=== PATIENT | female | born 1975 | race Caucasian/White ===

== ENCOUNTER 2020-11-10 16:23 | Emergency (ER) | payer OTHER ==
[2020-11-10] MEDS ORDERED: diphenhydrAMINE 50 MG/ML 1 ML VIAL IVP STA (16:56)
[2020-11-10] MEDS ORDERED: METOCLOPRAMIDE 5 MG/ML 2 ML VIAL IVP STA (16:56)
[2020-11-10] MEDS ORDERED: KETOROLAC 15 MG/ML 1 ML VIAL IVP STA (16:57)
[2020-11-10] MEDS ORDERED: MAGNESIUM SULFATE-D5W PMX 1 GM in DEXTROSE/WATER 1 100ML.BAG IVPB ONE (17:20)
[2020-11-10 17:30] VITALS: RESP 18
--- NOTE | 2020-11-10 17:33 | ED ---
Headache HPI - General Chief Complaint: Headache Stated Complaint: Head pain Time Seen by Provider: 11/10/20 16:44 Mode of arrival: ambulatory Limitations: no limitations - History of Present Illness Initial Comments: Patient is a 45-year-old female with history of recurrent migraines presenting to emergency Department with a chief complaint of a migraine. Patient reports having migraine for the past 4 days. He states this was a gradual onset and not worst headache of her leg. She does report nausea but no vomiting. She also reports photosensitivity. States this feels a typical migraine but it is not going away. States 4 days ago she saw her neurologist, , who administered a migraine cocktail with no significant improvement in symptoms. Patient states she has had multiple lumbar fractures and is scheduled to have another one soon by the neurologist. Patient also reports having multiple MRIs and CAT scans of the brain with no significant findings. Patient states that she's also had a temperature over the last 4 days but not today. - Related Data Home Medications Medication Instructions Recorded Confirmed Atorvastatin [Lipitor] 20 mg PO HS 10/07/14 10/07/14 Dextroamphetamine/Amphetamine 30 mg PO QAM 10/07/14 10/07/14 [Adderall Xr] FLUoxetine HCL 40 mg PO DAILY 10/07/14 10/07/14 Ibuprofen [Motrin] 800 mg PO Q8HR PRN 10/07/14 10/07/14 Loratadine [Claritin] 40 mg PO DAILY 10/07/14 10/07/14 Timolol 0.5% Ophth Soln [Timoptic] 1 drop BOTH EYES DAILY 10/07/14 10/07/14 hydroCHLOROthiazide [Hydrodiuril] 25 mg PO DAILY 10/07/14 10/07/14 metFORMIN HCL [Glucophage] 500 mg PO BID 10/07/14 10/07/14 Previous Rx's Medication Instructions Recorded Hydrocodone/Acetaminophen [[place] 1 each PO Q6HR PRN #30 tab 10/07/14 5-325] Ondansetron Odt [Zofran ODT] 4 mg PO Q8HR PRN #30 tab 10/07/14 Allergies Allergy/AdvReac Type Severity Reaction Status Date / Time ciprofloxacin [From Cipro] Allergy Rash/Hives Verified 11/10/20 16:30 ciprofloxacin HCl Allergy Rash/Hives Verified 11/10/20 16:30 [From Cipro] Sulfa (Sulfonamide Allergy Rash/Hives Verified 11/10/20 16:30 Antibiotics) Review of Systems ROS Statement: Those systems with pertinent positive or pertinent negative responses have been documented in the HPI. ROS Other: All systems not noted in ROS Statement are negative. Past Medical History Past Medical History: Diabetes Mellitus, Eye Disorder, Hyperlipidemia, Hypertension, Renal Disease Additional Past Medical History / Comment(s): GLAUCOMA; MIGRAINES History of Any Multi-Drug Resistant Organisms: None Reported Past Surgical History: Cholecystectomy Additional Past Surgical History / Comment(s): OVARY SURGERY; EYE SURGERY Past Psychological History: No Psychological Hx Reported Smoking Status: Never smoker Past Alcohol Use History: None Reported Past Drug Use History: None Reported General Exam Limitations: no limitations General appearance: alert, in no apparent distress Head exam: Present: atraumatic, normocephalic, normal inspection Eye exam: Present: normal appearance, PERRL, scleral icterus, conjunctival injection, nystagmus Pupils: Present: normal accommodation ENT exam: Present: normal exam, normal oropharynx, mucous membranes moist, TM's normal bilaterally, normal external ear exam Neck exam: Present: normal inspection, full ROM. Absent: tenderness (No tenderness around the neck. Negative Brudzinski sign.) Respiratory exam: Present: normal lung sounds bilaterally. Absent: respiratory distress, wheezes, rales Cardiovascular Exam: Present: regular rate, normal rhythm, normal heart sounds. Absent: systolic murmur, diastolic murmur GI/Abdominal exam: Present: soft. Absent: distended, tenderness, guarding, rebound Extremities exam: Present: normal inspection, full ROM, normal capillary refill. Absent: tenderness, pedal edema, joint swelling, calf tenderness Back exam: Present: normal inspection, full ROM. Absent: tenderness, CVA te nderness (R), CVA tenderness (L), muscle spasm, paraspinal tenderness, vertebral tenderness Neurological exam: Present: alert, oriented X3, CN II-XII intact, normal gait Psychiatric exam: Present: normal affect, normal mood Skin exam: Present: warm, dry, intact, normal color Course Vital Signs 11/10/20 11/10/20 11/10/20 16:26 17:27 19:03 Temperature 98.7 F 97.7 F Pulse Rate 104 H 90 90 Respiratory 20 18 18 Rate Blood Pressure 107/68 110/95 100/61 O2 Sat by Pulse 99 100 100 Oximetry 11/10/20 21:08 Temperature 97.6 F Pulse Rate 91 Respiratory 18 Rate Blood Pressure 120/81 O2 Sat by Pulse 98 Oximetry Medical Decision Making - Medical Decision Making 45 year old female with history of migraine headaches presenting to the emergency department with a chief complaint of a migraine. Physical examination is unremarkable. Patient did have photosensitivity along with some nausea. Patient was given antiemetics, IV fluids, magnesium, dexamethasone and analgesia. CBC CMP is unremarkable. Patient already received multiple MRIs and CTs of the head. CT imaging was discussed with patient, she declined. Patient has full range of motion in neck with mild tenderness. Negative Brudzinski sign. Meningitis very unlikely. On reevaluation, patient reports improvement in symptoms. She will also be discharged with a Tylenol 3 starter pack and some Zofran. Patient also passed a by mouth challenge in the ED. Return parameters were thoroughly discussed with patient is an attending ago. Case discussed with physician. - Lab Data Result diagrams: 11/10/20 17:15 11/10/20 17:15 Lab Results 11/10/20 11/10/20 Range/Units 17:15 17:15 WBC 9.1 (3.8-10.6) k/uL RBC 4.46 (3.80-5.40) m/uL Hgb 12.0 (11.4-16.0) gm/dL Hct 37.6 (34.0-46.0) % MCV 84.2 (80.0-100.0) fL MCH 26.9 (25.0-35.0) pg MCHC 31.9 (31.0-37.0) g/dL RDW 15.1 (11.5-15.5) % Plt Count 388 (150-450) k/uL MPV 7.8 Neutrophils % 63 % Lymphocytes % 28 % Monocytes % 3 % Eosinophils % 4 % Basophils % 1 % Neutrophils # 5.7 (1.3-7.7) k/uL Lymphocytes # 2.5 (1.0-4.8) k/uL Monocytes # 0.3 (0-1.0) k/uL Eosinophils # 0.4 (0-0.7) k/uL Basophils # 0.1 (0-0.2) k/uL Hypochromasia Slight Sodium 140 (137-145) mmol/L Potassium 4.0 (3.5-5.1) mmol/L Chloride 116 H (98-107) mmol/L Carbon Dioxide 15 L (22-30) mmol/L Anion Gap 9 mmol/L BUN 7 (7-17) mg/dL Creatinine 0.84 (0.52-1.04) mg/dL Est GFR (CKD-EPI)AfAm >90 (>60 ml/min/1.73 sqM) Est GFR (CKD-EPI)NonAf 84 (>60 ml/min/1.73 sqM) Glucose 127 H (74-99) mg/dL Calcium 9.3 (8.4-10.2) mg/dL Total Bilirubin 0.3 (0.2-1.3) mg/dL AST 21 (14-36) U/L ALT 21 (4-34) U/L Alkaline Phosphatase 144 H (38-126) U/L Total Protein 6.9 (6.3-8.2) g/dL Albumin 3.9 (3.5-5.0) g/dL Disposition Clinical Impression: Headache Disposition: HOME SELF-CARE Condition: Stable Instructions (If sedation given, give patient instructions): Acute Headache (ED) Additional Instructions: Take prescribed medication as directed. Follow with primary care physician. Return to emergency department if symptoms worsen. Is patient prescribed a controlled substance at d/c from ED?: No Referrals: Carol Hernandez MD [Primary Care Provider] - 1-2 days Time of Disposition: 20:49
[2020-11-10 17:35] LABS: Basophils # (A) 0.1 k/uL (0-0.2); Basophils % (A) 1 %; Eosinophils # (A) 0.4 k/uL (0-0.7); Eosinophils % (A) 4 %; HCT 37.6 % (34.0-46.0); Hypochromasia Slight; Lymphocytes # (A) 2.5 k/uL (1.0-4.8); Lymphocytes % (A) 28 %; MCH 26.9 pg (25.0-35.0); MCHC 31.9 g/dL (31.0-37.0); MCV 84.2 fL (80.0-100.0); Mean Platelet Volume 7.8; Monocytes # (A) 0.3 k/uL (0-1.0); Monocytes % (A) 3 %; Neutrophils # (A) 5.7 k/uL (1.3-7.7); Neutrophils % (A) 63 %; Platelet Count 388 k/uL (150-450); RBC 4.46 m/uL (3.80-5.40); RDW 15.1 % (11.5-15.5); WBC 9.1 k/uL (3.8-10.6)
[2020-11-10 17:44] LABS: ALT 21 U/L (4-34); AST 21 U/L (14-36); African American GFR (CKD) >90 (>60 ml/min/1.73 sqM); Albumin 3.9 g/dL (3.5-5.0); Alkaline Phosphatase 144 U/L (38-126); Anion Gap 9 mmol/L; Blood Urea Nitrogen 7 mg/dL (7-17); Calcium 9.3 mg/dL (8.4-10.2); Carbon Dioxide 15 mmol/L (22-30); Chloride 116 mmol/L (98-107); Glucose 127 mg/dL (74-99); Non-African American GFR(CKD) 84 (>60 ml/min/1.73 sqM); Sodium 140 mmol/L (137-145); Total Bilirubin 0.3 mg/dL (0.2-1.3); Total Protein 6.9 g/dL (6.3-8.2)
[2020-11-10] MEDS ORDERED: DEXAMETHASONE SOD PHOSPHATE 10 MG/ML 1 ML VIAL IV STA (18:37)
[2020-11-10] MEDS: HYDROmorphone 1 MG/ML 1 ML SYRINGE IVP STA ×2 (18:53→19:03)
[2020-11-10] MEDS ORDERED: SODIUM CHLORIDE 0.9% 1,000 ML IV STA (19:00)
[2020-11-10] MEDS ORDERED: HYDROmorphone 1 MG/ML 1 ML SYRINGE IM STA (19:44)
[2020-11-10] MEDS ORDERED: ACET/COD 300 MG/30 MG STARTER PACK 6 TAB BTL PO STA (20:50)
[2020-11-10 21:09] VITALS: BP 120/81; PULSE 91; TEMP 97.6
== END 2020-11-10 21:11 | disposition home or self-care (01) ==
LOC: EC 16:23
DX: R51.9 Headache, unspecified (principal); L56.8 Other specified acute skin changes due to ultraviolet radiation; R11.0 Nausea; I10 Essential (primary) hypertension; E78.5 Hyperlipidemia, unspecified; E11.39 Type 2 diabetes mellitus with other diabetic ophthalmic complication; H42 Glaucoma in diseases classified elsewhere; Z79.899 Other long term (current) drug therapy; Z79.84 Long term (current) use of oral hypoglycemic drugs; Z88.1 Allergy status to other antibiotic agents; Z88.2 Allergy status to sulfonamides
CPT/HCPCS: 36415; 80053; 85025; 99283; 96365; 96375 ×4; 96361; 96372; J1200; J1100; J2765; J1170; J3475; J1885

== ENCOUNTER 2021-01-19 03:31 | Inpatient (IN) | payer OTHER ==
[2021-01-19] MEDS ORDERED: METOCLOPRAMIDE 5 MG/ML 2 ML VIAL IVP STA (03:52)
[2021-01-19] MEDS ORDERED: KETOROLAC 15 MG/ML 1 ML VIAL IVP STA (03:52)
[2021-01-19] MEDS ORDERED: acetaZOLAMIDE 250 MG TAB PO STA (03:52)
[2021-01-19] MEDS ORDERED: diphenhydrAMINE 50 MG/ML 1 ML VIAL IVP STA (03:52)
[2021-01-19] MEDS ORDERED: HYDROmorphone 1 MG/ML 1 ML SYRINGE IVP STA ×3 (04:43→10:23)
[2021-01-19] MEDS ORDERED: methylPREDNISolone SOD SUCCI 125 MG/2 ML VIAL IV STA (04:44)
--- NOTE | 2021-01-19 09:06 | CT ---
EXAMINATION TYPE: CT brain wo con DATE OF EXAM: 01/19/2021 COMPARISON: None HISTORY: Migraine for [address] DLP: 1078.4 mGycm. Automated Exposure Control for Dose Reduction was Utilized. TECHNIQUE: CT scan of the head is performed without contrast. FINDINGS: There is no acute intracranial hemorrhage, mass effect, or midline shift identified. The ventricles and sulci are within normal limits in size. The globes are intact and the visualized sin uses are remarkable for mild inflammatory change, possible mucus retention cyst right maxillary sinus . Cerebellar tonsils extend to the level the foramen magnum. Inferior right orbit shows possible post traumatic change, there is an incomplete appearance at the medial aspect, likely postop changes, adeel elate for appropriate history. Question some mild white matter low-attenuation changes. IMPRESSION: No acute intracranial hemorrhage, mass effect, or midline shift is seen. Cerebellar tons ils extend to the level of the foramen magnum. Findings in the right orbit as described, possible dem yelination change.
--- NOTE | 2021-01-19 10:26 | ED ---
Headache HPI - General Chief Complaint: Headache Stated Complaint: Headache Time Seen by Provider: 01/19/21 03:36 Mode of arrival: EMS Limitations: no limitations - History of Present Illness Initial Comments: This patient is a 45-year-old woman who presents to be evaluated for severe headache that is not improving with her home analgesics. The patient states that she has a problem with what she is referring to as an obstruction. She states that she is scheduled to see a neurosurgeon in late January, to have consultation for shunt placement. The patient states that she usually sees Dr. Romero who manages her headaches, but she was not able to get an appointment for over 6 weeks from now. She had tried being seen at another hospital, but states they did not treat her. Patient denies fever or chills. No neck stiffness. She does have some blurred vision. No other neurologic symptoms. She states that she has had probably 10 lumbar punctures in the past for these headaches and that usually gives her relief. MD Complaint: headache -: week(s) Onset Description: gradual Location: diffuse Severity: severe Severity scale (1-10): 10 Quality: constant, similar to previous headaches Consistency: constant Improves With: nothing Worsens With: light, noise Treatments Prior to Arrival: prescription analgesic - Related Data Home Medications Medication Instructions Recorded Confirmed Atorvastatin [Lipitor] 20 mg PO DAILY 10/07/14 01/19/21 Dextroamphetamine/Amphetamine 30 mg PO QAM 10/07/14 01/19/21 [Adderall Xr] FLUoxetine HCL 40 mg PO DAILY 10/07/14 01/19/21 Ibuprofen [Motrin] 800 mg PO Q8HR PRN 10/07/14 01/19/21 Loratadine [Claritin] 10 mg PO DAILY 10/07/14 01/19/21 Timolol 0.5% Ophth Soln [Timoptic] 1 drop LEFT EYE DAILY 10/07/14 01/19/21 Acyclovir 400 mg PO DAILY 01/19/21 01/19/21 Butalb/APAP/Caff 50-325-40Mg 1 tab PO TID PRN 01/19/21 01/19/21 [Fioricet 50-325-40] Cephalexin [Keflex] 500 mg PO QID 01/19/21 01/19/21 Cyclobenzaprine [Flexeril] 10 mg PO HS PRN 01/19/21 01/19/21 Fluticasone Nasal [place] [Flonase 1 spr EA NOSTRIL BID PRN 01/19/21 01/19/21 Nasal [place]] Pantoprazole [Protonix] 40 mg PO DAILY 01/19/21 01/19/21 acetaZOLAMIDE [acetaZOLAMIDE ER] 500 mg PO BID 01/19/21 01/19/21 amLODIPine [Norvasc] 10 mg PO DAILY 01/19/21 01/19/21 busPIRone HCL 15 mg PO BID 01/19/21 01/19/21 glyBURIDE [Diabeta] 5 mg PO AC-BID 01/19/21 01/19/21 Allergies Allergy/AdvReac Type Severity Reaction Status Date / Time ciprofloxacin [From Cipro] Allergy Rash/Hives Verified 01/19/21 08:03 ciprofloxacin HCl Allergy Rash/Hives Verified 01/19/21 08:03 [From Cipro] Sulfa (Sulfonamide Allergy Rash/Hives Verified 01/19/21 08:03 Antibiotics) Review of Systems ROS Statement: Those systems with pertinent positive or pertinent negative responses have been documented in the HPI. ROS Other: All systems not noted in ROS Statement are negative. Constitutional: Denies: fever, chills, weakness Eyes: Reports: vision change ENT: Denies: ear pain, congestion Respiratory: Denies: cough, dyspnea Cardiovascular: Denies: chest pain, palpitations Gastrointestinal: Denies: abdominal pain, vomiting, diarrhea Genitourinary: Denies: dysuria, hematuria Musculoskeletal: Denies: back pain Skin: Denies: rash Neurological: Reports: headache. Denies: weakness, numbness, paresthesias, confusion, vertigo Psychiatric: Denies: anxiety Hematological/Lymphatic: Denies: easy bleeding Past Medical History Past Medical History: Diabetes Mellitus, Eye Disorder, Hyperlipidemia, Hypertension, Renal Disease Additional Past Medical History / Comment(s): GLAUCOMA; MIGRAINES History of Any Multi-Drug Resistant Organisms: C-DIFF Date of last positivie culture/infection: May 2019 Past Surgical History: Cholecystectomy Additional Past Surgical History / Comment(s): OVARY SURGERY; EYE SURGERY Past Psychological History: No Psychological Hx Reported, Depression Smoking Status: Never smoker Past Alcohol Use History: None Reported Past Drug Use History: None Reported General Exam Limitations: no limitations General appearance: alert, in no apparent distress Head exam: Present: atraumatic, normocephalic Eye exam: Present: normal appearance. Absent: scleral icterus, conjunctival injection Pupils: Present: other (Unable to visualize fundus) ENT exam: Present: normal oropharynx Neck exam: Present: normal inspection, full ROM. Absent: tenderness, meningis mus Respiratory exam: Present: normal lung sounds bilaterally. Absent: respiratory distress, wheezes, rales, rhonchi, stridor Cardiovascular Exam: Present: regular rate, normal rhythm, normal heart sounds. Absent: systolic murmur, diastolic murmur, rubs, gallop GI/Abdominal exam: Present: soft. Absent: distended, tenderness, guarding, rebound, rigid, mass Extremities exam: Present: normal inspection, normal capillary refill. Absent: pedal edema, calf tenderness Back exam: Present: normal inspection. Absent: CVA tenderness (R), CVA tenderness (L) Neurological exam: Present: alert Skin exam: Present: warm, dry, intact, normal color. Absent: rash Course Vital Signs 01/19/21 01/19/21 01/19/21 03:33 06:54 10:43 Temperature 98.3 F Pulse Rate 92 96 102 H Respiratory 16 18 18 Rate Blood Pressure 134/83 131/79 128/81 O2 Sat by Pulse 100 98 98 Oximetry Medical Decision Making - Medical Decision Making Patient's 45-year-old woman with intractable headache. She does see Dr. Romero and I did call and speak with him. One of his MAs did confirm that patient has history of diagnosis of pseudotumor cerebri. Patient had multiple rounds of medications still complaining of intractable severe headache. Case then discussed with neurology who requests consult to anesthesiology for lumbar puncture. Disposition Clinical Impression: Headache, Pseudotumor cerebri Dis[facility] Condition: Fair Instructions (If sedation given, give patient instructions): Acute Headache (ED) Is patient prescribed a controlled substance at d/c from ED?: No Referrals: Carol Hernandez MD [Primary Care Provider] - 1-2 days Jorge A Romero MD [Medical Doctor] - 1-2 days
[2021-01-19] MEDS ORDERED: NALOXONE 0.4 MG/ML 1 ML VIAL IV PRN (11:01)
[2021-01-19] MEDS: ONDANSETRON 4 MG/2 ML VIAL IVP PRN (12:10)
[2021-01-19] MEDS: HYDROmorphone 0.5 MG/0.5 ML SYRINGE IVP PRN ×4 (14:51→23:48)
[2021-01-19] MEDS ORDERED: PROCHLORPERAZINE INJ 10 MG/2 ML VIAL IVP PRN (15:31)
[2021-01-19] MEDS ORDERED: CYCLOBENZAPRINE 10 MG TAB PO PRN (15:33)
--- NOTE | 2021-01-19 15:41 | P.HPIM ---
History of Present Illness 45-year-old female came in with compensative severe headaches in the posterior scalp area. Patient's headache is constant has been going on for last couple days much worse. Patient the head diagnosis of pseudotumor cerebra supposed to see a neurosurgeon for [employer] shunt. Patient is on acetazolamide I do not have name basic metabolic profile available patient was also told she has migraine/cluster headaches. Patient had lumbar purges in the past. Patient denied any fever chills. She denied nausea vomiting or like symptom or weakness at this time. Patient denied any photophobia or phonophobia. Review of Systems REVIEW OF SYSTEMS: CONSTITUTIONAL: No fever, no malaise, no fatigue. HEENT: No recent visual problems or hearing problems. Denied any sore throat. CARDIOVASCULAR: No chest pain, orthopnea, PND, no palpitations, no syncope. PULMONARY: No shortness of breath, no cough, no hemoptysis. GASTROINTESTINAL: No diarrhea, no nausea, no vomiting, no abdominal pain. NEUROLOGICAL: no weakness, no numbness. HEMATOLOGICAL: Denies any bleeding or petechiae. GENITOURINARY: Denies any burning micturition, frequency, or urgency. MUSCULOSKELETAL/RHEUMATOLOGICAL: Denies any joint pain, swelling, or any muscle pain. ENDOCRINE: Denies any polyuria or polydipsia. The rest of the 14-point review of systems is negative. Past Medical History Past Medical History: Diabetes Mellitus, Eye Disorder, Hyperlipidemia, Hypertension, Renal Disease Additional Past Medical History / Comment(s): GLAUCOMA; MIGRAINES History of Any Multi-Drug Resistant Organisms: C-DIFF Date of last positivie culture/infection: May 2019 Past Surgical History: Cholecystectomy Additional Past Surgical History / Comment(s): OVARY SURGERY; EYE SURGERY Past Psychological History: No Psychological Hx Reported, Depression Smoking Status: Never smoker Past Alcohol Use History: None Reported Past Drug Use History: None Reported Medications and Allergies Home Medications Medication Instructions Recorded Confirmed Type Atorvastatin [Lipitor] 20 mg PO DAILY 10/07/14 01/19/21 History Dextroamphetamine/Amphetamine 30 mg PO QAM 10/07/14 01/19/21 History [Adderall Xr] FLUoxetine HCL 40 mg PO DAILY 10/07/14 01/19/21 History Ibuprofen [Motrin] 800 mg PO Q8HR PRN 10/07/14 01/19/21 History Loratadine [Claritin] 10 mg PO DAILY 10/07/14 01/19/21 History Timolol 0.5% Ophth Soln [Timoptic] 1 drop LEFT EYE DAILY 10/07/14 01/19/21 History Acyclovir 400 mg PO DAILY 01/19/21 01/19/21 History Butalb/APAP/Caff 50-325-40Mg 1 tab PO TID PRN 01/19/21 01/19/21 History [Fioricet 50-325-40] Cephalexin [Keflex] 500 mg PO QID 01/19/21 01/19/21 History Cyclobenzaprine [Flexeril] 10 mg PO HS PRN 01/19/21 01/19/21 History Fluticasone Nasal [place] [Flonase 1 spr EA NOSTRIL BID PRN 01/19/21 01/19/21 History Nasal [place]] Pantoprazole [Protonix] 40 mg PO DAILY 01/19/21 01/19/21 History acetaZOLAMIDE [acetaZOLAMIDE ER] 500 mg PO BID 01/19/21 01/19/21 History amLODIPine [Norvasc] 10 mg PO DAILY 01/19/21 01/19/21 History busPIRone HCL 15 mg PO BID 01/19/21 01/19/21 History glyBURIDE [Diabeta] 5 mg PO AC-BID 01/19/21 01/19/21 History Allergies Allergy/AdvReac Type Severity Reaction Status Date / Time ciprofloxacin [From Cipro] Allergy Rash/Hives Verified 01/19/21 08:03 ciprofloxacin HCl Allergy Rash/Hives Verified 01/19/21 08:03 [From Cipro] Sulfa (Sulfonamide Allergy Rash/Hives Verified 01/19/21 08:03 Antibiotics) Physical Exam Vitals: Vital Signs Temp Pulse Resp BP Pulse Ox 01/19/21 14:55 98.4 F 100 16 102/71 96 01/19/21 11:16 98.6 F 105 H 18 114/97 96 01/19/21 10:43 102 H 18 128/81 98 01/19/21 06:54 96 18 131/79 98 01/19/21 03:33 98.3 F 92 16 134/83 100 Intake and Output 01/19/21 01/19/21 01/19/21 06:59 14:59 22:59 Other: Weight 90.718 kg PHYSICAL EXAMINATION: GENERAL: The patient is alert and oriented x3, not in any acute distress. Well developed, well nourished. HEENT: Pupils are round and equally reacting to light. EOMI. No scleral icterus. No conjunctival pallor. Normocephalic, atraumatic. No pharyngeal erythema. No thyromegaly. CARDIOVASCULAR: S1 and S2 present. No murmurs, rubs, or gallops. PULMONARY: Chest is clear to auscultation, no wheezing or crackles. ABDOMEN: Soft, nontender, nondistended, normoactive bowel sounds. No palpable organomegaly. MUSCULOSKELETAL: No joint swelling or deformity. EXTREMITIES: No cyanosis, clubbing, or pedal edema. NEUROLOGICAL: Gross neurological examination did not reveal any focal deficits. SKIN: No rashes. Assessment and Plan Plan: -History of headache: Patient had history of pseudotumor cerebri may need an LP with opening pressure and also drainage of some CSF patient was started on acetazolamide. Unsure whether patient has history of migraine. Neurology will be consulted patient will be started on Compazine for migraine along with Benadryl to avoid side effects from migraine along with nonsteroidal anti- inflammatory started having. -Depression -hyperlipidemia -Hypertension -Type 2 diabetes mellitus -DVT prophylaxis early ambulation
[2021-01-19] MEDS: SODIUM CHLORIDE 0.9% 1,000 ML IV SCH (16:11)
[2021-01-19 16:19] LABS: African American GFR (CKD) >90 (>60 ml/min/1.73 sqM); Anion Gap 12 mmol/L; Blood Urea Nitrogen 9 mg/dL (7-17); Carbon Dioxide 14 mmol/L (22-30); Chloride 113 mmol/L (98-107); Glucose 223 mg/dL (74-99); Non-African American GFR(CKD) >90 (>60 ml/min/1.73 sqM); Sodium 139 mmol/L (137-145)
[2021-01-19] MEDS: TIMOLOL 0.5% OPHTH DROPS 5 ML BTL LEFT EYE SCH (18:35)
[2021-01-19 20:21] LABS: Glucose,Whole Blood 193 mg/dL (75-99)
[2021-01-19] MEDS ORDERED: FAMOTIDINE 20 MG TAB PO SCH (21:00)
[2021-01-19] MEDS: acetaZOLAMIDE 250 MG TAB PO SCH (21:02)
[2021-01-19] MEDS: busPIRone HCl 5 MG TAB PO SCH (21:02)
[2021-01-19] MEDS: glipiZIDE 10 MG TAB PO SCH (21:02)
[2021-01-19] MEDS: KETOROLAC 15 MG/ML 1 ML VIAL IVP PRN (23:56)
[2021-01-20] MEDS: HYDROmorphone 0.5 MG/0.5 ML SYRINGE IVP PRN ×6 (02:55→23:41)
[2021-01-20] MEDS: KETOROLAC 15 MG/ML 1 ML VIAL IVP PRN ×4 (05:56→23:41)
[2021-01-20] MEDS: glipiZIDE 10 MG TAB PO SCH ×2 (06:40→17:55)
[2021-01-20 07:13] LABS: Glucose,Whole Blood 146 mg/dL (75-99)
[2021-01-20] MEDS: acetaZOLAMIDE 250 MG TAB PO SCH ×2 (08:10→20:49)
[2021-01-20] MEDS: ATORVASTATIN 20 MG TAB PO SCH (08:10)
[2021-01-20] MEDS: ACYCLOVIR 200 MG CAP PO SCH (08:10)
[2021-01-20] MEDS: FLUoxetine HCL 20 MG CAP PO SCH (08:10)
[2021-01-20] MEDS: PANTOPRAZOLE 40 MG/10 ML VIAL IV SCH (08:10)
[2021-01-20] MEDS: busPIRone HCl 5 MG TAB PO SCH ×2 (08:10→20:49)
[2021-01-20] MEDS: LORATADINE 10 MG TAB PO SCH (08:10)
[2021-01-20] MEDS: TIMOLOL 0.5% OPHTH DROPS 5 ML BTL LEFT EYE SCH (08:11)
--- NOTE | 2021-01-20 09:59 | P.CNNES ---
History of Present Illness Consult date: 01/19/21 Requesting physician: Fabian Bermudez Reason for Consult: Migraine History of Present Illness: Patient is a 45-year-old female, who has history of headaches since she was a "kid". Patient states that she underwent partial hysterectomy 2 years ago after which her headaches became worse. He started seeing Dr. Ngo in about a year ago she was diagnosed with pseudotumor cerebri. Patient states that when she underwent lumbar puncture the first time, the pressure was "off the chart", and she uses the #194, which I'm not sure indicates centimeter or millimeter. Patient states that in the last 1 year she had 10 times lumbar puncture and each time the pressure was high. If the pressure was low, it was because the needle was not positioned correctly. Patient states that sometimes headaches improve significantly after the lumbar puncture but not every time. Patient has been placed on Diamox 250 mg twice a day but recently the dose was increased to 500 mg twice a day. Patient states that she is being considered for one of the shunting procedure for her intractable headaches and pseudotumor. Patient states that she was seen by an sweeper driver, and she does not have glaucoma. Patient has previously failed Permax 50 mg twice a day. She now takes Fioricet as needed. The headache at present involves the back of the head or top of the head and she rates it 9/10. She gets nausea, occasional vomiting. She gets photophobic and phonophobic. She does see little black dots in her vision or dots of other colors. Patient states that she had a couple syncopal spells as well in the past from headache, but has not happened for the last 7-8 months. She had EEG performed at her primary neurologist office which according to her were normal. Patient states the headaches are very severe, rates 9/10. With Dilaudid, it goes down to 8/10 but does not take the headache away. Patient became emotional talking about her headache. Patient states that as her headaches were getting worse, she wanted to see her neurologist for lumbar puncture but they did not have time available therefore patient was referred to ER. Patient denies any taking control pills. She does not smoke does not drink, occasionally drinks a glass of wine. CT head showed no acute intracranial hemorrhage, mass effect or midline shift. Cerebellar tonsils extend to the level of foramen magnum. Findings in the right orbit as described, possible postop change. Patient's blood test shows normal electrolytes, chloride is slightly elevated BUN 13. Renal functions normal. Glucose is elevated. Hepatic panel normal. Harish acuna's last spinal fluid from 10/30/2019 shows 8 RBC, 0 WBC, total protein 37. Richard virus not detected. Review of Systems As above in detail. All other 14 point of review systems reviewed and unremarkable. Past Medical History Past Medical History: Diabetes Mellitus, Eye Disorder, Hypertension, Renal Disease Additional Past Medical History / Comment(s): GLAUCOMA; MIGRAINES History of Any Multi-Drug Resistant Organisms: None Reported Date of last positivie culture/infection: May 2019 Past Surgical History: Cholecystectomy, Hysterectomy Additional Past Surgical History / Comment(s): OVARY SURGERY; EYE SURGERY Past Anesthesia/Blood Transfusion Reactions: Postoperative Nausea & Vomiting (PONV) Past Psychological History: No Psychological Hx Reported, Depression Smoking Status: Never smoker Past Alcohol Use History: None Reported Past Drug Use History: None Reported - Past Family History Mother Family Medical History: COPD, Diabetes Mellitus Father Family Medical History: Coronary Artery Disease (CAD), Diabetes Mellitus Additional Family Medical History / Comment(s): dad Medications and Allergies Home Medications Medication Instructions Recorded Confirmed Type Atorvastatin [Lipitor] 20 mg PO DAILY 10/07/14 01/19/21 History Dextroamphetamine/Amphetamine 30 mg PO QAM 10/07/14 01/19/21 History [Adderall Xr] FLUoxetine HCL 40 mg PO DAILY 10/07/14 01/19/21 History Ibuprofen [Motrin] 800 mg PO Q8HR PRN 10/07/14 01/19/21 History Loratadine [Claritin] 10 mg PO DAILY 10/07/14 01/19/21 History Timolol 0.5% Ophth Soln [Timoptic] 1 drop LEFT EYE DAILY 10/07/14 01/19/21 History Acyclovir 400 mg PO DAILY 01/19/21 01/19/21 History Butalb/APAP/Caff 50-325-40Mg 1 tab PO TID PRN 01/19/21 01/19/21 History [Fioricet 50-325-40] Cephalexin [Keflex] 500 mg PO QID 01/19/21 01/19/21 History Cyclobenzaprine [Flexeril] 10 mg PO HS PRN 01/19/21 01/19/21 History Fluticasone Nasal Frederick [Flonase 1 spr EA NOSTRIL BID PRN 01/19/21 01/19/21 History Nasal Frederick] Pantoprazole [Protonix] 40 mg PO DAILY 01/19/21 01/19/21 History acetaZOLAMIDE [acetaZOLAMIDE ER] 500 mg PO BID 01/19/21 01/19/21 History amLODIPine [Norvasc] 10 mg PO DAILY 01/19/21 01/19/21 History busPIRone HCL 15 mg PO BID 01/19/21 01/19/21 History glyBURIDE [Diabeta] 5 mg PO AC-BID 01/19/21 01/19/21 History Allergies Allergy/AdvReac Type Severity Reaction Status Date / Time ciprofloxacin [From Cipro] Allergy Rash/Hives Verified 01/19/21 08:03 ciprofloxacin HCl Allergy Rash/Hives Verified 01/19/21 08:03 [From Cipro] Sulfa (Sulfonamide Allergy Rash/Hives Verified 01/19/21 08:03 Antibiotics) Physical Examination - Vital Signs Vital Signs: Vital Signs Temp Pulse Pulse Resp BP BP Pulse Ox 01/19/21 17:52 98.5 F 93 16 116/77 95 01/19/21 17:30 98.0 F 90 16 119/78 96 01/19/21 14:55 98.4 F 100 16 102/71 96 01/19/21 11:16 98.6 F 105 H 18 114/97 96 01/19/21 10:43 102 H 18 128/81 98 01/19/21 06:54 96 18 131/79 98 01/19/21 03:33 98.3 F 92 16 134/83 100 Intake and Output 01/19/21 01/19/21 01/19/21 06:59 14:59 22:59 Other: Weight 90.718 kg 96.8 kg On examination patient is a middle aged female, very pleasant, in no acute distress. Patient is obese. Speech and language functions are normal. Attention, concentration and fund of knowledge is adequate. On cranial nerve examination pupils are round and reactive to light, visual rodriguez are full, extraocular muscles are intact with no nystagmus. Face is symmetric, tongue protrudes to the midline. Palatal elevation sensation normal, hearing and shoulder shrug normal. On muscle strength testing there is no pronator drift and the strength is normal in arms and legs distally and proximally. Deep tendon reflexes are 2+ all over and plantars are downgoing. Sensory touch is equal. No ataxia for [id number] or [id number] testing, tone and bulk of muscles normal. Gait normal. On general examination is dear is no carotid bruit or murmur, peripheral pulses are present. Abdomen soft nontender, chest is clear. No peripheral edema. Results - Laboratory Findings CBC and BMP: 01/19/21 16:00 Abnormal Lab Findings: Abnormal Labs 01/19/21 16:00 Chloride 113 H Carbon Dioxide 14 L Glucose 223 H Assessment and Plan Assessment: * Chronic daily headaches. Pseudotumor cerebri. * Diabetes Plan: * Patient will undergo diagnostic and therapeutic lumbar puncture tomorrow. Opening and closing pressure needs to be checked. Spinal fluid will be sent for basic testing. * Continue Diamox 500 mg twice a day. * Continue Fioricet as stated. * Patient at present on Dilaudid for headache control. * Patient after lumbar puncture could be potentially discharged and follow up with her neurologist.
[2021-01-20 12:02] LABS: Glucose,Whole Blood 159 mg/dL (75-99)
[2021-01-20] MEDS: SODIUM CHLORIDE 0.9% 1,000 ML IV SCH (12:37)
[2021-01-20] MEDS: INSULIN ASPART (NovoLOG) 100 UNIT/ML VIAL SQ SCH ×3 (12:38→20:54)
[2021-01-20 12:45] LABS: Anisocytosis Slight; Basophils % (A) 1 %; Eosinophils # (A) 0.2 k/uL (0-0.7); Eosinophils % (A) 2 %; HCT 34.2 % (34.0-46.0); HGB 10.8 gm/dL (11.4-16.0); Hypochromasia Moderate; Lymphocytes # (A) 2.4 k/uL (1.0-4.8); Lymphocytes % (A) 33 %; MCH 26.9 pg (25.0-35.0); MCHC 31.6 g/dL (31.0-37.0); MCV 85.2 fL (80.0-100.0); Mean Platelet Volume 7.9; Monocytes # (A) 0.4 k/uL (0-1.0); Monocytes % (A) 5 %; Neutrophils # (A) 4.2 k/uL (1.3-7.7); Neutrophils % (A) 58 %; Platelet Count 397 k/uL (150-450); RBC 4.01 m/uL (3.80-5.40); RDW 16.1 % (11.5-15.5); WBC 7.2 k/uL (3.8-10.6)
[2021-01-20 13:01] LABS: African American GFR (CKD) >90 (>60 ml/min/1.73 sqM); Anion Gap 11 mmol/L; Blood Urea Nitrogen 10 mg/dL (7-17); Calcium 8.7 mg/dL (8.4-10.2); Carbon Dioxide 16 mmol/L (22-30); Chloride 114 mmol/L (98-107); Glucose 152 mg/dL (74-99); Non-African American GFR(CKD) >90 (>60 ml/min/1.73 sqM); Potassium 3.9 mmol/L (3.5-5.1); Sodium 141 mmol/L (137-145)
--- NOTE | 2021-01-20 13:44 | P.PN ---
Subjective Progress Note Date: 01/20/21 45-year-old female came in with compensative severe headaches in the posterior scalp area. Patient's headache is constant has been going on for last couple days much worse. Patient the head diagnosis of pseudotumor cerebra supposed to see a neurosurgeon for DRUM STENCILER shunt. Patient is on acetazolamide I do not have name basic metabolic profile available patient was also told she has migraine/cluster headaches. Patient had lumbar purges in the past. Patient denied any fever chills. She denied nausea vomiting or like symptom or weakness at this time. Patient denied any photophobia or phonophobia. 01/20/2021 Patient is seen and evaluated and follow-up continues to have headache with some intermittent nausea and currently awaiting to undergo lumbar puncture with neurology. Patient does follow-up with neurosurgeon Dr. Loja out of [place] and is awaiting to undergo DRUM STENCILER shunt in the near future. Patient does follow with Dr. Romero outpatient neurology. Labs within normal limits today. Blood sugars elevated and will start sliding scale monitor Accu-Cheks before meals at bedtime. Review of systems: Constitutional: No reports of fatigue, fever, or chills Cardiovascular: No reports of chest pain or palpitations Respiratory: No reports of shortness of breath or cough GI: Intermittent nausea, vomiting, or diarrhea : No reports of dysuria or retention Neurovascular: No reports of weakness or numbness, reports continued headache and light sensitivity All medications have been reviewed Objective - Vital Signs Vital signs: Vital Signs Temp 97.6 F 01/20/21 08:05 Pulse 98 01/20/21 08:05 Resp 16 01/20/21 08:05 BP 116/74 01/20/21 08:05 Pulse Ox 96 01/20/21 08:05 Intake & Output 01/19/21 01/20/21 01/20/21 18:59 06:59 18:59 Intake Total 0 0 Balance 0 0 Weight 96.8 kg Intake: Oral 0 0 Other: Voiding Method Toilet # Voids 1 1 - Exam GENERAL: The patient is alert and oriented x3, not in any acute distress. Well developed, well nourished. HEENT: Pupils are round and equally reacting to light. EOMI. No scleral icterus. No conjunctival pallor. Normocephalic, atraumatic. No pharyngeal erythema. No thyromegaly. CARDIOVASCULAR: S1 and S2 present. No murmurs, rubs, or gallops. PULMONARY: Chest is clear to auscultation, no wheezing or crackles. ABDOMEN: Soft, nontender, nondistended, normoactive bowel sounds. No palpable organomegaly. MUSCULOSKELETAL: No joint swelling or deformity. EXTREMITIES: No cyanosis, clubbing, or pedal edema. NEUROLOGICAL: Gross neurological examination did not reveal any focal deficits. SKIN: No rashes. - Labs CBC & Chem 7: 01/20/21 12:16 01/20/21 12:16 Labs: Abnormal Lab Results - Last 24 Hours (Table) 01/19/21 01/19/21 01/20/21 Range/Units 16:00 20:20 07:11 Chloride 113 H (98-107) mmol/L Carbon Dioxide 14 L (22-30) mmol/L Glucose 223 H (74-99) mg/dL POC Glucose (mg/dL) 193 H 146 H (75-99) mg/dL Assessment and Plan Assessment: -History of headache: Patient had history of pseudotumor cerebri may need an LP with opening pressure and also drainage of some CSF patient was started on acetazolamide. Unsure whether patient has history of migraine. Neurology following and patient awaiting to undergo LP -Depression -hyperlipidemia -Hypertension -Type 2 diabetes mellitus, elevated blood sugars today will continue to monitor Accu-Cheks before meals at bedtime and start sliding scale -DVT prophylaxis early ambulation Plan: Continue with current medications, avoid IV narcotics and continue with migraine cocktail. Patient awaiting LP and will await report. Neurology following. Patient also instructed to continue following outpatient with neurosurgeon Dr. Loja of [place] as she is expected to be having a DRUM STENCILER shunt placed. Patient does follow with Dr. Romero outpatient. Will discontinue IV fluids once diet has been restarted
[2021-01-20] MEDS ORDERED: IV FLUID CONTINUATION 1,000 ML IV ONE (15:28)
[2021-01-20] MEDS ORDERED: fentaNYL (PF) 50 MCG/ML 2 ML AMP IVP ONE (15:33)
[2021-01-20] MEDS ORDERED: MIDAZOLAM 2 MG/2 ML VIAL IVP ONE (15:34)
[2021-01-20 16:43] LABS: Appearance,CSF Clear; CSF Tube Number 4; CSF Tube Volume 3
[2021-01-20 16:44] LABS: Nucleated Cells, CSF 0 u/L (0-5); Red Blood Cell,CSF 0 u/L (0-10)
[2021-01-20 16:52] LABS: Glucose,CSF 94 mg/dL (40-70); Total Protein,CSF 49 mg/dL (12-60)
[2021-01-20 17:32] LABS: Glucose,Whole Blood 123 mg/dL (75-99)
--- NOTE | 2021-01-20 19:28 | P.PCN ---
Date of Procedure: 01/20/21 Procedure(s) Performed: Preoperative diagnosis: Pseudotumor cerebre Post operative diagnoses: Pseudotumor cerebri Procedure= lumbar puncture Anesthesia local infiltration with lidocaine 1% 2 mL. and Versed 2 mg and fentanyl 50 g Condition: stable Complication: none. Description of the procedure procedure risk and benefits discussed with the patient , consent signed. Patient and the procedure area placed in lateral position ( right side down ), back prepped with chlorhexidine 3 times been local infiltration of the skin and subcutaneous tissue with lidocaine 1% 3 mL for skin and subcu interstitial frustrations at L4- 5 levels then 20-gauge Quincke-type needle advanced slowly at L4- 5 interlaminar space there was positive cerebrospinal fluid which was clear, no heme, no paresthesia ,total of 14 ML of clear cerebrospinal fluid collected in 4 different tubes 3-3-1/2 mL in each, then the needle removed and a Band-Aid applied and patient tolerated the procedure well without any complications. Opening pressure= 43 cm water. Closing pressure =after removal of 14 ML of cerebrospinal fluid dropped to 24 cm of water
[2021-01-20] MEDS: MORPHINE SULFATE 4 MG/ML SYRINGE IV PRN (20:49)
[2021-01-20 21:04] LABS: Glucose,Whole Blood 151 mg/dL (75-99)
[2021-01-20 21:53] LABS: Hemoglobin A1C 6.6 % (4.0-6.0)
[2021-01-21] MEDS: MORPHINE SULFATE 4 MG/ML SYRINGE IV PRN ×2 (02:26→08:05)
[2021-01-21] MEDS: HYDROmorphone 0.5 MG/0.5 ML SYRINGE IVP PRN ×2 (05:56→11:58)
[2021-01-21] MEDS: KETOROLAC 15 MG/ML 1 ML VIAL IVP PRN ×2 (05:56→11:59)
[2021-01-21 06:50] LABS: Glucose,Whole Blood 140 mg/dL (75-99)
[2021-01-21] MEDS: glipiZIDE 10 MG TAB PO SCH (07:33)
[2021-01-21] MEDS: INSULIN ASPART (NovoLOG) 100 UNIT/ML VIAL SQ SCH ×2 (07:33→13:16)
[2021-01-21] MEDS: PANTOPRAZOLE 40 MG/10 ML VIAL IV SCH (07:51)
[2021-01-21] MEDS: busPIRone HCl 5 MG TAB PO SCH (07:52)
[2021-01-21] MEDS: FLUoxetine HCL 20 MG CAP PO SCH (07:52)
[2021-01-21] MEDS: ATORVASTATIN 20 MG TAB PO SCH (07:53)
[2021-01-21] MEDS: LORATADINE 10 MG TAB PO SCH (07:53)
[2021-01-21] MEDS: TIMOLOL 0.5% OPHTH DROPS 5 ML BTL LEFT EYE SCH (07:53)
[2021-01-21] MEDS: acetaZOLAMIDE 250 MG TAB PO SCH (07:54)
[2021-01-21] MEDS: ONDANSETRON 4 MG/2 ML VIAL IVP PRN (09:50)
--- NOTE | 2021-01-21 10:07 | P.PN ---
Subjective Progress Note Date: 01/20/21 Patient was seen for a follow-up. Patient underwent lumbar puncture by anesthesiologist, (in right lateral recumbent position), revealed opening pressure was 43 cm, closing pressure 24 cm. around 14 mL of spinal fluid was collected. Patient states the headache is still present. She is getting Dilaudid now decreased frequency every 6 hours (instead of every 3 hours). Patient states that she is trying to go to sleep. No new focal symptoms. Objective - Vital Signs Vital signs: Vital Signs Temp 97.2 F L 01/20/21 15:30 Pulse 85 01/20/21 18:06 Resp 18 01/20/21 16:20 BP 125/84 01/20/21 18:06 Pulse Ox 98 01/20/21 18:06 Intake & Output 01/20/21 01/20/21 01/21/21 06:59 18:59 06:59 Intake Total 0 880 Balance 0 880 Intake: IV 100 Intake, IV Titration 240 Amount Sodium Chloride 0.9% 1, 240 000 ml @ 20 mls/hr IV . Q24H GOSIA Rx#:[id number] Oral 0 540 Other: Voiding Method Toilet # Voids 1 1 - Exam Patient somnolent, as she is planning to go her sleep. Detail examination deferred. Mentation normal. - Labs CBC & Chem 7: 01/20/21 12:16 01/20/21 12:16 Labs: Abnormal Lab Results - Last 24 Hours (Table) 01/19/21 01/20/21 01/20/21 Range/Units 20:20 07:11 12:00 Hgb (11.4-16.0) gm/dL RDW (11.5-15.5) % Chloride (98-107) mmol/L Carbon Dioxide (22-30) mmol/L Glucose (74-99) mg/dL POC Glucose (mg/dL) 193 H 146 H 159 H (75-99) mg/dL CSF Glucose (40-70) mg/dL 01/20/21 01/20/21 01/20/21 Range/Units 12:16 12:16 15:45 Hgb 10.8 L (11.4-16.0) gm/dL RDW 16.1 H (11.5-15.5) % Chloride 114 H (98-107) mmol/L Carbon Dioxide 16 L (22-30) mmol/L Glucose 152 H (74-99) mg/dL POC Glucose (mg/dL) (75-99) mg/dL CSF Glucose 94 H (40-70) mg/dL 01/20/21 Range/Units 17:30 Hgb (11.4-16.0) gm/dL RDW (11.5-15.5) % Chloride (98-107) mmol/L Carbon Dioxide (22-30) mmol/L Glucose (74-99) mg/dL POC Glucose (mg/dL) 123 H (75-99) mg/dL CSF Glucose (40-70) mg/dL Microbiology - Last 24 Hours (Table) 01/20/21 15:45 CSF Culture - Preliminary Cerebral Spinal Fluid Assessment and Plan Assessment: * Pseudotumor cerebri. Opening pressure 42 cm. * Diabetes * Obesity Plan: * Patient underwent diagnostic and therapeutic lumbar puncture today by anesthesiologist. Opening pressure was 43 cm tomorrow. 14 mL of spinal fluid were collected. Closing pressure was still 24 cm. * CSF shows 0 RBC, 0 WBC, total protein 49 (12-60), glucose 94. Gram stain negative. * Continue Diamox 500 mg twice a day. * Continue Fioricet as needed. * Patient at present on Dilaudid for headache control. Frequency of Dilaudid has been decreased. * Possible discharge in a.m., and follow-up with her neurologist. She may be a candidate for ventriculoperitoneal shunt for persistent elevated ICP.
[2021-01-21] MEDS ORDERED: IV FLUID CONTINUATION 1,000 ML IV ONE (10:25)
[2021-01-21] MEDS ORDERED: MIDAZOLAM 2 MG/2 ML VIAL ONE (10:36)
[2021-01-21] MEDS ORDERED: IOPAMIDOL M200 10 ML VIAL ONE (10:36)
[2021-01-21] MEDS ORDERED: fentaNYL (PF) 50 MCG/ML 2 ML AMP ONE (10:36)
--- NOTE | 2021-01-21 11:13 | P.PCN ---
Date of Procedure: 01/21/21 Description of Procedure: Procedure: Lumbar epidural blood patch. Preoperative diagnosis: Post Dural puncture headache. Postoperative diagnoses: Post Dural puncture headache. Indication for the procedure: patient developed headache after lumbar puncture and headache persists in spite of conservative treatment, there is no focal neurological deficit, no fever. headache worse with sitting and standing position, and improved with lying supine, for this reason patient is a good candidate for epidural blood patch. Anesthesia: 1 mg of Versed and 50 g of fentanyl Complications: none. Description of the procedure Back lumbar area prepped with Betadine 3 times, then drape applied the local i nfiltration of the skin and subcutaneous tissue with lidocaine 1% 3 mL at L3-L4 interlaminar space then a 18-gauge Tuohy needle advanced slowly until loss or resistance was met and confirmed under fluoroscopy with IV contrast dye in the AP and lateral position. Additionally, a 20-gauge IV needle was inserted into the right antecubital and 10 ML of blood was taken from the patient in a sterile fashion, and injected in the epidural space after negative aspiration for heme or CSF. a total of 10 mL's blood was injected until complete resolution of patient's headache. There was no paresthesia then the needle removed intact the skin cleaned and band aid applied and patient discharged back to the floor in stable condition. Patient will back to the 6th floor for her continued medical management by the primary team..
--- NOTE | 2021-01-21 11:34 | FL ---
EXAMINATION TYPE: FL guided pain mgmt statistic DATE OF EXAM: 01/21/2021 HISTORY: Fluoroscopy time 8 seconds of fluoroscopy provided. IMPRESSION: 1. Fluoroscopy time.
[2021-01-21 11:52] VITALS: RESP 18
[2021-01-21 12:50] LABS: Glucose,Whole Blood 143 mg/dL (75-99)
[2021-01-21 12:53] VITALS: BP 111/80; PULSE 91
[2021-01-21] MEDS: ACYCLOVIR 200 MG CAP PO SCH (13:18)
[2021-01-21] MEDS ORDERED: INFLUENZA VACCINE (6 MOS+) 60 MCG/0.5 ML SYRINGE IM ONE (13:22)
[2021-01-21 15:18] VITALS: TEMP 98.1
[2021-01-21] MEDS ORDERED: acetaZOLAMIDE 250 MG TAB PO SCH (21:00)
--- NOTE | 2021-01-22 15:07 | P.DS ---
Providers Date of admission: 01/21/21 09:25 Expected date of discharge: 01/21/21 Attending physician: Fabian Bermudez MD Consults: 01/19/21 11:04 Consult Physician Routine Consulting Provider: Raymond Reynoso Consult Reason/Comments: Lumbar puncture, pseudotumor cerebri Do you want consulting provider notified?: Yes 01/19/21 11:15 Consult Physician Routine Consulting Provider: Meera Russell Consult Reason/Comments: Intractable headache Do you want consulting provider notified?: Already Contacted 01/19/21 14:42 Consult Physician Urgent Consulting Provider: Meera Russell Consult Reason/Comments: migraine Do you want consulting provider notified?: Yes 01/21/21 08:57 Consult to Anesthesia Routine Consulting Provider: Anesthesia,Services Consult Reason/Comments: POST LUMBAR PUNCTURE SAENZ Primary care physician: Carol Hernandez Hospital Course: Final diagnosis -History of headache: Patient had history of pseudotumor cerebri -Depression -hyperlipidemia -Hypertension -Type 2 diabetes mellitus, elevated blood sugars -Continued ongoing nicotine dependence -DVT prophylaxis Discharge disposition Patient is being discharged in a stable condition with guarded prognosis to home. Patient will follow-up with Dr. Katlin Hernandez in the outpatient setting upon discharge. Patient will follow-up with neurology Dr. Romero in the outpatient setting at her scheduled appointment next week. Patient also to follow-up with Dr. Loja neurosurgeon out [facility] as scheduled. Patient to continue with Diamox 250 mg twice daily. Total time taken is greater than 35 minutes. Hospital course 45-year-old female came in with compensative severe headaches in the posterior scalp area. Patient's headache is constant has been going on for last couple days much worse. Patient the head diagnosis of pseudotumor cerebra supposed to see a neurosurgeon for BIOPHYSICS PROFESSOR shunt. Patient is on acetazolamide I do not have name basic metabolic profile available patient was also told she has migraine/cluster headaches. Patient had lumbar purges in the past. Patient denied any fever chills. She denied nausea vomiting or like symptom or weakness at this time. Patient denied any photophobia or phonophobia. 01/20/2021 Patient is seen and evaluated and follow-up continues to have headache with some intermittent nausea and currently awaiting to undergo lumbar puncture with neurology. Patient does follow-up with neurosurgeon Dr. Loja out of [place] and is awaiting to undergo BIOPHYSICS PROFESSOR shunt in the near future. Patient does follow with Dr. Romero outpatient neurology. Labs within normal limits today. Blood sugars elevated and will start sliding scale monitor Accu-Cheks before meals at bedtime. 01/21/2021 Patient is seen in follow-up this morning and continues to have a frontal headache status post lumbar puncture. Anesthesia is currently performing a blood patch and patient is lying supine for at least 1 hour. Patient did have some intermittent nausea although has improved and will continue with Zofran as needed. Patient was on Diamox and will decrease dose to 250 mg twice daily and instructed to follow-up with her neurologist along with neurosurgeon Dr. Loja out of [facility] area for BIOPHYSICS PROFESSOR shunt. Patient had LP done with opening pressure showing 43 with 14 mL's removed and closing pressure 24. She is maintained on Fioricets and will continue at this time. Patient also instructed to follow-up with primary care provider upon discharge. Currently no reports of chest pain, shortness of breath, or palpitations. P atient is afebrile. No reports of nausea or vomiting and patient is tolerating diet. Patient will be discharged home today. On exam vital signs are stable. Temp is 98.1F, pulse is 91, respirations are 18, blood pressure is 111/80, oxygen saturation is 97% on room air. Cardio S1, S2 are muffled. Respiratory system shows diminished breath sounds at the bases with no wheezing or rhonchi noted. Abdomen is soft and obese, and nontender. Nervous system shows no focal deficits. Please refer to medication reconciliation sheet for a list of medications. Patient Condition at Discharge: Fair Plan - Discharge Summary Discharge Rx Participant: No New Discharge Prescriptions: New acetaZOLAMIDE [Diamox] 250 mg PO BID 30 Days #60 tablet Ondansetron Odt [Zofran Odt] 4 mg PO Q8HR PRN #12 tab PRN Reason: Nausea Continue Timolol 0.5% Ophth Soln [Timoptic 0.5% Ophth Soln] 1 drop LEFT EYE DAILY Ibuprofen [Motrin] 800 mg PO Q8HR PRN PRN Reason: Pain Atorvastatin [Lipitor] 20 mg PO DAILY Loratadine [Claritin] 10 mg PO DAILY FLUoxetine HCL 40 mg PO DAILY Dextroamphetamine/Amphetamine [Adderall Xr] 30 mg PO QAM Fluticasone Nasal [place] [Flonase Nasal [place]] 1 spr EA NOSTRIL BID PRN PRN Reason: Allergy Symptoms glyBURIDE [Diabeta] 5 mg PO AC-BID busPIRone HCL 15 mg PO BID Pantoprazole [Protonix] 40 mg PO DAILY Cyclobenzaprine [Flexeril] 10 mg PO HS PRN PRN Reason: Muscle Spasm amLODIPine [Norvasc] 10 mg PO DAILY Acyclovir 400 mg PO DAILY Butalb/APAP/Caff 50-325-40Mg [Fioricet 50-325-40] 1 tab PO TID PRN #12 tab PRN Reason: Migraine Headache Discontinued acetaZOLAMIDE [acetaZOLAMIDE ER] 500 mg PO BID Cephalexin [Keflex] 500 mg PO QID Discharge Medication List Atorvastatin [Lipitor] 20 mg PO DAILY 10/07/14 [History] Dextroamphetamine/Amphetamine [Adderall Xr] 30 mg PO QAM 10/07/14 [History] FLUoxetine HCL 40 mg PO DAILY 10/07/14 [History] Ibuprofen [Motrin] 800 mg PO Q8HR PRN 10/07/14 [History] Loratadine [Claritin] 10 mg PO DAILY 10/07/14 [History] Timolol 0.5% Ophth Soln [Timoptic 0.5% Ophth Soln] 1 drop LEFT EYE DAILY 10/07/14 [History] Acyclovir 400 mg PO DAILY 01/19/21 [History] Cyclobenzaprine [Flexeril] 10 mg PO HS PRN 01/19/21 [History] Fluticasone Nasal [place] [Flonase Nasal [place]] 1 spr EA NOSTRIL BID PRN 01/19/21 [History] Pantoprazole [Protonix] 40 mg PO DAILY 01/19/21 [History] amLODIPine [Norvasc] 10 mg PO DAILY 01/19/21 [History] busPIRone HCL 15 mg PO BID 01/19/21 [History] glyBURIDE [Diabeta] 5 mg PO AC-BID 01/19/21 [History] Butalb/APAP/Caff 50-325-40Mg [Fioricet 50-325-40] 1 tab PO TID PRN #12 tab 01/21/21 [Rx] Ondansetron Odt [Zofran Odt] 4 mg PO Q8HR PRN #12 tab 01/21/21 [Rx] acetaZOLAMIDE [Diamox] 250 mg PO BID 30 Days #60 tablet 01/21/21 [Rx] Follow up Appointment(s)/Referral(s): Jorge A Romero MD [Medical Doctor] - 1-2 days Carol Hernandez MD [Primary Care Provider] - 1-2 days Patient Instructions/Handouts: Acute Headache (ED) Activity/Diet/Wound Care/Special Instructions: pt requesting flu shot before discharge await supine position instructions according to anesthesia prior to dc Activity Limited until follow-up Follow-up with primary care provider upon discharge Follow-up with neurology and neurosurgeon outpatient Continue to monitor blood sugars and keep a diary for primary care follow-up Continue current diet Hold blood pressure medication amlodipine (Norvasc) until primary care follow-up per anesthesia, no strenuous activity or heavy lifting for one week, may experience mild to mod back pain for 2 weeks. Discharge Disposition: HOME SELF-CARE
--- NOTE | 2021-01-22 21:04 | P.PN ---
Subjective Progress Note Date: 01/21/21 Patient was seen for a follow-up. Patient is laying comfortably in the bed, sleeping. Patient states that she developed post-spinal headache, for which she underwent epidural blood patch by anesthesia. She still has headache which he rates 9/10. Her closing pressure was still elevated 24, which may be the cause. Patient was seen for a follow-up. Patient underwent lumbar puncture by anesthesiologist, (in right lateral recumbent position), revealed opening pressure was 43 cm, closing pressure 24 cm. around 14 mL of spinal fluid was collected. Patient states the headache is still present. She is getting Dilaudid now decreased frequency every 6 hours (instead of every 3 hours). Patient states that she is trying to go to sleep. No new focal symptoms. Objective - Vital Signs Vital signs: Vital Signs Temp 98.6 F 01/21/21 11:30 Pulse 91 01/21/21 12:15 Resp 18 01/21/21 12:15 BP 111/80 01/21/21 12:15 Pulse Ox 97 01/21/21 12:15 Intake & Output 01/20/21 01/21/21 01/21/21 18:59 06:59 18:59 Intake Total 880 100 Balance 880 100 Intake: IV 100 100 Intake, IV Titration 240 Amount Sodium Chloride 0.9% 1, 240 000 ml @ 20 mls/hr IV . Q24H GOSIA Rx#:[id number] Oral 540 Other: Voiding Method Toilet # Voids 1 1 - Exam Patient somnolent, but alert and awake.. Detail examination deferred. Menta tion normal. - Labs CBC & Chem 7: 01/20/21 12:16 01/20/21 12:16 Labs: Abnormal Lab Results - Last 24 Hours (Table) 01/20/21 01/20/21 01/20/21 Range/Units 12:16 15:45 17:30 POC Glucose (mg/dL) 123 H (75-99) mg/dL Hemoglobin A1c 6.6 H (4.0-6.0) % CSF Glucose 94 H (40-70) mg/dL 01/20/21 01/21/21 01/21/21 Range/Units 20:53 06:45 12:49 POC Glucose (mg/dL) 151 H 140 H 143 H (75-99) mg/dL Hemoglobin A1c (4.0-6.0) % CSF Glucose (40-70) mg/dL Microbiology - Last 24 Hours (Table) 01/20/21 15:45 CSF Gram Stain - Preliminary Cerebral Spinal Fluid CSF Culture - Preliminary Assessment and Plan Assessment: * Pseudotumor cerebri. Opening pressure 43 cm, closing pressure 24 cm. * Diabetes * Obesity Plan: * Patient continues to have headaches. Suggest continue Diamox. Patient may benefit from Emgality. Suggested patient will discuss with her neurologist. * Patient underwent diagnostic and therapeutic lumbar puncture by anesthesiologist. Opening pressure was 43 cm tomorrow. 14 mL of spinal fluid were collected. Closing pressure was still 24 cm. * CSF shows 0 RBC, 0 WBC, total protein 49 (12-60), glucose 94. Gram stain negative. * Continue Diamox 500 mg twice a day. * Continue Fioricet as needed. * Patient may be a candidate for ventriculoperitoneal shunt for persistent elevated ICP. * Weight reduction treatment may also be considered. * Patient is status post epidural blood patch. Neurologically clear for discharge.
== END 2021-01-21 15:05 | disposition home or self-care (01) | DRG 103 ==
LOC: EC 03:31 → 6PED 11:07 → OBSVTOIN 01-21 09:25
PROVIDERS: ADMIT Internal Medicine; ATTEND Internal Medicine
PROC: 009U3ZZ Drainage of Spinal Canal, Percutaneous Approach (ICD-10-PCS; 2021-01-19)
PROC: 3E0R3GC Introduction of Other Therapeutic Substance into Spinal Canal, Percutaneous Approach (ICD-10-PCS; principal; 2021-01-21 11:30)
DX: G93.2 Benign intracranial hypertension (principal); F32.9 Major depressive disorder, single episode, unspecified; E78.5 Hyperlipidemia, unspecified; I10 Essential (primary) hypertension; Z88.1 Allergy status to other antibiotic agents; Z88.2 Allergy status to sulfonamides; E66.9 Obesity, unspecified; F17.200 Nicotine dependence, unspecified, uncomplicated; G44.009 Cluster headache syndrome, unspecified, not intractable; E11.65 Type 2 diabetes mellitus with hyperglycemia; Z79.84 Long term (current) use of oral hypoglycemic drugs; Z79.899 Other long term (current) drug therapy; Z82.49 Family history of ischemic heart disease and other diseases of the circulatory system; Z90.711 Acquired absence of uterus with remaining cervical stump
CPT/HCPCS: 62270; 62273; 70450; 80048; 82945; 83036; 84157; 85025; 87070; 87205; 87635; 89050; 90686; 96374; 96375; 96376; 99285

== ENCOUNTER 2023-04-19 11:08 | Emergency (ER) | payer OTHER ==
[2023-04-19 11:16] VITALS: RESP 18; TEMP 97.9
[2023-04-19] MEDS ORDERED: HYDROmorphone 1 MG/ML 1 ML SYRINGE IM STA (11:52)
--- NOTE | 2023-04-19 12:15 | ED ---
Upper Extremity HPI - General Chief Complaint: Extremity Injury, Upper Stated Complaint: Dislocated Thumb Time Seen by Provider: 04/19/23 11:22 Source: patient, RN notes reviewed Mode of arrival: ambulatory Limitations: no limitations - History of Present Illness Initial Comments: 47-year-old female presents emergency department with chief complaint of Left thumb pain. Patient states that she had a fall yesterday and went to [facility] in which she was told she had a left thumb dislocation. Patient states that the attempted multiple times to reduce it and then splinted it. Patient states that it's severely painful she was sent home with no pain medication. Patient denies any prior injuries otherwise denies discoloration. - Related Data Home Medications Medication Instructions Recorded Confirmed Atorvastatin [Lipitor] 20 mg PO DAILY 10/07/14 01/19/21 Dextroamphetamine/Amphetamine 30 mg PO QAM 10/07/14 01/19/21 [Adderall Xr] FLUoxetine HCL 40 mg PO DAILY 10/07/14 01/19/21 Ibuprofen [Motrin] 800 mg PO Q8HR PRN 10/07/14 01/19/21 Loratadine [Claritin] 10 mg PO DAILY 10/07/14 01/19/21 Timolol 0.5% Ophth Soln [Timoptic 1 drop LEFT EYE DAILY 10/07/14 01/19/21 0.5% Ophth Soln] Acyclovir 400 mg PO DAILY 01/19/21 01/19/21 Cyclobenzaprine [Flexeril] 10 mg PO HS PRN 01/19/21 01/19/21 Fluticasone Nasal [place] [Flonase 1 spr EA NOSTRIL BID PRN 01/19/21 01/19/21 Nasal [place]] Pantoprazole [Protonix] 40 mg PO DAILY 01/19/21 01/19/21 amLODIPine [Norvasc] 10 mg PO DAILY 01/19/21 01/19/21 busPIRone HCL 15 mg PO BID 01/19/21 01/19/21 glyBURIDE [Diabeta] 5 mg PO AC-BID 01/19/21 01/19/21 Previous Rx's Medication Instructions Recorded Butalb/APAP/Caff 50-325-40Mg 1 tab PO TID PRN #12 tab 01/21/21 [Fioricet 50-325-40] Ondansetron Odt [Zofran Odt] 4 mg PO Q8HR PRN #12 tab 01/21/21 acetaZOLAMIDE [Diamox] 250 mg PO BID 30 Days #60 tablet 01/21/21 HYDROcodone/APAP 7.5-325MG [[place] 1 tab PO Q6HR PRN 3 Days #12 tab 04/19/23 7.5-325] Allergies Allergy/AdvReac Type Severity Reaction Status Date / Time ciprofloxacin [From Cipro] Allergy Rash/Hives Verified 04/19/23 11:16 ciprofloxacin HCl Allergy Rash/Hives Verified 04/19/23 11:16 [From Cipro] Sulfa (Sulfonamide Allergy Rash/Hives Verified 04/19/23 11:16 Antibiotics) Review of Systems ROS Statement: Those systems with pertinent positive or pertinent negative responses have been documented in the HPI. ROS Other: All systems not noted in ROS Statement are negative. Past Medical History Past Medical History: Diabetes Mellitus, Eye Disorder, Hyperlipidemia, Hypertension, Renal Disease Additional Past Medical History / Comment(s): GLAUCOMA; MIGRAINES History of Any Multi-Drug Resistant Organisms: C-DIFF Date of last positivie culture/infection: May 2019 MDRO Source:: stool Past Surgical History: Cholecystectomy Additional Past Surgical History / Comment(s): OVARY SURGERY; EYE SURGERY Past Anesthesia/Blood Transfusion Reactions: Postoperative Nausea & Vomiting (PONV) Past Psychological History: No Psychological Hx Reported, Depression Smoking Status: Never smoker Past Alcohol Use History: None Reported Past Drug Use History: None Reported - Past Family History Mother Family Medical History: COPD, Diabetes Mellitus Father Family Medical History: Coronary Artery Disease (CAD), Diabetes Mellitus Additional Family Medical History / Comment(s): dad General Exam Limitations: no limitations General appearance: alert, in no apparent distress Head exam: Present: atraumatic, normocephalic, normal inspection Eye exam: Present: normal appearance, PERRL, EOMI. Absent: scleral icterus, conjunctival injection, periorbital swelling Respiratory exam: Present: normal lung sounds bilaterally. Absent: respiratory distress, wheezes, rales, rhonchi, stridor Cardiovascular Exam: Present: regular rate, normal rhythm, normal heart sounds. Absent: systolic murmur, diastolic murmur, rubs, gallop, clicks Extremities exam: Present: other (Left thumb noticed splint, cap refill less than 2 seconds no discoloration) Course Vital Signs 04/19/23 04/19/23 11:13 13:17 Temperature 97.9 F Pulse Rate 128 H 104 H Respiratory 18 18 Rate Blood Pressure 116/79 117/83 O2 Sat by Pulse 97 99 Oximetry Medical Decision Making - Medical Decision Making Was pt. sent in by a medical professional or institution ([facility], [facility], urgent care, hospital, or custodial...) When possible be specific @ -No Did you speak to anyone other than the patient for history (EMS, parent, family, police, friend...)? What history was obtained from this source @ -No Did you review nursing and triage notes (agree or disagree)? Why? @ -I reviewed and agree with nursing and triage notes Were old charts reviewed (outside hosp., previous admission, EMS record, old EKG, old radiological studies, urgent care reports/EKG's, custodial records)? Report findings @ -No old charts were reviewed Differential Diagnosis (chest pain, altered mental status, abdominal pain women, abdominal pain men, vaginal bleeding, weakness, fever, dyspnea, syncope, headache, dizziness, GI bleed, back pain, seizure, CVA, palpatations, mental health, musculoskeletal)? @ -Thumb dislocation, thumb fracture, thumb sprain EKG interpreted by me (3pts min.). @ -None X-rays interpreted by me (1pt min.). @ -X-ray of the left thumb shows no acute fracture or dislocation CT interpreted by me (1pt min.). @ -None done U/S interpreted by me (1pt. min.). @ -None done What testing was considered but not performed or refused? (CT, X-rays, U/S, labs)? Why? @ -None What meds were considered but not given or refused? Why? @ -None Did you discuss the management of the patient with other professionals (professionals i.e. [facility] Gabriel, [facility], lab, RT, psych nurse, neonatal social worker, cash register servicer, teacher, delinquency prevention officer, clinical case manager)? Give summary @ -No Was smoking cessation discussed for >3mins.? @ -No Was critical care preformed (if so, how long)? @ -No Were there social determinants of health that impacted care today? How? (Homelessness, low income, unemployed, alcoholism, drug addiction, transportation, low edu. Level, literacy, decrease access to med. care, long term, rehab)? @ -No Was there de-escalation of care discussed even if they declined (Discuss DNR or withdrawal of care, Hospice)? DNR status @ -No What co-morbidities impacted this encounter? (DM, HTN, Smoking, COPD, CAD, Cancer, CVA, ARF, Chemo, Hep., AIDS, mental health diagnosis, sleep apnea, morbid obesity)? @ -None Was patient admitted / discharged? Hospital course, mention meds given and route, prescriptions, significant lab abnormalities, going to OR and other pertinent info. @ -Discharge patient x-rays are negative for acute fracture dislocation. Patient will follow-up with on-call orthopedic hand specialist patient provided pain relief and discharged in stable condition Undiagnosed new problem with uncertain prognosis? @ -No Drug Therapy requiring intensive monitoring for toxicity (Heparin, Nitro, Insulin, Cardizem)? @ -No Were any procedures done? @ -No Diagnosis/symptom? @ -Left thumb sprain Acute, or Chronic, or Acute on Chronic? @ -Acute Uncomplicated (without systemic symptoms) or Complicated (systemic symptoms)? @ -Uncomplicated Side effects of treatment? @ -No Exacerbation, Progression, or Severe Exacerbation? @ -No Poses a threat to life or bodily function? How? (Chest pain, [place], [place], pneumonia, PE, COPD, DKA, ARF, appy, cholecystitis, CVA, Diverticulitis, Homicidal, Suicidal, threat to staff... and all critical care pts) @ -No Disposition Clinical Impression: Pain of left thumb, Sprain of left thumb Disposition: HOME SELF-CARE Condition: Stable Instructions (If sedation given, give patient instructions): Skier's Thumb (ED), Finger Sprain (ED) Additional Instructions: Please return to the Emergency Department if symptoms worsen or any other concerns. Prescriptions: HYDROcodone/APAP 7.5-325MG [[place] 7.5-325] 1 tab PO Q6HR PRN 3 Days #12 tab PRN Reason: pain Is patient prescribed a controlled substance at d/c from ED?: No Referrals: Carol Hernandez MD [Primary Care Provider] - 1-2 days Adelaide Schwab DO [Doctor of Osteopathic Medicine] - 1-2 days Time of Disposition: 13:00
--- NOTE | 2023-04-19 12:15 | XR ---
EXAMINATION TYPE: XR hand complete LT DATE OF EXAM: 04/19/2023 CLINICAL HISTORY: thumb pain, trauma TECHNIQUE: Frontal, lateral and oblique images of the left hand are obtained. COMPARISON: None. FINDINGS: Slightly suboptimal as the thumb remains in oblique orientation on all images obtained Ther e is no acute displaced fracture evident in the left hand. The joint spaces in the left hand appear w ithin normal limits. The overlying soft tissue appears unremarkable. IMPRESSION: As above.
[2023-04-19 13:18] VITALS: BP 117/83; PULSE 104
[2023-04-19] MEDS ORDERED: ACET/COD 300 MG/30 MG STARTER PACK 6 TAB BTL PO STA (13:21)
== END 2023-04-19 13:30 | disposition home or self-care (01) ==
LOC: EC 11:08
DX: S63.602A Unspecified sprain of left thumb, initial encounter (principal); E11.9 Type 2 diabetes mellitus without complications; I10 Essential (primary) hypertension; E78.5 Hyperlipidemia, unspecified; F32.A Depression, unspecified; Z79.84 Long term (current) use of oral hypoglycemic drugs; Z79.899 Other long term (current) drug therapy; Z88.1 Allergy status to other antibiotic agents; Z88.2 Allergy status to sulfonamides; Z90.49 Acquired absence of other specified parts of digestive tract; W19.XXXA Unspecified fall, initial encounter
CPT/HCPCS: 73130; 99283; 96372; J1170

== ENCOUNTER 2023-11-15 05:24 | Observation (INO) | payer OTHER ==
[2023-11-15] MEDS ORDERED: METOCLOPRAMIDE 5 MG/ML 2 ML VIAL IVP STA (06:04)
[2023-11-15] MEDS ORDERED: PANTOPRAZOLE 40 MG/10 ML VIAL IVP STA (06:04)
[2023-11-15] MEDS ORDERED: diphenhydrAMINE 50 MG/ML 1 ML VIAL IVP STA (06:04)
[2023-11-15] MEDS ORDERED: SODIUM CHLORIDE 0.9% 1,000 ML IV STA (06:04)
[2023-11-15] MEDS ORDERED: KETOROLAC 15 MG/ML 1 ML VIAL IVP STA (06:04)
--- NOTE | 2023-11-15 06:13 | ED ---
General Adult HPI - General Source: patient, RN notes reviewed, old records reviewed Mode of arrival: ambulatory Limitations: no limitations <Ryne Horton - Last Filed: 11/15/23 07:38> <Roshan Daniel - Last Filed: 11/15/23 09:52> - General Chief complaint: Urogenital Stated complaint: UTI Time Seen by Provider: 11/15/23 05:42 - History of Present Illness Initial comments: Patient is a 48-year-old female presents emergency Department complaining of multiple complaints. Primary complaint is concern for UTI. States she is having dysuria, suprapubic abdominal discomfort associated with some mild back discomfort which is very typical for UTI symptoms for the patient. Chest states she usually gets headaches with a she currently has. States is a mild headache. 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 Has a history of chronic headaches as well. Patient is also complaining of four-day history of a chest wall tightness and discomfort. Worse with movements of her left arm and twisting the torso. Has some nausea since the symptoms of UTI and started as well. Denies any fevers. Denies any known sick contacts. His no other acute complaints at this time. Does have history diabetes. Presents for further evaluation at this time. No cardiac history for the patient but she does have family members with cardiac disease. (Ryne Horton) - Related Data Home Medications Medication Instructions Recorded Confirmed Atorvastatin [Lipitor] 20 mg PO DAILY 10/07/14 01/19/21 Dextroamphetamine/Amphetamine 30 mg PO QAM 10/07/14 01/19/21 [Adderall Xr] FLUoxetine HCL 40 mg PO DAILY 10/07/14 01/19/21 Ibuprofen [Motrin] 800 mg PO Q8HR PRN 10/07/14 01/19/21 Loratadine [Claritin] 10 mg PO DAILY 10/07/14 01/19/21 Timolol 0.5% Ophth Soln [Timoptic 1 drop LEFT EYE DAILY 10/07/14 01/19/21 0.5% Ophth Soln] Acyclovir 400 mg PO DAILY 01/19/21 01/19/21 Cyclobenzaprine [Flexeril] 10 mg PO HS PRN 01/19/21 01/19/21 Fluticasone Nasal [place] [Flonase 1 spr EA NOSTRIL BID PRN 01/19/21 01/19/21 Nasal [place]] Pantoprazole [Protonix] 40 mg PO DAILY 01/19/21 01/19/21 amLODIPine [Norvasc] 10 mg PO DAILY 01/19/21 01/19/21 busPIRone HCL 15 mg PO BID 01/19/21 01/19/21 glyBURIDE [Diabeta] 5 mg PO AC-BID 01/19/21 01/19/21 Previous Rx's Medication Instructions Recorded Butalb/APAP/Caff 50-325-40Mg 1 tab PO TID PRN #12 tab 01/21/21 [Fioricet 50-325-40] Ondansetron Odt [Zofran Odt] 4 mg PO Q8HR PRN #12 tab 01/21/21 acetaZOLAMIDE [Diamox] 250 mg PO BID 30 Days #60 tablet 01/21/21 HYDROcodone/APAP 7.5-325MG [[place] 1 tab PO Q6HR PRN 3 Days #12 tab 04/19/23 7.5-325] Allergies Allergy/AdvReac Type Severity Reaction Status Date / Time ciprofloxacin [From Cipro] Allergy Rash/Hives Verified 11/15/23 05:35 ciprofloxacin HCl Allergy Rash/Hives Verified 11/15/23 05:35 [From Cipro] Sulfa (Sulfonamide Allergy Rash/Hives Verified 11/15/23 05:35 Antibiotics) Review of Systems ROS Other: All systems not noted in ROS Statement are negative. <Ryne Horton - Last Filed: 11/15/23 07:38> ROS Other: All systems not noted in ROS Statement are negative. <Roshan Daniel - Last Filed: 11/15/23 09:52> ROS Statement: Those systems with pertinent positive or pertinent negative responses have been documented in the HPI. Review of Systems: CONST: Denies fever EYES: Denies blurry vision ENT: Denies nasal congestion C/V: Endorses chest wall pain RESP: Denies shortness of breath GI: Endorses suprapubic abdominal pain : Endorses dysuria SKIN: Denies rash. MSK: Denies joint pain. NEURO: Endorses headache (Ryne Horton) Past Medical History Past Medical History: Diabetes Mellitus, Eye Disorder, Hyperlipidemia, Hypertension, Renal Disease Additional Past Medical History / Comment(s): GLAUCOMA; MIGRAINES History of Any Multi-Drug Resistant Organisms: C-DIFF Date of last positivie culture/infection: May 2019 MDRO Source:: stool Past Surgical History: Appendectomy, Cholecystectomy Additional Past Surgical History / Comment(s): OVARY SURGERY; EYE SURGERY Past Anesthesia/Blood Transfusion Reactions: Postoperative Nausea & Vomiting (PONV) Past Psychological History: Depression Smoking Status: Never smoker Past Alcohol Use History: None Reported Past Drug Use History: None Reported - Past Family History Mother Family Medical History: COPD, Diabetes Mellitus Father Family Medical History: Coronary Artery Disease (CAD), Diabetes Mellitus Additional Family Medical History / Comment(s): dad <Ryne Horton - Last Filed: 11/15/23 07:38> General Exam Limitations: no limitations <Ryne Horton - Last Filed: 11/15/23 07:38> - General Exam Comments Initial Comments: General: Appears in no acute distress. Appears anxious. HEAD: Normal with no signs of head trauma. EYES: PERRLA, EOMI, conjunctiva normal, no discharge. Pupils are 3 mm equal bilaterally. ENT: Hearing grossly intact, normal oropharynx. RESPIRATORY: Clear breath sounds bilaterally. No wheezes, rales, or rhonchi. C/V: Tachycardic. S1 and S2 auscultated, no edema, peripheral pulses 2+ and intact throughout. Patient does have some chest wall tenderness to palpation that is reproducible. Located over the sternum and left upper ribs. ABD: Abd is soft, nontender, nondistended. Minimal suprapubic tenderness to palpation. EXT: Normal range of motion, no obvious deformity SKIN: No rashes or lesions observed on exposed skin. NEURO: Alert and oriented x 4. No obvious focal deficits. (Ryne Horton) Course Vital Signs 11/15/23 11/15/23 11/15/23 05:32 06:01 09:00 Temperature 97.6 F Pulse Rate 128 H 125 H 101 H Respiratory 20 16 16 Rate Blood Pressure 138/83 125/92 119/81 O2 Sat by Pulse 97 99 99 Oximetry Medical Decision Making - EKG Data -: EKG Interpreted by Vt <Ryne Horton - Last Filed: 11/15/23 07:38> - Lab Data Result diagrams: 11/15/23 06:59 11/15/23 06:59 <Roshan Daniel - Last Filed: 11/15/23 09:52> - Medical Decision Making Was pt. sent in by a medical professional or institution (, [facility], [facility], urgent care, hospital, or correction...) When possible be specific @ -No Did you speak to anyone other than the patient for history (EMS, parent, family, police, friend...)? What history was obtained from this source @ -No Did you review nursing and triage notes (agree or disagree)? Why? @ -I reviewed and agree with nursing and triage notes Were old charts reviewed (outside hosp., previous admission, EMS record, old EKG, old radiological studies, urgent care reports/EKG's, correction records)? Report findings @ -Old charts reviewed Differential Diagnosis (chest pain, altered mental status, abdominal pain women, abdominal pain men, vaginal bleeding, weakness, fever, dyspnea, syncope, headache, dizziness, GI bleed, back pain, seizure, CVA, palpatations, mental health, musculoskeletal)? @ -Differential Abdominal Pain Women: Appendicitis, Cholecystitis, diverticulosis, ischemic bowel, pancreatitis, hepatitis, UTI, gastroenteritis, AAA, incarcerated hernia, bowel obstruction, constipation, inflammatory bowel, hepatitis, peptic ulcer disease, splenic infarction, perforated viscus, vulvitis, ovarian torsion, PID, kidney stone, placenta abruption, this is not meant to be an all-inclusive list EKG interpreted by me (3pts min.). @ -As above X-rays interpreted by me (1pt min.). @ -Pending CT interpreted by me (1pt min.). @ -None done U/S interpreted by me (1pt. min.). @ -None done What testing was considered but not performed or refused? (CT, X-rays, U/S, labs)? Why? @ -None What meds were considered but not given or refused? Why? @ -None Did you discuss the management of the patient with other professionals (professionals i.e. MIKEY Gabriel, [facility], lab, RT, psych nurse, health social work professor, talent acquisition relationship manager, teacher, chief operations officer, case management manager)? Give summary @ -No Was smoking cessation discussed for >3mins.? @ -No Was critical care preformed (if so, how long)? @ -No Were there social determinants of health that impacted care today? How? (Homelessness, low income, unemployed, alcoholism, drug addiction, transportation, low edu. Level, literacy, decrease access to med. care, alf, rehab)? @ -No Was there de-escalation of care discussed even if they declined (Discuss DNR or withdrawal of care, Hospice)? DNR status @ -No What co-morbidities impacted this encounter? (DM, HTN, Smoking, COPD, CAD, Cancer, CVA, ARF, Chemo, Hep., AIDS, mental health diagnosis, sleep apnea, morbid obesity)? @ -None Was patient admitted / discharged? Hospital course, mention meds given and route, prescriptions, significant lab abnormalities, going to OR and other pertinent info. @ -Based on the patient's presentation and physical exam, presents with multiple complaints. Patient's urinalysis obtained while she was in triage is contaminated. We'll repeat this time. We will also obtain abdominal laboratory studies, screening EKG as well as troponin. Patient agreement this plan. She'll be symptomatically treated with IV Benadryl, Toradol, Reglan, Protonix and 1 L fluid bolus. Was a delay in obtaining abdominal laboratory studies secondary to difficult IV access. EKG showed nonspecific findings. Chest x-ray reveals no obvious acute cardio pulmonary process. Care transitioned to Dr. Daniel pending results of workup. Undiagnosed new problem with uncertain prognosis? @ -No Drug Therapy requiring intensive monitoring for toxicity (Heparin, Nitro, Insulin, Cardizem)? @ -No Were any procedures done? @ -No (Ryne Horton) Patient reevaluated by myself, Dr. Daniel. Patient states her chest discomfort has actually been coming on for several days and is worse than when she first arrived. Patient states it actually feels like tightness and does worsen with exertion. Patient also states she does have exertional dyspnea associated with this. Patient states headache is improved with medications. Patient states she still has suprapubic discomfort. Patient is one month post appendectomy. D- dimer will be added. Case was discussed in detail with Dr. Barnhart, who will admit covering hospital call. Patient will be given a dose of Rocephin for hemorrhagic cystitis. Diagnosis 1: Hemorrhagic cystitis, 2: Chest pain, 3: Headache Acute on chronic, acute, chronic Patient will be admitted to the hospital for cardiac observation. Patient will receive Rocephin for hemorrhagic cystitis. Admission orders written. (Roshan Daniel) - Lab Data Lab Results 11/15/23 11/15/23 11/15/23 Range/Units 05:41 06:59 06:59 WBC 8.2 (3.8-10.6) k/uL RBC 4.71 (3.80-5.40) m/uL Hgb 11.6 (11.4-16.0) gm/dL Hct 35.5 (34.0-46.0) % MCV 75.4 L (80.0-100.0) fL MCH 24.6 L (25.0-35.0) pg MCHC 32.7 (31.0-37.0) g/dL RDW 16.2 H (11.5-15.5) % Plt Count 446 (150-450) k/uL MPV 7.7 Neutrophils % 86 % Lymphocytes % 10 % Monocytes % 3 % Eosinophils % 0 % Basophils % 0 % Neutrophils # 7.1 (1.3-7.7) k/uL Lymphocytes # 0.8 L (1.0-4.8) k/uL Monocytes # 0.3 (0-1.0) k/uL Eosinophils # 0.0 (0-0.7) k/uL Basophils # 0.0 (0-0.2) k/uL Hypochromasia Moderate Poikilocytosis Slight Anisocytosis Slight Microcytosis Slight Sodium 141 (137-145) mmol/L Potassium 3.8 (3.5-5.1) mmol/L Chloride 111 H (98-107) mmol/L Carbon Dioxide 14 L (22-30) mmol/L Anion Gap 16 mmol/L BUN 9 (7-17) mg/dL Creatinine 0.57 (0.52-1.04) mg/dL Est GFR (CKD-EPI)AfAm >90 (>60 ml/min/1.73 sqM) Est GFR (CKD-EPI)NonAf >90 (>60 ml/min/1.73 sqM) Glucose 128 H (74-99) mg/dL POC Glucose (mg/dL) (70-110) mg/dL POC Glu [employer]othing [employer] ID Calcium 9.9 (8.4-10.2) mg/dL Total Bilirubin 0.5 (0.2-1.3) mg/dL AST 17 (14-36) U/L ALT 25 (4-34) U/L Alkaline Phosphatase 92 (38-126) U/L Troponin I (0.000-0.034) ng/mL Total Protein 6.4 (6.3-8.2) g/dL Albumin 4.0 (3.5-5.0) g/dL Amylase 40 (30-110) U/L Lipase 93 (23-300) U/L Urine Color Yellow Urine Appearance Cloudy H (Clear) Urine pH 6.0 (5.0-8.0) Ur Specific [place] 1.035 (1.001-1.035) Urine Protein Trace H (Negative) Urine Glucose (UA) 4+ H (Negative) Urine Ketones Trace H (Negative) Urine Blood Large H (Negative) Urine Nitrite Negative (Negative) Urine Bilirubin Negative (Negative) Urine Urobilinogen <2.0 (<2.0) mg/dL Ur Leukocyte Esterase Negative (Negative) Urine RBC >182 H (0-5) /hpf Urine WBC 2 (0-5) /hpf Ur Squamous Epith Cells 58 H (0-4) /hpf Urine Bacteria Rare H (None) /hpf Urine Mucus Rare H (None) /hpf Urine Yeast (Budding) Many H (None) /hpf Influenza Type A (PCR) (Not Detectd) Influenza Type B (PCR) (Not Detectd) RSV (PCR) (Not Detectd) SARS-CoV-2 (PCR) (Not Detectd) 11/15/23 11/15/23 11/15/23 Range/Units 06:59 06:59 09:02 WBC (3.8-10.6) k/uL RBC (3.80-5.40) m/uL Hgb (11.4-16.0) gm/dL Hct (34.0-46.0) % MCV (80.0-100.0) fL MCH (25.0-35.0) pg MCHC (31.0-37.0) g/dL RDW (11.5-15.5) % Plt Count (150-450) k/uL MPV Neutrophils % % Lymphocytes % % Monocytes % % Eosinophils % % Basophils % % Neutrophils # (1.3-7.7) k/uL Lymphocytes # (1.0-4.8) k/uL Monocytes # (0-1.0) k/uL Eosinophils # (0-0.7) k/uL Basophils # (0-0.2) k/uL Hypochromasia Poikilocytosis Anisocytosis Microcytosis Sodium (137-145) mmol/L Potassium (3.5-5.1) mmol/L Chloride (98-107) mmol/L Carbon Dioxide (22-30) mmol/L Anion Gap mmol/L BUN (7-17) mg/dL Creatinine (0.52-1.04) mg/dL Est GFR (CKD-EPI)AfAm (>60 ml/min/1.73 sqM) Est GFR (CKD-EPI)NonAf (>60 ml/min/1.73 sqM) Glucose (74-99) mg/dL POC Glucose (mg/dL) 125 H (70-110) mg/dL POC Glu [employer]othing Tr[employer] Workers ID Lamont Herring Calcium (8.4-10.2) mg/dL Total Bilirubin (0.2-1.3) mg/dL AST (14-36) U/L ALT (4-34) U/L Alkaline Phosphatase (38-126) U/L Troponin I <0.012 (0.000-0.034) ng/mL Total Protein (6.3-8.2) g/dL Albumin (3.5-5.0) g/dL Amylase (30-110) U/L Lipase (23-300) U/L Urine Color Urine Appearance (Clear) Urine pH (5.0-8.0) Ur Specific [place] (1.001-1.035) Urine Protein (Negative) Urine Glucose (UA) (Negative) Urine Ketones (Negative) Urine Blood (Negative) Urine Nitrite (Negative) Urine Bilirubin (Negative) Urine Urobilinogen (<2.0) mg/dL Ur Leukocyte Esterase (Negative) Urine RBC (0-5) /hpf Urine WBC (0-5) /hpf Ur Squamous Epith Cells (0-4) /hpf Urine Bacteria (None) /hpf Urine Mucus (None) /hpf Urine Yeast (Budding) (None) /hpf Influenza Type A (PCR) Not Detected (Not Detectd) Influenza Type B (PCR) Not Detected (Not Detectd) RSV (PCR) Not Detected (Not Detectd) SARS-CoV-2 (PCR) Not Detected (Not Detectd) - EKG Data EKG Comments: 12-lead Electrocardiogram Interpretation Note EKG was reviewed and interpreted by myself. 12-lead ECG performed at 0603 is interpreted by me as revealing normal sinus rhythm at a rate of 118 beats per minute. [place] is normal. NV interval is 140 ms, QRS duration is 85 ms, QTc is 372 milliseconds.. Nonspecific T-wave abnormality. R wave progression across the precordium was satisfactory. By my interpretation this EKG is non-diagnostic for acute ischemia. 12-lead Electrocardiogram Interpretation Note EKG was reviewed and interpreted by myself. 12-lead ECG performed at 0537 is interpreted by me as revealing normal sinus rhythm with frequent PACs at a rate of 99 beats per minute. [place] is normal. NV interval is 130 milliseconds, QRS duration is 89 ms, ATC is 389 ms.. There were no ST or T wave abnormalities to suggest myocardial ischemia or injury. R wave progression across the precordium was satisfactory. By my interpretation this EKG is non-diagnostic for acute ischemia. (Ryne Horton) Disposition <Ryne Horton - Last Filed: 11/15/23 07:38> Is patient prescribed a controlled substance at d/c from ED?: No Time of Disposition: 09:52 <Roshan Daniel - Last Filed: 11/15/23 09:52> Clinical Impression: Headache, Chest pain, Hemorrhagic cystitis Disposition: ADMITTED IP TO THIS HOSP Referrals: Carol Serrano MD [Primary Care Provider] - 1-2 days
[2023-11-15 06:40] LABS: Appearance,Urine Cloudy (Clear); Bacteria,Urine Rare /hpf; Bilirubin,Urine Negative (Negative); Blood,Urine Large (Negative); Budding Yeast,Urine Many /hpf; Color,Urine Yellow; Glucose,Urine (UA) 4+ (Negative); Ketones,Urine Trace (Negative); Leukocyte Esterase,Urine Negative (Negative); Mucus,Urine Rare /hpf; Nitrite,Urine Negative (Negative); Protein,Urine Trace (Negative); RBC,Urine >182 /hpf (0-5); Specific Gravity,Urine 1.035 (1.001-1.035); Squamous Epithelial Cell,Urine 58 /hpf (0-4); Urobilinogen,Urine <2.0 mg/dL (<2.0); WBC,Urine 2 /hpf (0-5)
--- NOTE | 2023-11-15 07:09 | XR ---
EXAMINATION TYPE: XR chest 1V portable DATE OF EXAM: 11/15/2023 6:45 AM CLINICAL INDICATION:Female, 48 years old with history of abdominal pain; [facility] COMPARISON: None TECHNIQUE: XR chest 1V portable Frontal view of the chest. FINDINGS: Lungs/Pleura: There is no evidence of pleural effusion, focal consolidation, or pneumothorax. Pulmonary vascularity: Unremarkable. Heart/mediastinum: Cardiomediastinal silhouette is unremarkable. Musculoskeletal: No acute osseous pathology. Intravenous retroperitoneal shunt tubing is present. IMPRESSION: No acute cardiopulmonary disease/process.
[2023-11-15 07:57] LABS: Anisocytosis Slight; Basophils % (A) 0 %; Eosinophils % (A) 0 %; HCT 35.5 % (34.0-46.0); HGB 11.6 gm/dL (11.4-16.0); Hypochromasia Moderate; Lymphocytes # (A) 0.8 k/uL (1.0-4.8); Lymphocytes % (A) 10 %; MCH 24.6 pg (25.0-35.0); MCHC 32.7 g/dL (31.0-37.0); MCV 75.4 fL (80.0-100.0); Mean Platelet Volume 7.7; Microcytosis Slight; Monocytes # (A) 0.3 k/uL (0-1.0); Monocytes % (A) 3 %; Neutrophils # (A) 7.1 k/uL (1.3-7.7); Neutrophils % (A) 86 %; Platelet Count 446 k/uL (150-450); Poikilocytosis Slight; RBC 4.71 m/uL (3.80-5.40); RDW 16.2 % (11.5-15.5); WBC 8.2 k/uL (3.8-10.6)
[2023-11-15 08:25] LABS: ALT 25 U/L (4-34); AST 17 U/L (14-36); African American GFR (CKD) >90 (>60 ml/min/1.73 sqM); Alkaline Phosphatase 92 U/L (38-126); Amylase 40 U/L (30-110); Anion Gap 16 mmol/L; Blood Urea Nitrogen 9 mg/dL (7-17); Calcium 9.9 mg/dL (8.4-10.2); Carbon Dioxide 14 mmol/L (22-30); Chloride 111 mmol/L (98-107); Glucose 128 mg/dL (74-99); Lipase 93 U/L (23-300); Non-African American GFR(CKD) >90 (>60 ml/min/1.73 sqM); Potassium 3.8 mmol/L (3.5-5.1); Sodium 141 mmol/L (137-145); Total Bilirubin 0.5 mg/dL (0.2-1.3); Total Protein 6.4 g/dL (6.3-8.2)
[2023-11-15 09:05] LABS: Glucose,Whole Blood 125 mg/dL (70-110)
[2023-11-15] MEDS ORDERED: MORPHINE SULFATE 4 MG/ML SYRINGE IVP STA (09:42)
[2023-11-15] MEDS ORDERED: ASPIRIN 81 MG PO STA (09:52)
[2023-11-15] MEDS ORDERED: cefTRIAXone IN SWFI 1,000 MG/10 ML SYRINGE IVP STA (09:53)
[2023-11-15 10:26] LABS: Appearance,Urine Clear (Clear); Bilirubin,Urine Negative (Negative); Blood,Urine Negative (Negative); Color,Urine Light Yellow; Glucose,Urine (UA) 4+ (Negative); Ketones,Urine 1+ (Negative); Leukocyte Esterase,Urine Negative (Negative); Nitrite,Urine Negative (Negative); Protein,Urine Trace (Negative); Specific Gravity,Urine 1.034 (1.001-1.035); Urobilinogen,Urine <2.0 mg/dL (<2.0)
[2023-11-15 10:45] LABS: Amphetamine Screen,Urine Detected (NotDetected); Barbiturate Screen,Urine Detected (NotDetected); Benzodiazepines Screen,Urine Detected (NotDetected); Cocaine Screen,Urine Not Detected (NotDetected); Methadone Screen, Urine Not Detected (NotDetected); Opiate Screen,Urine Not Detected (NotDetected); Oxycodone Screen, Urine Not Detected (NotDetected); Phencyclidine Screen,Urine Not Detected (NotDetected); Tricyclic Antidepressant,Urine Detected (NotDetected); Urn Cannabinoid Scrn Not Detected (NotDetected)
[2023-11-15] MEDS ORDERED: NITROGLYCERIN OINT 1 INCH/GM PACKET TOPICAL SCH (12:00)
[2023-11-15 12:11] LABS: Glucose,Whole Blood 135 mg/dL (70-110)
--- NOTE | 2023-11-15 13:02 | P.CRDCN ---
History of Present Illness History of present illness: HISTORY OF PRESENT ILLNESS: This is a 48-year-old female with a past medical history significant for hypertension, hyperlipidemia, diabetes, migraines, C. diff, depression, and REPRODUCER shunt. Patient does not follow with a rn vascular. We have been asked to see the patient in consultation for chest pain. Patient examined at the bedside. Patient states that she was recently hospitalized at [facility] about a month ago for a ruptured appendix. She states she has been having some chest discomfort since that time. She reports seeing her PCP for this and was told it was secondary to her recent ruptured appendix. She states over the past few days she has been having chest pain that is worse with deep inspiration. She also reports that pain occurs after vomiting. She reports walking up and down the stairs at her house will bring on the pain as well. the pain is mostly in the middle of her chest. She denies any radiation of the pain. She denies any shortness of breath. At the time of examination, she is reporting suprapubic pain. She reports a history of chronic cystitis. The patient denies having any previous cardiac workup. She states that both of her parents have coronary artery disease. * EKG reveals sinus tachycardia with T-wave inversions inferiorly. No previous EKG available for comparison. * Chest xray negative for acute cardiopulmonary disease/process * Laboratory data: WBC 8.2. Hemoglobin 11.6. Platelet count 446. D-dimer 0.22. Sodium 141. Potassium 3.8. BUN 9. Creatinine 0.57. Troponin negative 2. * Toxicology is positive for barbiturates, tricyclic antidepressants, amphetamines, and benzodiazepines * Current home cardiac medications include Lipitor 20 mg daily and amlodipine 10 mg daily * No previous echocardiogram or cardiac catheterization available for review in EMR REVIEW OF SYSTEMS: At the time of my exam: CONSTITUTIONAL: Denies fever or chills. HEENT: Denies blurred vision, vision changes, or eye pain. Denies hemoptysis CARDIOVASCULAR: Denies chest pain. Denies orthopnea. Denies PND. Denies palpitations RESPIRATORY: Denies shortness of breath. GASTROINTESTINAL: Denies abdominal pain. Denies nausea or vomiting. HEMATOLOGIC: Denies bleeding disorders. GENITOURINARY: Denies any blood in urine. SKIN: Denies pruitis. Denies rash. PHYSICAL EXAM: VITAL SIGNS: Reviewed. GENERAL: Well-developed in no acute distress. HEENT: Head is normocephalic. Pupils are equal, round. Sclerae anicteric. Mucous membranes of the mouth are moist. Neck supple. No JVD or thyromegaly LUNGS: Respirations even and unlabored. Lungs essentially clear to auscultation bilaterally. HEART: Regular rate and rhythm. S1 and S2 heard. ABDOMEN: Soft. Nondistended. Nontender. Suprapubic tenderness noted. EXTREMITIES: Normal range of motion. No clubbing or cyanosis. Peripheral pulses intact. No lower extremity edema NEUROLOGIC: Awake and alert. Oriented x 3. ASSESSMENT: Chest pain, appears noncardiac, troponin negative 2 Abnormal EKG with T-wave inversions inferiorly, no previous EKG for comparison Urinary tract infection History of chronic cystitis, per patient Elevated lactic acid Hypertension Hyperlipidemia Diabetes History of pseudotumor cerebri with REPRODUCER shunt History of migraines History of C. diff History of depression Morbid obesity: BMI 34.5 PLAN: An acute coronary event has been ruled out Resume home cardiac medications Obtain 2-D echo to assess cardiac structure and function Secondary to patient's risk factors and family history, we will obtain dobutamine stress echo tomorrow NPO at midnight Further recommendations pending patient's course Nurse practitioner note has been reviewed by physician. Signing provider agrees with the documented findings, assessment, and plan of care. Past Medical History Past Medical History: Diabetes Mellitus, Eye Disorder, Hyperlipidemia, Hypertension, Renal Disease Additional Past Medical History / Comment(s): GLAUCOMA; MIGRAINES History of Any Multi-Drug Resistant Organisms: C-DIFF Date of last positivie culture/infection: May 2019 MDRO Source:: stool Past Surgical History: Appendectomy, Cholecystectomy Additional Past Surgical History / Comment(s): OVARY SURGERY; EYE SURGERY Past Anesthesia/Blood Transfusion Reactions: Postoperative Nausea & Vomiting (PONV) Past Psychological History: Depression Smoking Status: Never smoker Past Alcohol Use History: None Reported Past Drug Use History: None Reported - Past Family History Mother Family Medical History: COPD, Diabetes Mellitus Father Family Medical History: Coronary Artery Disease (CAD), Diabetes Mellitus Additional Family Medical History / Comment(s): dad Medications and Allergies Home Medications Medication Instructions Recorded Confirmed Type Atorvastatin [Lipitor] 20 mg PO DAILY 10/07/14 11/15/23 History FLUoxetine HCL 40 mg PO DAILY 10/07/14 11/15/23 History Ibuprofen [Motrin] 800 mg PO Q8HR PRN 10/07/14 11/15/23 History Loratadine [Claritin] 10 mg PO DAILY 10/07/14 11/15/23 History Timolol 0.5% Ophth Soln [Timoptic 1 drop LEFT EYE DAILY 10/07/14 11/15/23 History 0.5% Ophth Soln] Acyclovir 400 mg PO DAILY 01/19/21 11/15/23 History Cyclobenzaprine [Flexeril] 10 mg PO BID PRN 01/19/21 11/15/23 History Fluticasone Nasal [place] [Flonase 1 spr EA NOSTRIL BID PRN 01/19/21 11/15/23 History Nasal [place]] Pantoprazole [Protonix] 40 mg PO DAILY 01/19/21 11/15/23 History amLODIPine [Norvasc] 10 mg PO DAILY 01/19/21 11/15/23 History busPIRone HCL 15 mg PO BID 01/19/21 11/15/23 History Butalb/APAP/Caff 50-325-40Mg 1 tab PO TID PRN #12 tab 01/21/21 11/15/23 Rx [Fioricet 50-325-40] Ondansetron Odt [Zofran Odt] 4 mg PO Q8HR PRN #12 tab 01/21/21 11/15/23 Rx HYDROcodone/APAP 5-325MG [[place] 1 tab PO Q6HR PRN 11/15/23 11/15/23 History 5-325] Lisdexamfetamine Dimesylate 60 mg PO QAM 11/15/23 11/15/23 History [Vyvanse] Semaglutide [Wegovy] 2.4 mg SQ WE 11/15/23 11/15/23 History hydrOXYzine HCL [Atarax] 50 mg PO BID PRN 11/15/23 11/15/23 History metFORMIN HCL 1,000 mg PO BID 11/15/23 11/15/23 History methocarbamoL [Robaxin-750] 750 mg PO TID PRN 11/15/23 11/15/23 History Allergies Allergy/AdvReac Type Severity Reaction Status Date / Time ciprofloxacin [From Cipro] Allergy Rash/Hives Verified 11/15/23 10:56 ciprofloxacin HCl Allergy Rash/Hives Verified 11/15/23 10:56 [From Cipro] Sulfa (Sulfonamide Allergy Rash/Hives Verified 11/15/23 10:56 Antibiotics) Physical Exam Vitals: Vital Signs Temp Pulse Resp BP Pulse Ox 11/15/23 09:00 101 H 16 119/81 99 11/15/23 06:01 125 H 16 125/92 99 11/15/23 05:32 97.6 F 128 H 20 138/83 97 Intake and Output 11/14/23 11/15/23 11/15/23 22:59 06:59 14:59 Other: Weight 74.843 kg Results 11/15/23 06:59 11/15/23 06:59 Cardiac Enzymes 11/15/23 11/15/23 Range/Units 06:59 06:59 AST 17 (14-36) U/L Troponin I <0.012 (0.000-0.034) ng/mL CBC 11/15/23 Range/Units 06:59 WBC 8.2 (3.8-10.6) k/uL RBC 4.71 (3.80-5.40) m/uL Hgb 11.6 (11.4-16.0) gm/dL Hct 35.5 (34.0-46.0) % Plt Count 446 (150-450) k/uL Comprehensive Metabolic Panel 11/15/23 Range/Units 06:59 Sodium 141 (137-145) mmol/L Potassium 3.8 (3.5-5.1) mmol/L Chloride 111 H (98-107) mmol/L Carbon Dioxide 14 L (22-30) mmol/L BUN 9 (7-17) mg/dL Creatinine 0.57 (0.52-1.04) mg/dL Glucose 128 H (74-99) mg/dL Calcium 9.9 (8.4-10.2) mg/dL AST 17 (14-36) U/L ALT 25 (4-34) U/L Alkaline Phosphatase 92 (38-126) U/L Total Protein 6.4 (6.3-8.2) g/dL Albumin 4.0 (3.5-5.0) g/dL Current Medications Generic Name Dose Route Start Last Admin Trade Name Freq PRN Reason Stop Dose Admin Aspirin 325 mg 11/16/23 09:00 Aspirin 325 Mg Tab PO DAILY GOSIA Nitroglycerin 0.4 mg 11/15/23 09:52 Nitroglycerin Sl Tabs 0.4 Mg Tab SUBLINGUAL Q5M PRN Chest Pain Nitroglycerin 1 inch 11/15/23 12:00 Nitroglycerin Oint 1 Inch/Gm Packet TOPICAL Q6HR GOSIA Intake and Output 11/14/23 11/15/23 11/15/23 22:59 06:59 14:59 Other: Weight 74.843 kg 11/15/23 06:59 11/15/23 06:59
[2023-11-15] MEDS ORDERED: FLUTICASONE 50MCG/SPRAY NASAL 16GM EA NOSTRIL PRN (14:13)
[2023-11-15] MEDS ORDERED: methocarbamoL 750 MG TAB PO PRN (14:13)
[2023-11-15] MEDS ORDERED: hydrOXYzine HCL 25 MG TAB PO PRN (14:13)
[2023-11-15] MEDS: INSULIN ASPART (NovoLOG) 100 UNIT/ML VIAL SQ SCH ×2 (14:13→17:53)
[2023-11-15] MEDS ORDERED: HYDROcodone/APAP 5-325MG 1 EACH TAB PO PRN (14:13)
[2023-11-15] MEDS: NITROGLYCERIN SL TABS 0.4 MG TAB SUBLINGUAL PRN ×2 (14:34→21:33)
[2023-11-15] MEDS ORDERED: SODIUM CHLORIDE 0.9% 1,000 ML IV ONE (14:45)
[2023-11-15] MEDS: amLODIPine 10 MG TAB PO SCH (14:48)
[2023-11-15] MEDS: ATORVASTATIN 20 MG TAB PO SCH (15:09)
[2023-11-15] MEDS: ONDANSETRON ODT 4 MG TAB PO PRN (15:09)
[2023-11-15] MEDS: SODIUM CHLORIDE 0.9% 1,000 ML IV SCH (15:09)
--- NOTE | 2023-11-15 15:57 | P.HPIM ---
History of Present Illness H&P Date: 11/15/23 Chief Complaint: chest pain, dysuria 48 year old woman with history of chronic cystitis, family history of heart disease, HTN/HLD/DM, Migraines, and SECRETARIAL STENOGRAPHER shunt for pseudotumor cerebri presented for evaluation of chest pain and dysuria. Pt says that for the last 3 days, she has been experiencing chest pressure, substernal, worse with exertion. She also noticed increased shortness of breath with exertion. She reports that these symptoms have gone progressively worse over the last 3-4 days. She says that she has previously had shortness of breath with exertion for more than 1-2 months, but her symptoms of gone particularly worse in the last 3 days. Additionally, she also says that she's developed dysuria and suprapubic pain similar nature to prior urinary tract infections. She reports subjective fevers, chills. She denies nausea, vomiting, diaphoresis. She denies palpitations, cough. She reports dyspnea. She denies abdominal pain, constipation, diarrhea, numbness/weakness of extremities. In the emergency room, patient was afebrile, 138/83, heart rate 128, 97% on room air. CBC demonstrates borderline hemoglobin with low MCV of 75.4. Basic metabolic panel shows acidosis with a CO2 of 14 with an anion gap of 16. Liver function tests are unremarkable. Lipase was 93. Lactic acid was 3.1. Troponin was less than 0.012 than trended to less than 0.012. D-dimer was 0.22. UA was contaminated with 58 squamous epithelial cells. Urine tox screen is positive for barbiturates, tricyclic antidepressants, amphetamines, benzodiazepines. Influenza A, B, RSV, Covid were negative. EKG shows sinus tachycardia, appropriate axis, nonspecific T-wave changes of leads 2, 3, aVF. Chest x-ray appeared clear bilaterally with normal size heart and no evidence of volume overload. All Systems reviewed and pertinent positives and negatives noted in HPI, all o ther symptoms are negative Gen: in no apparent distress, resting comfortably in bed Eyes: PERRL, no scleral injection or icterus HENT: normocephalic, atraumatic, good hearing acuity, moist mucous membranes Neck: no tracheal deviation, full range of motion Resp: good air exchange, breathing comfortably with no accessory muscle use, no tactile fremitus CVS: good distal perfusion x 4, no pitting edema GI: soft, NTTP, ND, no hepatosplenomegaly : no suprapubic tenderness, no CVAT, buchanan catheter not present MSK: no clubbing, no cyanosis, no noted contractures of extremities Skin: no noted rashes, petechiae; temperature of skin is appropriate Neuro: moving all extremities without signs of weakness, CN II-XII intact Psych: cooperative, euthymic mood, insight and judgment intact Labs and imaging as above Assessment/plan: Chest pain, atypical -Patient minutes observation -Trend troponins -Cardiology was consulted -Dobutamine stress test is planned for tomorrow -Aspirin 81 mg daily, atorvastatin 20 mg daily -TSH, lipid panel, A1c -Nitroglycerin when necessary Dysuria Elevated lactic acid Chronic cystitis -IV fluids, received 1 L bolus in the emergency room, additional 1 L bolus was o rdered by me -IV fluids, 130 mL per hour of normal saline -Ceftriaxone 1 mg was given by the emergency room -Repeat urinalysis to confirm infection prior to additional antibiotics Hypertension Hyperlipidemia Diabetes type 2 Migraines Pseudotumor cerebri status post SECRETARIAL STENOGRAPHER shunt -Home medications reviewed and reconciled Patient is full code Past Medical History Past Medical History: Diabetes Mellitus, Eye Disorder, Hyperlipidemia, Hypertension, Renal Disease Additional Past Medical History / Comment(s): GLAUCOMA; MIGRAINES History of Any Multi-Drug Resistant Organisms: C-DIFF Date of last positivie culture/infection: May 2019 MDRO Source:: stool Past Surgical History: Appendectomy, Cholecystectomy Additional Past Surgical History / Comment(s): OVARY SURGERY; EYE SURGERY Past Anesthesia/Blood Transfusion Reactions: Postoperative Nausea & Vomiting (PONV) Past Psychological History: Depression Smoking Status: Never smoker Past Alcohol Use History: None Reported Past Drug Use History: None Reported - Past Family History Mother Family Medical History: COPD, Diabetes Mellitus Father Family Medical History: Coronary Artery Disease (CAD), Diabetes Mellitus Additional Family Medical History / Comment(s): dad Medications and Allergies Home Medications Medication Instructions Recorded Confirmed Type Atorvastatin [Lipitor] 20 mg PO DAILY 10/07/14 11/15/23 History FLUoxetine HCL 40 mg PO DAILY 10/07/14 11/15/23 History Ibuprofen [Motrin] 800 mg PO Q8HR PRN 10/07/14 11/15/23 History Loratadine [Claritin] 10 mg PO DAILY 10/07/14 11/15/23 History Timolol 0.5% Ophth Soln [Timoptic 1 drop LEFT EYE DAILY 10/07/14 11/15/23 History 0.5% Ophth Soln] Acyclovir 400 mg PO DAILY 01/19/21 11/15/23 History Cyclobenzaprine [Flexeril] 10 mg PO BID PRN 01/19/21 11/15/23 History Fluticasone Nasal [place] [Flonase 1 spr EA NOSTRIL BID PRN 01/19/21 11/15/23 History Nasal [place]] Pantoprazole [Protonix] 40 mg PO DAILY 01/19/21 11/15/23 History amLODIPine [Norvasc] 10 mg PO DAILY 01/19/21 11/15/23 History busPIRone HCL 15 mg PO BID 01/19/21 11/15/23 History Butalb/APAP/Caff 50-325-40Mg 1 tab PO TID PRN #12 tab 01/21/21 11/15/23 Rx [Fioricet 50-325-40] Ondansetron Odt [Zofran Odt] 4 mg PO Q8HR PRN #12 tab 01/21/21 11/15/23 Rx HYDROcodone/APAP 5-325MG [[place] 1 tab PO Q6HR PRN 11/15/23 11/15/23 History 5-325] Lisdexamfetamine Dimesylate 60 mg PO QAM 11/15/23 11/15/23 History [Vyvanse] Semaglutide [Wegovy] 2.4 mg SQ WE 11/15/23 11/15/23 History hydrOXYzine HCL [Atarax] 50 mg PO BID PRN 11/15/23 11/15/23 History metFORMIN HCL 1,000 mg PO BID 11/15/23 11/15/23 History methocarbamoL [Robaxin-750] 750 mg PO TID PRN 11/15/23 11/15/23 History Allergies Allergy/AdvReac Type Severity Reaction Status Date / Time ciprofloxacin [From Cipro] Allergy Rash/Hives Verified 11/15/23 10:56 ciprofloxacin HCl Allergy Rash/Hives Verified 11/15/23 10:56 [From Cipro] Sulfa (Sulfonamide Allergy Rash/Hives Verified 11/15/23 10:56 Antibiotics) Physical Exam Osteopathic Statement: *. No significant issues noted on an osteopathic structural exam other than those noted in the History and Physical/Consult. Vitals: Vital Signs Temp Pulse Pulse Resp BP BP Pulse Ox 11/15/23 15:00 98.1 F 94 18 109/76 97 11/15/23 12:24 98.3 F 100 16 117/81 99 11/15/23 11:07 98.1 F 109 H 18 142/92 97 11/15/23 09:00 101 H 16 119/81 99 11/15/23 06:01 125 H 16 125/92 99 11/15/23 05:32 97.6 F 128 H 20 138/83 97 Intake and Output 11/15/23 11/15/23 11/15/23 06:59 14:59 22:59 Intake Total 118 Balance 118 Intake: Oral 118 Other: Weight 74.843 kg 74.843 kg Results CBC & Chem 7: 11/15/23 06:59 11/15/23 06:59 Labs: Abnormal Lab Results - Last 24 Hours (Table) 11/15/23 11/15/23 11/15/23 Range/Units 05:41 06:59 06:59 MCV 75.4 L (80.0-100.0) fL MCH 24.6 L (25.0-35.0) pg RDW 16.2 H (11.5-15.5) % Lymphocytes # 0.8 L (1.0-4.8) k/uL Chloride 111 H (98-107) mmol/L Carbon Dioxide 14 L (22-30) mmol/L Glucose 128 H (74-99) mg/dL POC Glucose (mg/dL) (70-110) mg/dL Plasma Lactic Acid Eduardo (0.7-2.0) mmol/L Urine Appearance Cloudy H (Clear) Urine Protein Trace H (Negative) Urine Glucose (UA) 4+ H (Negative) Urine Ketones Trace H (Negative) Urine Blood Large H (Negative) Urine RBC >182 H (0-5) /hpf Ur Squamous Epith Cells 58 H (0-4) /hpf Urine Bacteria Rare H (None) /hpf Urine Mucus Rare H (None) /hpf Urine Yeast (Budding) Many H (None) /hpf Ur Barbiturates Screen (NotDetected) U Tricyclic Antidepress (NotDetected) Ur Amphetamines Screen (NotDetected) U Benzodiazepines Scrn (NotDetected) 11/15/23 11/15/23 11/15/23 Range/Units 07:36 09:02 09:54 MCV (80.0-100.0) fL MCH (25.0-35.0) pg RDW (11.5-15.5) % Lymphocytes # (1.0-4.8) k/uL Chloride (98-107) mmol/L Carbon Dioxide (22-30) mmol/L Glucose (74-99) mg/dL POC Glucose (mg/dL) 125 H (70-110) mg/dL Plasma Lactic Acid Eduardo (0.7-2.0) mmol/L Urine Appearance (Clear) Urine Protein Trace H (Negative) Urine Glucose (UA) 4+ H (Negative) Urine Ketones 1+ H (Negative) Urine Blood (Negative) Urine RBC (0-5) /hpf Ur Squamous Epith Cells (0-4) /hpf Urine Bacteria (None) /hpf Urine Mucus (None) /hpf Urine Yeast (Budding) (None) /hpf Ur Barbiturates Screen Detected H (NotDetected) U Tricyclic Antidepress Detected H (NotDetected) Ur Amphetamines Screen Detected H (NotDetected) U Benzodiazepines Scrn Detected H (NotDetected) 11/15/23 11/15/23 11/15/23 Range/Units 09:57 12:06 13:06 MCV (80.0-100.0) fL MCH (25.0-35.0) pg RDW (11.5-15.5) % Lymphocytes # (1.0-4.8) k/uL Chloride (98-107) mmol/L Carbon Dioxide (22-30) mmol/L Glucose (74-99) mg/dL POC Glucose (mg/dL) 135 H (70-110) mg/dL Plasma Lactic Acid Eduardo 3.2 H* 3.1 H* (0.7-2.0) mmol/L Urine Appearance (Clear) Urine Protein (Negative) Urine Glucose (UA) (Negative) Urine Ketones (Negative) Urine Blood (Negative) Urine RBC (0-5) /hpf Ur Squamous Epith Cells (0-4) /hpf Urine Bacteria (None) /hpf Urine Mucus (None) /hpf Urine Yeast (Budding) (None) /hpf Ur Barbiturates Screen (NotDetected) U Tricyclic Antidepress (NotDetected) Ur Amphetamines Screen (NotDetected) U Benzodiazepines Scrn (NotDetected) Thrombosis Risk Factor Assmnt - Choose All That Apply Any of the Below Risk Factors Present?: Yes Each Factor Represents 1 point: Age 41-60 years, Obesity (BMI >25) Other Risk Factors: No Other congenital or acquired thrombophilia - If yes, enter type in comment: No Thrombosis Risk Factor Assessment Total Risk Factor Score: 2 Thrombosis Risk Factor Assessment Level: Low Risk
[2023-11-15 17:02] LABS: Glucose,Whole Blood 141 mg/dL (70-110)
[2023-11-15 17:07] LABS: Appearance,Urine Clear (Clear); Bilirubin,Urine Negative (Negative); Blood,Urine Large (Negative); Color,Urine Colorless; Glucose,Urine (UA) 4+ (Negative); Ketones,Urine Negative (Negative); Leukocyte Esterase,Urine Negative (Negative); Mucus,Urine Rare /hpf; Nitrite,Urine Negative (Negative); PH, Urine 5.5 (5.0-8.0); Protein,Urine Negative (Negative); RBC,Urine 172 /hpf (0-5); Specific Gravity,Urine 1.015 (1.001-1.035); Squamous Epithelial Cell,Urine 1 /hpf (0-4); Urobilinogen,Urine <2.0 mg/dL (<2.0); WBC,Urine 4 /hpf (0-5)
[2023-11-15] MEDS ORDERED: ACETAMINOPHEN TAB 325 MG TAB PO PRN (17:10)
[2023-11-15] MEDS: PHENAZOPYRIDINE 100 MG TAB PO SCH ×2 (19:13→21:23)
[2023-11-15] MEDS: BUTALB/APAP/CAFF 50-325-40MG TAB PO PRN (19:14)
[2023-11-15 20:55] LABS: Glucose,Whole Blood 178 mg/dL (70-110)
[2023-11-15] MEDS: HYDROcodone/APAP 7.5-325MG 1 EACH TAB PO PRN (21:25)
[2023-11-15] MEDS: busPIRone HCl 5 MG TAB PO SCH (21:28)
[2023-11-15] MEDS: CYCLOBENZAPRINE 10 MG TAB PO PRN (22:04)
[2023-11-16] MEDS: ONDANSETRON ODT 4 MG TAB PO PRN ×2 (00:15→11:41)
[2023-11-16] MEDS: SODIUM CHLORIDE 0.9% 1,000 ML IV SCH ×2 (00:28→05:55)
[2023-11-16] MEDS: HYDROcodone/APAP 7.5-325MG 1 EACH TAB PO PRN ×2 (05:49→13:30)
[2023-11-16] MEDS: INSULIN ASPART (NovoLOG) 100 UNIT/ML VIAL SQ SCH ×2 (05:54→12:39)
[2023-11-16] MEDS ORDERED: DOBUTamine DRIP for NUC MED 500 MG in DEXTROSE/WATER 1 250ML.BAG IV PRN (06:00)
[2023-11-16 06:34] LABS: Glucose,Whole Blood 119 mg/dL (70-110)
[2023-11-16] MEDS ORDERED: PANTOPRAZOLE 40 MG TABLET PO SCH (07:30)
[2023-11-16] MEDS: busPIRone HCl 5 MG TAB PO SCH (08:13)
[2023-11-16] MEDS: BUTALB/APAP/CAFF 50-325-40MG TAB PO PRN (08:13)
[2023-11-16] MEDS: CYCLOBENZAPRINE 10 MG TAB PO PRN (08:13)
[2023-11-16] MEDS: ATORVASTATIN 20 MG TAB PO SCH (08:13)
[2023-11-16] MEDS: PHENAZOPYRIDINE 100 MG TAB PO SCH (08:14)
[2023-11-16] MEDS: amLODIPine 10 MG TAB PO SCH ×2 (08:14→14:18)
[2023-11-16 08:41] LABS: Basophils # (A) 0.03 X 10*3/uL (0.00-0.10); Basophils % (A) 0.4 %; Eosinophils # (A) 0.07 X 10*3/uL (0.04-0.35); HCT 30.8 % (37.2-46.3); HGB 9.3 g/dL (12.0-15.0); Lymphocytes % (A) 37.8 %; MCH 23.3 pg (27.0-32.0); MCHC 30.2 g/dL (32.0-37.0); Mean Platelet Volume 10.6 FL (9.5-12.2); Monocytes % (A) 5.8 %; NRBC Per 100 WBC 0 X 10*3/uL (0.00-0.01); Neutrophils # (A) 3.75 X 10*3/uL (1.80-7.70); Neutrophils % (A) 54.7 %; Platelet Count 375 X 10*3/uL (140-440); RDW 16.4 % (11.5-14.5); WBC 6.87 X 10*3/uL (4.50-10.00)
[2023-11-16 08:49] LABS: BUN/Creat Ratio 9.83 Ratio (12.00-20.00); Blood Urea Nitrogen 5.9 mg/dL (9.0-27.0); Calcium 8.5 mg/dL (8.7-10.3); Carbon Dioxide 17.8 mmol/L (21.6-31.8); Chloride 114 mmol/L (96-109); Glucose 107 mg/dL (70-110); LDL Cholesterol,Calculated 51.4 mg/dL (0.0-131.0); Magnesium 1.7 mg/dL (1.5-2.4); Sodium 142 mmol/L (135-145)
[2023-11-16] MEDS ORDERED: ASPIRIN 325 MG TAB PO SCH (09:00)
[2023-11-16] MEDS ORDERED: ACYCLOVIR 200 MG CAP PO SCH (09:00)
[2023-11-16] MEDS ORDERED: ASPIRIN 81 MG PO SCH (09:00)
[2023-11-16] MEDS ORDERED: LORATADINE 10 MG TAB PO SCH (09:00)
[2023-11-16] MEDS ORDERED: TIMOLOL 0.5% OPHTH DROPS 5 ML BTL LEFT EYE SCH (09:00)
[2023-11-16] MEDS ORDERED: FLUoxetine HCL 20 MG CAP PO SCH (09:00)
--- NOTE | 2023-11-16 09:49 | P.PN ---
Subjective HISTORY OF PRESENT ILLNESS: This is a 48-year-old female with a past medical history significant for hypertension, hyperlipidemia, diabetes, migraines, C. diff, depression, and WIRELESS CELLULAR TECHNICIAN shunt. 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 We have been asked to see the patient in consultation for chest pain. Patient examined at the bedside. Patient states that she was recently hospitalized at [facility] about a month ago for a ruptured appendix. She states she has been having some chest discomfort since that time. She reports seeing her PCP for this and was told it was secondary to her recent ruptured appendix. She states over the past few days she has been having chest pain that is worse with deep inspiration. She also reports that pain occurs after vomiting. She reports walking up and down the stairs at her house will bring on the pain as well. the pain is mostly in the middle of her chest. She denies any radiation of the pain. She denies any shortness of breath. At the time of examination, she is reporting suprapubic pain. She reports a history of chronic cystitis. The patient denies having any previous cardiac workup. She states that both of her parents have coronary artery disease. * EKG reveals sinus tachycardia with T-wave inversions inferiorly. No previous EKG available for comparison. * Chest xray negative for acute cardiopulmonary disease/process * Laboratory data: WBC 8.2. Hemoglobin 11.6. Platelet count 446. D-dimer 0.22. Sodium 141. Potassium 3.8. BUN 9. Creatinine 0.57. Troponin negative 2. * Toxicology is positive for barbiturates, tricyclic antidepressants, amphetamines, and benzodiazepines * Current home cardiac medications include Lipitor 20 mg daily and amlodipine 10 mg daily * No previous echocardiogram or cardiac catheterization available for review in EMR 11/16/2023 Patient examined this morning at the bedside. Patient continues to report epi sodes of chest pain overnight. She states her chest pain is worse with deep inspiration. She denies any shortness of breath. She also reports a headache this morning and overall is feeling somewhat unwell. Vital signs are stable. PHYSICAL EXAM: VITAL SIGNS: Reviewed. GENERAL: Well-developed in no acute distress. HEENT: Head is normocephalic. Pupils are equal, round. Sclerae anicteric. Mucous membranes of the mouth are moist. Neck supple. No JVD or thyromegaly LUNGS: Respirations even and unlabored. Lungs essentially clear to auscultation bilaterally. HEART: Regular rate and rhythm. S1 and S2 heard. ABDOMEN: Soft. Nondistended. Nontender. Suprapubic tenderness noted. EXTREMITIES: Normal range of motion. No clubbing or cyanosis. Peripheral pulses intact. No lower extremity edema NEUROLOGIC: Awake and alert. Oriented x 3. ASSESSMENT: Chest pain, appears noncardiac, troponin negative 2 Abnormal EKG with T-wave inversions inferiorly, no previous EKG for comparison Urinary tract infection History of chronic cystitis, per patient Elevated lactic acid Hypertension Hyperlipidemia Diabetes History of pseudotumor cerebri with WIRELESS CELLULAR TECHNICIAN shunt History of migraines History of C. diff History of depression Morbid obesity: BMI 34.5 PLAN: 2-D echo has been ordered. Await results Continue current cardiac medications Patient to undergo dobutamine stress echo today If negative, she may be discharged from a cardiac standpoint Nurse practitioner note has been reviewed by physician. Signing provider agrees with the documented findings, assessment, and plan of care. Objective - Vital Signs Vital signs: Vital Signs Temp 97.6 F 11/16/23 07:00 Pulse 87 11/16/23 07:00 Resp 16 11/16/23 07:00 BP 106/70 11/16/23 07:00 Pulse Ox 95 11/16/23 09:09 FiO2 Intake & Output 11/15/23 11/16/23 11/16/23 18:59 06:59 18:59 Intake Total 358 Balance 358 Weight 74.843 kg Intake: Oral 358 Other: # Voids 1 1 - Labs CBC & Chem 7: 11/16/23 05:48 11/16/23 05:48 Labs: Abnormal Lab Results - Last 24 Hours (Table) 11/15/23 11/15/23 11/15/23 Range/Units 07:36 09:54 09:57 RBC (4.10-5.20) X 10*6/uL Hgb (12.0-15.0) g/dL Hct (37.2-46.3) % MCV (80.0-97.0) FL MCH (27.0-32.0) pg MCHC (32.0-37.0) g/dL RDW (11.5-14.5) % Chloride (96-109) mmol/L Carbon Dioxide (21.6-31.8) mmol/L BUN (9.0-27.0) mg/dL BUN/Creatinine Ratio (12.00-20.00) Ratio POC Glucose (mg/dL) (70-110) mg/dL Hemoglobin A1c (<=6.0) % Plasma Lactic Acid Eduardo 3.2 H* (0.7-2.0) mmol/L Calcium (8.7-10.3) mg/dL HDL Cholesterol (40.00-60.00) mg/dL Urine Protein Trace H (Negative) Urine Glucose (UA) 4+ H (Negative) Urine Ketones 1+ H (Negative) Urine Blood (Negative) Urine RBC (0-5) /hpf Urine Mucus (None) /hpf Ur Barbiturates Screen Detected H (NotDetected) U Tricyclic Antidepress Detected H (NotDetected) Ur Amphetamines Screen Detected H (NotDetected) U Benzodiazepines Scrn Detected H (NotDetected) 11/15/23 11/15/23 11/15/23 Range/Units 12:06 13:06 15:08 RBC (4.10-5.20) X 10*6/uL Hgb (12.0-15.0) g/dL Hct (37.2-46.3) % MCV (80.0-97.0) FL MCH (27.0-32.0) pg MCHC (32.0-37.0) g/dL RDW (11.5-14.5) % Chloride (96-109) mmol/L Carbon Dioxide (21.6-31.8) mmol/L BUN (9.0-27.0) mg/dL BUN/Creatinine Ratio (12.00-20.00) Ratio POC Glucose (mg/dL) 135 H (70-110) mg/dL Hemoglobin A1c (<=6.0) % Plasma Lactic Acid Eduardo 3.1 H* (0.7-2.0) mmol/L Calcium (8.7-10.3) mg/dL HDL Cholesterol (40.00-60.00) mg/dL Urine Protein (Negative) Urine Glucose (UA) 4+ H (Negative) Urine Ketones (Negative) Urine Blood Large H (Negative) Urine RBC 172 H (0-5) /hpf Urine Mucus Rare H (None) /hpf Ur Barbiturates Screen (NotDetected) U Tricyclic Antidepress (NotDetected) Ur Amphetamines Screen (NotDetected) U Benzodiazepines Scrn (NotDetected) 11/15/23 11/15/23 11/16/23 Range/Units 16:59 20:53 05:48 RBC (4.10-5.20) X 10*6/uL Hgb (12.0-15.0) g/dL Hct (37.2-46.3) % MCV (80.0-97.0) FL MCH (27.0-32.0) pg MCHC (32.0-37.0) g/dL RDW (11.5-14.5) % Chloride (96-109) mmol/L Carbon Dioxide (21.6-31.8) mmol/L BUN (9.0-27.0) mg/dL BUN/Creatinine Ratio (12.00-20.00) Ratio POC Glucose (mg/dL) 141 H 178 H (70-110) mg/dL Hemoglobin A1c 6.2 H (<=6.0) % Plasma Lactic Acid Eduardo (0.7-2.0) mmol/L Calcium (8.7-10.3) mg/dL HDL Cholesterol (40.00-60.00) mg/dL Urine Protein (Negative) Urine Glucose (UA) (Negative) Urine Ketones (Negative) Urine Blood (Negative) Urine RBC (0-5) /hpf Urine Mucus (None) /hpf Ur Barbiturates Screen (NotDetected) U Tricyclic Antidepress (NotDetected) Ur Amphetamines Screen (NotDetected) U Benzodiazepines Scrn (NotDetected) 11/16/23 11/16/23 11/16/23 Range/Units 05:48 05:48 05:52 RBC 4.00 L (4.10-5.20) X 10*6/uL Hgb 9.3 L (12.0-15.0) g/dL Hct 30.8 L (37.2-46.3) % MCV 77.0 L (80.0-97.0) FL MCH 23.3 L (27.0-32.0) pg MCHC 30.2 L (32.0-37.0) g/dL RDW 16.4 H (11.5-14.5) % Chloride 114 H (96-109) mmol/L Carbon Dioxide 17.8 L (21.6-31.8) mmol/L BUN 5.9 L (9.0-27.0) mg/dL BUN/Creatinine Ratio 9.83 L (12.00-20.00) Ratio POC Glucose (mg/dL) 119 H (70-110) mg/dL Hemoglobin A1c (<=6.0) % Plasma Lactic Acid Eduardo (0.7-2.0) mmol/L Calcium 8.5 L (8.7-10.3) mg/dL HDL Cholesterol 30.60 L (40.00-60.00) mg/dL Urine Protein (Negative) Urine Glucose (UA) (Negative) Urine Ketones (Negative) Urine Blood (Negative) Urine RBC (0-5) /hpf Urine Mucus (None) /hpf Ur Barbiturates Screen (NotDetected) U Tricyclic Antidepress (NotDetected) Ur Amphetamines Screen (NotDetected) U Benzodiazepines Scrn (NotDetected)
[2023-11-16] MEDS ORDERED: MORPHINE SULFATE 2 MG/ML SYRINGE IVP STA (11:23)
[2023-11-16 11:50] LABS: Glucose,Whole Blood 113 mg/dL (70-110)
--- NOTE | 2023-11-16 11:56 | CA ---
Transthoracic Echo Report Name: Pam Pulido Age: 48 Gender: F : 1975 Exam Date: 11/15/2023 15:20 Exam Location: [facility] Ht (in): 58 Wt (lb): 165 Ordering Physician: Kaitlynn Robles Attending/Referring Phys: [id number], Travis Stock Clerk Eileen Camargo RDCS Procedure CPT: Indications: LV function, CP Cardiac Hx: Technical Quality: Fair Contrast 1: Total Dose (mL): Contrast 2: Total Dose (mL): MEASUREMENTS (Male / Female) Normal Values 2D ECHO LV Diastolic Diameter PLAX 3.9 cm 4.2 - 5.9 / 3.9 - 5.3 cm LV Systolic Diameter PLAX 2.5 cm IVS Diastolic Thickness 1.3 cm 0.6 - 1.0 / 0.6 - 0.9 cm LVPW Diastolic Thickness 1.1 cm 0.6 - 1.0 / 0.6 - 0.9 cm LV Relative Wall Thickness 0.6 RV Internal Dim ED PLAX 3.0 cm LA Systolic Diameter LX 3.5 cm 3.0 - 4.0 / 2.7 - 3.8 cm LV Diastolic Volume MOD 4C 80.7 cm??? LV Systolic Volume MOD 4C 39.1 cm??? LV Ejection Fraction MOD 4C 51.6 % LV Cardiac Index MOD 4C 2164.3 cm???/min???m??? LV Diastolic Length 4C 8.5 cm LV Systolic Length 4C 6.7 cm LV Diastolic Volume MOD 2C 58.7 cm??? LV Systolic Volume MOD 2C 25.7 cm??? LV Ejection Fraction MOD 2C 56.2 % LV Cardiac Index MOD 2C 1713.8 cm???/min???m??? LV Diastolic Length 2C 8.2 cm LV Systolic Length 2C 7.1 cm LA Volume 41.6 cm??? 18 - 58 / 22 - 52 cm??? LA Volume Index 23.3 cm???/m??? 16 - 28 cm???/m??? M-MODE Aortic Root Diameter MM 3.1 cm MV E Point Septal Separation 1.4 cm AV Cusp Separation MM 2.2 cm DOPPLER AV Peak Velocity 155.1 cm/s AV Peak Gradient 9.6 mmHg MV Area PHT 3.3 cm??? Mitral E Point Velocity 92.3 cm/s Mitral A Point Velocity 86.3 cm/s Mitral E to A Ratio 1.1 MV Deceleration Time 227.0 ms MV E' Velocity 8.5 cm/s Mitral E to MV E' Ratio 10.9 TR Peak Velocity 200.9 cm/s TR Peak Gradient 16.1 mmHg Right Ventricular Systolic Press 21.1 mmHg FINDINGS Left Ventricle Left ventricular ejection fraction is estimated at 55-60 %. Left ventricular cavity size normal. Mildly increased left ventricular wall thickness. Normal left ventricular wall motion. Right Ventricle Normal right ventricular size. Right ventricular systolic pressure within normal limits. Right Atrium Right atrium not well visualized. Left Atrium Normal left atrial size. Mitral Valve Structurally normal mitral valve. No mitral stenosis, or prolapse.trace to mild mitral regurgitation. Aortic Valve Trileaflet aortic valve. No aortic valve stenosis or regurgitation. Tricuspid Valve Structurally normal tricuspid valve. Mild tricuspid regurgitation. Pulmonic Valve Structurally normal pulmonic valve. No pulmonic regurgitation. Pericardium No pericardial effusion. Aorta Normal size aortic root and proximal ascending aorta. CONCLUSIONS 1. Normal left ventricular size and systolic function 2. Mild tricuspid regurgitation with trace to mild mitral regurgitation. Previewed by: Dr. Leland Hester MD (Electronically Signed) Final Date: 16 November 2023 11:55
--- NOTE | 2023-11-16 12:55 | CA ---
Dobutamine Stress Echocardiogram Report Pam Pulido Age: 48 Gender: F : 1975 Exam Date: 11/16/2023 10:51 Exam Location: [facility] Ordering Physician: Kaitlynn Robles Referring Physician: [id number] Metal Baler: Augustine Rios Technologist: Ht (in): 58 Wt (lb): 160 Procedure CPT: Indication: CP ICD-9 Codes: Rhythm: Patient History: Cardiac Medications: Medications in past 24 hours: Contrast: N/A Total Dose (mL): Stress Results Protocol: Dobutamine Peak Dose (???g/kg/min): 40 Duration (min:sec): Atropine:(mg) Target HR: 145 Double Product: [id number] Resting HR: 74 Resting BP: 157 / 71 Peak HR: 145 Peak BP: 153 / 70 Max Predicted HR: 171 85 % Max Predicted HR Stress Summary: BP Response: Reason for Termination: Exceeded target heart rate (85% max predicted) Cardiac Symptoms: Chest pain ECG Analysis Resting EKG: Normal sinus rhythm, normal ECG Stress EKG: No abnormal ST/T wave changes with exercise Arrhythmia: Occasional PVCs Echo Analysis Base Echo Analysis: Normal resting echocardiogram. Low Echo Anaylsis: Normal wall thickening and motion Peak Echo Analysis: Normal augmentation with no hypokinesis or dyskinesis Recovery Echo: Normal wall motion MEASUREMENTS (Male/Female) Normal Values CONCLUSIONS 1. Normal echocardiographic response to dobutamine infusion 2.Normal global and regional wall motion 3.No echocardiographic evidence of myocardial ischemia. Dr. Leland Hester MD (Electronically Signed) Final Date: 16 November 2023 12:54
[2023-11-16 13:53] VITALS: BP 109/75; PULSE 86; RESP 17; TEMP 97.4
--- NOTE | 2023-11-16 15:44 | P.DS ---
Providers Date of admission: 11/15/23 09:53 Expected date of discharge: 11/16/23 Attending physician: Rema Padilla DO Primary care physician: Carol Serrano Hospital Course: Chest pain, atypical Dysuria Elevated lactic acid Chronic cystitis Hypertension Hyperlipidemia Diabetes type 2 Migraines Pseudotumor cerebri status post ENGINEER/CONDUCTOR shunt Hospital Course: 48 year old woman with history of chronic cystitis, family history of heart di sease, HTN/HLD/DM, Migraines, and ENGINEER/CONDUCTOR shunt for pseudotumor cerebri presented for evaluation of chest pain and dysuria. In the emergency room, patient was afebrile, 138/83, heart rate 128, 97% on room air. CBC demonstrates borderline hemoglobin with low MCV of 75.4. Basic metabolic panel shows acidosis with a CO2 of 14 with an anion gap of 16. Liver function tests are unremarkable. Lipase was 93. Lactic acid was 3.1. Troponin was less than 0.012 than trended to less than 0.012. D-dimer was 0.22. UA was contaminated with 58 squamous epithelial cells. Urine tox screen is positive for barbiturates, tricyclic antidepressants, amphetamines, benzodiazepines. Influenza A, B, RSV, Covid were negative. EKG shows sinus tachycardia, appropriate axis, nonspecific T-wave changes of leads 2, 3, aVF. Chest x-ray appeared clear bilaterally with normal size heart and no evidence of volume overload. Pt was admitted to observation. Troponins trended negative. Cardiology recommended dobutamine stress echo, which was negative for reversible ischemia. Pt did report bladder pain while hospitalized, and repeat UA c/w her history of chronic cystitis, but not concerning for UTI at this time. Rec'd one dose of abx in the ER, then d/c'd with new prescription for pyridium for bladder pain. Pt should f/u with PCP. Gen: in no apparent distress, resting comfortably in bed Eyes: PERRL, no scleral injection or icterus HENT: normocephalic, atraumatic, good hearing acuity, moist mucous membranes Neck: no tracheal deviation, full range of motion Resp: good air exchange, breathing comfortably with no accessory muscle use, no tactile fremitus CVS: good distal perfusion x 4, no pitting edema GI: soft, NTTP, ND, no hepatosplenomegaly : no suprapubic tenderness, no CVAT, buchanan catheter not present MSK: no clubbing, no cyanosis, no noted contractures of extremities Skin: no noted rashes, petechiae; temperature of skin is appropriate Neuro: moving all extremities without signs of weakness, CN II-XII intact Psych: cooperative, euthymic mood, insight and judgment intact Patient Condition at Discharge: Good Plan - Discharge Summary Discharge Rx Participant: No New Discharge Prescriptions: New Phenazopyridine [Pyridium] 100 mg PO TID #90 tab Acetaminophen Tab [Tylenol] 650 mg PO Q4HR PRN tab PRN Reason: Fever And/ Or Pain Continue Timolol 0.5% Ophth Soln [Timoptic 0.5% Ophth Soln] 1 drop LEFT EYE DAILY Ibuprofen [Motrin] 800 mg PO Q8HR PRN PRN Reason: Pain Atorvastatin [Lipitor] 20 mg PO DAILY Loratadine [Claritin] 10 mg PO DAILY FLUoxetine HCL 40 mg PO DAILY Fluticasone Nasal Alicia [Flonase Nasal Alicia] 1 spr EA NOSTRIL BID PRN PRN Reason: Allergy Symptoms busPIRone HCL 15 mg PO BID Pantoprazole [Protonix] 40 mg PO DAILY Cyclobenzaprine [Flexeril] 10 mg PO BID PRN PRN Reason: Muscle Spasm amLODIPine [Norvasc] 10 mg PO DAILY Acyclovir 400 mg PO DAILY Butalb/APAP/Caff 50-325-40Mg [Fioricet 50-325-40] 1 tab PO TID PRN #12 tab PRN Reason: Migraine Headache Ondansetron Odt [Zofran ODT] 4 mg PO Q8HR PRN #12 tab PRN Reason: Nausea Lisdexamfetamine Dimesylate [Vyvanse] 60 mg PO QAM HYDROcodone/APAP 5-325MG [[place] 5-325] 1 tab PO Q6HR PRN PRN Reason: Pain methocarbamoL [Robaxin-750] 750 mg PO TID PRN PRN Reason: muscle spasms Semaglutide [Wegovy] 2.4 mg SQ WE hydrOXYzine HCL [Atarax] 50 mg PO BID PRN PRN Reason: Anxiety metFORMIN HCL 1,000 mg PO BID Discharge Medication List Atorvastatin [Lipitor] 20 mg PO DAILY 10/07/14 [History] FLUoxetine HCL 40 mg PO DAILY 10/07/14 [History] Ibuprofen [Motrin] 800 mg PO Q8HR PRN 10/07/14 [History] Loratadine [Claritin] 10 mg PO DAILY 10/07/14 [History] Timolol 0.5% Ophth Soln [Timoptic 0.5% Ophth Soln] 1 drop LEFT EYE DAILY 10/07/14 [History] Acyclovir 400 mg PO DAILY 01/19/21 [History] Cyclobenzaprine [Flexeril] 10 mg PO BID PRN 01/19/21 [History] Fluticasone Nasal Alicia [Flonase Nasal Alicia] 1 spr EA NOSTRIL BID PRN 01/19/21 [History] Pantoprazole [Protonix] 40 mg PO DAILY 01/19/21 [History] amLODIPine [Norvasc] 10 mg PO DAILY 01/19/21 [History] busPIRone HCL 15 mg PO BID 01/19/21 [History] Butalb/APAP/Caff 50-325-40Mg [Fioricet 50-325-40] 1 tab PO TID PRN #12 tab 01/21/21 [Rx] Ondansetron Odt [Zofran ODT] 4 mg PO Q8HR PRN #12 tab 01/21/21 [Rx] HYDROcodone/APAP 5-325MG [Charl[place] 5-325] 1 tab PO Q6HR PRN 11/15/23 [History] Lisdexamfetamine Dimesylate [Vyvanse] 60 mg PO QAM 11/15/23 [History] Semaglutide [Wegovy] 2.4 mg SQ WE 11/15/23 [History] hydrOXYzine HCL [Atarax] 50 mg PO BID PRN 11/15/23 [History] metFORMIN HCL 1,000 mg PO BID 11/15/23 [History] methocarbamoL [Robaxin-750] 750 mg PO TID PRN 11/15/23 [History] Acetaminophen Tab [Tylenol] 650 mg PO Q4HR PRN tab 11/16/23 [Rx] Phenazopyridine [Pyridium] 100 mg PO TID #90 tab 11/16/23 [Rx] Follow up Appointment(s)/Referral(s): Carol Serrano MD [Primary Care Provider] - 1-2 days Discharge Disposition: HOME SELF-CARE
== END 2023-11-16 14:20 | disposition home or self-care (01) ==
LOC: EC 05:24 → 6NMEDSUR 09:53
PROVIDERS: ADMIT Internal Medicine; ATTEND Internal Medicine
DX: R07.89 Other chest pain (principal); N30.21 Other chronic cystitis with hematuria; E11.9 Type 2 diabetes mellitus without complications; E78.5 Hyperlipidemia, unspecified; E66.01 Morbid (severe) obesity due to excess calories; Z68.34 Body mass index [BMI] 34.0-34.9, adult; E87.20 Acidosis, unspecified; R94.31 Abnormal electrocardiogram [ECG] [EKG]; R79.89 Other specified abnormal findings of blood chemistry; I10 Essential (primary) hypertension; G93.2 Benign intracranial hypertension; Z98.2 Presence of cerebrospinal fluid drainage device; G43.909 Migraine, unspecified, not intractable, without status migrainosus; H40.9 Unspecified glaucoma; F32.A Depression, unspecified; Z79.899 Other long term (current) drug therapy; Z79.84 Long term (current) use of oral hypoglycemic drugs; Z88.2 Allergy status to sulfonamides; Z88.1 Allergy status to other antibiotic agents; Z16.24 Resistance to multiple antibiotics; Z90.49 Acquired absence of other specified parts of digestive tract; Z83.3 Family history of diabetes mellitus; Z82.5 Family history of asthma and other chronic lower respiratory diseases; Z82.49 Family history of ischemic heart disease and other diseases of the circulatory system
CPT/HCPCS: 96376; 96361 ×2; 96374; 96375; 99285; 36415; 94760; 93005; 93306; 93351; 85379; 80061; 80053; 80048; 84443; 82150; 83605; 83690; 83735; 84484; 85025 ×2; 81003; 81001; 87040; 80306; 87086; 87077; 87186; 83036; 87636; 71045; G0378 ×2; J2270 ×2; J1200; J2765; J0696; J1885; C9113

== ENCOUNTER 2023-12-23 18:53 | Emergency (ER) | payer OTHER ==
[2023-12-23] MEDS ORDERED: KETOROLAC 15 MG/ML 1 ML VIAL IM STA (19:51)
[2023-12-23] MEDS ORDERED: ONDANSETRON ODT 4 MG TAB PO STA (19:51)
[2023-12-23 19:54] VITALS: RESP 20; TEMP 98.7
--- NOTE | 2023-12-23 20:10 | ED ---
General Adult HPI - General Chief complaint: Urogenital Stated complaint: Abn labs Time Seen by Provider: 12/23/23 19:32 Source: patient, RN notes reviewed Mode of arrival: ambulatory Limitations: no limitations - History of Present Illness Initial comments: 48-year-old female presents to the emergency department for evaluation of dysuria, hematuria. Patient has a history of recurrent UTIs. She states that her symptoms started about 2 days ago. She admits to suprapubic discomfort and bilateral flank pain. He states that the symptoms are typical of her UTIs. She does admit to a history of kidney stones. She admits to chills. - Related Data Home Medications Medication Instructions Recorded Confirmed Atorvastatin [Lipitor] 20 mg PO DAILY 10/07/14 11/15/23 FLUoxetine HCL 40 mg PO DAILY 10/07/14 11/15/23 Ibuprofen [Motrin] 800 mg PO Q8HR PRN 10/07/14 11/15/23 Loratadine [Claritin] 10 mg PO DAILY 10/07/14 11/15/23 Timolol 0.5% Ophth Soln [Timoptic 1 drop LEFT EYE DAILY 10/07/14 11/15/23 0.5% Ophth Soln] Acyclovir 400 mg PO DAILY 01/19/21 11/15/23 Cyclobenzaprine [Flexeril] 10 mg PO BID PRN 01/19/21 11/15/23 Fluticasone Nasal [place] [Flonase 1 spr EA NOSTRIL BID PRN 01/19/21 11/15/23 Nasal [place]] Pantoprazole [Protonix] 40 mg PO DAILY 01/19/21 11/15/23 amLODIPine [Norvasc] 10 mg PO DAILY 01/19/21 11/15/23 busPIRone HCL 15 mg PO BID 01/19/21 11/15/23 HYDROcodone/APAP 5-325MG [[place] 1 tab PO Q6HR PRN 11/15/23 11/15/23 5-325] Lisdexamfetamine Dimesylate 60 mg PO QAM 11/15/23 11/15/23 [Vyvanse] Semaglutide [Wegovy] 2.4 mg SQ WE 11/15/23 11/15/23 hydrOXYzine HCL [Atarax] 50 mg PO BID PRN 11/15/23 11/15/23 metFORMIN HCL 1,000 mg PO BID 11/15/23 11/15/23 methocarbamoL [Robaxin-750] 750 mg PO TID PRN 11/15/23 11/15/23 Previous Rx's Medication Instructions Recorded Butalb/APAP/Caff 50-325-40Mg 1 tab PO TID PRN #12 tab 01/21/21 [Fioricet 50-325-40] Ondansetron Odt [Zofran ODT] 4 mg PO Q8HR PRN #12 tab 01/21/21 Acetaminophen Tab [Tylenol] 650 mg PO Q4HR PRN tab 11/16/23 Phenazopyridine [Pyridium] 100 mg PO TID #90 tab 11/16/23 Allergies Allergy/AdvReac Type Severity Reaction Status Date / Time ciprofloxacin [From Cipro] Allergy Rash/Hives Verified 12/23/23 19:31 ciprofloxacin HCl Allergy Rash/Hives Verified 12/23/23 19:31 [From Cipro] Sulfa (Sulfonamide Allergy Rash/Hives Verified 12/23/23 19:31 Antibiotics) Review of Systems ROS Statement: Those systems with pertinent positive or pertinent negative responses have been documented in the HPI. ROS Other: All systems not noted in ROS Statement are negative. Past Medical History Past Medical History: Diabetes Mellitus, Eye Disorder, Hyperlipidemia, Hypertension, Renal Disease Additional Past Medical History / Comment(s): GLAUCOMA; MIGRAINES History of Any Multi-Drug Resistant Organisms: C-DIFF Date of last positivie culture/infection: May 2019 MDRO Source:: stool Past Surgical History: Appendectomy, Cholecystectomy Additional Past Surgical History / Comment(s): OVARY SURGERY; EYE SURGERY Past Anesthesia/Blood Transfusion Reactions: Postoperative Nausea & Vomiting (PONV) Past Psychological History: Depression Smoking Status: Never smoker Past Alcohol Use History: None Reported Past Drug Use History: None Reported - Past Family History Mother Family Medical History: COPD, Diabetes Mellitus Father Family Medical History: Coronary Artery Disease (CAD), Diabetes Mellitus Additional Family Medical History / Comment(s): dad General Exam Limitations: no limitations General appearance: alert, in no apparent distress Head exam: Present: atraumatic, normocephalic, normal inspection Eye exam: Present: normal appearance, PERRL, EOMI. Absent: scleral icterus, conjunctival injection, periorbital swelling ENT exam: Present: normal exam, mucous membranes moist Neck exam: Present: normal inspection. Absent: tenderness, meningismus, lymphadenopathy Respiratory exam: Present: normal lung sounds bilaterally. Absent: respiratory distress, wheezes, rales, rhonchi, stridor Cardiovascular Exam: Present: regular rate, normal rhythm, normal heart sounds. Absent: systolic murmur, diastolic murmur, rubs, gallop, clicks GI/Abdominal exam: Present: soft, tenderness (Suprapubic), normal bowel sounds. Absent: distended, guarding, rebound, rigid Extremities exam: Present: normal inspection, full ROM, normal capillary refill. Absent: tenderness, pedal edema, joint swelling, calf tenderness Back exam: Present: normal inspection Neurological exam: Present: alert, oriented X3 Psychiatric exam: Present: normal affect, normal mood Skin exam: Present: warm, dry, intact, normal color. Absent: rash Course Vital Signs 12/23/23 12/24/23 19:30 00:09 Temperature 98.7 F Pulse Rate 109 H 106 H Respiratory 20 20 Rate Blood Pressure 114/77 116/73 O2 Sat by Pulse 96 96 Oximetry Medical Decision Making - Medical Decision Making Was pt. sent in by a medical professional or institution (, PA, SPORTS LEADERSHIP INSTRUCTOR, urgent care, hospital, or detention...) When possible be specific @ -No Did you speak to anyone other than the patient for history (EMS, parent, family, police, friend...)? What history was obtained from this source @ -No Did you review nursing and triage notes (agree or disagree)? Why? @ -I reviewed and agree with nursing and triage notes Were old charts reviewed (outside hosp., previous admission, EMS record, old EKG, old radiological studies, urgent care reports/EKG's, detention records)? Report findings @ -No old charts were reviewed Differential Diagnosis (chest pain, altered mental status, abdominal pain women, abdominal pain men, vaginal bleeding, weakness, fever, dyspnea, syncope, headache, dizziness, GI bleed, back pain, seizure, CVA, palpatations, mental health, musculoskeletal)? @ -Differential Abdominal Pain Women: Appendicitis, Cholecystitis, diverticulosis, ischemic bowel, pancreatitis, hepatitis, UTI, gastroenteritis, AAA, incarcerated hernia, bowel obstruction, constipation, inflammatory bowel, hepatitis, peptic ulcer disease, splenic infarction, perforated viscus, vulvitis, ovarian torsion, PID, kidney stone, placenta abruption, this is not meant to be an all-inclusive list EKG interpreted by me (3pts min.). @ -None X-rays interpreted by me (1pt min.). @ -None done CT interpreted by me (1pt min.). @ -CT abd pelvis shows no acute nephrolithiasis, hydronephrosis, mild fecal retention U/S interpreted by me (1pt. min.). @ -None done What testing was considered but not performed or refused? (CT, X-rays, U/S, labs)? Why? @ -None What meds were considered but not given or refused? Why? @ -None Did you discuss the management of the patient with other professionals (professionals i.e. , PA, SPORTS LEADERSHIP INSTRUCTOR, lab, RT, psych nurse, social services coordinator, shirring machine operator automatic, teacher, safety and security officer, case mgr)? Give summary @ -No Was smoking cessation discussed for >3mins.? @ -No Was critical care preformed (if so, how long)? @ -No Were there social determinants of health that impacted care today? How? (Homelessness, low income, unemployed, alcoholism, drug addiction, transportation, low edu. Level, literacy, decrease access to med. care, fdc, rehab)? @ -No Was there de-escalation of care discussed even if they declined (Discuss DNR or withdrawal of care, Hospice)? DNR status @ -No What co-morbidities impacted this encounter? (DM, HTN, Smoking, COPD, CAD, Cancer, CVA, ARF, Chemo, Hep., AIDS, mental health diagnosis, sleep apnea, morbid obesity)? @ -None Was patient admitted / discharged? Hospital course, mention meds given and route, prescriptions, significant lab abnormalities, going to OR and other pertinent info. @ -Discharged. Patient presented to the emergency department for evaluation of urinary frequency, dysuria, suprapubic discomfort x 3 days. She reports recurrent UTIs, not currently on prophylaxis. Laboratory studies obtained. CBC shows WBC 8.0, hemoglobin 12.2; coagulation studies essentially unremarkable; CMP shows sodium 142, potassium 3.8, CO2 15 which is typical for the patient; creatinine 0.75, lactic acid 2.7 slightly elevated likely due to dehydration. Patient hydrated with 1 L normal saline. UA shows negative nitrite, negative leukocyte esterase. Given dose of Toradol, Zofran, and morphine in the emergency department which improved her symptoms. Patient advised on findings and discharge plan. Patient understanding and agreeable with plan. Strict return precautions discussed and patient expresses understanding. Patient stable at time of discharge. Case discussed with Dr. Jane. Undiagnosed new problem with uncertain prognosis? @ -No Drug Therapy requiring intensive monitoring for toxicity (Heparin, Nitro, Insulin, Cardizem)? @ -No Were any procedures done? @ -No Diagnosis/symptom? @ -Suprapubic pain, constipation Acute, or Chronic, or Acute on Chronic? @ -Acute Uncomplicated (without systemic symptoms) or Complicated (systemic symptoms)? @ -Uncomplicated Side effects of treatment? @ -No Exacerbation, Progression, or Severe Exacerbation? @ -No Poses a threat to life or bodily function? How? (Chest pain, USA, UT, pneumonia, PE, COPD, DKA, ARF, appy, cholecystitis, CVA, Diverticulitis, Homicidal, Suicidal, threat to staff... and all critical care pts) @ -No - Lab Data Result diagrams: 12/23/23 21:56 12/23/23 21:56 Lab Results 12/23/23 12/23/23 12/23/23 Range/Units 20:00 21:56 21:56 WBC 8.0 (3.8-10.6) k/uL RBC 4.91 (3.80-5.40) m/uL Hgb 12.2 (11.4-16.0) gm/dL Hct 37.0 (34.0-46.0) % MCV 75.5 L (80.0-100.0) fL MCH 25.0 (25.0-35.0) pg MCHC 33.1 (31.0-37.0) g/dL RDW 17.3 H (11.5-15.5) % Plt Count 337 (150-450) k/uL MPV 8.2 Neutrophils % 63 % Lymphocytes % 28 % Monocytes % 3 % Eosinophils % 5 % Basophils % 0 % Neutrophils # 5.0 (1.3-7.7) k/uL Lymphocytes # 2.2 (1.0-4.8) k/uL Monocytes # 0.3 (0-1.0) k/uL Eosinophils # 0.4 (0-0.7) k/uL Basophils # 0.0 (0-0.2) k/uL Hypochromasia Slight Anisocytosis Slight Microcytosis Slight PT 9.7 L (10.0-12.5) sec INR 0.9 (<1.2) APTT 23.8 (22.0-30.0) sec Sodium (137-145) mmol/L Potassium (3.5-5.1) mmol/L Chloride (98-107) mmol/L Carbon Dioxide (22-30) mmol/L Anion Gap mmol/L BUN (7-17) mg/dL Creatinine (0.52-1.04) mg/dL Est GFR (CKD-EPI)AfAm (>60 ml/min/1.73 sqM) Est GFR (CKD-EPI)NonAf (>60 ml/min/1.73 sqM) Glucose (74-99) mg/dL Lactic Ac Sepsis Rflx Plasma Lactic Acid Eduardo (0.7-2.0) mmol/L Calcium (8.4-10.2) mg/dL Total Bilirubin (0.2-1.3) mg/dL AST (14-36) U/L ALT (4-34) U/L Alkaline Phosphatase (38-126) U/L Total Protein (6.3-8.2) g/dL Albumin (3.5-5.0) g/dL Amylase (30-110) U/L Lipase (23-300) U/L Urine Color Colorless Urine Appearance Clear (Clear) Urine pH 5.5 (5.0-8.0) Ur Specific [place] 1.009 (1.001-1.035) Urine Protein Negative (Negative) Urine Glucose (UA) Negative (Negative) Urine Ketones Negative (Negative) Urine Blood Negative (Negative) Urine Nitrite Negative (Negative) Urine Bilirubin Negative (Negative) Urine Urobilinogen <2.0 (<2.0) mg/dL Ur Leukocyte Esterase Negative (Negative) 12/23/23 12/23/23 12/23/23 Range/Units 21:56 21:56 23:05 WBC (3.8-10.6) k/uL RBC (3.80-5.40) m/uL Hgb (11.4-16.0) gm/dL Hct (34.0-46.0) % MCV (80.0-100.0) fL MCH (25.0-35.0) pg MCHC (31.0-37.0) g/dL RDW (11.5-15.5) % Plt Count (150-450) k/uL MPV Neutrophils % % Lymphocytes % % Monocytes % % Eosinophils % % Basophils % % Neutrophils # (1.3-7.7) k/uL Lymphocytes # (1.0-4.8) k/uL Monocytes # (0-1.0) k/uL Eosinophils # (0-0.7) k/uL Basophils # (0-0.2) k/uL Hypochromasia Anisocytosis Microcytosis PT (10.0-12.5) sec INR (<1.2) APTT (22.0-30.0) sec Sodium 142 (137-145) mmol/L Potassium 3.8 (3.5-5.1) mmol/L Chloride 113 H (98-107) mmol/L Carbon Dioxide 15 L (22-30) mmol/L Anion Gap 14 mmol/L BUN 13 (7-17) mg/dL Creatinine 0.75 (0.52-1.04) mg/dL Est GFR (CKD-EPI)AfAm >90 (>60 ml/min/1.73 sqM) Est GFR (CKD-EPI)NonAf >90 (>60 ml/min/1.73 sqM) Glucose 133 H (74-99) mg/dL Lactic Ac Sepsis Rflx Y Plasma Lactic Acid Eduardo 2.7 H* (0.7-2.0) mmol/L Calcium 9.8 (8.4-10.2) mg/dL Total Bilirubin 0.4 (0.2-1.3) mg/dL AST 25 (14-36) U/L ALT 22 (4-34) U/L Alkaline Phosphatase 120 (38-126) U/L Total Protein 6.4 (6.3-8.2) g/dL Albumin 3.9 (3.5-5.0) g/dL Amylase 50 (30-110) U/L Lipase 124 (23-300) U/L Urine Color Urine Appearance (Clear) Urine pH (5.0-8.0) Ur Specific [place] (1.001-1.035) Urine Protein (Negative) Urine Glucose (UA) (Negative) Urine Ketones (Negative) Urine Blood (Negative) Urine Nitrite (Negative) Urine Bilirubin (Negative) Urine Urobilinogen (<2.0) mg/dL Ur Leukocyte Esterase (Negative) Disposition Clinical Impression: Suprapubic pain, Vulvovaginal candidiasis Disposition: HOME SELF-CARE Condition: Stable Instructions (If sedation given, give patient instructions): Abdominal Pain (ED) Additional Instructions: Please follow up with your primary care provider and urologist. Return to the emergency department for new or worsening symptoms. Is patient prescribed a controlled substance at d/c from ED?: No Referrals: None,Stated [Primary Care Provider] - 1-2 days
[2023-12-23] MEDS ORDERED: MORPHINE SULFATE 4 MG/ML SYRINGE IM STA (21:00)
[2023-12-23 21:27] LABS: Appearance,Urine Clear (Clear); Bilirubin,Urine Negative (Negative); Blood,Urine Negative (Negative); Color,Urine Colorless; Glucose,Urine (UA) Negative (Negative); Ketones,Urine Negative (Negative); Leukocyte Esterase,Urine Negative (Negative); Nitrite,Urine Negative (Negative); PH, Urine 5.5 (5.0-8.0); Protein,Urine Negative (Negative); Specific Gravity,Urine 1.009 (1.001-1.035); Urobilinogen,Urine <2.0 mg/dL (<2.0)
[2023-12-23 22:29] LABS: Anisocytosis Slight; Basophils % (A) 0 %; Eosinophils # (A) 0.4 k/uL (0-0.7); Eosinophils % (A) 5 %; HGB 12.2 gm/dL (11.4-16.0); Hypochromasia Slight; Lymphocytes # (A) 2.2 k/uL (1.0-4.8); Lymphocytes % (A) 28 %; MCHC 33.1 g/dL (31.0-37.0); MCV 75.5 fL (80.0-100.0); Mean Platelet Volume 8.2; Microcytosis Slight; Monocytes # (A) 0.3 k/uL (0-1.0); Monocytes % (A) 3 %; Neutrophils % (A) 63 %; Platelet Count 337 k/uL (150-450); RBC 4.91 m/uL (3.80-5.40); RDW 17.3 % (11.5-15.5)
[2023-12-23 22:42] LABS: ALT 22 U/L (4-34); AST 25 U/L (14-36); Albumin 3.9 g/dL (3.5-5.0); Alkaline Phosphatase 120 U/L (38-126); Amylase 50 U/L (30-110); Anion Gap 14 mmol/L; Blood Urea Nitrogen 13 mg/dL (7-17); Calcium 9.8 mg/dL (8.4-10.2); Carbon Dioxide 15 mmol/L (22-30); Chloride 113 mmol/L (98-107); Glucose 133 mg/dL (74-99); Lipase 124 U/L (23-300); Potassium 3.8 mmol/L (3.5-5.1); Sodium 142 mmol/L (137-145); Total Bilirubin 0.4 mg/dL (0.2-1.3); Total Protein 6.4 g/dL (6.3-8.2)
[2023-12-23 23:02] LABS: African American GFR (CKD) >90 (>60 ml/min/1.73 sqM); INR 0.9 (<1.2); Non-African American GFR(CKD) >90 (>60 ml/min/1.73 sqM); Partial Thromboplastin Time 23.8 sec (22.0-30.0); Prothrombin Time 9.7 sec (10.0-12.5)
[2023-12-23] MEDS ORDERED: SODIUM CHLORIDE 0.9% 1,000 ML IV ONE (23:07)
--- NOTE | 2023-12-23 23:32 | CT ---
EXAM: CT Abdomen and Pelvis Without Intravenous Contrast CLINICAL HISTORY: ITS.REASON CT Reason: abdominal pain, flank pain TECHNIQUE: Axial computed tomography images of the abdomen and pelvis without intravenous contrast. CTDI is 10.7 mGy and DLP is 643.2 mGy-cm. This CT exam was performed using one or more of the following dose reduction techniques: automated exposure control, adjustment of the mA and/or kV according to patient size, and/or use of iterative reconstruction technique. COMPARISON: No relevant prior studies available. FINDINGS: Lung bases: Unremarkable. No mass. No consolidation. ABDOMEN: Liver: Unremarkable. Gallbladder and bile ducts: Cholecystectomy. No ductal dilation. Pancreas: Unremarkable. No ductal dilation. Spleen: Unremarkable. No splenomegaly. Adrenals: Unremarkable. No mass. Kidneys and ureters: Unremarkable. No hydronephrosis or nephrolithiasis. Stomach and bowel: Mild fecal retention, correlate for constipation. No small bowel obstruction. No free air. No mucosal thickening. PELVIS: Appendix: No findings to suggest acute appendicitis. Bladder: Unremarkable. No stones. Reproductive: Unremarkable as visualized. ABDOMEN and PELVIS: Intraperitoneal space: See above. Bones/joints: No acute fracture. No dislocation. Soft tissues: Unremarkable. Vasculature: Unremarkable. No abdominal aortic aneurysm. Lymph nodes: Unremarkable. No enlarged lymph nodes. Tubes, lines and devices: Catheter terminates in the pelvis. IMPRESSION: 1. No hydronephrosis or nephrolithiasis. 2. Cholecystectomy. 3. Mild fecal retention, correlate for constipation. No small bowel obstruction. No free air.
[2023-12-23] MEDS ORDERED: IBUPROFEN 600 MG STARTER PACK 4 TAB BTL PO STA (23:47)
[2023-12-23] MEDS ORDERED: ACET/COD 300 MG/30 MG STARTER PACK 6 TAB BTL PO STA (23:47)
[2023-12-23] MEDS ORDERED: ONDANSETRON 4 MG ODT STARTER PACK 2 TAB BTL PO STA (23:47)
[2023-12-23] MEDS ORDERED: MORPHINE SULFATE 2 MG/ML SYRINGE IVP STA (23:48)
[2023-12-23] MEDS ORDERED: FLUCONAZOLE 100 MG TAB PO ONE (23:49)
[2023-12-24 00:43] VITALS: BP 116/73; PULSE 106
== END 2023-12-24 00:09 | disposition home or self-care (01) ==
LOC: EC 18:53
DX: K59.00 Constipation, unspecified (principal); B37.31 Acute candidiasis of vulva and vagina; E11.9 Type 2 diabetes mellitus without complications; E78.5 Hyperlipidemia, unspecified; I10 Essential (primary) hypertension; F32.A Depression, unspecified; Z79.899 Other long term (current) drug therapy; Z79.84 Long term (current) use of oral hypoglycemic drugs; Z88.2 Allergy status to sulfonamides; Z88.1 Allergy status to other antibiotic agents
CPT/HCPCS: 36415; 80053; 82150; 83605; 83690; 85025; 85610; 85730; 81003; 74176; 99284; 96374; 96361; 96372 ×2; J2270 ×2; J1885; S0119

== ENCOUNTER 2024-01-22 02:01 | Emergency (ER) | payer OTHER ==
[2024-01-22 02:28] VITALS: TEMP 99.3
[2024-01-22] MEDS: diphenhydrAMINE 50 MG/ML 1 ML VIAL IVP STA (03:00)
[2024-01-22] MEDS: KETOROLAC 15 MG/ML 1 ML VIAL IVP STA (03:00)
[2024-01-22] MEDS: METOCLOPRAMIDE 5 MG/ML 2 ML VIAL IVP STA (03:00)
[2024-01-22] MEDS: ACETAMINOPHEN TAB 325 MG TAB PO STA (03:01)
[2024-01-22] MEDS: SODIUM CHLORIDE 0.9% 1,000 ML IV ONE (03:01)
[2024-01-22 03:08] LABS: Appearance,Urine Cloudy (Clear); Bacteria,Urine Few /hpf; Bilirubin,Urine Negative (Negative); Blood,Urine Negative (Negative); Budding Yeast,Urine Occasional /hpf; Color,Urine Yellow; Glucose,Urine (UA) Negative (Negative); Hyaline Casts,Urine 138 /lpf (0-2); Ketones,Urine Negative (Negative); Leukocyte Esterase,Urine Small (Negative); Mucus,Urine Many /hpf; Nitrite,Urine Negative (Negative); Protein,Urine 1+ (Negative); RBC,Urine 15 /hpf (0-5); Specific Gravity,Urine 1.028 (1.001-1.035); Squamous Epithelial Cell,Urine 42 /hpf (0-4); Urobilinogen,Urine <2.0 mg/dL (<2.0); WBC,Urine 4 /hpf (0-5)
--- NOTE | 2024-01-22 03:09 | ED ---
General Adult HPI - General Chief complaint: Headache Stated complaint: UTI, Headache Time Seen by Provider: 01/22/24 02:25 Source: patient Mode of arrival: ambulatory Limitations: no limitations - History of Present Illness Initial comments: 48-year-old female presenting with chief complaint of headache. Patient has history of migraines and states that this feels consistent with her regular migraines. Has been ongoing for 4 days. She admits to nausea and light sensitivity. She also admits to fever and bodyaches. No neck stiffness. No vision or hearing changes. No dizziness. She also admits to burning and pressure with urination. She admits to urgency and frequency. No flank pain. - Related Data Home Medications Medication Instructions Recorded Confirmed Atorvastatin [Lipitor] 20 mg PO DAILY 10/07/14 11/15/23 FLUoxetine HCL 40 mg PO DAILY 10/07/14 11/15/23 Ibuprofen [Motrin] 800 mg PO Q8HR PRN 10/07/14 11/15/23 Loratadine [Claritin] 10 mg PO DAILY 10/07/14 11/15/23 Timolol 0.5% Ophth Soln [Timoptic 1 drop LEFT EYE DAILY 10/07/14 11/15/23 0.5% Ophth Soln] Acyclovir 400 mg PO DAILY 01/19/21 11/15/23 Cyclobenzaprine [Flexeril] 10 mg PO BID PRN 01/19/21 11/15/23 Fluticasone Nasal [place] [Flonase 1 spr EA NOSTRIL BID PRN 01/19/21 11/15/23 Nasal Superior] Pantoprazole [Protonix] 40 mg PO DAILY 01/19/21 11/15/23 amLODIPine [Norvasc] 10 mg PO DAILY 01/19/21 11/15/23 busPIRone HCL 15 mg PO BID 01/19/21 11/15/23 HYDROcodone/APAP 5-325MG [[place] 1 tab PO Q6HR PRN 11/15/23 11/15/23 5-325] Lisdexamfetamine Dimesylate 60 mg PO QAM 11/15/23 11/15/23 [Vyvanse] Semaglutide [Wegovy] 2.4 mg SQ WE 11/15/23 11/15/23 hydrOXYzine HCL [Atarax] 50 mg PO BID PRN 11/15/23 11/15/23 metFORMIN HCL 1,000 mg PO BID 11/15/23 11/15/23 methocarbamoL [Robaxin-750] 750 mg PO TID PRN 11/15/23 11/15/23 Previous Rx's Medication Instructions Recorded Butalb/APAP/Caff 50-325-40Mg 1 tab PO TID PRN #12 tab 01/21/21 [Fioricet 50-325-40] Ondansetron Odt [Zofran ODT] 4 mg PO Q8HR PRN #12 tab 01/21/21 Acetaminophen Tab [Tylenol] 650 mg PO Q4HR PRN tab 11/16/23 Phenazopyridine [Pyridium] 100 mg PO TID #90 tab 11/16/23 Cephalexin [Keflex] 500 mg PO Q12HR 7 Days #14 cap 01/22/24 Fluconazole [Diflucan] 150 mg PO ONCE #2 tab 01/22/24 Allergies Allergy/AdvReac Type Severity Reaction Status Date / Time ciprofloxacin [From Cipro] Allergy Rash/Hives Verified 01/22/24 02:21 ciprofloxacin HCl Allergy Rash/Hives Verified 01/22/24 02:21 [From Cipro] Sulfa (Sulfonamide Allergy Rash/Hives Verified 01/22/24 02:21 Antibiotics) Review of Systems ROS Statement: Those systems with pertinent positive or pertinent negative responses have been documented in the HPI. ROS Other: All systems not noted in ROS Statement are negative. Past Medical History Past Medical History: Diabetes Mellitus, Eye Disorder, Hyperlipidemia, Hypertension, Renal Disease Additional Past Medical History / Comment(s): GLAUCOMA; MIGRAINES History of Any Multi-Drug Resistant Organisms: C-DIFF Date of last positivie culture/infection: May 2019 MDRO Source:: stool Past Surgical History: Appendectomy, Cholecystectomy Additional Past Surgical History / Comment(s): OVARY SURGERY; EYE SURGERY Past Anesthesia/Blood Transfusion Reactions: Postoperative Nausea & Vomiting (PONV) Past Psychological History: Depression Smoking Status: Never smoker Past Alcohol Use History: None Reported Past Drug Use History: None Reported - Past Family History Mother Family Medical History: COPD, Diabetes Mellitus Father Family Medical History: Coronary Artery Disease (CAD), Diabetes Mellitus Additional Family Medical History / Comment(s): dad General Exam Limitations: no limitations General appearance: alert, in no apparent distress Head exam: Present: atraumatic, normocephalic Eye exam: Present: normal appearance, PERRL, EOMI Neck exam: Present: normal inspection. Absent: meningismus Respiratory exam: Present: normal lung sounds bilaterally. Absent: respiratory distress, wheezes, rales, rhonchi, stridor Cardiovascular Exam: Present: regular rate, normal rhythm, normal heart sounds. Absent: systolic murmur, diastolic murmur, rubs, gallop, clicks Extremities exam: Present: normal inspection Neurological exam: Present: alert, oriented X3 Expanded Eye Response: (4) open spontaneously Motor Response: (6) obeys commands Verbal Response: (5) oriented Jesse Total: 15 Psychiatric exam: Present: normal affect, normal mood Skin exam: Present: warm, dry Course Vital Signs 01/22/24 01/22/24 01/22/24 02:19 03:50 04:43 Temperature 99.3 F Pulse Rate 122 H 98 98 Respiratory 18 16 16 Rate Blood Pressure 120/86 112/69 108/73 O2 Sat by Pulse 97 96 96 Oximetry Medical Decision Making - Medical Decision Making Was pt. sent in by a medical professional or institution (, PA, MOTOR RUNNER, urgent c are, hospital, or [facility]...) When possible be specific @ -No Did you speak to anyone other than the patient for history (EMS, parent, family, police, friend...)? What history was obtained from this source @ -No Did you review nursing and triage notes (agree or disagree)? Why? @ -I reviewed and agree with nursing and triage notes Were old charts reviewed (outside hosp., previous admission, EMS record, old EKG, old radiological studies, urgent care reports/EKG's, [facility] records)? Report findings @ -No old charts were reviewed Differential Diagnosis (chest pain, altered mental status, abdominal pain women, abdominal pain men, vaginal bleeding, weakness, fever, dyspnea, syncope, headache, dizziness, GI bleed, back pain, seizure, CVA, palpatations, mental health, musculoskeletal)? @ -[facility] Differential Headache: Migraine, tension, cluster, carbon monoxide, central venous thrombosis, pension karma temporal arteritis, acute closure glaucoma, intercranial hemorrhage, mastoiditis, sinusitis, head injury this is not meant to be an all-inclusive list. EKG interpreted by me (3pts min.). @ -As above X-rays interpreted by me (1pt min.). @ -None done CT interpreted by me (1pt min.). @ -None done U/S interpreted by me (1pt. min.). @ -None done What testing was considered but not performed or refused? (CT, X-rays, U/S, labs)? Why? @ -None What meds were considered but not given or refused? Why? @ -None Did you discuss the management of the patient with other professionals (professionals i.e. , PA, MOTOR RUNNER, lab, RT, psych nurse, hospital social worker, boat builder, teacher, housing officer, caser)? Give summary @ -No Was smoking cessation discussed for >3mins.? @ -No Was critical care preformed (if so, how long)? @ -No Were there social determinants of health that impacted care today? How? (Homelessness, low income, unemployed, alcoholism, drug addiction, transportation, low edu. Level, literacy, decrease access to med. care, fpc, rehab)? @ -No Was there de-escalation of care discussed even if they declined (Discuss DNR or withdrawal of care, Hospice)? DNR status @ -No What co-morbidities impacted this encounter? (DM, HTN, Smoking, COPD, CAD, Cancer, CVA, ARF, Chemo, Hep., AIDS, mental health diagnosis, sleep apnea, morbid obesity)? @ -None Was patient admitted / discharged? Hospital course, mention meds given and route, prescriptions, significant lab abnormalities, going to OR and other pertinent info. @ -48-year-old female presenting with chief complaint of headache. Patient has history of migraines, states that this feels consistent with previous migraines. She also admits to some burning and pressure with urination. History and physical exam are conducted. She is negative for influenza, RSV, and COVID. She reports improvement in her headache after migraine cocktail. Urine shows 15 RBCs with 4 WBCs and 42 squamous cells. While this shows signs of contamination given that the patient is having symptoms consistent with UTI she will be treated with Keflex, instructed to follow-up with her PCP. She reports improvement in her symptoms and would like to be discharged home. Follow-up with PCP. Report back to ER with any new or worsening symptoms. Discussed return parameters and answered all questions. Patient conveyed verbal understanding and agreed to the plan. I discussed this case in detail with my attending Dr. Jane Undiagnosed new problem with uncertain prognosis? @ -No Drug Therapy requiring intensive monitoring for toxicity (Heparin, Nitro, Insulin, Cardizem)? @ -No Were any procedures done? @ -No Diagnosis/symptom? @ -Migraine, UTI Acute, or Chronic, or Acute on Chronic? @ -Acute Uncomplicated (without systemic symptoms) or Complicated (systemic symptoms)? @ -Uncomplicated Side effects of treatment? @ -No Exacerbation, Progression, or Severe Exacerbation? @ -No Poses a threat to life or bodily function? How? (Chest pain, [place], [place], pneumonia, PE, COPD, DKA, ARF, appy, cholecystitis, CVA, Diverticulitis, Homicidal, Suicidal, threat to staff... and all critical care pts) @ -Unlikely - Lab Data Lab Results 01/22/24 01/22/24 Range/Units 02:55 02:55 Urine Color Yellow Urine Appearance Cloudy H (Clear) Urine pH 6.0 (5.0-8.0) Ur Specific [place] 1.028 (1.001-1.035) Urine Protein 1+ H (Negative) Urine Glucose (UA) Negative (Negative) Urine Ketones Negative (Negative) Urine Blood Negative (Negative) Urine Nitrite Negative (Negative) Urine Bilirubin Negative (Negative) Urine Urobilinogen <2.0 (<2.0) mg/dL Ur Leukocyte Esterase Small H (Negative) Urine RBC 15 H (0-5) /hpf Urine WBC 4 (0-5) /hpf Ur Squamous Epith Cells 42 H (0-4) /hpf Urine Bacteria Few H (None) /hpf Hyaline Casts 138 H (0-2) /lpf Urine Mucus Many H (None) /hpf Urine Yeast (Budding) Occasional H (None) /hpf Influenza Type A (PCR) Not Detected (Not Detectd) Influenza Type B (PCR) Not Detected (Not Detectd) RSV (PCR) Not Detected (Not Detectd) SARS-CoV-2 (PCR) Not Detected (Not Detectd) Disposition Clinical Impression: Migraine headache, UTI (urinary tract infection) Disposition: HOME SELF-CARE Condition: Good Instructions (If sedation given, give patient instructions): Urinary Tract Infection in Women (ED), Migraine Headache (ED) Additional Instructions: Follow-up with PCP. Report back to ER with any new or worsening symptoms. Prescriptions: Fluconazole [Diflucan] 150 mg PO ONCE #2 tab Cephalexin [Keflex] 500 mg PO Q12HR 7 Days #14 cap Is patient prescribed a controlled substance at d/c from ED?: No Referrals: Nonstaff,Physician [Primary Care Provider] - 1-2 days Time of Disposition: 04:10
[2024-01-22] MEDS: HYDROmorphone 0.5 MG/0.5 ML SYRINGE IVP STA (03:51)
[2024-01-22 03:53] VITALS: PULSE 98; RESP 16
[2024-01-22 04:51] VITALS: BP 108/73
== END 2024-01-22 04:23 | disposition home or self-care (01) ==
LOC: EC 02:01
DX: G43.909 Migraine, unspecified, not intractable, without status migrainosus (principal); N39.0 Urinary tract infection, site not specified; E11.9 Type 2 diabetes mellitus without complications; E78.5 Hyperlipidemia, unspecified; I10 Essential (primary) hypertension; F32.A Depression, unspecified; Z79.899 Other long term (current) drug therapy; Z79.84 Long term (current) use of oral hypoglycemic drugs; Z88.1 Allergy status to other antibiotic agents; Z88.2 Allergy status to sulfonamides; Z20.822 Contact with and (suspected) exposure to COVID-19
CPT/HCPCS: 81001; 87636; 99284; 96374; 96375 ×3; 96361; J1200; J2765; J1885; J1170

== ENCOUNTER 2024-01-31 14:58 | Inpatient (IN) | payer OTHER ==
--- NOTE | 2024-01-31 15:18 | ED ---
Recheck HPI - General Source: patient Mode of arrival: ambulatory Limitations: no limitations <Zuri Ford - Last Filed: 01/31/24 15:18> - General Source: RN notes reviewed, old records reviewed - History of Present Illness MD Complaint: wound re-check, abnormal lab, needs IV antibiotics, medication refill request Returns Today for: Called Because of Abnormal Lab/Test, needs IV antibiotics, persistent/worsening pain related to initial visit Symptoms Since Prior Visit: worsening pain, worsening swelling, fever Context: called for abnormal lab result Associated Symptoms: fever, chills, shortness of breath, malaise, nausea, abdominal pain Treatments Prior to Arrival: Given Antibiotics on, Given Pain Meds on <Celso Kelly - Last Filed: 02/08/24 00:19> - General Stated Complaint: Blood Infection, sent by pcp Time Seen by Provider: 01/31/24 15:18 - History of Present Illness Initial Comments: Quick note: Patient is a 48-year-old female presented to ER with a chief complaint of fever, vomiting, diarrhea. Patient diagnosed with fungal infection discharged on Monday. She has not been able to get antifungal medication outpatient. Patient told by PCP to return to ER. (Zuri Ford) This is a 48-year-old female to the ER for evaluation of persistent fever and vomiting. Vomiting and diarrhea with recent diagnosis of fungal infection. Patient was unable to get her antifungal prescribed is having severe pain back pain abdominal pain with nausea and vomiting. (Celso Kelly) - Related Data Home Medications Medication Instructions Recorded Confirmed Atorvastatin [Lipitor] 20 mg PO DAILY 10/07/14 01/31/24 FLUoxetine HCL 40 mg PO DAILY 10/07/14 01/31/24 Ibuprofen [Motrin] 800 mg PO Q8HR PRN 10/07/14 01/31/24 Loratadine [Claritin] 10 mg PO DAILY 10/07/14 01/31/24 Timolol 0.5% Ophth Soln [Timoptic 1 drop LEFT EYE BID 10/07/14 01/31/24 0.5% Ophth Soln] Acyclovir 400 mg PO DAILY 01/19/21 01/31/24 Cyclobenzaprine [Flexeril] 10 mg PO BID PRN 01/19/21 01/31/24 Fluticasone Nasal [place] [Flonase 1 spr EA NOSTRIL BID PRN 01/19/21 01/31/24 Nasal [place]] Pantoprazole [Protonix] 40 mg PO DAILY 01/19/21 01/31/24 busPIRone HCL 15 mg PO BID 01/19/21 01/31/24 Lisdexamfetamine Dimesylate 60 mg PO QAM 11/15/23 01/31/24 [Vyvanse] Semaglutide [Wegovy] 2.4 mg SQ TH 11/15/23 01/31/24 hydrOXYzine HCL [Atarax] 50 mg PO BID PRN 11/15/23 01/31/24 metFORMIN HCL 1,000 mg PO BID 11/15/23 01/31/24 Voriconazole [Vfend] 200 mg PO DIRECTED 01/31/24 01/31/24 Previous Rx's Medication Instructions Recorded Butalb/APAP/Caff 50-325-40Mg 1 tab PO TID PRN #12 tab 01/21/21 [Fioricet 50-325-40] Acetaminophen Tab [Tylenol] 650 mg PO Q4HR PRN tab 11/16/23 Ondansetron [Zofran] 4 mg PO Q8HR PRN 7 Days #20 tab 01/28/24 Acetaminophen-Codeine 300-30mg 1 each PO Q4HR PRN #12 tab 02/05/24 [Tylenol w/codeine #3] Calcium Carbonate [Tums] 500 mg PO TID PRN tab 02/05/24 Cyanocobalamin [Vitamin B-12] 1,000 mcg PO DAILY #30 tab 02/05/24 Ferrous Sulfate [Iron (65 MG 325 mg PO BID-W/MEALS #60 tab 02/05/24 Elemental)] Folic Acid 1 mg PO DAILY #30 tab 02/05/24 Allergies Allergy/AdvReac Type Severity Reaction Status Date / Time ciprofloxacin [From Cipro] Allergy Rash/Hives Verified 01/31/24 18:45 ciprofloxacin HCl Allergy Rash/Hives Verified 01/31/24 18:45 [From Cipro] Sulfa (Sulfonamide Allergy Rash/Hives Verified 01/31/24 18:45 Antibiotics) Review of Systems ROS Other: All systems not noted in ROS Statement are negative. <Zuri Ford - Last Filed: 01/31/24 15:18> ROS Other: All systems not noted in ROS Statement are negative. <Celso Kelly Oliver - Last Filed: 02/08/24 00:19> ROS Statement: Those systems with pertinent positive or pertinent negative responses have been documented in the HPI. Past Medical History Past Medical History: Diabetes Mellitus, Eye Disorder, Hyperlipidemia, Hypertension, Renal Disease Additional Past Medical History / Comment(s): GLAUCOMA; MIGRAINES, IBS History of Any Multi-Drug Resistant Organisms: C-DIFF Date of last positivie culture/infection: May 2019 MDRO Source:: stool Past Surgical History: Appendectomy, Cholecystectomy Additional Past Surgical History / Comment(s): OVARY SURGERY; BILAT EYE SURGERY, metal plate under eye Past Anesthesia/Blood Transfusion Reactions: Postoperative Nausea & Vomiting (PONV) Past Psychological History: ADD/ADHD, Depression Smoking Status: Never smoker Past Alcohol Use History: None Reported Past Drug Use History: None Reported - Past Family History Mother Family Medical History: COPD, Diabetes Mellitus Father Family Medical History: Coronary Artery Disease (CAD), Diabetes Mellitus Additional Family Medical History / Comment(s): dad <Zuri Ford - Last Filed: 01/31/24 15:18> General Exam <Zuri Ford - Last Filed: 01/31/24 15:18> General appearance: alert, in no apparent distress Head exam: Present: atraumatic, normocephalic, normal inspection Eye exam: Present: normal appearance, PERRL, EOMI. Absent: scleral icterus, conjunctival injection, periorbital swelling ENT exam: Present: normal exam, mucous membranes moist Neck exam: Present: normal inspection. Absent: tenderness, meningismus, lymphadenopathy Respiratory exam: Present: normal lung sounds bilaterally. Absent: respiratory distress, wheezes, rales, rhonchi, stridor Cardiovascular Exam: Present: regular rate, normal rhythm, normal heart sounds. Absent: systolic murmur, diastolic murmur, rubs, gallop, clicks GI/Abdominal exam: Present: soft, normal bowel sounds. Absent: distended, te nderness, guarding, rebound, rigid Extremities exam: Present: normal inspection, full ROM, normal capillary refill. Absent: tenderness, pedal edema, joint swelling, calf tenderness Back exam: Present: normal inspection Neurological exam: Present: alert, oriented X3, CN II-XII intact Psychiatric exam: Present: normal affect, normal mood Skin exam: Present: warm, dry, intact, normal color. Absent: rash <Celso Kelly - Last Filed: 02/08/24 00:19> - General Exam Comments Initial Comments: Visual Physical Exam Vital signs reviewed General: Well-appearing, nontoxic, no acute distress. Head: Normocephalic, atraumatic Eyes: PERRLA, EOMI ENT: Airway patent Chest: Nonlabored breathing Skin: No visual rash, normal skin tone Neuro: Alert and oriented 3 Musculoskeletal: No gross abnormalities (Zuri Ford) Course <Celso Kelly - Last Filed: 02/08/24 00:19> Vital Signs 01/31/24 01/31/24 01/31/24 15:15 20:11 22:10 Temperature 99.7 F H 98.0 F 98.8 F Pulse Rate 117 H 95 90 Respiratory 19 18 16 Rate Blood Pressure 142/84 124/79 119/85 O2 Sat by Pulse 96 97 96 Oximetry 01/31/24 23:04 Temperature Pulse Rate 96 Respiratory 16 Rate Blood Pressure 112/73 O2 Sat by Pulse 96 Oximetry - Reevaluation(s) Reevaluation #1: 01/31/24 19:08 Medical records reviewed (Celso Kelly) Reevaluation #2: 01/31/24 19:09 Patient symptoms improved (Celso Kelly) Reevaluation #3: 01/31/24 19:09 Patient informed of results questions answered (Celso Kelly) Reevaluation #4: Was pt. sent in by a medical professional or institution (, PA, SUPERVISOR ASSEMBLY DEPARTMENT, urgent care, hospital, or custodial...) When possible be specific @ -no Did you speak to anyone other than the patient for history (EMS, parent, family, police, friend...)? What history was obtained from this source @ -no Did you review nursing and triage notes (agree or disagree)? Why? @ -agree Are old charts reviewed (outside hosp., previous admission, EMS record, old EKG, old radiological studies, urgent care reports/EKG's, custodial records)? Report findings @ -yes Differential Diagnosis (chest pain, altered mental status, abdominal pain women, abdominal pain men, vaginal bleeding, weakness, fever, dyspnea, syncope, heada pat, dizziness, GI bleed, back pain, seizure, CVA, palpatations, mental health, musculoskeletal)? @ -prior EKG interpreted by me (3pts min.). @ -no X-rays interpreted by me (1pt min.). @ -no CT interpreted by me (1pt min.). @ -no U/S interpreted by me (1pt. min.). @ -no What testing was considered but not performed or refused? (CT, X-rays, U/S, labs)? Why? @ -none What meds were considered but not given or refused? Why? @ -none Did you discuss the management of the patient with other professionals (professionals i.e. , PA, [employer]PERVISOR [employer]PARTMENT, lab, RT, psych nurse, director social, enterprise systems architect, teacher, executive officer, patient case coordinator)? Give summary @ -no Was smoking cessation discussed for >3mins.? @ -no Was critical care preformed (if so, how long)? @ -no Were there social determinants of health that impacted care today? How? (Homelessness, low income, unemployed, alcoholism, drug addiction, transp ortation, low edu. Level, literacy, decrease access to med. care, skilled nursing, rehab)? @ -none Was there de-escalation of care discussed even if they declined (Discuss DNR or withdrawal of care, Hospice)? DNR status @ -no What co-morbidities impacted this encounter? (DM, HTN, Smoking, COPD, CAD, Cancer, CVA, ARF, Chemo, Hep., AIDS, mental health diagnosis, sleep apnea, morbid obesity)? @ -none Was patient admitted / discharged? Hospital course, mention meds given and route, prescriptions, significant lab abnormalities, going to OR and other pertinent info. @ - 48 female with recheck for candidal infection and bloodstream infection. Patient was unable to get her antibiotic and comes to the ER for persistent symptoms. Patient will be admitted for IV medication and infectious disease Admitted Undiagnosed new problem with uncertain prognosis? @ -no Drug Therapy requiring intensive monitoring for toxicity (Heparin, Nitro, Insulin, Cardizem)? @ -no Were any procedures done? @ -no Diagnosis/symptom? @ -UTI and fungal infection Acute, or Chronic, or Acute on Chronic? @ -Acute Uncomplicated (without systemic symptoms) or Complicated (systemic symptoms)? @ -Complicated Side effects of treatment? @ -no Exacerbation, Progression, or Severe Exacerbation? @ -exacerbation Poses a threat to life or bodily function? How? (Chest pain, [place], [place], pneumonia, PE, COPD, DKA, ARF, appy, cholecystitis, CVA, Diverticulitis, Homicidal, Suicidal, threat to staff... and all critical care pts) @ -yes with significant infection (Celso Kelly) Reevaluation #5: Differential Fever: Pneumonia, viral URI, endocarditis, myocarditis, pericarditis, otitis, sinusitis, peritonsillar Abscess, retropharyngeal Abscess, epiglottitis, peritonitis, appendicitis, Lucy cystitis, diverticulitis, hepatitis, colitis, UTI, PID, TOA, pyelonephritis, prostatitis, epididymitis, meningitis, encephalitis, pulmonary embolism, CVA, thyroid storm, pancreatitis, adrenal cr jorge, cavernous sinus thrombosis, this is not meant to be an all-inclusive list. (Celso Kelly) - Consultations Consultation #1: Spoke with [facility] who agrees to readmit this patient (Celso Kelly) Medical Decision Making <Zuri Ford - Last Filed: 01/31/24 15:18> - Lab Data Result diagrams: 02/05/24 05:27 02/01/24 05:29 <Celso Kelly - Last Filed: 02/08/24 00:19> - Medical Decision Making I performed the quick note portion of this chart. Electronically signed by Zuri Ford PA-C (Zuri Ford) 48 female with recheck for candidal infection and bloodstream infection. Patient was unable to get her antibiotic and comes to the ER for persistent symptoms. Patient will be admitted for IV medication and infectious disease (Celso Kelly) - Lab Data Lab Results 01/31/24 01/31/24 01/31/24 Range/Units 15:20 15:20 15:45 WBC 9.6 (3.8-10.6) k/uL RBC 4.42 (3.80-5.40) m/uL Hgb 11.1 L (11.4-16.0) gm/dL Hct 34.8 (34.0-46.0) % MCV 78.8 L (80.0-100.0) fL MCH 25.2 (25.0-35.0) pg MCHC 31.9 (31.0-37.0) g/dL RDW 16.7 H (11.5-15.5) % Plt Count 382 (150-450) k/uL MPV 8.1 Hypochromasia Slight Anisocytosis Slight Microcytosis Slight Sodium (137-145) mmol/L Potassium (3.5-5.1) mmol/L Chloride (98-107) mmol/L Carbon Dioxide (22-30) mmol/L Anion Gap mmol/L BUN (7-17) mg/dL Creatinine (0.52-1.04) mg/dL Est GFR (CKD-EPI)AfAm (>60 ml/min/1.73 sqM) Est GFR (CKD-EPI)NonAf (>60 ml/min/1.73 sqM) Glucose (74-99) mg/dL POC Glucose (mg/dL) 155 H (70-110) mg/dL POC Glu Polisher Brass ID [address] Glu mg/dL mg/dL Hemoglobin A1c (<=6.0) % Lactic Ac Sepsis Rflx Plasma Lactic Acid Eduardo 2.5 H* (0.7-2.0) mmol/L Calcium (8.4-10.2) mg/dL Total Bilirubin (0.2-1.3) mg/dL AST (14-36) U/L ALT (4-34) U/L Alkaline Phosphatase (38-126) U/L Total Protein (6.3-8.2) g/dL Albumin (3.5-5.0) g/dL 01/31/24 01/31/24 01/31/24 Range/Units 15:45 15:45 16:48 WBC (3.8-10.6) k/uL RBC (3.80-5.40) m/uL Hgb (11.4-16.0) gm/dL Hct (34.0-46.0) % MCV (80.0-100.0) fL MCH (25.0-35.0) pg MCHC (31.0-37.0) g/dL RDW (11.5-15.5) % Plt Count (150-450) k/uL MPV Hypochromasia Anisocytosis Microcytosis Sodium 143 (137-145) mmol/L Potassium 3.7 (3.5-5.1) mmol/L Chloride 113 H (98-107) mmol/L Carbon Dioxide 16 L (22-30) mmol/L Anion Gap 14 mmol/L BUN 8 (7-17) mg/dL Creatinine 0.71 (0.52-1.04) mg/dL Est GFR (CKD-EPI)AfAm >90 (>60 ml/min/1.73 sqM) Est GFR (CKD-EPI)NonAf >90 (>60 ml/min/1.73 sqM) Glucose 147 H (74-99) mg/dL POC Glucose (mg/dL) (70-110) mg/dL POC Glu Polisher Brass ID Estimated Ave Glu mg/dL 117 mg/dL Hemoglobin A1c 5.7 (<=6.0) % Lactic Ac Sepsis Rflx Y Plasma Lactic Acid Eduardo (0.7-2.0) mmol/L Calcium 9.9 (8.4-10.2) mg/dL Total Bilirubin 0.3 (0.2-1.3) mg/dL AST 20 (14-36) U/L ALT 43 H (4-34) U/L Alkaline Phosphatase 131 H (38-126) U/L Total Protein 6.8 (6.3-8.2) g/dL Albumin 4.2 (3.5-5.0) g/dL Disposition <Zuri Ford - Last Filed: 01/31/24 15:18> Is patient prescribed a controlled substance at d/c from ED?: No Time of Disposition: 19:00 <Celso Kelly - Last Filed: 02/08/24 00:19> Clinical Impression: Fungal infection, Intractable abdominal pain, Headache, Intractable nausea and vomiting Disposition: ADMITTED IP TO THIS HOSP Condition: Fair
[2024-01-31 15:21] LABS: Glucose,Whole Blood 155 mg/dL (70-110)
[2024-01-31 15:58] LABS: Anisocytosis Slight; HCT 34.8 % (34.0-46.0); HGB 11.1 gm/dL (11.4-16.0); Hypochromasia Slight; MCH 25.2 pg (25.0-35.0); MCHC 31.9 g/dL (31.0-37.0); MCV 78.8 fL (80.0-100.0); Mean Platelet Volume 8.1; Microcytosis Slight; Platelet Count 382 k/uL (150-450); RBC 4.42 m/uL (3.80-5.40); RDW 16.7 % (11.5-15.5); WBC 9.6 k/uL (3.8-10.6)
[2024-01-31 16:01] LABS: ALT 43 U/L (4-34); AST 20 U/L (14-36); African American GFR (CKD) >90 (>60 ml/min/1.73 sqM); Albumin 4.2 g/dL (3.5-5.0); Alkaline Phosphatase 131 U/L (38-126); Anion Gap 14 mmol/L; Blood Urea Nitrogen 8 mg/dL (7-17); Calcium 9.9 mg/dL (8.4-10.2); Carbon Dioxide 16 mmol/L (22-30); Chloride 113 mmol/L (98-107); Glucose 147 mg/dL (74-99); Non-African American GFR(CKD) >90 (>60 ml/min/1.73 sqM); Potassium 3.7 mmol/L (3.5-5.1); Sodium 143 mmol/L (137-145); Total Bilirubin 0.3 mg/dL (0.2-1.3); Total Protein 6.8 g/dL (6.3-8.2)
[2024-01-31] MEDS ORDERED: NALOXONE 0.4 MG/ML 1 ML VIAL IV PRN (19:05)
[2024-01-31] MEDS: ONDANSETRON 4 MG/2 ML VIAL IVP PRN (19:32)
[2024-01-31] MEDS: HYDROmorphone 1 MG/ML 1 ML SYRINGE IVP STA (19:33)
[2024-01-31] MEDS: SODIUM CHLORIDE 0.9% 1,000 ML IV SCH (19:34)
[2024-01-31] MEDS: VORICONAZOLE 200 MG in SODIUM CHLORIDE 0.9% 100 ML IVPB SCH (20:58)
[2024-01-31] MEDS: MORPHINE SULFATE 4 MG/ML SYRINGE IV PRN (22:04)
[2024-02-01] MEDS ORDERED: DEXTROSE 50% SYRINGE 50 ML IVP PRN ×2 (05:13)
[2024-02-01] MEDS ORDERED: ACETAMINOPHEN TAB 325 MG TAB PO PRN (05:14)
[2024-02-01 05:59] LABS: Glucose,Whole Blood 97 mg/dL (70-110)
[2024-02-01] MEDS: INSULIN ASPART (NovoLOG) 100 UNIT/ML VIAL SQ SCH (06:12)
[2024-02-01] MEDS: PANTOPRAZOLE 40 MG TABLET PO SCH (06:25)
[2024-02-01 08:46] LABS: ALT 38 U/L (8-44); AST 12 U/L (13-35); Albumin 3.6 g/dL (3.8-4.9); Alkaline Phosphatase 117 U/L (41-126); Blood Urea Nitrogen 6.9 mg/dL (9.0-27.0); Calcium 8.7 mg/dL (8.7-10.3); Carbon Dioxide 19.7 mmol/L (21.6-31.8); Chloride 114 mmol/L (96-109); Globulin 1.8 g/dL (1.6-3.3); Glucose 93 mg/dL (70-110); Magnesium 1.5 mg/dL (1.5-2.4); Phosphorus 4.3 mg/dL (2.4-5.1); Potassium 4.1 mmol/L (3.5-5.5); Sodium 144 mmol/L (135-145); Total Bilirubin 0.2 mg/dL (0.3-1.2); Total Protein 5.4 g/dL (6.2-8.2)
[2024-02-01 08:52] LABS: Basophils # (A) 0.05 X 10*3/uL (0.00-0.10); Basophils % (A) 0.7 %; Eosinophils # (A) 0.35 X 10*3/uL (0.04-0.35); HCT 31.3 % (37.2-46.3); HGB 9.4 g/dL (12.0-15.0); Lymphocytes # (A) 2.76 X 10*3/uL (0.90-5.00); Lymphocytes % (A) 39.1 %; MCH 24.2 pg (27.0-32.0); MCV 80.7 FL (80.0-97.0); Mean Platelet Volume 11.4 FL (9.5-12.2); Monocytes # (A) 0.47 X 10*3/uL (0.20-1.00); Monocytes % (A) 6.7 %; NRBC Per 100 WBC 0 X 10*3/uL (0.00-0.01); Neutrophils # (A) 3.41 X 10*3/uL (1.80-7.70); Neutrophils % (A) 48.4 %; Platelet Count 317 X 10*3/uL (140-440); RBC 3.88 X 10*6/uL (4.10-5.20); RDW 17.2 % (11.5-14.5); WBC 7.05 X 10*3/uL (4.50-10.00)
[2024-02-01] MEDS ORDERED: hydrOXYzine HCL 25 MG TAB PO PRN (11:28)
[2024-02-01] MEDS ORDERED: FLUTICASONE 50MCG/SPRAY NASAL 16GM EA NOSTRIL PRN (11:28)
[2024-02-01] MEDS: IOPAMIDOL CONTRAST (ORAL USE) VIAL PO PRN (11:30)
--- NOTE | 2024-02-01 11:33 | P.HPIM ---
History of Present Illness This is a pleasant 48 years old female with past medical history of diabetes mellitus, hypertension, hyperlipidemia She was recently discharged from the hospital 01/23-01/27 For fungal infection and UTI and she was discharged on voriconazole but there was questionable obtaining her medication. She comes to the hospital with somewhat similar presentations with fever diarrhea vomiting and some urinary symptoms. She checked her temperature at home it was 101. Her sugar was high more than 300 which is unusual for her usually around 100 Also she has been vomiting about 3 times yesterday with no blood. She has diarrhea like almost every hour yesterday with lower abdominal cramps, she complaining also from dysuria on and off but they were really bad over the last 2 days. No chest pain dyspnea cough and. No headache or dizziness or weakness or numbness Patient has history of ventral peritoneal shunt as she explains. She has history of migraine and she follow-up with Dr. Bonnie Loja and hearing per Nicole with Dr. Quiroz 8 [place] She is hemodynamically stable, afebrile although she has low-grade temperature 99.7 which is present on admission CBC showing no leukocytosis hemoglobin 9 went down to 7.0. BMP and liver enzymes are unremarkable No imaging done during this hospitalization from the emergency room Review of Systems Review of systems CONSTITUTIONAL: No fever, no malaise, no fatigue. HEENT: No recent visual problems or hearing problems. Denied any sore throat. CARDIOVASCULAR: No orthopnea, PND, no palpitations, no syncope. PULMONARY: No shortness of breath, no cough, no hemoptysis. -GASTROINTESTINAL: As above NEUROLOGICAL: No headaches, no weakness, no numbness. HEMATOLOGICAL: Denies any bleeding or petechiae. GENITOURINARY: Denies any burning micturition, frequency, or urgency. MUSCULOSKELETAL/RHEUMATOLOGICAL: Denies any joint pain, swelling, or any muscle pain. ENDOCRINE: Denies any polyuria or polydipsia. Past Medical History Past Medical History: Diabetes Mellitus, Eye Disorder, Hyperlipidemia, Hypertension, Renal Disease Additional Past Medical History / Comment(s): GLAUCOMA; MIGRAINES, IBS History of Any Multi-Drug Resistant Organisms: C-DIFF Date of last positivie culture/infection: May 2019 MDRO Source:: stool Past Surgical History: Appendectomy, Cholecystectomy Additional Past Surgical History / Comment(s): OVARY SURGERY; BILAT EYE SURGERY, metal plate under eye Past Anesthesia/Blood Transfusion Reactions: Postoperative Nausea & Vomiting (PONV) Past Psychological History: ADD/ADHD, Depression Smoking Status: Never smoker Past Alcohol Use History: None Reported Past Drug Use History: None Reported - Past Family History Mother Family Medical History: COPD, Diabetes Mellitus Father Family Medical History: Coronary Artery Disease (CAD), Diabetes Mellitus Additional Family Medical History / Comment(s): dad Medications and Allergies Home Medications Medication Instructions Recorded Confirmed Type Atorvastatin [Lipitor] 20 mg PO DAILY 10/07/14 01/31/24 History FLUoxetine HCL 40 mg PO DAILY 10/07/14 01/31/24 History Ibuprofen [Motrin] 800 mg PO Q8HR PRN 10/07/14 01/31/24 History Loratadine [Claritin] 10 mg PO DAILY 10/07/14 01/31/24 History Timolol 0.5% Ophth Soln [Timoptic 1 drop LEFT EYE BID 10/07/14 01/31/24 History 0.5% Ophth Soln] Acyclovir 400 mg PO DAILY 01/19/21 01/31/24 History Cyclobenzaprine [Flexeril] 10 mg PO BID PRN 01/19/21 01/31/24 History Fluticasone Nasal [place] [Flonase 1 spr EA NOSTRIL BID PRN 01/19/21 01/31/24 History Nasal [place]] Pantoprazole [Protonix] 40 mg PO DAILY 01/19/21 01/31/24 History amLODIPine [Norvasc] 10 mg PO DAILY 01/19/21 01/31/24 History busPIRone HCL 15 mg PO BID 01/19/21 01/31/24 History Butalb/APAP/Caff 50-325-40Mg 1 tab PO TID PRN #12 tab 01/21/21 01/31/24 Rx [Fioricet 50-325-40] HYDROcodone/APAP 5-325MG [[place] 1 tab PO Q6HR PRN 11/15/23 01/31/24 History 5-325] Lisdexamfetamine Dimesylate 60 mg PO QAM 11/15/23 01/31/24 History [Vyvanse] Semaglutide [Wegovy] 2.4 mg SQ TH 11/15/23 01/31/24 History hydrOXYzine HCL [Atarax] 50 mg PO BID PRN 11/15/23 01/31/24 History metFORMIN HCL 1,000 mg PO BID 11/15/23 01/31/24 History Acetaminophen Tab [Tylenol] 650 mg PO Q4HR PRN tab 11/16/23 01/31/24 Rx Ondansetron [Zofran] 4 mg PO Q8HR PRN 7 Days #20 tab 01/28/24 01/31/24 Rx Voriconazole [Vfend] 200 mg PO DIRECTED 01/31/24 01/31/24 History Allergies Allergy/AdvReac Type Severity Reaction Status Date / Time ciprofloxacin [From Cipro] Allergy Rash/Hives Verified 01/31/24 18:45 ciprofloxacin HCl Allergy Rash/Hives Verified 01/31/24 18:45 [From Cipro] Sulfa (Sulfonamide Allergy Rash/Hives Verified 01/31/24 18:45 Antibiotics) Physical Exam Vitals: Vital Signs Temp Pulse Pulse Resp BP BP Pulse Ox 02/01/24 08:00 98.1 F 87 16 106/70 95 02/01/24 02:15 98.5 F 80 106/70 96 01/31/24 23:28 98.5 F 95 16 110/68 97 01/31/24 23:06 97 16 112/73 96 01/31/24 23:04 96 16 112/73 96 01/31/24 22:10 98.8 F 90 16 119/85 96 01/31/24 20:11 98.0 F 95 18 124/79 97 01/31/24 15:15 99.7 F H 117 H 19 142/84 96 Intake and Output 01/31/24 02/01/24 02/01/24 22:59 06:59 14:59 Other: # Bowel Movements 0 Weight 70.307 kg 70.307 kg GENERAL: The patient is alert and oriented x3, not in any acute distress. Well developed, well nourished. HEENT: Pupils are round and equally reacting to light. EOMI. No scleral icterus. No conjunctival pallor. Normocephalic, atraumatic. No pharyngeal erythema. No thyromegaly. CARDIOVASCULAR: S1 and S2 present. No murmurs, rubs, or gallops. PULMONARY: Chest is clear to auscultation, no wheezing , no crackles. -ABDOMEN: Soft, n lower abdominal tenderness; guarding , nondistended, normo active bowel sounds. No palpable organomegaly. MUSCULOSKELETAL: No joint swelling or deformity. EXTREMITIES: No cyanosis, clubbing, or pedal edema. NEUROLOGICAL: Gross neurological examination did not reveal any focal deficits. SKIN: No rashes. no petechiae. Results CBC & Chem 7: 02/01/24 05:29 02/01/24 05:29 Labs: Abnormal Lab Results - Last 24 Hours (Table) 01/31/24 01/31/24 01/31/24 Range/Units 15:20 15:20 15:45 RBC (4.10-5.20) X 10*6/uL Hgb 11.1 L (11.4-16.0) gm/dL Hct (37.2-46.3) % MCV 78.8 L (80.0-100.0) fL MCH (27.0-32.0) pg MCHC (32.0-37.0) g/dL RDW 16.7 H (11.5-15.5) % Chloride (98-107) mmol/L Carbon Dioxide (22-30) mmol/L BUN (9.0-27.0) mg/dL BUN/Creatinine Ratio (12.00-20.00) Ratio Glucose (74-99) mg/dL POC Glucose (mg/dL) 155 H (70-110) mg/dL Plasma Lactic Acid Eduardo 2.5 H* (0.7-2.0) mmol/L Total Bilirubin (0.3-1.2) mg/dL AST (13-35) U/L ALT (4-34) U/L Alkaline Phosphatase (38-126) U/L Total Protein (6.2-8.2) g/dL Albumin (3.8-4.9) g/dL 01/31/24 02/01/24 02/01/24 Range/Units 15:45 05:29 05:29 RBC 3.88 L (4.10-5.20) X 10*6/uL Hgb 9.4 L (11.4-16.0) gm/dL Hct 31.3 L (37.2-46.3) % MCV (80.0-100.0) fL MCH 24.2 L (27.0-32.0) pg MCHC 30.0 L (32.0-37.0) g/dL RDW 17.2 H (11.5-15.5) % Chloride 113 H 114 H (98-107) mmol/L Carbon Dioxide 16 L 19.7 L (22-30) mmol/L BUN 6.9 L (9.0-27.0) mg/dL BUN/Creatinine Ratio 11.50 L (12.00-20.00) Ratio Glucose 147 H (74-99) mg/dL POC Glucose (mg/dL) (70-110) mg/dL Plasma Lactic Acid Eduardo (0.7-2.0) mmol/L Total Bilirubin 0.2 L (0.3-1.2) mg/dL AST 12 L (13-35) U/L ALT 43 H (4-34) U/L Alkaline Phosphatase 131 H (38-126) U/L Total Protein 5.4 L (6.2-8.2) g/dL Albumin 3.6 L (3.8-4.9) g/dL Thrombosis Risk Factor Assmnt - Choose All That Apply Each Factor Represents 1 point: Age 41-60 years, Obesity (BMI >25), Sepsis (< 1month) Thrombosis Risk Factor Assessment Total Risk Factor Score: 3 Thrombosis Risk Factor Assessment Level: Moderate Risk Assessment and Plan Assessment: Recurrent acute urinary tract infection Abdominal cramps and diarrhea most likely secondary to above. Rule out intra- abdominal process like gastroenteritis or ileus Dehydration secondary to above Diabetes mellitus Hypertension Hyperlipidemia History of osteoarthritis obesity with BMI of 32.4 History of migraine History of ventral peritoneal shunt Plan: Continue with IV hydration normal saline Check CT of the abdomen and pelvis with oral contrast Infectious disease consult Continue with antibiotics as per ID team Labs and medication were reviewed.. Continue same treatment. Continue with symptomatic treatment. Resume home medication. Monitor lytes and vitals. DVT and GI prophylaxis. Further recommendations depends on the clinical course of the patient DVT prophylaxis: Subcutaneous heparin GI Prophylaxis: Ppi Prognosis is guarded
[2024-02-01 12:29] LABS: Glucose,Whole Blood 127 mg/dL (70-110)
--- NOTE | 2024-02-01 13:29 | CT ---
EXAMINATION: CT ABDOMEN AND PELVIS WITHOUT IV CONTRAST DATE OF EXAMINATION: 02/01/2024. COMPARISON: 01/23/2024.. INDICATION: Abdominal pain and diarrhea. PROCEDURE: Axial CT of the abdomen and pelvis was performed with sagittal and coronal reformatted i mages without contrast enhancement. The exam is limited because some types of pathology may not be ad equately demonstrated due to lack of contrast enhancement. CT dose lowering techniques were used, to include: automated exposure control, adjustment for patient size, and/or use of iterative reconstruct ion. FINDINGS: LOWER CHEST : The visualized lung bases are clear. There are no pleural or pericardial effusions. ABDOMEN: Liver and Biliary system: Normal. Adrenal glands: Normal. Kidneys and ureters: There are no renal stones or hydronephrosis. No ureteral stones are present.. Spleen: Normal. Pancreas: Normal. Gallbladder: Surgically absent. Lymph nodes, Peritoneum and mesentery: There is no mesenteric or retroperitoneal lymphadenopathy. Ve ntricular peritoneal shunt catheter is present with its tip in the right lower quadrant. Gastrointestinal tract: There are no dilated loops of bowel or free intraperitoneal air. . There is no evidence of appendicitis. Aorta/IVC: No aortic aneurysm.. IVC normal. Abdominal wall: Normal. PELVIS: Fluid: There is no free fluid in the pelvis. Lymph Nodes: There is no pelvic or inguinal lymphadenopathy.. Urinary bladder: Normal. BONES: There are no osseous destructive lesions.. ADDITIONAL SIGNIFICANT FINDINGS: None. IMPRESSION: No acute process seen within the abdomen or pelvis.
[2024-02-01] MEDS: HYDROcodone/APAP 5-325MG 1 EACH TAB PO PRN (16:26)
[2024-02-01 17:45] LABS: Glucose,Whole Blood 132 mg/dL (70-110)
[2024-02-01 20:18] LABS: Glucose,Whole Blood 124 mg/dL (70-110)
[2024-02-01] MEDS: metFORMIN 500 MG TAB PO SCH (21:35)
[2024-02-01] MEDS: HEPARIN SODIUM,PORCINE 5,000 UNIT/ML 1 ML VIAL SQ SCH (21:36)
[2024-02-01] MEDS: TIMOLOL 0.5% OPHTH DROPS 5 ML BTL LEFT EYE SCH (21:36)
[2024-02-01] MEDS: busPIRone HCl 5 MG TAB PO SCH (21:36)
--- NOTE | 2024-02-01 23:02 | P.CONS ---
History of Present Illness - Reason for Consult Consult date: 02/01/24 - History of Present Illness Patient is a 48-year-old female with a past medical history significant for diabetes mellitus hypertension hyperlipidemia interstitial cystitis recently admitted to the hospital and did have a significant vaginal yeast infection urine culture positive for Colette glabrata however UA was negative and was thought to be related to her vaginal yeast infection patient was started on voriconazole patient subsequent discharged home on oral voriconazole however the patient mention she was not able to get her medication filled as the patient needed prior authorization patient mention or 3 days she was unable to get her medication and the patient mention she could have worsening vaginal symptoms of burning discomfort moderate intensity and did have some drainage also also complaining of fever of 101 F at home patient was advised to go to the hospital by her primary care physician, patient on presentation to the hospital did have low-grade fever of 99.7 F patient was not tachycardic, hypotensive or hypoxic did have a white count of 7.05 creatinine 0.6 ALT was normal patient was started on voriconazole infectious disease was consulted for further management Past Medical History Past Medical History: Diabetes Mellitus, Eye Disorder, Hyperlipidemia, Hypertension, Renal Disease Additional Past Medical History / Comment(s): GLAUCOMA; MIGRAINES, IBS History of Any Multi-Drug Resistant Organisms: C-DIFF Year Discovered:: May 2019 MDRO Source:: stool Past Surgical History: Appendectomy, Cholecystectomy Additional Past Surgical History / Comment(s): OVARY SURGERY; BILAT EYE SURGERY, metal plate under eye Past Anesthesia/Blood Transfusion Reactions: Postoperative Nausea & Vomiting (PONV) Past Psychological History: ADD/ADHD, Depression Smoking Status: Never smoker Past Alcohol Use History: None Reported Past Drug Use History: None Reported - Past Family History Mother Family Medical History: COPD, Diabetes Mellitus Father Family Medical History: Coronary Artery Disease (CAD), Diabetes Mellitus Additional Family Medical History / Comment(s): dad Medications and Allergies Home Medications Medication Instructions Recorded Confirmed Type Atorvastatin [Lipitor] 20 mg PO DAILY 10/07/14 01/31/24 History FLUoxetine HCL 40 mg PO DAILY 10/07/14 01/31/24 History Ibuprofen [Motrin] 800 mg PO Q8HR PRN 10/07/14 01/31/24 History Loratadine [Claritin] 10 mg PO DAILY 10/07/14 01/31/24 History Timolol 0.5% Ophth Soln [Timoptic 1 drop LEFT EYE BID 10/07/14 01/31/24 History 0.5% Ophth Soln] Acyclovir 400 mg PO DAILY 01/19/21 01/31/24 History Cyclobenzaprine [Flexeril] 10 mg PO BID PRN 01/19/21 01/31/24 History Fluticasone Nasal [place] [Flonase 1 spr EA NOSTRIL BID PRN 01/19/21 01/31/24 History Nasal [place]] Pantoprazole [Protonix] 40 mg PO DAILY 01/19/21 01/31/24 History amLODIPine [Norvasc] 10 mg PO DAILY 01/19/21 01/31/24 History busPIRone HCL 15 mg PO BID 01/19/21 01/31/24 History Butalb/APAP/Caff 50-325-40Mg 1 tab PO TID PRN #12 tab 01/21/21 01/31/24 Rx [Fioricet 50-325-40] HYDROcodone/APAP 5-325MG [[place] 1 tab PO Q6HR PRN 11/15/23 01/31/24 History 5-325] Lisdexamfetamine Dimesylate 60 mg PO QAM 11/15/23 01/31/24 History [Vyvanse] Semaglutide [Wegovy] 2.4 mg SQ TH 11/15/23 01/31/24 History hydrOXYzine HCL [Atarax] 50 mg PO BID PRN 11/15/23 01/31/24 History metFORMIN HCL 1,000 mg PO BID 11/15/23 01/31/24 History Acetaminophen Tab [Tylenol] 650 mg PO Q4HR PRN tab 11/16/23 01/31/24 Rx Ondansetron [Zofran] 4 mg PO Q8HR PRN 7 Days #20 tab 01/28/24 01/31/24 Rx Voriconazole [Vfend] 200 mg PO DIRECTED 01/31/24 01/31/24 History Allergies Allergy/AdvReac Type Severity Reaction Status Date / Time ciprofloxacin [From Cipro] Allergy Rash/Hives Verified 01/31/24 18:45 ciprofloxacin HCl Allergy Rash/Hives Verified 01/31/24 18:45 [From Cipro] Sulfa (Sulfonamide Allergy Rash/Hives Verified 01/31/24 18:45 Antibiotics) Physical Exam Vitals: Vital Signs Temp Pulse Pulse Resp BP BP Pulse Ox 02/01/24 08:00 98.1 F 87 16 106/70 95 02/01/24 02:15 98.5 F 80 106/70 96 01/31/24 23:28 98.5 F 95 16 110/68 97 01/31/24 23:06 97 16 112/73 96 01/31/24 23:04 96 16 112/73 96 01/31/24 22:10 98.8 F 90 16 119/85 96 01/31/24 20:11 98.0 F 95 18 124/79 97 01/31/24 15:15 99.7 F H 117 H 19 142/84 96 Intake and Output 01/31/24 02/01/24 02/01/24 22:59 06:59 14:59 Other: # Bowel Movements 0 Weight 70.307 kg 70.307 kg Results CBC & Chem 7: 02/01/24 05:29 02/01/24 05:29 Labs: Abnormal Lab Results - Last 24 Hours (Table) 01/31/24 01/31/24 01/31/24 Range/Units 15:20 15:20 15:45 RBC (4.10-5.20) X 10*6/uL Hgb 11.1 L (11.4-16.0) gm/dL Hct (37.2-46.3) % MCV 78.8 L (80.0-100.0) fL MCH (27.0-32.0) pg MCHC (32.0-37.0) g/dL RDW 16.7 H (11.5-15.5) % Chloride (98-107) mmol/L Carbon Dioxide (22-30) mmol/L BUN (9.0-27.0) mg/dL BUN/Creatinine Ratio (12.00-20.00) Ratio Glucose (74-99) mg/dL POC Glucose (mg/dL) 155 H (70-110) mg/dL Plasma Lactic Acid Eduardo 2.5 H* (0.7-2.0) mmol/L Total Bilirubin (0.3-1.2) mg/dL AST (13-35) U/L ALT (4-34) U/L Alkaline Phosphatase (38-126) U/L Total Protein (6.2-8.2) g/dL Albumin (3.8-4.9) g/dL 01/31/24 02/01/24 02/01/24 Range/Units 15:45 05:29 05:29 RBC 3.88 L (4.10-5.20) X 10*6/uL Hgb 9.4 L (11.4-16.0) gm/dL Hct 31.3 L (37.2-46.3) % MCV (80.0-100.0) fL MCH 24.2 L (27.0-32.0) pg MCHC 30.0 L (32.0-37.0) g/dL RDW 17.2 H (11.5-15.5) % Chloride 113 H 114 H (98-107) mmol/L Carbon Dioxide 16 L 19.7 L (22-30) mmol/L BUN 6.9 L (9.0-27.0) mg/dL BUN/Creatinine Ratio 11.50 L (12.00-20.00) Ratio Glucose 147 H (74-99) mg/dL POC Glucose (mg/dL) (70-110) mg/dL Plasma Lactic Acid Eduardo (0.7-2.0) mmol/L Total Bilirubin 0.2 L (0.3-1.2) mg/dL AST 12 L (13-35) U/L ALT 43 H (4-34) U/L Alkaline Phosphatase 131 H (38-126) U/L Total Protein 5.4 L (6.2-8.2) g/dL Albumin 3.6 L (3.8-4.9) g/dL Assessment and Plan Plan: 1patient with recent admission to the hospital and did have a significant vaginal yeast infection urine culture positive for Colette glabrata for the p atient was advised voriconazole unfortunately patient did not get her medication filled for insurance issue and they wanted to have a preauthorization and the PCP office was not able to get the preop and subsequently patient presented back to the hospital with worsening symptoms did have a low-grade fever on admission that has subsequently resolved 2-patient is on voriconazole to continue case mgr to arrange for outpatient voriconazole before the patient can be discharged safely to prevent further readmission Multiple question concern answered We will follow on clinical condition and cultures to further adjust medication if needed Thank you for this consultation we will follow the patient along with you Dictation was produced using [employer] dictation software. please excuse any grammatical, word or spelling errors. Time with Patient: Greater than 30
[2024-02-02 06:05] LABS: Glucose,Whole Blood 104 mg/dL (70-110)
[2024-02-02] MEDS: FLUoxetine HCL 20 MG CAP PO SCH (09:24)
[2024-02-02] MEDS: ATORVASTATIN 20 MG TAB PO SCH (09:24)
[2024-02-02] MEDS: NON FORMULARY DRUG (Lisdexamfetamine Dimesylate [Vyvanse] 60 MG Capsule) PO SCH (09:24)
[2024-02-02] MEDS: LORATADINE 10 MG TAB PO SCH (09:24)
[2024-02-02 13:04] LABS: Glucose,Whole Blood 115 mg/dL (70-110)
--- NOTE | 2024-02-02 13:08 | P.PN ---
Subjective Progress Note Date: 02/02/24 Principal diagnosis: Reason for follow-up is with general yeast infection Patient is a 48-year-old female with a past medical history significant for diabetes mellitus hypertension hyperlipidemia interstitial cystitis recently admitted to the hospital and did have a significant vaginal yeast infection urine culture positive for Colette glabrata however UA was negative and was thought to be related to her vaginal yeast infection, patient was given a prescription for voriconazole however patient was not able to finish that because of insurance need preauthorization and patient was advised to go to the hospital by the PCP. On today's visit that is 02/02/2024, Patient is afebrile patient is currently on room air and denies having any shortness of breath, the patient denies any chest pain or cough, the patient denies any nausea vomiting still complaining of some suprapubic discomfort and vaginal itching and drainage no diarrhea. No new labs has been repeated today blood culture for negative Objective - Vital Signs Vital signs: Vital Signs Temp 98.5 F 02/02/24 08:00 Pulse 85 02/02/24 08:00 Resp 16 02/02/24 08:00 BP 111/69 02/02/24 08:00 Pulse Ox 98 02/02/24 08:00 FiO2 Intake & Output 02/01/24 02/02/24 02/02/24 18:59 06:59 18:59 Intake Total 2035 236 Balance 2035 236 Intake: Intake, IV Titration 1560 Amount Sodium Chloride 0.9% 1, 1560 000 ml @ 130 mls/hr IV . Q7H42M [facility] Rx#:[id number] Oral 476 236 Other: Voiding Method Toilet # Voids 1 - Exam GENERAL DESCRIPTION: Middle-aged female lying in bed in no distress RESPIRATORY SYSTEM: Unlabored breathing , decreased breath sounds at bases HEART: S1 S2 regular rate and rhythm , ABDOMEN: Soft , no tenderness EXTREMITIES: No edema feet - Labs CBC & Chem 7: 02/01/24 05:29 02/01/24 05:29 Labs: Abnormal Lab Results - Last 24 Hours (Table) 02/01/24 02/01/24 02/02/24 Range/Units 17:43 20:16 13:02 POC Glucose (mg/dL) 132 H 124 H 115 H (70-110) mg/dL Microbiology - Last 24 Hours (Table) 01/31/24 15:20 Blood Culture - Preliminary Blood 01/31/24 15:35 Blood Culture - Preliminary Blood Assessment and Plan (1) Colette glabrata infection Current Visit: No Status: Acute Code(s): B37.9 - CANDIDIASIS, UNSPECIFIED SNOMED Code(s): 04611980 (2) Vaginal candidiasis Current Visit: No Status: Acute Code(s): B37.31 - ACUTE CANDIDIASIS OF VULVA AND VAGINA SNOMED Code(s): 26405142 Plan: 1patient with recent admission to the hospital and did have a significant vaginal yeast infection urine culture positive for Colette glabrata for the patient was advised voriconazole unfortunately patient did not get her medication filled for insurance issue and they wanted to have a preauthorization and the PCP office was not able to get the preop and subsequently patient presented back to the hospital with worsening symptoms did have a low-grade fever on admission that has subsequently resolved 2-patient continue with the voriconazole as the patient did have some improvement her symptoms prescription for the voriconazole has been provided to the nurse to give you to the caseworker to arrange for it before the patient discharge Dictation was produced using [employer] dictation software. please excuse any grammatical, word or spelling errors. Time with Patient: Less than 30
--- NOTE | 2024-02-02 14:11 | P.PN ---
Subjective This is a pleasant 40 years old female with no significant past medical history. Who presents because of tooth/mouth infection. Patient is feeling discomfort in her mouth for a few days. She went to see her PCP Dr. Mar who prescribed her antibiotic for fewdays but patient did not fill it up. Patient is complaining from ringing sound in her right ear that is going on since December 27. Patient also has recurrent vomiting but no blood No abdominal pain. She has poor appetite. Patient with no bowel movements for a few days. She has heartburn She denies chest pain or dyspnea. No urinary complaints. No headache dizziness weakness or numbness. She denies smoking alcohol or illicit drugs. Patient had low-grade fever on admission 100.7. Rest of vitals are stable She has mild leukocytosis 18,000 came down to 11.2 Rest of labs including BMP liver enzymes were unremarkable Urine analysis is unremarkable but looks concentrated sample Influenza A and type B, RSV, SARS (coronavirus) are and detected Group A streptococcus is negative Chest x-ray is negative for acute process and I reviewed by myself ESR is mildly elevated 23 as well as CRP at 51 Lactic acid was elevated came back to normal Patient started on Unasyn. IV vancomycin was discontinued and normal saline 75 mL/h 02/02/2024 Patient walking in her room freely Still complaining from lower abdominal pain and tenderness She tolerates diet well no other new complaint She is hemodynamically stable Hemoglobin is 9.4. rest of labs unremarkable. Check CT of the abdomen and pelvis with oral contrast She remains on IV Variconazole Review of systems CONSTITUTIONAL: No fever, no malaise, no fatigue. HEENT: No recent visual problems or hearing problems. Denied any sore throat. CARDIOVASCULAR: No orthopnea, PND, no palpitations, no syncope. PULMONARY: No shortness of breath, no cough, no hemoptysis. GASTROINTESTINAL: No diarrhea, no nausea, no vomiting, no abdominal pain. Normoactive bowel sounds. NEUROLOGICAL: No headaches, no weakness, no numbness. Active Medications Generic Name Dose Route Start Last Admin Trade Name Freq PRN Reason Stop Dose Admin Acetaminophen 650 mg 02/01/24 05:14 Acetaminophen Tab 325 Mg Tab PO Q4HR PRN Fever and/ or Pain Acetaminophen/Butalbital/Caffeine 1 each 02/01/24 11:28 Butalb/Apap/Caff 50-325-40mg Tab PO TID PRN Migraine Headache Hydrocodone Bitart/Acetaminophen 1 each 02/01/24 11:28 02/02/24 13:19 Hydrocodone/Apap 5-325mg 1 Each Tab PO 1 each Q6HR PRN Administration severe migraine Atorvastatin Calcium 20 mg 02/02/24 09:00 02/02/24 09:24 Atorvastatin 20 Mg Tab PO 20 mg DAILY GOSIA Administration Buspirone HCl 15 mg 02/01/24 21:00 02/02/24 09:24 Buspirone Hcl 5 Mg Tab PO 15 mg BID GOSIA Administration Cyclobenzaprine HCl 10 mg 02/01/24 11:28 Cyclobenzaprine 10 Mg Tab PO BID PRN Muscle Spasm Dextrose/Water 25 ml 02/01/24 05:13 Dextrose 50% Syringe 50 Ml IVP PER PROTOCOL PRN Hypoglycemia Protocol Dextrose/Water 50 ml 02/01/24 05:13 Dextrose 50% Syringe 50 Ml IVP PER PROTOCOL PRN Hypoglycemia Protocol Fluoxetine HCl 40 mg 02/02/24 09:00 02/02/24 09:24 Fluoxetine Hcl 20 Mg Cap PO 40 mg DAILY GOSIA Administration Fluticasone Propionate 1 spray 02/01/24 11:28 Fluticasone 50mcg/[place] Nasal 16gm EA NOSTRIL BID PRN Allergy Symptoms Heparin Sodium (Porcine) 5,000 unit 02/01/24 21:00 02/02/24 09:24 Heparin Sodium,Porcine 5,000 Unit/Ml 1 Ml Vial SQ 5,000 unit Q12HR GOSIA Administration Hydroxyzine HCl 50 mg 02/01/24 11:28 Hydroxyzine Hcl 25 Mg Tab PO BID PRN Anxiety Sodium Chloride 1,000 mls @ 130 mls/hr 01/31/24 19:15 02/02/24 03:58 Saline 0.9% IV 130 mls/hr .Q7H42M GOSIA Administration Voriconazole 200 mg/ Sodium 100 mls @ 125 mls/hr 01/31/24 20:00 02/02/24 09:24 Chloride IVPB 125 mls/hr Q12HR GOSIA Administration Protocol Insulin Aspart 0 unit 02/01/24 07:30 02/02/24 06:06 Insulin Aspart (Novolog) 100 Unit/Ml Vial SQ Not Given ACHS GOSIA Protocol Loratadine 10 mg 02/02/24 09:00 02/02/24 09:24 Loratadine 10 Mg Tab PO 10 mg DAILY GOSIA Administration Metformin HCl 1,000 mg 02/01/24 21:00 02/02/24 09:24 Metformin 500 Mg Tab PO 1,000 mg BID GOSIA Administration Morphine Sulfate 4 mg 01/31/24 19:05 02/02/24 10:10 Morphine Sulfate 4 Mg/Ml Syringe IV 4 mg Q4HR PRN Administration Severe Pain (Scale 7 to 10) Naloxone HCl 0.2 mg 01/31/24 19:05 Naloxone 0.4 Mg/Ml 1 Ml Vial IV Q2M PRN Opioid Reversal Non-Formulary Medication 60 mg 02/02/24 09:00 02/02/24 09:24 Lisdexamfetamine Dimesylate [Vyvanse] PO Not Given QAM GOSIA Ondansetron HCl 4 mg 01/31/24 19:05 02/02/24 09:31 Ondansetron 4 Mg/2 Ml Vial IVP 4 mg Q8HR PRN Administration Nausea And Vomiting Pantoprazole Sodium 40 mg 02/01/24 07:30 02/02/24 06:02 Pantoprazole 40 Mg Tablet PO 40 mg [id number] [facility] Administration Timolol Maleate 1 drops 02/01/24 21:00 02/02/24 09:25 Timolol 0.5% Ophth Drops 5 Ml Btl LEFT EYE 1 drops BID GOSIA Administration Objective - Vital Signs Vital signs: Vital Signs Temp 98.5 F 02/02/24 08:00 Pulse 85 02/02/24 08:00 Resp 16 02/02/24 08:00 BP 111/69 02/02/24 08:00 Pulse Ox 98 02/02/24 08:00 FiO2 Intake & Output 02/01/24 02/02/24 02/02/24 18:59 06:59 18:59 Intake Total 2035 236 Balance 2035 236 Intake: Intake, IV Titration 1560 Amount Sodium Chloride 0.9% 1, 1560 000 ml @ 130 mls/hr IV . Q7H42M [facility] Rx#:[id number] Oral 476 236 Other: Voiding Method Toilet # Voids 1 - Exam GENERAL: The patient is alert and oriented x3, not in any acute distress. Well developed, well nourished. -HEENT: Pupils are round and equally reacting to light. EOMI. No scleral icterus. No conjunctival pallor. Normocephalic, atraumatic. No pharyngeal erythema. No thyromegaly. Multiple mouth ulcers including frontal lips with yellow discharge on the surface. Bilateral tonsillar enlargement left more than right and there is white-yellow discharge on the left side. Both tonsils are tender on external exam CARDIOVASCULAR: S1 and S2 present. No murmurs, rubs, or gallops. PULMONARY: Chest is clear to auscultation, no wheezing , no crackles. ABDOMEN: Soft, nontender, nondistended, normoactive bowel sounds. No palpable organomegaly. MUSCULOSKELETAL: No joint swelling or deformity. EXTREMITIES: No cyanosis, clubbing, or pedal edema. NEUROLOGICAL: Gross neurological examination did not reveal any focal deficits. SKIN: No rashes. no petechiae. - Labs CBC & Chem 7: 02/01/24 05:29 02/01/24 05:29 Labs: Abnormal Lab Results - Last 24 Hours (Table) 02/01/24 02/01/24 02/02/24 Range/Units 17:43 20:16 13:02 POC Glucose (mg/dL) 132 H 124 H 115 H (70-110) mg/dL Microbiology - Last 24 Hours (Table) 01/31/24 15:20 Blood Culture - Preliminary Blood 01/31/24 15:35 Blood Culture - Preliminary Blood Assessment and Plan Assessment: Recurrent acute urinary tract infection Abdominal cramps and diarrhea most likely secondary to above. Rule out intra- abdominal process like gastroenteritis or ileus. CT of the abdomen is negative for acute process Dehydration secondary to above Diabetes mellitus Hypertension Hyperlipidemia History of osteoarthritis obesity with BMI of 32.4 History of migraine History of ventral peritoneal shunt Plan: Continue with IV hydration normal saline Infectious disease consult Continue with antibiotics as per ID team. Currently on IV variconazole Follow-up blood culture results Labs and medication were reviewed.. Continue same treatment. Continue with symptomatic treatment. Resume home medication. Monitor lytes and vitals. DVT and GI prophylaxis. Further recommendations depends on the clinical course of the patient DVT prophylaxis: Subcutaneous heparin GI Prophylaxis: Ppi Prognosis is guarded
[2024-02-02 16:02] LABS: Anisocytosis Slight; HCT 30.5 % (34.0-46.0); Hypochromasia Moderate; MCHC 31.6 g/dL (31.0-37.0); MCV 79.1 fL (80.0-100.0); Mean Platelet Volume 7.5; Microcytosis Slight; Platelet Count 277 k/uL (150-450); RBC 3.86 m/uL (3.80-5.40); RDW 16.8 % (11.5-15.5); WBC 5.7 k/uL (3.8-10.6)
[2024-02-02 16:13] LABS: HGB 9.6 gm/dL (11.4-16.0)
[2024-02-02] MEDS: BUTALB/APAP/CAFF 50-325-40MG TAB PO PRN (18:10)
[2024-02-02 20:31] LABS: Glucose,Whole Blood 97 mg/dL (70-110)
[2024-02-02] MEDS: Acetaminophen-Codeine 300-30mg TAB PO PRN (21:14)
[2024-02-02] MEDS: CYCLOBENZAPRINE 10 MG TAB PO PRN (22:47)
[2024-02-03 04:06] LABS: % Iron Saturation 4.83 (12.00-45.00); Ferritin 6.7 ng/mL (10.0-291.0)
[2024-02-03 06:07] LABS: Glucose,Whole Blood 99 mg/dL (70-110)
[2024-02-03 10:03] LABS: Appearance,Urine Clear (Clear); Bilirubin,Urine Negative (Negative); Blood,Urine Negative (Negative); Color,Urine Colorless; Glucose,Urine (UA) Negative (Negative); Ketones,Urine Negative (Negative); Leukocyte Esterase,Urine Negative (Negative); Nitrite,Urine Negative (Negative); PH, Urine 5.5 (5.0-8.0); Protein,Urine Negative (Negative); Specific Gravity,Urine 1.006 (1.001-1.035); Urobilinogen,Urine <2.0 mg/dL (<2.0)
[2024-02-03] MEDS: FERROUS SULFATE 325 MG TAB PO SCH (10:51)
[2024-02-03] MEDS: FOLIC ACID 1 MG TAB PO SCH (10:51)
[2024-02-03] MEDS: CYANOCOBALAMIN 1,000 MCG/ML 1 ML VIAL IM SCH (10:51)
[2024-02-03 11:22] LABS: Anisocytosis Slight; HCT 31.3 % (34.0-46.0); HGB 9.8 gm/dL (11.4-16.0); Hypochromasia Moderate; MCH 24.9 pg (25.0-35.0); MCHC 31.3 g/dL (31.0-37.0); MCV 79.5 fL (80.0-100.0); Mean Platelet Volume 8.4; Microcytosis Slight; Platelet Count 262 k/uL (150-450); RBC 3.94 m/uL (3.80-5.40); RDW 16.6 % (11.5-15.5); WBC 5.2 k/uL (3.8-10.6)
[2024-02-03] MEDS: Acetaminophen-Codeine 300-30mg TAB PO PRN (11:25)
--- NOTE | 2024-02-03 12:06 | P.PN ---
Subjective This is a pleasant 40 years old female with no significant past medical history. Who presents because of tooth/mouth infection. Patient is feeling discomfort in her mouth for a few days. She went to see her PCP Dr. Mar who prescribed her antibiotic for fewdays but patient did not fill it up. Patient is complaining from ringing sound in her right ear that is going on since December 27. Patient also has recurrent vomiting but no blood No abdominal pain. She has poor appetite. Patient with no bowel movements for a few days. She has heartburn She denies chest pain or dyspnea. No urinary complaints. No headache dizziness weakness or numbness. She denies smoking alcohol or illicit drugs. Patient had low-grade fever on admission 100.7. Rest of vitals are stable She has mild leukocytosis 18,000 came down to 11.2 Rest of labs including BMP liver enzymes were unremarkable Urine analysis is unremarkable but looks concentrated sample Influenza A and type B, RSV, SARS (coronavirus) are and detected Group A streptococcus is negative Chest x-ray is negative for acute process and I reviewed by myself ESR is mildly elevated 23 as well as CRP at 51 Lactic acid was elevated came back to normal Patient started on Unasyn. IV vancomycin was discontinued and normal saline 75 mL/h 02/02/2024 Patient walking in her room freely Still complaining from lower abdominal pain and tenderness She tolerates diet well no other new complaint She is hemodynamically stable Hemoglobin is 9.4. rest of labs unremarkable. Check CT of the abdomen and pelvis with oral contrast She remains on IV Variconazole 02/03/2024 Patient still complaining of from lower abdominal pain and tenderness, no other complaint She denies bleeding today. She does not think she has vaginal bleeding. Also we checked her urine analysis which was negative for blood. Actually her urinalysis was normal Occult blood in the stool was negative as well However anemia workup showing iron deficiency anemia, low normal vitamin B12, low normal folate level. Replacement therapy for over 3 were started including IM vitamin B12 x 2 and then oral doses. Also going to consult general surgery team. Patient remains on voriconazole. Objective - Vital Signs Vital signs: Vital Signs Temp 98 F 02/03/24 07:20 Pulse 88 02/03/24 08:00 Resp 19 02/03/24 08:00 BP 142/87 02/03/24 07:20 Pulse Ox 96 02/03/24 07:20 FiO2 Intake & Output 03/08/24 03/09/24 03/09/24 18:59 06:59 18:59 Intake Total 236 Balance 236 Intake: Oral 236 Other: Voiding Method Toilet Toilet # Voids 1 1 # Bowel Movements 1 - Exam GENERAL: The patient is alert and oriented x3, not in any acute distress. Well developed, well nourished. -HEENT: Pupils are round and equally reacting to light. EOMI. No scleral icterus. No conjunctival pallor. Normocephalic, atraumatic. No pharyngeal erythema. No thyromegaly. Multiple mouth ulcers including frontal lips with yellow discharge on the surface. Bilateral tonsillar enlargement left more than right and there is white-yellow discharge on the left side. Both tonsils are tender on external exam CARDIOVASCULAR: S1 and S2 present. No murmurs, rubs, or gallops. PULMONARY: Chest is clear to auscultation, no wheezing , no crackles. ABDOMEN: Soft, nontender, nondistended, normoactive bowel sounds. No palpable organomegaly. MUSCULOSKELETAL: No joint swelling or deformity. EXTREMITIES: No cyanosis, clubbing, or pedal edema. NEUROLOGICAL: Gross neurological examination did not reveal any focal deficits. SKIN: No rashes. no petechiae. - Labs CBC & Chem 7: 02/03/24 10:26 02/01/24 05:29 Labs: Abnormal Lab Results - Last 24 Hours (Table) 02/02/24 02/02/24 02/02/24 Range/Units 13:02 15:32 15:32 Hgb 9.6 L D (11.4-16.0) gm/dL Hct 30.5 L (34.0-46.0) % MCV 79.1 L (80.0-100.0) fL MCH (25.0-35.0) pg RDW 16.8 H (11.5-15.5) % POC Glucose (mg/dL) 115 H (70-110) mg/dL Iron 20 L (50-170) UG/DL % Saturation 4.83 L (12.00-45.00) Ferritin 6.7 L (10.0-291.0) ng/mL 02/03/24 Range/Units 10:26 Hgb 9.8 L (11.4-16.0) gm/dL Hct 31.3 L (34.0-46.0) % MCV 79.5 L (80.0-100.0) fL MCH 24.9 L (25.0-35.0) pg RDW 16.6 H (11.5-15.5) % POC Glucose (mg/dL) (70-110) mg/dL Iron (50-170) UG/DL % Saturation (12.00-45.00) Ferritin (10.0-291.0) ng/mL Microbiology - Last 24 Hours (Table) 01/31/24 15:20 Blood Culture - Preliminary Blood 01/31/24 15:35 Blood Culture - Preliminary Blood Assessment and Plan Assessment: R fungal infection on treatment Anemia, acute on chronic. Multifactorial could be nutritional but iron deficiency anemia, low normal folate and B12 might be contributing as well Abdominal cramps and diarrhea most likely secondary to above. Rule out intra- abdominal process like gastroenteritis or ileus. CT of the abdomen is negative for acute process Dehydration secondary to above Diabetes mellitus Hypertension Hyperlipidemia History of osteoarthritis obesity with BMI of 32.4 History of migraine History of ventral peritoneal shunt Plan: Start replacement therapy with iron, vitamin B12 IM injection x 2 and then oral, folate replacement therapy General surgery consult Continue with IV hydration normal saline Infectious disease consult Continue with antibiotics as per ID team. Currently on IV variconazole Follow-up blood culture results Labs and medication were reviewed.. Continue same treatment. Continue with symptomatic treatment. Resume home medication. Monitor lytes and vitals. DVT and GI prophylaxis. Further recommendations depends on the clinical course of the patient DVT prophylaxis: Subcutaneous heparin GI Prophylaxis: Ppi Prognosis is guarded Possible discharge in 24 to 48 hours if she keeps improving
[2024-02-03 12:11] LABS: Glucose,Whole Blood 110 mg/dL (70-110)
--- NOTE | 2024-02-03 14:07 | P.PN ---
Subjective Progress Note Date: 02/03/24 Principal diagnosis: Reason for follow-up is with general yeast infection Patient is a 48-year-old female with a past medical history significant for diabetes mellitus hypertension hyperlipidemia interstitial cystitis recently admitted to the hospital and did have a significant vaginal yeast infection urine culture positive for Colette glabrata however UA was negative and was thought to be related to her vaginal yeast infection, patient was given a prescription for voriconazole however patient was not able to finish that because of insurance need preauthorization and patient was advised to go to the hospital by the PCP. On today's visit that is 02/03/2024, patient has been afebrile, patient is breathing comfortably and is currently on room air, patient denies having any significant cough no chest pain shortness of breath, patient denies nausea vomiting has been complaining of abdominal discomfort her vaginal irritation symptoms and drainage has decreased per patient. Patient white count is 5.2 UA has been negative blood culture so far negative Objective - Vital Signs Vital signs: Vital Signs Temp 98 F 02/03/24 07:20 Pulse 88 02/03/24 08:00 Resp 19 02/03/24 08:00 BP 142/87 02/03/24 07:20 Pulse Ox 96 02/03/24 07:20 FiO2 Intake & Output 02/02/24 02/03/24 02/03/24 18:59 06:59 18:59 Intake Total 236 Balance 236 Intake: Oral 236 Other: Voiding Method Toilet Toilet # Voids 1 1 # Bowel Movements 1 - Exam GENERAL DESCRIPTION: Middle-aged female lying in bed in no distress RESPIRATORY SYSTEM: Unlabored breathing , decreased breath sounds at bases HEART: S1 S2 regular rate and rhythm , ABDOMEN: Soft , no tenderness EXTREMITIES: No edema feet - Labs CBC & Chem 7: 02/03/24 10:26 02/01/24 05:29 Labs: Abnormal Lab Results - Last 24 Hours (Table) 02/02/24 02/02/24 02/03/24 Range/Units 15:32 15:32 10:26 Hgb 9.6 L D 9.8 L (11.4-16.0) gm/dL Hct 30.5 L 31.3 L (34.0-46.0) % MCV 79.1 L 79.5 L (80.0-100.0) fL MCH 24.9 L (25.0-35.0) pg RDW 16.8 H 16.6 H (11.5-15.5) % Iron 20 L (50-170) UG/DL % Saturation 4.83 L (12.00-45.00) Ferritin 6.7 L (10.0-291.0) ng/mL Microbiology - Last 24 Hours (Table) 01/31/24 15:20 Blood Culture - Preliminary Blood 01/31/24 15:35 Blood Culture - Preliminary Blood Assessment and Plan (1) Colette glabrata infection Current Visit: No Status: Acute Code(s): B37.9 - CANDIDIASIS, UNSPECIFIED SNOMED Code(s): 64036465 (2) Vaginal candidiasis Current Visit: No Status: Acute Code(s): B37.31 - ACUTE CANDIDIASIS OF VULVA AND VAGINA SNOMED Code(s): 77781560 Plan: 1patient with recent admission to the hospital and did have a significant vaginal yeast infection urine culture positive for Colette glabrata for the patient was advised voriconazole unfortunately patient did not get her medication filled for insurance issue 2-patient reporting some improvement of her original symptoms repeat UA is negative continue with the voriconazole, general surgery has been consulted for abdominal pain pending evaluation Dictation was produced using [employer] dictation software. please excuse any grammatical, word or spelling errors. Time with Patient: Less than 30
[2024-02-03 17:14] LABS: Glucose,Whole Blood 131 mg/dL (70-110)
[2024-02-03 20:07] LABS: Glucose,Whole Blood 121 mg/dL (70-110)
[2024-02-03] MEDS: HYDROcodone/APAP 5-325MG 1 EACH TAB PO STA (21:23)
--- NOTE | 2024-02-03 23:38 | P.CON ---
Consult Note - . Consult date: 02/03/24 Assessment/Plan:: Patient is a 48-year-old female with a past medical history significant for diabetes mellitus hypertension hyperlipidemia interstitial cystitis recently admitted to the hospital and did have a significant vaginal yeast infection urine culture positive for Oclette glabrata however UA was negative and was thought to be related to her vaginal yeast infection patient was started on voriconazole patient subsequent discharged home on oral voriconazole however the patient mention she was not able to get her medication filled as the patient needed prior authorization patient mention or 3 days she was unable to get her medication and the patient mention she could have worsening vaginal symptoms of burning discomfort moderate intensity and did have some drainage also also complaining of fever of 101 F at home patient was ad vised to go to the hospital by her primary care physician, patient on presentation to the hospital did have low-grade fever of 99.7 F patient was not tachycardic, hypotensive or hypoxic did have a white count of 7.05 creatinine 0.6 ALT was normal patient was started on voriconazole infectious disease was consulted for further management Surgery consulted for abdominal pain,patient admits to tenderness to superficial and deep palpation. This has been going on for the last several days. Review of systems CONSTITUTIONAL: No fever, no malaise, no fatigue. HEENT: No recent visual problems or hearing problems. Denied any sore throat. CARDIOVASCULAR: No orthopnea, PND, no palpitations, no syncope. PULMONARY: No shortness of breath, no cough, no hemoptysis. -GASTROINTESTINAL: As above NEUROLOGICAL: No headaches, no weakness, no numbness. HEMATOLOGICAL: Denies any bleeding or petechiae. GENITOURINARY: Denies any burning micturition, frequency, or urgency. MUSCULOSKELETAL/RHEUMATOLOGICAL: Denies any joint pain, swelling, or any muscle pain. ENDOCRINE: Denies any polyuria or polydipsia. GENERAL: The patient is alert and oriented x3, not in any acute distress. Well developed, well nourished. HEENT: Pupils are round and equally reacting to light. EOMI. No scleral icterus. No conjunctival pallor. Normocephalic, atraumatic. No pharyngeal erythema. No thyromegaly. CARDIOVASCULAR: S1 and S2 present. No murmurs, rubs, or gallops. PULMONARY: Chest is clear to auscultation, no wheezing , no crackles. -ABDOMEN: Soft, n lower abdominal tenderness; guarding , nondistended, normo active bowel sounds. No palpable organomegaly. MUSCULOSKELETAL: No joint swelling or deformity. EXTREMITIES: No cyanosis, clubbing, or pedal edema. NEUROLOGICAL: Gross neurological examination did not reveal any focal deficits. SKIN: No rashes. no petechiae. Past Medical History Past Medical History: Diabetes Mellitus, Eye Disorder, Hyperlipidemia, Hype rtension, Renal Disease Additional Past Medical History / Comment(s): GLAUCOMA; MIGRAINES, IBS History of Any Multi-Drug Resistant Organisms: C-DIFF Date of last positivie culture/infection: May 2019 MDRO Source:: stool Past Surgical History: Appendectomy, Cholecystectomy Additional Past Surgical History / Comment(s): OVARY SURGERY; BILAT EYE SURGERY, metal plate under eye Past Anesthesia/Blood Transfusion Reactions: Postoperative Nausea & Vomiting (PONV) Past Psychological History: ADD/ADHD, Depression Smoking Status: Never smoker Past Alcohol Use History: None Reported Past Drug Use History: None Reported - Past Family History Mother Family Medical History: COPD, Diabetes Mellitus Father Family Medical History: Coronary Artery Disease (CAD), Diabetes Mellitus Additional Family Medical History / Comment(s): dad 49 yo female w/ abdominal pain review of ctap demonstrates no significant acute process associated w/ shunt, pt does have fat containing umbilical hernia. no cellulitis observed ok for regular diet check UA check blood cultures no intervention at this time.
[2024-02-03] MEDS: MORPHINE SULFATE 4 MG/ML SYRINGE IVP PRN (23:44)
[2024-02-04 06:11] LABS: Glucose,Whole Blood 94 mg/dL (70-110)
[2024-02-04 11:16] LABS: HCT 31.2 % (37.2-46.3); HGB 9.5 g/dL (12.0-15.0); MCH 24.1 pg (27.0-32.0); MCHC 30.4 g/dL (32.0-37.0); NRBC Per 100 WBC 0 X 10*3/uL (0.00-0.01); Platelet Count 310 X 10*3/uL (140-440); RBC 3.95 X 10*6/uL (4.10-5.20); RDW 16.7 % (11.5-14.5)
[2024-02-04 11:50] LABS: Glucose,Whole Blood 137 mg/dL (70-110)
--- NOTE | 2024-02-04 12:03 | P.PN ---
Subjective Progress Note Date: 02/04/24 Principal diagnosis: Abdominal pain Patient says her pain is improved today. Describes it as being in the suprapubic location. Patient says she has a history of cystitis. Her studies were reviewed. Her cecum is somewhat low-lying. Looking at previous CAT scans her cecum seems to be fairly mobile and in a different location on many of the studies. Minimal amount of fluid suspected in the deep pelvis. Patient with history of previous appendectomy. No definite inflammatory changes. Patient describes her pain as being at the pannus. Objective - Vital Signs Vital signs: Vital Signs Temp 98.5 F 02/04/24 07:17 Pulse 72 02/04/24 08:00 Resp 15 02/04/24 08:00 BP 121/78 02/04/24 07:17 Pulse Ox 96 02/04/24 07:17 FiO2 Intake & Output 02/03/24 02/04/24 02/04/24 17:59 06:59 18:59 Other: Voiding Method Toilet # Voids - Exam Abdomen: Soft, nondistended, patient has tenderness when lightly touching the skin and fatty tissue of the pannus. When squeezing the pannus rather than pushing on the abdominal wall she has significant pain. - Labs CBC & Chem 7: 02/04/24 06:04 02/01/24 05:29 Labs: Abnormal Lab Results - Last 24 Hours (Table) 02/03/24 02/03/24 02/03/24 Range/Units 10:26 17:13 20:05 RBC (4.10-5.20) X 10*6/uL Hgb 9.8 L (11.4-16.0) gm/dL Hct 31.3 L (34.0-46.0) % MCV 79.5 L (80.0-100.0) fL MCH 24.9 L (25.0-35.0) pg MCHC (32.0-37.0) g/dL RDW 16.6 H (11.5-15.5) % POC Glucose (mg/dL) 131 H 121 H (70-110) mg/dL 02/04/24 02/04/24 Range/Units 06:04 11:47 RBC 3.95 L (4.10-5.20) X 10*6/uL Hgb 9.5 L (11.4-16.0) gm/dL Hct 31.2 L (34.0-46.0) % MCV 79.0 L (80.0-100.0) fL MCH 24.1 L (25.0-35.0) pg MCHC 30.4 L (32.0-37.0) g/dL RDW 16.7 H (11.5-15.5) % POC Glucose (mg/dL) 137 H (70-110) mg/dL Microbiology - Last 24 Hours (Table) 01/31/24 15:20 Blood Culture - Preliminary Blood 01/31/24 15:35 Blood Culture - Preliminary Blood Assessment and Plan (1) Intractable abdominal pain Narrative/Plan: 48-year-old female with lower abdominal pain. Some component of this pain seems to be panniculitis given the exam findings. No surgical intervention planned. Will sign off. Please call if needed. Current Visit: Yes Status: Acute Code(s): R10.9 - UNSPECIFIED ABDOMINAL PAIN SNOMED Code(s): 87915327
--- NOTE | 2024-02-04 13:22 | P.PN ---
Subjective This is a pleasant 40 years old female with no significant past medical history. Who presents because of tooth/mouth infection. Patient is feeling discomfort in her mouth for a few days. She went to see her PCP Dr. Mar who prescribed her antibiotic for fewdays but patient did not fill it up. Patient is complaining from ringing sound in her right ear that is going on since December 27. Patient also has recurrent vomiting but no blood No abdominal pain. She has poor appetite. Patient with no bowel movements for a few days. She has heartburn She denies chest pain or dyspnea. No urinary complaints. No headache dizziness weakness or numbness. She denies smoking alcohol or illicit drugs. Patient had low-grade fever on admission 100.7. Rest of vitals are stable She has mild leukocytosis 18,000 came down to 11.2 Rest of labs including BMP liver enzymes were unremarkable Urine analysis is unremarkable but looks concentrated sample Influenza A and type B, RSV, SARS (coronavirus) are and detected Group A streptococcus is negative Chest x-ray is negative for acute process and I reviewed by myself ESR is mildly elevated 23 as well as CRP at 51 Lactic acid was elevated came back to normal Patient started on Unasyn. IV vancomycin was discontinued and normal saline 75 mL/h 02/02/2024 Patient walking in her room freely Still complaining from lower abdominal pain and tenderness She tolerates diet well no other new complaint She is hemodynamically stable Hemoglobin is 9.4. rest of labs unremarkable. Check CT of the abdomen and pelvis with oral contrast She remains on IV Variconazole 02/03/2024 Patient still complaining of from lower abdominal pain and tenderness, no other complaint She denies bleeding today. She does not think she has vaginal bleeding. Also we checked her urine analysis which was negative for blood. Actually her urinalysis was normal Occult blood in the stool was negative as well However anemia workup showing iron deficiency anemia, low normal vitamin B12, low normal folate level. Replacement therapy for over 3 were started including IM vitamin B12 x 2 and then oral doses. Also going to consult general surgery team. Patient remains on voriconazole. 02/04/2024 Patient was admitted with cystitis and fungal infection is suspected. Per ID team patient requires voriconazole x 7 days. We called the pharmacy and confirm prescription for her However prior to discharge her hemoglobin dropped to 9.4, CT of the abdomen pelvis showing no acute process. Anemia workup showing iron deficiency anemia, borderline low vitamin B12 and folate ; replacement therapy is initiated follow all the 3 iron B12 and folate Surgical team evaluated the patient and they recommended blood culture which is pending Patient has some fat containing hernia. Objective - Vital Signs Vital signs: Vital Signs Temp 98.5 F 02/04/24 07:17 Pulse 72 02/04/24 08:00 Resp 15 02/04/24 08:00 BP 121/78 02/04/24 07:17 Pulse Ox 96 02/04/24 07:17 FiO2 Intake & Output 02/03/24 02/04/24 02/04/24 17:59 06:59 18:59 Other: Voiding Method Toilet # Voids - Exam GENERAL: The patient is alert and oriented x3, not in any acute distress. Well developed, well nourished. -HEENT: Pupils are round and equally reacting to light. EOMI. No scleral icterus. No conjunctival pallor. Normocephalic, atraumatic. No pharyngeal erythema. No thyromegaly. Multiple mouth ulcers including frontal lips with yellow discharge on the surface. Bilateral tonsillar enlargement left more than right and there is white-yellow discharge on the left side. Both tonsils are tender on external exam CARDIOVASCULAR: S1 and S2 present. No murmurs, rubs, or gallops. PULMONARY: Chest is clear to auscultation, no wheezing , no crackles. ABDOMEN: Soft, nontender, nondistended, normoactive bowel sounds. No palpable organomegaly. MUSCULOSKELETAL: No joint swelling or deformity. EXTREMITIES: No cyanosis, clubbing, or pedal edema. NEUROLOGICAL: Gross neurological examination did not reveal any focal deficits. SKIN: No rashes. no petechiae. - Labs CBC & Chem 7: 02/04/24 06:04 02/01/24 05:29 Labs: Abnormal Lab Results - Last 24 Hours (Table) 02/03/24 02/03/24 02/03/24 Range/Units 10:26 17:13 20:05 Hgb 9.8 L (11.4-16.0) gm/dL Hct 31.3 L (34.0-46.0) % MCV 79.5 L (80.0-100.0) fL MCH 24.9 L (25.0-35.0) pg RDW 16.6 H (11.5-15.5) % POC Glucose (mg/dL) 131 H 121 H (70-110) mg/dL Microbiology - Last 24 Hours (Table) 01/31/24 15:20 Blood Culture - Preliminary Blood 01/31/24 15:35 Blood Culture - Preliminary Blood Assessment and Plan Assessment: fungal infection on treatment Cystitis Anemia, acute on chronic. Multifactorial could be nutritional but iron deficiency anemia, low normal folate and B12 might be contributing as well Abdominal cramps and diarrhea most likely secondary to above. Rule out intra- abdominal process like gastroenteritis or ileus. CT of the abdomen is negative for acute process Dehydration secondary to above Diabetes mellitus Hypertension Hyperlipidemia History of osteoarthritis obesity with BMI of 32.4 History of migraine History of ventral peritoneal shunt Plan: Start replacement therapy with iron, vitamin B12 IM injection x 2 and then oral, folate replacement therapy General surgery consult Continue with IV hydration normal saline Infectious disease consult Continue with antibiotics as per ID team. Currently on IV variconazole Follow-up blood culture results Labs and medication were reviewed.. Continue same treatment. Continue with symptomatic treatment. Resume home medication. Monitor lytes and vitals. DVT and GI prophylaxis. Further recommendations depends on the clinical course of the patient DVT prophylaxis: Subcutaneous heparin GI Prophylaxis: Ppi Prognosis is guarded Possible discharge in 24 to 48 hours if she keeps improving
[2024-02-04] MEDS: CALCIUM CARBONATE 500 MG CHEWABLE PO PRN (13:24)
--- NOTE | 2024-02-04 15:18 | P.PN ---
Subjective Progress Note Date: 02/04/24 Principal diagnosis: Reason for follow-up is with general yeast infection Patient is a 48-year-old female with a past medical history significant for diabetes mellitus hypertension hyperlipidemia interstitial cystitis recently admitted to the hospital and did have a significant vaginal yeast infection urine culture positive for Colette glabrata however UA was negative and was thought to be related to her vaginal yeast infection, patient was given a prescription for voriconazole however patient was not able to finish that because of insurance need preauthorization and patient was advised to go to the hospital by the PCP. On today's visit that is 02/04/2024,the patient denies any fever or any chills, patient is breathing comfortably on room air, the patient denies chest pain shortness of breath and no significant cough, patient abdominal pain slightly decreased intensity no nausea vomiting or diarrhea and return symptoms has improved. Patient white count 6.90 Objective - Vital Signs Vital signs: Vital Signs Temp 98.0 F 02/04/24 14:00 Pulse 76 02/04/24 14:00 Resp 14 02/04/24 14:00 BP 130/84 02/04/24 14:00 Pulse Ox 95 02/04/24 14:00 FiO2 Intake & Output 02/03/24 02/04/24 02/04/24 17:59 06:59 18:59 Intake Total 118 Balance 118 Intake: Oral 118 Other: Voiding Method Toilet # Voids - Exam GENERAL DESCRIPTION: Middle-aged female lying in bed in no distress RESPIRATORY SYSTEM: Unlabored breathing , decreased breath sounds at bases HEART: S1 S2 regular rate and rhythm , ABDOMEN: Soft , no tenderness EXTREMITIES: No edema feet - Labs CBC & Chem 7: 02/04/24 06:04 02/01/24 05:29 Labs: Abnormal Lab Results - Last 24 Hours (Table) 02/03/24 02/03/24 02/04/24 Range/Units 17:13 20:05 06:04 RBC 3.95 L (4.10-5.20) X 10*6/uL Hgb 9.5 L (12.0-15.0) g/dL Hct 31.2 L (37.2-46.3) % MCV 79.0 L (80.0-97.0) FL MCH 24.1 L (27.0-32.0) pg MCHC 30.4 L (32.0-37.0) g/dL RDW 16.7 H (11.5-14.5) % POC Glucose (mg/dL) 131 H 121 H (70-110) mg/dL 02/04/24 Range/Units 11:47 RBC (4.10-5.20) X 10*6/uL Hgb (12.0-15.0) g/dL Hct (37.2-46.3) % MCV (80.0-97.0) FL MCH (27.0-32.0) pg MCHC (32.0-37.0) g/dL RDW (11.5-14.5) % POC Glucose (mg/dL) 137 H (70-110) mg/dL Microbiology - Last 24 Hours (Table) 01/31/24 15:20 Blood Culture - Preliminary Blood 01/31/24 15:35 Blood Culture - Preliminary Blood Assessment and Plan (1) Colette glabrata infection Current Visit: No Status: Acute Code(s): B37.9 - CANDIDIASIS, UNSPECIFIED SNOMED Code(s): 33434757 (2) Vaginal candidiasis Current Visit: No Status: Acute Code(s): B37.31 - ACUTE CANDIDIASIS OF VULVA AND VAGINA SNOMED Code(s): 10291901 Plan: 1patient with recent admission to the hospital and did have a significant vaginal yeast infection urine culture positive for Colette glabrata for the patient was advised voriconazole unfortunately patient did not get her medication filled for insurance issue 2-patient symptoms are slowly improving, repeat UA is negative continue with the voriconazole, which will be continued for about a week on discharge to finish a course of therapy Dictation was produced using [employer] dictation software. please excuse any grammatical, word or spelling errors. Time with Patient: Less than 30
[2024-02-04 17:36] LABS: Glucose,Whole Blood 106 mg/dL (70-110)
[2024-02-04 20:53] LABS: Glucose,Whole Blood 88 mg/dL (70-110)
[2024-02-05 06:10] LABS: Glucose,Whole Blood 107 mg/dL (70-110)
[2024-02-05 08:36] LABS: HCT 32.4 % (37.2-46.3); HGB 9.8 g/dL (12.0-15.0); MCH 23.9 pg (27.0-32.0); MCHC 30.2 g/dL (32.0-37.0); Mean Platelet Volume 11.1 FL (9.5-12.2); NRBC Per 100 WBC 0 X 10*3/uL (0.00-0.01); Platelet Count 305 X 10*3/uL (140-440); RDW 17.1 % (11.5-14.5)
[2024-02-05] MEDS: CYANOCOBALAMIN 500 MCG TAB PO SCH (08:59)
[2024-02-05 10:00] VITALS: PULSE 81
[2024-02-05 12:52] LABS: Glucose,Whole Blood 134 mg/dL (70-110)
[2024-02-05 15:14] VITALS: BP 122/84; RESP 16; TEMP 97.8
== END 2024-02-05 15:44 | disposition home or self-care (01) | DRG 463 ==
LOC: EC 14:58 → 4SSUR 19:07 → EEVIPCON 19:07 → 6NMEDSUR 22:59
PROVIDERS: ADMIT Hospitalist; ATTEND Hospitalist
DX: B37.49 Other urogenital candidiasis (principal); D50.9 Iron deficiency anemia, unspecified; E11.9 Type 2 diabetes mellitus without complications; E66.9 Obesity, unspecified; Z68.32 Body mass index [BMI] 32.0-32.9, adult; B37.31 Acute candidiasis of vulva and vagina; E78.5 Hyperlipidemia, unspecified; F32.A Depression, unspecified; F90.9 Attention-deficit hyperactivity disorder, unspecified type; K42.9 Umbilical hernia without obstruction or gangrene; I10 Essential (primary) hypertension; Z79.84 Long term (current) use of oral hypoglycemic drugs; Z79.899 Other long term (current) drug therapy; Z90.49 Acquired absence of other specified parts of digestive tract
CPT/HCPCS: 36415; 74176; 80053; 81003; 82272; 82607; 82728; 82746; 83036; 83540; 83550; 83605; 83735; 84100; 85025; 85027; 87040; 96361; 96365; 96366; 96375; 99285

== ENCOUNTER 2024-03-02 23:32 | Emergency (ER) | payer OTHER ==
[2024-03-02 23:51] VITALS: TEMP 98
[2024-03-03] MEDS: METOCLOPRAMIDE 5 MG/ML 2 ML VIAL IVP STA (01:05)
[2024-03-03] MEDS: diphenhydrAMINE 50 MG/ML 1 ML VIAL IVP STA (01:07)
[2024-03-03] MEDS: SODIUM CHLORIDE 0.9% 1,000 ML IV STA (01:07)
[2024-03-03 01:39] VITALS: RESP 16
[2024-03-03 01:42] LABS: Anisocytosis Slight; Basophils # (A) 0.1 k/uL (0-0.2); Basophils % (A) 1 %; Eosinophils # (A) 0.8 k/uL (0-0.7); Eosinophils % (A) 10 %; HCT 37.7 % (34.0-46.0); Lymphocytes # (A) 2.6 k/uL (1.0-4.8); Lymphocytes % (A) 32 %; MCH 25.5 pg (25.0-35.0); MCHC 31.7 g/dL (31.0-37.0); MCV 80.3 fL (80.0-100.0); Mean Platelet Volume 8.7; Microcytosis Slight; Monocytes # (A) 0.4 k/uL (0-1.0); Monocytes % (A) 5 %; Neutrophils # (A) 3.9 k/uL (1.3-7.7); Neutrophils % (A) 50 %; Platelet Count 331 k/uL (150-450); RBC 4.69 m/uL (3.80-5.40); RDW 16.7 % (11.5-15.5); WBC 7.9 k/uL (3.8-10.6)
[2024-03-03 01:53] LABS: ALT 15 U/L (4-34); AST 14 U/L (14-36); African American GFR (CKD) >90 (>60 ml/min/1.73 sqM); Albumin 3.6 g/dL (3.5-5.0); Alkaline Phosphatase 121 U/L (38-126); Amylase 53 U/L (30-110); Anion Gap 9 mmol/L; Blood Urea Nitrogen 9 mg/dL (7-17); Calcium 9.3 mg/dL (8.4-10.2); Carbon Dioxide 18 mmol/L (22-30); Chloride 113 mmol/L (98-107); Glucose 107 mg/dL (74-99); Lipase 139 U/L (23-300); Non-African American GFR(CKD) >90 (>60 ml/min/1.73 sqM); Potassium 3.9 mmol/L (3.5-5.1); Sodium 140 mmol/L (137-145); Total Bilirubin 0.2 mg/dL (0.2-1.3)
[2024-03-03] MEDS: SUMAtriptan succinate 6 MG/0.5 ML VIAL SQ STA (03:44)
--- NOTE | 2024-03-03 05:33 | ED ---
Nausea/Vomiting/Diarrhea HPI - General Chief complaint: Nausea/Vomiting/Diarrhea Stated complaint: Vomiting, Diarrhea Time Seen by Provider: 03/02/24 23:49 Source: patient Mode of arrival: ambulatory Limitations: no limitations - History of Present Illness Initial comments: This patient is 48-year-old woman with history of vomiting and diarrhea going on between 2 and 3 days now. Patient with multiple episodes of vomiting and loose bowel movements. No bloody or tarry stools noted. No hematemesis. MD complaint: nausea, vomiting, diarrhea, abdominal pain Onset/Timin -: days(s) Description of Vomiting: food contents Description of Diarrhea: water Associated Abdominal Pain: Yes Location: diffuse Severity: moderate Consistency: intermittent Improves with: none Worsens with: none Context: possible food poisoning, sick contacts Associated Symptoms: headaches - Related Data Home Medications Medication Instructions Recorded Confirmed Atorvastatin [Lipitor] 20 mg PO DAILY 10/07/14 01/31/24 FLUoxetine HCL 40 mg PO DAILY 10/07/14 01/31/24 Ibuprofen [Motrin] 800 mg PO Q8HR PRN 10/07/14 01/31/24 Loratadine [Claritin] 10 mg PO DAILY 10/07/14 01/31/24 Timolol 0.5% Ophth Soln [Timoptic 1 drop LEFT EYE BID 10/07/14 01/31/24 0.5% Ophth Soln] Acyclovir 400 mg PO DAILY 01/19/21 01/31/24 Cyclobenzaprine [Flexeril] 10 mg PO BID PRN 01/19/21 01/31/24 Fluticasone Nasal [place] [Flonase 1 spr EA NOSTRIL BID PRN 01/19/21 01/31/24 Nasal [place]] Pantoprazole [Protonix] 40 mg PO DAILY 01/19/21 01/31/24 busPIRone HCL 15 mg PO BID 01/19/21 01/31/24 Lisdexamfetamine Dimesylate 60 mg PO QAM 11/15/23 01/31/24 [Vyvanse] Semaglutide [Wegovy] 2.4 mg SQ TH 11/15/23 01/31/24 hydrOXYzine HCL [Atarax] 50 mg PO BID PRN 11/15/23 01/31/24 metFORMIN HCL 1,000 mg PO BID 11/15/23 01/31/24 Voriconazole [Vfend] 200 mg PO DIRECTED 01/31/24 01/31/24 Previous Rx's Medication Instructions Recorded Butalb/APAP/Caff 50-325-40Mg 1 tab PO TID PRN #12 tab 01/21/21 [Fioricet 50-325-40] Acetaminophen Tab [Tylenol] 650 mg PO Q4HR PRN tab 11/16/23 Ondansetron [Zofran] 4 mg PO Q8HR PRN 7 Days #20 tab 01/28/24 Acetaminophen-Codeine 300-30mg 1 each PO Q4HR PRN #12 tab 02/05/24 [Tylenol w/codeine #3] Calcium Carbonate [Tums] 500 mg PO TID PRN tab 02/05/24 Cyanocobalamin [Vitamin B-12] 1,000 mcg PO DAILY #30 tab 02/05/24 Ferrous Sulfate [Iron (65 MG 325 mg PO BID-W/MEALS #60 tab 02/05/24 Elemental)] Folic Acid 1 mg PO DAILY #30 tab 02/05/24 Loperamide [Imodium] 2 mg PO QID PRN #20 capsule 03/03/24 Allergies Allergy/AdvReac Type Severity Reaction Status Date / Time ciprofloxacin [From Cipro] Allergy Rash/Hives Verified 01/31/24 18:45 ciprofloxacin HCl Allergy Rash/Hives Verified 01/31/24 18:45 [From Cipro] Sulfa (Sulfonamide Allergy Rash/Hives Verified 01/31/24 18:45 Antibiotics) Review of Systems ROS Statement: Those systems with pertinent positive or pertinent negative responses have been documented in the HPI. ROS Other: All systems not noted in ROS Statement are negative. Constitutional: Denies: fever, chills, weakness ENT: Denies: congestion Respiratory: Denies: cough, dyspnea Cardiovascular: Denies: chest pain, syncope Gastrointestinal: Reports: as per HPI, abdominal pain, nausea, vomiting, diarrhea. Denies: hematemesis, melena, hematochezia Genitourinary: Denies: dysuria, hematuria Musculoskeletal: Denies: back pain Skin: Denies: rash Neurological: Reports: headache. Denies: weakness, numbness Past Medical History Past Medical History: Diabetes Mellitus, Eye Disorder, Hyperlipidemia, Hyperte nsion, Renal Disease Additional Past Medical History / Comment(s): GLAUCOMA; MIGRAINES, IBS History of Any Multi-Drug Resistant Organisms: C-DIFF Date of last positivie culture/infection: May 2019 MDRO Source:: stool Past Surgical History: Appendectomy, Cholecystectomy Additional Past Surgical History / Comment(s): OVARY SURGERY; BILAT EYE SURGERY, metal plate under eye Past Anesthesia/Blood Transfusion Reactions: Postoperative Nausea & Vomiting (PONV) Past Psychological History: ADD/ADHD, Depression Smoking Status: Never smoker Past Alcohol Use History: None Reported Past Drug Use History: None Reported - Past Family History Mother Family Medical History: COPD, Diabetes Mellitus Father Family Medical History: Coronary Artery Disease (CAD), Diabetes Mellitus Additional Family Medical History / Comment(s): dad General Exam Limitations: no limitations General appearance: alert, in no apparent distress Head exam: Present: atraumatic, normocephalic Eye exam: Present: normal appearance. Absent: scleral icterus, conjunctival injection Neck exam: Present: normal inspection Respiratory exam: Present: normal lung sounds bilaterally. Absent: respiratory distress, wheezes, rales, rhonchi, stridor Cardiovascular Exam: Present: regular rate, normal rhythm, normal heart sounds. Absent: systolic murmur, diastolic murmur, rubs, gallop GI/Abdominal exam: Present: soft. Absent: distended, tenderness, guarding, rebound, rigid, mass Extremities exam: Present: normal inspection, normal capillary refill. Absent: pedal edema, calf tenderness Back exam: Present: normal inspection. Absent: CVA tenderness (R), CVA tenderness (L) Neurological exam: Present: alert Skin exam: Present: warm, dry, intact, normal color. Absent: rash Course Vital Signs 03/02/24 03/03/24 03/03/24 23:35 01:34 03:48 Temperature 98 F Pulse Rate 93 85 82 Respiratory 18 16 16 Rate Blood Pressure 135/82 138/96 131/85 O2 Sat by Pulse 98 98 98 Oximetry 03/03/24 05:13 Temperature Pulse Rate 84 Respiratory 16 Rate Blood Pressure 142/91 O2 Sat by Pulse 98 Oximetry Medical Decision Making - Medical Decision Making Was pt. sent in by a medical professional or institution (, PA, TERRITORY BUSINESS MANAGER, urgent care, hospital, or senior care...) When possible be specific @ -[No] Did you speak to anyone other than the patient for history (EMS, parent, family, police, friend...)? What history was obtained from this source @ -[No] Did you review nursing and triage notes (agree or disagree)? Why? @ -[I reviewed and agree with nursing and triage notes] Were old charts reviewed (outside hosp., previous admission, EMS record, old EKG, old radiological studies, urgent care reports/EKG's, senior care records)? Report findings @ -[No old charts were reviewed] Differential Diagnosis (chest pain, altered mental status, abdominal pain women, abdominal pain men, vaginal bleeding, weakness, fever, dyspnea, syncope, headache, dizziness, GI bleed, back pain, seizure, CVA, palpatations, mental health, musculoskeletal)? @ -[Differential Abdominal Pain Women: Appendicitis, Cholecystitis, diverticulosis, ischemic bowel, pancreatitis, hepatitis, UTI, gastroenteritis, AAA, incarcerated hernia, bowel obstruction, constipation, inflammatory bowel, hepatitis, peptic ulcer disease, splenic infarction, perforated viscus, vulvitis, ovarian torsion, PID, kidney stone, placenta abruption, this is not meant to be an all-inclusive list EKG interpreted by me (3pts min.). @ -[ X-rays interpreted by me (1pt min.). @ -[None done] CT interpreted by me (1pt min.). @ -[None done] U/S interpreted by me (1pt. min.). @ -[None done] What testing was considered but not performed or refused? (CT, X-rays, U/S, labs)? Why? @ -[None] What meds were considered but not given or refused? Why? @ -[None] Did you discuss the management of the patient with other professionals ( professionals i.e. , PA, TERRITORY BUSINESS MANAGER, lab, RT, psych nurse, dialysis social worker, pot fisher, teacher, hazard mitigation officer, outpatient case manager)? Give summary @ -[No] Was smoking cessation discussed for >3mins.? @ -[No] Was critical care preformed (if so, how long)? @ -[No] Were there social determinants of health that impacted care today? How? (Homelessness, low income, unemployed, alcoholism, drug addiction, transportati on, low edu. Level, literacy, decrease access to med. care, prison, rehab)? @ -[No] Was there de-escalation of care discussed even if they declined (Discuss DNR or withdrawal of care, Hospice)? DNR status @ -[No] What co-morbidities impacted this encounter? (DM, HTN, Smoking, COPD, CAD, Cancer, CVA, ARF, Chemo, Hep., AIDS, mental health diagnosis, sleep apnea, morbid obesity)? @ -[None] Was patient admitted / discharged? Hospital course, mention meds given and route, prescriptions, significant lab abnormalities, going to OR and other pertinent info. @ -[Patient is a 48-year-old woman with over 2 days of vomiting and diarrhea. The patient's exam not indicative of surgical condition. The lab workup pointing towards mild degree of dehydration. The patient is given fluids and medication and was feeling better. She did also develop which she said was a usual migraine and did have some relief with medication here. She is feeling better and will follow-up. Discussed appropriate return parameters. Undiagnosed new problem with uncertain prognosis? @ -[No] Drug Therapy requiring intensive monitoring for toxicity (Heparin, Nitro, Insulin, Cardizem)? @ -[No] Were any procedures done? @ -[No] Diagnosis/symptom? @ -[Acute gastroenteritis Acute headache Acute, or Chronic, or Acute on Chronic? @ -[Acute Uncomplicated (without systemic symptoms) or Complicated (systemic symptoms)? @ -[Uncomplicated Side effects of treatment? @ -[No] Exacerbation, Progression, or Severe Exacerbation? @ -[No] Poses a threat to life or bodily function? How? (Chest pain, USA, [place], pneumonia, PE, COPD, DKA, ARF, appy, cholecystitis, CVA, Diverticulitis, Homicidal, Suicidal, threat to staff... and all critical care pts) @ -[No] - Lab Data Result diagrams: 03/03/24 01:10 03/03/24 01:10 Lab Results 03/03/24 03/03/24 Range/Units 01:10 01:10 WBC 7.9 (3.8-10.6) k/uL RBC 4.69 (3.80-5.40) m/uL Hgb 12.0 (11.4-16.0) gm/dL Hct 37.7 (34.0-46.0) % MCV 80.3 (80.0-100.0) fL MCH 25.5 (25.0-35.0) pg MCHC 31.7 (31.0-37.0) g/dL RDW 16.7 H (11.5-15.5) % Plt Count 331 (150-450) k/uL MPV 8.7 Neutrophils % 50 % Lymphocytes % 32 % Monocytes % 5 % Eosinophils % 10 % Basophils % 1 % Neutrophils # 3.9 (1.3-7.7) k/uL Lymphocytes # 2.6 (1.0-4.8) k/uL Monocytes # 0.4 (0-1.0) k/uL Eosinophils # 0.8 H (0-0.7) k/uL Basophils # 0.1 (0-0.2) k/uL Anisocytosis Slight Microcytosis Slight Sodium 140 (137-145) mmol/L Potassium 3.9 (3.5-5.1) mmol/L Chloride 113 H (98-107) mmol/L Carbon Dioxide 18 L (22-30) mmol/L Anion Gap 9 mmol/L BUN 9 (7-17) mg/dL Creatinine 0.56 (0.52-1.04) mg/dL Est GFR (CKD-EPI)AfAm >90 (>60 ml/min/1.73 sqM) Est GFR (CKD-EPI)NonAf >90 (>60 ml/min/1.73 sqM) Glucose 107 H (74-99) mg/dL Calcium 9.3 (8.4-10.2) mg/dL Total Bilirubin 0.2 (0.2-1.3) mg/dL AST 14 (14-36) U/L ALT 15 (4-34) U/L Alkaline Phosphatase 121 (38-126) U/L Total Protein 6.0 L (6.3-8.2) g/dL Albumin 3.6 (3.5-5.0) g/dL Amylase 53 (30-110) U/L Lipase 139 (23-300) U/L Disposition Clinical Impression: Gastroenteritis Disposition: HOME SELF-CARE Condition: Good Instructions (If sedation given, give patient instructions): Acute Diarrhea (ED) Prescriptions: Loperamide [Imodium] 2 mg PO QID PRN #20 capsule PRN Reason: Diarrhea Is patient prescribed a controlled substance at d/c from ED?: No Referrals: None,Stated [Primary Care Provider] - 1-2 days Larissa Boyer MD [STAFF PHYSICIAN] - 1-2 days
[2024-03-03 05:45] VITALS: BP 142/91; PULSE 84
== END 2024-03-03 05:40 | disposition home or self-care (01) ==
LOC: EC 23:32
DX: K52.9 Noninfective gastroenteritis and colitis, unspecified (principal); Z88.2 Allergy status to sulfonamides; Z88.1 Allergy status to other antibiotic agents
CPT/HCPCS: 36415; 80053; 82150; 83690; 85025; 99284; 96374; 96375; 96361; 96372; J3030; J1200; J2765

== ENCOUNTER 2024-04-05 03:25 | Emergency (ER) | payer OTHER ==
[2024-04-05 04:00] VITALS: RESP 18; TEMP 99
--- NOTE | 2024-04-05 04:11 | ED ---
Headache HPI - General Chief Complaint: Headache Stated Complaint: Headache Time Seen by Provider: 04/05/24 03:41 Source: RN notes reviewed, old records reviewed Mode of arrival: ambulatory Limitations: no limitations - History of Present Illness Initial Comments: This is a 48-year-old female with recurrent migraine with history of migraines coming in for treatment of migraine headache. Patient is having significant migraine here in the ER and states he is on day 6 of migraine headaches with prior evaluations and treatment of these migraines both by primary care and urgent care patient is also taking home medications which are not helping MD Complaint: headache, "migraine" -: days(s) (6) Location: right, left, frontal, temporal Severity: moderate Severity scale (1-10): 4 Quality: aching, throbbing Consistency: constant Improves With: nothing Associated Symptoms: nausea, photophobia, sensitivity to sound Treatments Prior to Arrival: none - Related Data Home Medications Medication Instructions Recorded Confirmed Atorvastatin [Lipitor] 20 mg PO DAILY 10/07/14 04/11/24 FLUoxetine HCL 40 mg PO DAILY 10/07/14 04/11/24 Ibuprofen [Motrin] 800 mg PO Q8HR PRN 10/07/14 04/11/24 Loratadine [Claritin] 10 mg PO DAILY 10/07/14 04/11/24 Acyclovir 400 mg PO DAILY 01/19/21 04/11/24 Cyclobenzaprine [Flexeril] 10 mg PO BID PRN 01/19/21 04/11/24 Fluticasone Nasal [place] [Flonase 1 spr EA NOSTRIL BID PRN 01/19/21 04/11/24 Nasal [place]] Pantoprazole [Protonix] 40 mg PO DAILY 01/19/21 04/11/24 busPIRone HCL 15 mg PO BID 01/19/21 04/11/24 Lisdexamfetamine Dimesylate 60 mg PO DAILY 11/15/23 04/11/24 [Vyvanse] Semaglutide [Wegovy] 2.4 mg SQ TH 11/15/23 04/11/24 hydrOXYzine HCL [Atarax] 50 mg PO BID PRN 11/15/23 04/11/24 metFORMIN HCL 1,000 mg PO BID 11/15/23 04/11/24 Cephalexin [Keflex] 500 mg PO Q6HR 04/11/24 04/11/24 Ondansetron Odt [Zofran Odt] 4 mg PO DAILY PRN 04/11/24 04/11/24 Pentosan Polysulfate Sodium 100 mg PO TID 04/11/24 04/11/24 [[place]] Previous Rx's Medication Instructions Recorded Butalb/APAP/Caff 50-325-40Mg 1 tab PO TID PRN #12 tab 01/21/21 [Fioricet 50-325-40] Acetaminophen Tab [Tylenol] 650 mg PO Q4HR PRN tab 11/16/23 Calcium Carbonate [Tums] 500 mg PO TID PRN tab 02/05/24 Cyanocobalamin [Vitamin B-12] 1,000 mcg PO DAILY #30 tab 02/05/24 Ferrous Sulfate [Iron (65 MG 325 mg PO BID-W/MEALS #60 tab 02/05/24 Elemental)] Folic Acid 1 mg PO DAILY #30 tab 02/05/24 Loperamide [Imodium] 2 mg PO QID PRN #20 capsule 03/03/24 Allergies Allergy/AdvReac Type Severity Reaction Status Date / Time ciprofloxacin [From Cipro] Allergy Rash/Hives Verified 04/10/24 21:31 ciprofloxacin HCl Allergy Rash/Hives Verified 04/10/24 21:31 [From Cipro] Sulfa (Sulfonamide Allergy Rash/Hives Verified 04/10/24 21:31 Antibiotics) Review of Systems ROS Statement: Those systems with pertinent positive or pertinent negative responses have been documented in the HPI. ROS Other: All systems not noted in ROS Statement are negative. Past Medical History Past Medical History: Diabetes Mellitus, Eye Disorder, Hyperlipidemia, Hypertension, Renal Disease Additional Past Medical History / Comment(s): GLAUCOMA; MIGRAINES, IBS History of Any Multi-Drug Resistant Organisms: C-DIFF Date of last positivie culture/infection: May 2019 MDRO Source:: stool Past Surgical History: Appendectomy, Cholecystectomy Additional Past Surgical History / Comment(s): OVARY SURGERY; BILAT EYE SURGERY, metal plate under eye Past Anesthesia/Blood Transfusion Reactions: Postoperative Nausea & Vomiting (PONV) Past Psychological History: ADD/ADHD, Depression Smoking Status: Never smoker Past Alcohol Use History: None Reported Past Drug Use History: None Reported - Past Family History Mother Family Medical History: COPD, Diabetes Mellitus Father Family Medical History: Coronary Artery Disease (CAD), Diabetes Mellitus Additional Family Medical History / Comment(s): dad General Exam Limitations: no limitations General appearance: alert, in no apparent distress, anxious Head exam: Present: atraumatic, normocephalic, normal inspection Eye exam: Present: normal appearance, PERRL, EOMI. Absent: scleral icterus, conjunctival injection, periorbital swelling ENT exam: Present: normal exam, mucous membranes moist Neck exam: Present: normal inspection. Absent: tenderness, meningismus, lymphadenopathy Respiratory exam: Present: normal lung sounds bilaterally. Absent: respiratory distress, wheezes, rales, rhonchi, stridor Cardiovascular Exam: Present: regular rate, normal rhythm, normal heart sounds. Absent: systolic murmur, diastolic murmur, rubs, gallop, clicks GI/Abdominal exam: Present: soft, normal bowel sounds. Absent: distended, tenderness, guarding, rebound, rigid Extremities exam: Present: normal inspection, full ROM, normal capillary refill. Absent: tenderness, pedal edema, joint swelling, calf tenderness Back exam: Present: normal inspection Neurological exam: Present: alert, oriented X3, CN II-XII intact Psychiatric exam: Present: normal affect, normal mood Skin exam: Present: warm, dry, intact, normal color. Absent: rash Course Vital Signs 04/05/24 04/05/24 03:30 06:52 Temperature 99 F Pulse Rate 102 H 84 Respiratory 18 18 Rate Blood Pressure 126/87 122/80 O2 Sat by Pulse 97 98 Oximetry - Reevaluation(s) Reevaluation #1: 04/05/24 04:37 Medical records reviewed Reevaluation #2: Patient symptoms are improved here in the ER Reevaluation #3: Patient informed of results and questions answered Reevaluation #4: Was pt. sent in by a medical professional or institution (, PA, STRINGER UP SOLDERING MACHINE, urgent care, hospital, or snf...) When possible be specific @ -no Did you speak to anyone other than the patient for history (EMS, parent, family, police, friend...)? What history was obtained from this source @ -no Did you review nursing and triage notes (agree or disagree)? Why? @ -agree Are old charts reviewed (outside hosp., previous admission, EMS record, old EKG, old radiological studies, urgent care reports/EKG's, snf records)? Report findings @ -yes Differential Diagnosis (chest pain, altered mental status, abdominal pain women, abdominal pain men, vaginal bleeding, weakness, fever, dyspnea, syncope, headache, dizziness, GI bleed, back pain, seizure, CVA, palpatations, mental health, musculoskeletal)? @ -prior EKG interpreted by me (3pts min.). @ -no X-rays interpreted by me (1pt min.). @ -no CT interpreted by me (1pt min.). @ -no U/S interpreted by me (1pt. min.). @ -no What testing was considered but not performed or refused? (CT, X-rays, U/S, labs)? Why? @ -none What meds were considered but not given or refused? Why? @ -none Did you discuss the management of the patient with other professionals (professionals i.e. , PA, STRINGER UP SOLDERING MACHINE, lab, RT, psych nurse, social work lecturer, suspension cord tier, teacher, security officer, correctional counselor/case manager)? Give summary @ -no Was smoking cessation discussed for >3mins.? @ -no Was critical care preformed (if so, how long)? @ -no Were there social determinants of health that impacted care today? How? (Homelessness, low income, unemployed, alcoholism, drug addiction, transportat ion, low edu. Level, literacy, decrease access to med. care, snf, rehab)? @ -none Was there de-escalation of care discussed even if they declined (Discuss DNR or withdrawal of care, Hospice)? DNR status @ -no What co-morbidities impacted this encounter? (DM, HTN, Smoking, COPD, CAD, Cancer, CVA, ARF, Chemo, Hep., AIDS, mental health diagnosis, sleep apnea, morbid obesity)? @ -none Was patient admitted / discharged? Hospital course, mention meds given and route, prescriptions, significant lab abnormalities, going to OR and other pertinent info. @ -Resolved here in the ER feels well can be discharged home Undiagnosed new problem with uncertain prognosis? @ -no Drug Therapy requiring intensive monitoring for toxicity (Heparin, Nitro, Insulin, Cardizem)? @ -no Were any procedures done? @ -no Diagnosis/symptom? @ -Headache 48 female with acute on chronic headache. Patient's headache is Acute, or Chronic, or Acute on Chronic? @ -Acute Uncomplicated (without systemic symptoms) or Complicated (systemic symptoms)? @ -Complicated Side effects of treatment? @ -no Exacerbation, Progression, or Severe Exacerbation? @ -exacerbation Poses a threat to life or bodily function? How? (Chest pain, USA, CT, pneumonia, PE, COPD, DKA, ARF, appy, cholecystitis, CVA, Diverticulitis, Homicidal, Suicidal, threat to staff... and all critical care pts) @ -yes Reevaluation #5: Differential Headache: Migraine, tension, cluster, carbon monoxide, central venous thrombosis, pension karma temporal arteritis, acute closure glaucoma, intercranial hemorrhage, mastoiditis, sinusitis, head injury, this is not meant to be an all-inclusive list. Medical Decision Making - Medical Decision Making 48-year-old female to ER for acute headache. Patient's headache is resolved here in the ER feels well can be discharged home Disposition Clinical Impression: Headache Disposition: HOME SELF-CARE Condition: Fair Instructions (If sedation given, give patient instructions): Acute Headache (ED) Is patient prescribed a controlled substance at d/c from ED?: No Referrals: Nonstaff,Physician [Primary Care Provider] - 1-2 days Time of Disposition: 06:00
[2024-04-05] MEDS: methylPREDNISolone SOD SUCCIN 250 MG in SODIUM CHLORIDE 0.9% 100 ML IVPB ONE (04:32)
[2024-04-05] MEDS: PROCHLORPERAZINE INJ 10 MG/2 ML VIAL IVP STA (04:33)
[2024-04-05] MEDS: SODIUM CHLORIDE 0.9% 1,000 ML IV STA (04:33)
[2024-04-05] MEDS: KETOROLAC 15 MG/ML 1 ML VIAL IVP STA (04:34)
[2024-04-05] MEDS: diphenhydrAMINE 50 MG/ML 1 ML VIAL IVP STA (04:34)
[2024-04-05] MEDS: HYDROmorphone 1 MG/ML 1 ML SYRINGE IVP STA (04:35)
[2024-04-05 07:33] VITALS: BP 122/80; PULSE 84
== END 2024-04-05 06:57 | disposition home or self-care (01) ==
LOC: EC 03:25
DX: R51.9 Headache, unspecified (principal); Z88.1 Allergy status to other antibiotic agents; Z88.2 Allergy status to sulfonamides
CPT/HCPCS: 99283; 96365; 96366; 96375 ×4; J1200; J0780; J1170; J1885; J2919

== ENCOUNTER 2024-04-05 17:53 | Emergency (ER) | payer OTHER ==
--- NOTE | 2024-04-05 18:24 | ED ---
Headache HPI - General Source: patient, RN notes reviewed, old records reviewed Mode of arrival: ambulatory Limitations: no limitations <Shanae Ford - Last Filed: 04/05/24 18:22> <Santo Roldan - Last Filed: 04/06/24 00:27> - General Stated Complaint: Migraine, nausea Time Seen by Provider: 04/05/24 18:23 - History of Present Illness Initial Comments: Quick note: 48-year-old female presented to the ER with a chief complaint of a migraine. She states that she was seen here last night and had a solution of migraine. She reports has been going on for 9 days. She does report around noon this afternoon she started to feel a migraine returning. She also was endorsing nausea and vomiting. She does have a history of a shunt. (Shanae Ford) 48-year-old female with a past medical history significant for shunt and migraines presented to the ED with a chief complaint of headache. Reports history of migraines however states over the past few days has had a headache which is a little different than her history of migraines. States her migraines are usually affecting the posterior of her head however notes more of a frontal headache over the past few days. Associated nausea, vomiting, photophobia, ph onophobia. Also notes that she was recently treated for a yeast infection and states that she thinks she still has 1 noting thick white clumpy vaginal discharge. Patient also does note history of UTIs and states over the past few days she has also been having burning with urination, suprapubic pain, and bilateral flank pain. Patient notes a history of hematuria however notes no recent worsening of this. Associated subjective fever and chills. No chest pain shortness of breath. No other complaints at this time. (Santo Roldan) - Related Data Home Medications Medication Instructions Recorded Confirmed Atorvastatin [Lipitor] 20 mg PO DAILY 10/07/14 01/31/24 FLUoxetine HCL 40 mg PO DAILY 10/07/14 01/31/24 Ibuprofen [Motrin] 800 mg PO Q8HR PRN 10/07/14 01/31/24 Loratadine [Claritin] 10 mg PO DAILY 10/07/14 01/31/24 Timolol 0.5% Ophth Soln [Timoptic 1 drop LEFT EYE BID 10/07/14 01/31/24 0.5% Ophth Soln] Acyclovir 400 mg PO DAILY 01/19/21 01/31/24 Cyclobenzaprine [Flexeril] 10 mg PO BID PRN 01/19/21 01/31/24 Fluticasone Nasal [place] [Flonase 1 spr EA NOSTRIL BID PRN 01/19/21 01/31/24 Nasal [place]] Pantoprazole [Protonix] 40 mg PO DAILY 01/19/21 01/31/24 busPIRone HCL 15 mg PO BID 01/19/21 01/31/24 Lisdexamfetamine Dimesylate 60 mg PO QAM 11/15/23 01/31/24 [Vyvanse] Semaglutide [Wegovy] 2.4 mg SQ TH 11/15/23 01/31/24 hydrOXYzine HCL [Atarax] 50 mg PO BID PRN 11/15/23 01/31/24 metFORMIN HCL 1,000 mg PO BID 11/15/23 01/31/24 Voriconazole [Vfend] 200 mg PO DIRECTED 01/31/24 01/31/24 Previous Rx's Medication Instructions Recorded Butalb/APAP/Caff 50-325-40Mg 1 tab PO TID PRN #12 tab 01/21/21 [Fioricet 50-325-40] Acetaminophen Tab [Tylenol] 650 mg PO Q4HR PRN tab 11/16/23 Ondansetron [Zofran] 4 mg PO Q8HR PRN 7 Days #20 tab 01/28/24 Acetaminophen-Codeine 300-30mg 1 each PO Q4HR PRN #12 tab 02/05/24 [Tylenol w/codeine #3] Calcium Carbonate [Tums] 500 mg PO TID PRN tab 02/05/24 Cyanocobalamin [Vitamin B-12] 1,000 mcg PO DAILY #30 tab 02/05/24 Ferrous Sulfate [Iron (65 MG 325 mg PO BID-W/MEALS #60 tab 02/05/24 Elemental)] Folic Acid 1 mg PO DAILY #30 tab 02/05/24 Loperamide [Imodium] 2 mg PO QID PRN #20 capsule 03/03/24 Fluconazole 150 mg PO DIRECTED #2 tab 04/06/24 Allergies Allergy/AdvReac Type Severity Reaction Status Date / Time ciprofloxacin [From Cipro] Allergy Rash/Hives Verified 04/05/24 18:52 ciprofloxacin HCl Allergy Rash/Hives Verified 04/05/24 18:52 [From Cipro] Sulfa (Sulfonamide Allergy Rash/Hives Verified 04/05/24 18:52 Antibiotics) Review of Systems ROS Other: All systems not noted in ROS Statement are negative. <Shanae Ford - Last Filed: 04/05/24 18:22> ROS Other: All systems not noted in ROS Statement are negative. <Santo Roldan - Last Filed: 04/06/24 00:27> ROS Statement: Those systems with pertinent positive or pertinent negative responses have been documented in the HPI. Past Medical History Past Medical History: Diabetes Mellitus, Eye Disorder, Hyperlipidemia, Hypertension, Renal Disease Additional Past Medical History / Comment(s): GLAUCOMA; MIGRAINES, IBS History of Any Multi-Drug Resistant Organisms: C-DIFF Date of last positivie culture/infection: May 2019 MDRO Source:: stool Past Surgical History: Appendectomy, Cholecystectomy Additional Past Surgical History / Comment(s): OVARY SURGERY; BILAT EYE SURGERY, metal plate under eye Past Anesthesia/Blood Transfusion Reactions: Postoperative Nausea & Vomiting (PONV) Past Psychological History: ADD/ADHD, Depression Smoking Status: Never smoker Past Alcohol Use History: None Reported Past Drug Use History: None Reported - Past Family History Mother Family Medical History: COPD, Diabetes Mellitus Father Family Medical History: Coronary Artery Disease (CAD), Diabetes Mellitus Additional Family Medical History / Comment(s): dad <Shanae Ford - Last Filed: 04/05/24 18:22> General Exam <Shanae Ford - Last Filed: 04/05/24 18:22> General appearance: alert, in no apparent distress Eye exam: Present: normal appearance Neck exam: Present: normal inspection Respiratory exam: Present: normal lung sounds bilaterally Cardiovascular Exam: Present: regular rate GI/Abdominal exam: Present: soft (Some suprapubic tenderness to palpation however no rebound, guarding, or rigidity. Bowel sounds present. Patient reported flank pain upon percussion of bilateral flanks.) Neurological exam: Present: alert, oriented X3 Skin exam: Present: warm, dry <Santo Roldan - Last Filed: 04/06/24 00:27> - General Exam Comments Initial Comments: Visual Physical Exam Vital signs reviewed General: Well-appearing, nontoxic, no acute distress. Head: Normocephalic, atraumatic Eyes: PERRLA, EOMI, patient wearing sunglasses ENT: Airway patent Chest: Nonlabored breathing Skin: No visual rash, normal skin tone Neuro: Alert and oriented 3 Musculoskeletal: No gross abnormalities (Shanae Ford) Course Vital Signs 04/05/24 04/05/24 18:50 22:47 Temperature 99.1 F Pulse Rate 127 H 104 H Respiratory 18 18 Rate Blood Pressure 123/74 132/88 O2 Sat by Pulse 97 96 Oximetry Medical Decision Making <Shanae Ford - Last Filed: 04/05/24 18:22> - Lab Data Result diagrams: 04/05/24 20:02 04/05/24 20:02 <Santo Roldan - Last Filed: 04/06/24 00:27> - Medical Decision Making I performed the quick note portion of this chart. Electronically signed by Shanae Ford PA-C (Shanae Ford) Was pt. sent in by a medical professional or institution ([facility] Gabriel, LINE TESTER, urgent care, hospital, or jail...) When possible be specific @ -No Did you speak to anyone other than the patient for history (EMS, parent, family, police, friend...)? What history was obtained from this source @ -No Did you review nursing and triage notes (agree or disagree)? Why? @ -I reviewed and agree with nursing and triage notes Were old charts reviewed (outside hosp., previous admission, EMS record, old EKG, old radiological studies, urgent care reports/EKG's, jail records)? Report findings @ -Yes, reviewed previous visit this morning. Was given pain medications however no testing was performed at this time. Differential Diagnosis (chest pain, altered mental status, abdominal pain women, abdominal pain men, vaginal bleeding, weakness, fever, dyspnea, syncope, headache, dizziness, GI bleed, back pain, seizure, CVA, palpatations, mental health, musculoskeletal)? @ -Differential Headache: Migraine, tension, cluster, carbon monoxide, central venous thrombosis, pension karma temporal arteritis, acute closure glaucoma, intercranial hemorrhage, mastoiditis, sinusitis, head injury, this is not meant to be an all-inclusive list. Differential Abdominal Pain Women: Appendicitis, Cholecystitis, diverticulosis, ischemic bowel, pancreatitis, hepatitis, UTI, gastroenteritis, AAA, incarcerated hernia, bowel obstruction, constipation, inflammatory bowel, hepatitis, peptic ulcer disease, splenic infarction, perforated viscus, vulvitis, ovarian torsion, PID, kidney stone, placenta abruption, this is not meant to be an all-inclusive list EKG interpreted by me (3pts min.). @ -None X-rays interpreted by me (1pt min.). @ -None done CT interpreted by me (1pt min.). @ -CT brain interpreted by me which revealed no evidence of acute finding CT abdomen interpreted me which revealed no evidence of acute finding. U/S interpreted by me (1pt. min.). @ -None done What testing was considered but not performed or refused? (CT, X-rays, U/S, labs)? Why? @ -None What meds were considered but not given or refused? Why? @ -None Did you discuss the management of the patient with other professionals (professionals i.e. , PA, LINE TESTER, lab, RT, psych nurse, social media content manager, cardiopulmonary technician, teacher, contracting officer, case specialist)? Give summary @ -No Was smoking cessation discussed for >3mins.? @ -No Was critical care preformed (if so, how long)? @ -No Were there social determinants of health that impacted care today? How? (Homelessness, low income, unemployed, alcoholism, drug addiction, transportation, low edu. Level, literacy, decrease access to med. care, [facility] [facility], rehab)? @ -No Was there de-escalation of care discussed even if they declined (Discuss DNR or withdrawal of care, Hospice)? DNR status @ -No What co-morbidities impacted this encounter? (DM, HTN, Smoking, COPD, CAD, Cancer, CVA, ARF, Chemo, Hep., AIDS, mental health diagnosis, sleep apnea, morbid obesity)? @ -None Was patient admitted / discharged? Hospital course, mention meds given and route, prescriptions, significant lab abnormalities, going to OR and other pertinent info. @ -Discharge 48-year-old female presented to the ED with complaints of headache. Also notes that she has a yeast infection. Complains of pain with urination and flank pain as well. Laboratory studies reviewed. Labs including CBC, CMP, UA unremarkable. CT of the brain and abdomen were performed as well which revealed no evidence of acute finding. Discharged home with prescription for fluconazole. Discussed return precautions with patient who verbalized agreement. Advise follow-up with her urologist, neurologist, PCP. Undiagnosed new problem with uncertain prognosis? @ -No Drug Therapy requiring intensive monitoring for toxicity (Heparin, Nitro, Insulin, Cardizem)? @ -No Were any procedures done? @ -No Diagnosis/symptom? @ -Migraine, yeast infection Acute, or Chronic, or Acute on Chronic? @ -Acute Uncomplicated (without systemic symptoms) or Complicated (systemic symptoms)? @ -Uncomplicated Side effects of treatment? @ -No Exacerbation, Progression, or Severe Exacerbation? @ -No Poses a threat to life or bodily function? How? (Chest pain, [place], [place], pneumonia, PE, COPD, DKA, ARF, appy, cholecystitis, CVA, Diverticulitis, Homicidal, Suicidal, threat to staff... and all critical care pts) @ -No (Santo Roldan) - Lab Data Lab Results 04/05/24 04/05/24 04/05/24 Range/Units 20:02 20:02 20:02 WBC 6.5 (3.8-10.6) k/uL RBC 4.79 (3.80-5.40) m/uL Hgb 12.8 (11.4-16.0) gm/dL Hct 39.8 (34.0-46.0) % MCV 83.2 (80.0-100.0) fL MCH 26.7 (25.0-35.0) pg MCHC 32.0 (31.0-37.0) g/dL RDW 15.1 (11.5-15.5) % Plt Count 432 (150-450) k/uL MPV 8.5 Neutrophils % 80 % Lymphocytes % 16 % Monocytes % 2 % Eosinophils % 1 % Basophils % 0 % Neutrophils # 5.2 (1.3-7.7) k/uL Lymphocytes # 1.0 (1.0-4.8) k/uL Monocytes # 0.2 (0-1.0) k/uL Eosinophils # 0.1 (0-0.7) k/uL Basophils # 0.0 (0-0.2) k/uL Hypochromasia Slight Sodium 137 (137-145) mmol/L Potassium 4.4 (3.5-5.1) mmol/L Chloride 107 (98-107) mmol/L Carbon Dioxide 16 L (22-30) mmol/L Anion Gap 14 mmol/L BUN 11 (7-17) mg/dL Creatinine 0.52 (0.52-1.04) mg/dL Est GFR (CKD-EPI)AfAm >90 (>60 ml/min/1.73 sqM) Est GFR (CKD-EPI)NonAf >90 (>60 ml/min/1.73 sqM) Glucose 268 H (74-99) mg/dL Calcium 10.1 (8.4-10.2) mg/dL Total Bilirubin 0.3 (0.2-1.3) mg/dL AST 37 H (14-36) U/L ALT 45 H (4-34) U/L Alkaline Phosphatase 101 (38-126) U/L Total Protein 7.1 (6.3-8.2) g/dL Albumin 4.5 (3.5-5.0) g/dL Amylase 64 (30-110) U/L Lipase 211 (23-300) U/L Urine Color Urine Appearance (Clear) Urine pH (5.0-8.0) Ur Specific [place] (1.001-1.035) Urine Protein (Negative) Urine Glucose (UA) (Negative) Urine Ketones (Negative) Urine Blood (Negative) Urine Nitrite (Negative) Urine Bilirubin (Negative) Urine Urobilinogen (<2.0) mg/dL Ur Leukocyte Esterase (Negative) Influenza Type A (PCR) Not Detected (Not Detectd) Influenza Type B (PCR) Not Detected (Not Detectd) RSV (PCR) Not Detected (Not Detectd) SARS-CoV-2 (PCR) Not Detected (Not Detectd) 04/05/24 Range/Units 20:11 WBC (3.8-10.6) k/uL RBC (3.80-5.40) m/uL Hgb (11.4-16.0) gm/dL Hct (34.0-46.0) % MCV (80.0-100.0) fL MCH (25.0-35.0) pg MCHC (31.0-37.0) g/dL RDW (11.5-15.5) % Plt Count (150-450) k/uL MPV Neutrophils % % Lymphocytes % % Monocytes % % Eosinophils % % Basophils % % Neutrophils # (1.3-7.7) k/uL Lymphocytes # (1.0-4.8) k/uL Monocytes # (0-1.0) k/uL Eosinophils # (0-0.7) k/uL Basophils # (0-0.2) k/uL Hypochromasia Sodium (137-145) mmol/L Potassium (3.5-5.1) mmol/L Chloride (98-107) mmol/L Carbon Dioxide (22-30) mmol/L Anion Gap mmol/L BUN (7-17) mg/dL Creatinine (0.52-1.04) mg/dL Est GFR (CKD-EPI)AfAm (>60 ml/min/1.73 sqM) Est GFR (CKD-EPI)NonAf (>60 ml/min/1.73 sqM) Glucose (74-99) mg/dL Calcium (8.4-10.2) mg/dL Total Bilirubin (0.2-1.3) mg/dL AST (14-36) U/L ALT (4-34) U/L Alkaline Phosphatase (38-126) U/L Total Protein (6.3-8.2) g/dL Albumin (3.5-5.0) g/dL Amylase (30-110) U/L Lipase (23-300) U/L Urine Color Colorless Urine Appearance Clear (Clear) Urine pH 6.5 (5.0-8.0) Ur Specific [place] 1.022 (1.001-1.035) Urine Protein Negative (Negative) Urine Glucose (UA) Trace H (Negative) Urine Ketones 1+ H (Negative) Urine Blood Negative (Negative) Urine Nitrite Negative (Negative) Urine Bilirubin Negative (Negative) Urine Urobilinogen <2.0 (<2.0) mg/dL Ur Leukocyte Esterase Negative (Negative) Influenza Type A (PCR) (Not Detectd) Influenza Type B (PCR) (Not Detectd) RSV (PCR) (Not Detectd) SARS-CoV-2 (PCR) (Not Detectd) Disposition <Shanae Ford - Last Filed: 04/05/24 18:22> Is patient prescribed a controlled substance at d/c from ED?: No Time of Disposition: 00:27 <Santo Roldan - Last Filed: 04/06/24 00:27> Clinical Impression: Migraine, Yeast infection Disposition: HOME SELF-CARE Condition: Good Additional Instructions: Please return to the Emergency Department if symptoms worsen or any other concerns. Please follow-up with your specialists as needed. Prescriptions: Fluconazole 150 mg PO DIRECTED #2 tab Referrals: Nonstaff,Physician [Primary Care Provider] - 1-2 days
[2024-04-05 19:10] VITALS: RESP 18; TEMP 99.1
[2024-04-05 20:11] LABS: Basophils % (A) 0 %; Eosinophils # (A) 0.1 k/uL (0-0.7); Eosinophils % (A) 1 %; HCT 39.8 % (34.0-46.0); HGB 12.8 gm/dL (11.4-16.0); Hypochromasia Slight; Lymphocytes % (A) 16 %; MCH 26.7 pg (25.0-35.0); MCV 83.2 fL (80.0-100.0); Mean Platelet Volume 8.5; Monocytes # (A) 0.2 k/uL (0-1.0); Monocytes % (A) 2 %; Neutrophils # (A) 5.2 k/uL (1.3-7.7); Neutrophils % (A) 80 %; Platelet Count 432 k/uL (150-450); RBC 4.79 m/uL (3.80-5.40); RDW 15.1 % (11.5-15.5); WBC 6.5 k/uL (3.8-10.6)
[2024-04-05 20:19] LABS: Appearance,Urine Clear (Clear); Bilirubin,Urine Negative (Negative); Blood,Urine Negative (Negative); Color,Urine Colorless; Glucose,Urine (UA) Trace (Negative); Ketones,Urine 1+ (Negative); Leukocyte Esterase,Urine Negative (Negative); Nitrite,Urine Negative (Negative); PH, Urine 6.5 (5.0-8.0); Protein,Urine Negative (Negative); Specific Gravity,Urine 1.022 (1.001-1.035); Urobilinogen,Urine <2.0 mg/dL (<2.0)
[2024-04-05 20:22] LABS: ALT 45 U/L (4-34); AST 37 U/L (14-36); African American GFR (CKD) >90 (>60 ml/min/1.73 sqM); Albumin 4.5 g/dL (3.5-5.0); Alkaline Phosphatase 101 U/L (38-126); Amylase 64 U/L (30-110); Anion Gap 14 mmol/L; Blood Urea Nitrogen 11 mg/dL (7-17); Calcium 10.1 mg/dL (8.4-10.2); Carbon Dioxide 16 mmol/L (22-30); Chloride 107 mmol/L (98-107); Glucose 268 mg/dL (74-99); Lipase 211 U/L (23-300); Non-African American GFR(CKD) >90 (>60 ml/min/1.73 sqM); Potassium 4.4 mmol/L (3.5-5.1); Sodium 137 mmol/L (137-145); Total Bilirubin 0.3 mg/dL (0.2-1.3); Total Protein 7.1 g/dL (6.3-8.2)
[2024-04-05] MEDS: ACETAMINOPHEN TAB 500 MG TAB PO STA (21:44)
[2024-04-05] MEDS: diphenhydrAMINE 50 MG/ML 1 ML VIAL IVP STA (21:45)
[2024-04-05] MEDS: HYDROmorphone 0.5 MG/0.5 ML SYRINGE IVP STA (21:45)
[2024-04-05] MEDS: ONDANSETRON 4 MG/2 ML VIAL IVP STA (21:45)
--- NOTE | 2024-04-05 22:37 | CT ---
EXAMINATION TYPE: CT brain wo con CT DLP: 1171.4 mGycm, Automated exposure control for dose reduction was used. DATE OF EXAM: 04/05/2024 9:20 PM COMPARISON: 01/23/2024. CLINICAL INDICATION:Female, 48 years old with history of SAENZ hx of shunt, headache x 9 days, pt has sh unt TECHNIQUE: Brain: Axial CT images of the brain were obtained with coronal and sagittal reformats created and rev iewed. Contrast used: None. Oral contrast used: None. FINDINGS: Extra-axial spaces: No abnormal extra-axial fluid collections. Basilar cisterns are patent. Ventricular system: Right frontal approach ventriculostomy shunt catheter again noted, crosses midlin e to the left before terminating in the region of the left foramen of [place]. The ventricles are stabl e in size, do not appear dilated and there is an unchanged small caliber of the left lateral ventricl e compared to the right. Cerebral parenchyma: No increased attenuation to suggest acute intraparenchymal hemorrhage. The gra y-white matter interface appears maintained. No significant atrophy. White matter unremarkable by C T. Cerebellum: No acute abnormality. Mass effect: No evidence of mass effect or midline shift. Intracranial vasculature: Unremarkable Soft tissues: No acute or concerning abnormality. Visualized orbits: Orbital contents appear grossly intact. Postop changes likely from scleral lenora ng of the left globe. Medially directed bulging deformity is again seen along the medial wall of the right orbit, consistent with remote lamina papyracea injury. Calvarium/osseous structures: No acute calvarial fracture. Paranasal sinuses and mastoid air cells: Mild mucosal thickening in the right maxillary sinus, otherw ise clear. Mastoid air cells are clear. MRI is more sensitive for detecting acute processes such as infarct, and may be considered if clinica lly warranted. IMPRESSION: 1. Stable position of right frontal approach ventriculostomy shunt catheter, with unchanged appearan ce of the ventricles. 2. No acute intracranial CT abnormality.
--- NOTE | 2024-04-06 00:01 | CT ---
EXAMINATION TYPE: CT abdomen pelvis wo con CT DLP: 602 mGycm, Automated exposure control for dose reduction was used. DATE OF EXAM: 04/05/2024 9:20 PM COMPARISON: 02/01/2024 CLINICAL INDICATION:Female, 48 years old with history of suprapubic pain, flank pain hematuria; supra pubic and flank pain, hematuria. pt has a shunt TECHNIQUE: Axial CT of the abdomen and pelvis. Sagittal and coronal reformats were created on a [employer] workstation. Contrast used: mL of , (none if empty) Oral contrast used: without Oral Contrast (none if empty) FINDINGS: LOWER CHEST: Unremarkable ABDOMEN LIVER: Unremarkable GALLBLADDER AND BILE DUCTS: The gallbladder is surgically absent. Biliary tree does not appear pathol ogically dilated. PANCREAS: Unremarkable. SPLEEN: Unremarkable. ADRENAL GLANDS: Unremarkable. KIDNEYS AND URETERS: No evidence of renal calculi or contour deformity. No hydronephrosis. PELVIS BLADDER: Incompletely distended but grossly unremarkable. REPRODUCTIVE: Organs not seen, likely surgically removed ABDOMEN & PELVIS STOMACH AND BOWEL: Stomach is mildly distended with heterogeneous material likely food stuffs. Duoden al sweep is unremarkable. No significant small bowel distention is seen to suggest obstruction. The c olon is redundant and difficult to trace. There is moderate stool throughout, without evidence of an acute abnormality. Appendix is not visualized. PERITONEUM/RETROPERITONEUM: No evidence of pneumoper itoneum or free fluid. There is a ventriculoperitoneal shunt catheter present which eventually termin ates in the right lateral pelvis. VASCULATURE: Mild atherosclerotic calcifications are present throughout the abdominal aorta and its b ranches. No evidence of aortic aneurysm. LYMPH NODES: No enlarged nodes by CT size criteria. SOFT TISSUE/ABDOMINAL WALL: Unremarkable MUSCULOSKELETAL: No acute osseous abnormalities. IMPRESSION: 1. No evidence of urinary tract calculi or hydronephrosis. 2. [employer] shunt catheter in place.
[2024-04-06] MEDS: HYDROmorphone 1 MG/ML 1 ML SYRINGE IVP STA (00:05)
[2024-04-06] MEDS: ACET/COD 300 MG/30 MG STARTER PACK 6 TAB BTL PO STA (00:46)
[2024-04-06] MEDS: KETOROLAC 15 MG/ML 1 ML VIAL IVP STA (00:46)
[2024-04-06 00:58] VITALS: BP 136/87; PULSE 99
== END 2024-04-06 00:50 | disposition home or self-care (01) ==
LOC: EC 17:53
DX: G43.909 Migraine, unspecified, not intractable, without status migrainosus (principal); B37.9 Candidiasis, unspecified; Z88.2 Allergy status to sulfonamides; Z88.1 Allergy status to other antibiotic agents; Z11.52 Encounter for screening for COVID-19
CPT/HCPCS: 36415; 80053; 82150; 83690; 85025; 81003; 87636; 70450; 74176; 99284; 96374; 96375 ×3; 96376; J1200; J2405; J1170 ×2; J1885

== ENCOUNTER 2024-04-09 01:51 | Emergency (ER) | payer OTHER ==
[2024-04-09 02:35] VITALS: RESP 18; TEMP 98.6
--- NOTE | 2024-04-09 03:08 | ED ---
Female Urogenital HPI - General Chief complaint: Urogenital Stated complaint: UTI Time Seen by Provider: 04/09/24 03:07 Source: patient, RN notes reviewed Mode of arrival: ambulatory Limitations: no limitations - History of Present Illness Initial comments: 48-year-old female presented to the ER with a chief complaint of dysuria. Patient states for the past 2 days she has been having an increase in painful urination and suprapubic abdominal pain. She states it feels like she is "peeing razor blades". She also believes she has a yeast infection as she is having vaginal itching and irritation. Patient is a diabetic. Patient reports a low-grade fever of 100 recently. She denies any chest pain, shortness of breath, cough, congestion, constipation/diarrhea or peripheral edema. - Related Data Home Medications Medication Instructions Recorded Confirmed Atorvastatin [Lipitor] 20 mg PO DAILY 10/07/14 01/31/24 FLUoxetine HCL 40 mg PO DAILY 10/07/14 01/31/24 Ibuprofen [Motrin] 800 mg PO Q8HR PRN 10/07/14 01/31/24 Loratadine [Claritin] 10 mg PO DAILY 10/07/14 01/31/24 Timolol 0.5% Ophth Soln [Timoptic 1 drop LEFT EYE BID 10/07/14 01/31/24 0.5% Ophth Soln] Acyclovir 400 mg PO DAILY 01/19/21 01/31/24 Cyclobenzaprine [Flexeril] 10 mg PO BID PRN 01/19/21 01/31/24 Fluticasone Nasal [place] [Flonase 1 spr EA NOSTRIL BID PRN 01/19/21 01/31/24 Nasal [place]] Pantoprazole [Protonix] 40 mg PO DAILY 01/19/21 01/31/24 busPIRone HCL 15 mg PO BID 01/19/21 01/31/24 Lisdexamfetamine Dimesylate 60 mg PO QAM 11/15/23 01/31/24 [Vyvanse] Semaglutide [Wegovy] 2.4 mg SQ TH 11/15/23 01/31/24 hydrOXYzine HCL [Atarax] 50 mg PO BID PRN 11/15/23 01/31/24 metFORMIN HCL 1,000 mg PO BID 11/15/23 01/31/24 Voriconazole [Vfend] 200 mg PO DIRECTED 01/31/24 01/31/24 Previous Rx's Medication Instructions Recorded Butalb/APAP/Caff 50-325-40Mg 1 tab PO TID PRN #12 tab 01/21/21 [Fioricet 50-325-40] Acetaminophen Tab [Tylenol] 650 mg PO Q4HR PRN tab 11/16/23 Ondansetron [Zofran] 4 mg PO Q8HR PRN 7 Days #20 tab 01/28/24 Acetaminophen-Codeine 300-30mg 1 each PO Q4HR PRN #12 tab 02/05/24 [Tylenol w/codeine #3] Calcium Carbonate [Tums] 500 mg PO TID PRN tab 02/05/24 Cyanocobalamin [Vitamin B-12] 1,000 mcg PO DAILY #30 tab 02/05/24 Ferrous Sulfate [Iron (65 MG 325 mg PO BID-W/MEALS #60 tab 02/05/24 Elemental)] Folic Acid 1 mg PO DAILY #30 tab 02/05/24 Loperamide [Imodium] 2 mg PO QID PRN #20 capsule 03/03/24 Fluconazole 150 mg PO DIRECTED #2 tab 04/06/24 Cephalexin [Keflex] 500 mg PO Q6HR #40 cap 04/09/24 Fluconazole [Diflucan] 150 mg PO ONCE #1 tab 04/09/24 Phenazopyridine [Pyridium] 200 mg PO TID #6 tablet 04/09/24 Allergies Allergy/AdvReac Type Severity Reaction Status Date / Time ciprofloxacin [From Cipro] Allergy Rash/Hives Verified 04/05/24 18:52 ciprofloxacin HCl Allergy Rash/Hives Verified 04/05/24 18:52 [From Cipro] Sulfa (Sulfonamide Allergy Rash/Hives Verified 04/05/24 18:52 Antibiotics) Review of Systems ROS Statement: Those systems with pertinent positive or pertinent negative responses have been documented in the HPI. ROS Other: All systems not noted in ROS Statement are negative. Past Medical History Past Medical History: Diabetes Mellitus, Eye Disorder, Hyperlipidemia, Hypertension, Renal Disease Additional Past Medical History / Comment(s): GLAUCOMA; MIGRAINES, IBS History of Any Multi-Drug Resistant Organisms: C-DIFF Date of last positivie culture/infection: May 2019 MDRO Source:: stool Past Surgical History: Appendectomy, Cholecystectomy Additional Past Surgical History / Comment(s): OVARY SURGERY; BILAT EYE SURGERY, metal plate under eye Past Anesthesia/Blood Transfusion Reactions: Postoperative Nausea & Vomiting (PONV) Past Psychological History: ADD/ADHD, Depression Smoking Status: Never smoker Past Alcohol Use History: None Reported Past Drug Use History: None Reported - Past Family History Mother Family Medical History: COPD, Diabetes Mellitus Father Family Medical History: Coronary Artery Disease (CAD), Diabetes Mellitus Additional Family Medical History / Comment(s): dad General Exam Limitations: no limitations General appearance: alert, in no apparent distress Head exam: Present: atraumatic, normocephalic, normal inspection Respiratory exam: Present: normal lung sounds bilaterally. Absent: respiratory distress, wheezes, rales, rhonchi, stridor Cardiovascular Exam: Present: regular rate, normal rhythm, normal heart sounds. Absent: systolic murmur, diastolic murmur, rubs, gallop, clicks GI/Abdominal exam: Present: soft, tenderness (Suprapubic), normal bowel sounds External exam: Present: other (White thick plaque) Neurological exam: Present: alert, oriented X3, CN II-XII intact Psychiatric exam: Present: normal affect, normal mood Skin exam: Present: warm, dry, intact, normal color. Absent: rash Course Vital Signs 04/09/24 02:32 Temperature 98.6 F Pulse Rate 93 Respiratory 18 Rate Blood Pressure 119/84 O2 Sat by Pulse 98 Oximetry Medical Decision Making - Medical Decision Making Was pt. sent in by a medical professional or institution (, PA, PRACTICE PHYSICIAN, urgent care, hospital, or group home...) When possible be specific @ -No Did you speak to anyone other than the patient for history (EMS, parent, family, police, friend...)? What history was obtained from this source @ -No Did you review nursing and triage notes (agree or disagree)? Why? @ -I reviewed and agree with nursing and triage notes Were old charts reviewed (outside hosp., previous admission, EMS record, old EKG, old radiological studies, urgent care reports/EKG's, group home records)? Report findings @ -No old charts were reviewed Differential Diagnosis (chest pain, altered mental status, abdominal pain women, abdominal pain men, vaginal bleeding, weakness, fever, dyspnea, syncope, headache, dizziness, GI bleed, back pain, seizure, CVA, palpatations, mental health, musculoskeletal)? @ -Differential Abdominal Pain Women: Appendicitis, Cholecystitis, diverticulosis, ischemic bowel, pancreatitis, hepatitis, UTI, gastroenteritis, AAA, incarcerated hernia, bowel obstruction, constipation, inflammatory bowel, hepatitis, peptic ulcer disease, splenic infarction, perforated viscus, vulvitis, ovarian torsion, PID, kidney stone, placenta abruption, this is not meant to be an all-inclusive list EKG interpreted by me (3pts min.). @ -None X-rays interpreted by me (1pt min.). @ -None done CT interpreted by me (1pt min.). @ -None done U/S interpreted by me (1pt. min.). @ -None done What testing was considered but not performed or refused? (CT, X-rays, U/S, labs)? Why? @ -None What meds were considered but not given or refused? Why? @ -None Did you discuss the management of the patient with other professionals (professionals i.e. , PA, PRACTICE PHYSICIAN, lab, RT, psych nurse, social services assistant, nuts and bolts assembler, teacher, mortgage loan officer, continuous pillowcase cutter)? Give summary @ -No Was smoking cessation discussed for >3mins.? @ -No Was critical care preformed (if so, how long)? @ -No Were there social determinants of health that impacted care today? How? (Homelessness, low income, unemployed, alcoholism, drug addiction, transp ortation, low edu. Level, literacy, decrease access to med. care, group home, rehab)? @ -No Was there de-escalation of care discussed even if they declined (Discuss DNR or withdrawal of care, Hospice)? DNR status @ -No What co-morbidities impacted this encounter? (DM, HTN, Smoking, COPD, CAD, Cancer, CVA, ARF, Chemo, Hep., AIDS, mental health diagnosis, sleep apnea, morbid obesity)? @ -None Was patient admitted / discharged? Hospital course, mention meds given and route, prescriptions, significant lab abnormalities, going to OR and other pertinent info. @ -Discharge. 48-year-old female presented to the ER with a chief complaint of dysuria. History and physical exam completed. Vitals stable. Patient no signs of acute distress and nontoxic-appearing. Normal bowel sounds with mild suprapubic tenderness to palpation. Urinalysis significant for infection with leukocyte esterases. Patient will be started on Keflex. Patient also prescribed Diflucan. First doses in the ER. PO tylenol and pyridium ini ER for symptom control. Return parameters discussed. Patient discharged stable condition with follow-up to PCP. Patient verbally expressed understanding and agreement with care plan. Case discussed with ED attending, Dr. Hodges. Undiagnosed new problem with uncertain prognosis? @ -No Drug Therapy requiring intensive monitoring for toxicity (Heparin, Nitro, Insulin, Cardizem)? @ -No Were any procedures done? @ -No Diagnosis/symptom? @ -UTI/tonja vaginosis Acute, or Chronic, or Acute on Chronic? @ -Acute Uncomplicated (without systemic symptoms) or Complicated (systemic symptoms)? @ -Uncomplicated Side effects of treatment? @ -No Exacerbation, Progression, or Severe Exacerbation? @ -No Poses a threat to life or bodily function? How? (Chest pain, [place], [place], pneumonia, PE, COPD, DKA, ARF, appy, cholecystitis, CVA, Diverticulitis, Homicidal, Suicidal, threat to staff... and all critical care pts) @ -No - Lab Data Lab Results 04/09/24 Range/Units 02:55 Urine Color Light Yellow Urine Appearance Cloudy H (Clear) Urine pH 5.5 (5.0-8.0) Ur Specific [place] 1.024 (1.001-1.035) Urine Protein Negative (Negative) Urine Glucose (UA) Negative (Negative) Urine Ketones Negative (Negative) Urine Blood Moderate H (Negative) Urine Nitrite Negative (Negative) Urine Bilirubin Negative (Negative) Urine Urobilinogen <2.0 (<2.0) mg/dL Ur Leukocyte Esterase Small H (Negative) Urine RBC >182 H (0-5) /hpf Urine WBC 5 (0-5) /hpf Ur Squamous Epith Cells 9 H (0-4) /hpf Urine Bacteria Rare H (None) /hpf Hyaline Casts 11 H (0-2) /lpf Urine Mucus Rare H (None) /hpf Urine Yeast (Budding) Rare H (None) /hpf Disposition Clinical Impression: Vaginal candidiasis, Urinary tract infection Disposition: HOME SELF-CARE Condition: Stable Instructions (If sedation given, give patient instructions): Urinary Tract Infection in Women (ED) Additional Instructions: Please follow-up with PCP. Return to the ER for any new or worsening concerns. Prescriptions: Fluconazole [Diflucan] 150 mg PO ONCE #1 tab Cephalexin [Keflex] 500 mg PO Q6HR #40 cap Phenazopyridine [Pyridium] 200 mg PO TID #6 tablet Is patient prescribed a controlled substance at d/c from ED?: No Referrals: None,Stated [Primary Care Provider] - 1-2 days Forms: Area PCPs Time of Disposition: 04:38
[2024-04-09] MEDS: ACETAMINOPHEN TAB 325 MG TAB PO STA (03:26)
[2024-04-09] MEDS: PHENAZOPYRIDINE 100 MG TAB PO STA (03:26)
[2024-04-09 04:27] LABS: Appearance,Urine Cloudy (Clear); Bacteria,Urine Rare /hpf; Bilirubin,Urine Negative (Negative); Blood,Urine Moderate (Negative); Budding Yeast,Urine Rare /hpf; Color,Urine Light Yellow; Glucose,Urine (UA) Negative (Negative); Hyaline Casts,Urine 11 /lpf (0-2); Ketones,Urine Negative (Negative); Leukocyte Esterase,Urine Small (Negative); Mucus,Urine Rare /hpf; Nitrite,Urine Negative (Negative); PH, Urine 5.5 (5.0-8.0); Protein,Urine Negative (Negative); RBC,Urine >182 /hpf (0-5); Specific Gravity,Urine 1.024 (1.001-1.035); Squamous Epithelial Cell,Urine 9 /hpf (0-4); Urobilinogen,Urine <2.0 mg/dL (<2.0); WBC,Urine 5 /hpf (0-5)
[2024-04-09] MEDS: CEPHALEXIN 500 MG CAP PO STA (04:44)
[2024-04-09] MEDS: FLUCONAZOLE 150 MG TAB PO STA (04:45)
[2024-04-09 07:35] VITALS: BP 131/83; PULSE 90
== END 2024-04-09 04:47 | disposition home or self-care (01) ==
LOC: EC 01:51
DX: N39.0 Urinary tract infection, site not specified (principal); B37.31 Acute candidiasis of vulva and vagina; Z88.2 Allergy status to sulfonamides; Z88.1 Allergy status to other antibiotic agents
CPT/HCPCS: 81001; 99283

== ENCOUNTER 2024-04-10 21:27 | Inpatient (IN) | payer OTHER ==
[2024-04-10 22:23] LABS: Amorphous Sediment,Urine Rare /hpf; Bacteria,Urine Few /hpf; RBC,Urine >182 /hpf (0-5); Squamous Epithelial Cell,Urine 6 /hpf (0-4); WBC,Urine 10 /hpf (0-5)
[2024-04-10 22:25] LABS: Color,Urine Orange
[2024-04-10 22:29] LABS: Appearance,Urine Cloudy (Clear)
[2024-04-10 22:34] LABS: Basophils # (A) 0.1 k/uL (0-0.2); Basophils % (A) 1 %; Eosinophils # (A) 0.6 k/uL (0-0.7); Eosinophils % (A) 6 %; HCT 40.9 % (34.0-46.0); Lymphocytes # (A) 3.2 k/uL (1.0-4.8); Lymphocytes % (A) 32 %; MCH 26.2 pg (25.0-35.0); MCHC 31.8 g/dL (31.0-37.0); MCV 82.4 fL (80.0-100.0); Mean Platelet Volume 8.4; Monocytes # (A) 0.4 k/uL (0-1.0); Monocytes % (A) 4 %; Neutrophils # (A) 5.6 k/uL (1.3-7.7); Neutrophils % (A) 57 %; Platelet Count 437 k/uL (150-450); RBC 4.96 m/uL (3.80-5.40); RDW 15.2 % (11.5-15.5)
[2024-04-10 22:45] LABS: ALT 58 U/L (4-34); AST 19 U/L (14-36); African American GFR (CKD) >90 (>60 ml/min/1.73 sqM); Albumin 4.2 g/dL (3.5-5.0); Alkaline Phosphatase 118 U/L (38-126); Anion Gap 10 mmol/L; Blood Urea Nitrogen 14 mg/dL (7-17); Calcium 9.6 mg/dL (8.4-10.2); Carbon Dioxide 20 mmol/L (22-30); Chloride 107 mmol/L (98-107); Glucose 156 mg/dL (74-99); Non-African American GFR(CKD) >90 (>60 ml/min/1.73 sqM); Potassium 4.3 mmol/L (3.5-5.1); Sodium 137 mmol/L (137-145); Total Bilirubin 0.3 mg/dL (0.2-1.3); Total Protein 6.7 g/dL (6.3-8.2)
--- NOTE | 2024-04-10 22:46 | ED ---
General Adult HPI - General Chief complaint: Recheck/Abnormal Lab/Rx Stated complaint: UTI Time Seen by Provider: 04/10/24 21:30 Source: patient Mode of arrival: ambulatory Limitations: no limitations - History of Present Illness Initial comments: 48-year-old female presents emergency department reporting dysuria. Patient has longstanding history of urinary tract infections. States that these have been caused from fungal infections. She has been previously hospitalized for these infections with infectious disease to see her. States that she has been on several antibiotics recently in order to help alleviate her symptoms. Patient was seen in the emergency department here for this complaint. States she has been taking her antibiotics as directed however continues to have symptoms. Patient states that she has not been taking in enough fluids as she does not want to have to urinate. States that it that is very uncomfortable for her to urinate. She denies hematuria. Does admit to vaginal itching. No fevers. No vaginal discharge. No other alleviating, precipitating modifying factors - Related Data Home Medications Medication Instructions Recorded Confirmed Atorvastatin [Lipitor] 20 mg PO DAILY 10/07/14 04/11/24 FLUoxetine HCL 40 mg PO DAILY 10/07/14 04/11/24 Ibuprofen [Motrin] 800 mg PO Q8HR PRN 10/07/14 04/11/24 Loratadine [Claritin] 10 mg PO DAILY 10/07/14 04/11/24 Acyclovir 400 mg PO DAILY 01/19/21 04/11/24 Cyclobenzaprine [Flexeril] 10 mg PO BID PRN 01/19/21 04/11/24 Fluticasone Nasal [place] [Flonase 1 spr EA NOSTRIL BID PRN 01/19/21 04/11/24 Nasal [place]] Pantoprazole [Protonix] 40 mg PO DAILY 01/19/21 04/11/24 busPIRone HCL 15 mg PO BID 01/19/21 04/11/24 Lisdexamfetamine Dimesylate 60 mg PO DAILY 11/15/23 04/11/24 [Vyvanse] Semaglutide [Wegovy] 2.4 mg SQ TH 11/15/23 04/11/24 hydrOXYzine HCL [Atarax] 50 mg PO BID PRN 11/15/23 04/11/24 metFORMIN HCL 1,000 mg PO BID 11/15/23 04/11/24 Cephalexin [Keflex] 500 mg PO Q6HR 04/11/24 04/11/24 Ondansetron Odt [Zofran ODT] 4 mg PO DAILY PRN 04/11/24 04/11/24 Pentosan Polysulfate Sodium 100 mg PO TID 04/11/24 04/11/24 [Elmiron] Previous Rx's Medication Instructions Recorded Butalb/APAP/Caff 50-325-40Mg 1 tab PO TID PRN #12 tab 01/21/21 [Fioricet 50-325-40] Acetaminophen Tab [Tylenol] 650 mg PO Q4HR PRN tab 11/16/23 Calcium Carbonate [Tums] 500 mg PO TID PRN tab 02/05/24 Cyanocobalamin [Vitamin B-12] 1,000 mcg PO DAILY #30 tab 02/05/24 Ferrous Sulfate [Iron (65 MG 325 mg PO BID-W/MEALS #60 tab 02/05/24 Elemental)] Folic Acid 1 mg PO DAILY #30 tab 02/05/24 Loperamide [Imodium] 2 mg PO QID PRN #20 capsule 03/03/24 Acetaminophen-Codeine 300-30mg 1 each PO Q6HR PRN #12 tab 04/15/24 [Tylenol w/codeine #3] Nystatin 100,000 Unit/gm Powd 1 applic TOPICAL BID #15 gm 04/15/24 [Mycostatin Powder] Ondansetron [Zofran] 4 mg PO Q8HR PRN #12 tab 04/15/24 Phenazopyridine [Pyridium] 200 mg PO TID 2 Days #6 tab 04/15/24 Allergies Allergy/AdvReac Type Severity Reaction Status Date / Time ciprofloxacin [From Cipro] Allergy Rash/Hives Verified 04/10/24 21:31 ciprofloxacin HCl Allergy Rash/Hives Verified 04/10/24 21:31 [From Cipro] Sulfa (Sulfonamide Allergy Rash/Hives Verified 04/10/24 21:31 Antibiotics) Review of Systems ROS Statement: Those systems with pertinent positive or pertinent negative responses have been documented in the HPI. ROS Other: All systems not noted in ROS Statement are negative. Past Medical History Past Medical History: Diabetes Mellitus, Eye Disorder, Hyperlipidemia, Hypertension, Renal Disease Additional Past Medical History / Comment(s): GLAUCOMA; MIGRAINES, IBS History of Any Multi-Drug Resistant Organisms: C-DIFF Date of last positivie culture/infection: May 2019 MDRO Source:: stool Past Surgical History: Appendectomy, Cholecystectomy Additional Past Surgical History / Comment(s): OVARY SURGERY; BILAT EYE SURGERY, metal plate under eye Past Anesthesia/Blood Transfusion Reactions: Postoperative Nausea & Vomiting (PONV) Past Psychological History: ADD/ADHD, Depression Smoking Status: Never smoker Past Alcohol Use History: None Reported Past Drug Use History: None Reported - Past Family History Mother Family Medical History: COPD, Diabetes Mellitus Father Family Medical History: Coronary Artery Disease (CAD), Diabetes Mellitus Additional Family Medical History / Comment(s): dad General Exam Limitations: no limitations Course Vital Signs 04/10/24 04/10/24 04/10/24 21:28 22:00 23:51 Temperature 99.5 F 98.2 F 98.4 F Pulse Rate 126 H 107 H 80 Respiratory 18 18 18 Rate Blood Pressure 122/82 139/95 126/90 O2 Sat by Pulse 96 97 97 Oximetry Medical Decision Making - Medical Decision Making Was pt. sent in by a medical professional or institution (, PA, NURSERY LABORER, urgent care, hospital, or detention...) When possible be specific @ -Patient states that she was sent in by her primary care doctor Did you speak to anyone other than the patient for history (EMS, parent, family, police, friend...)? What history was obtained from this source @ -No Did you review nursing and triage notes (agree or disagree)? Why? @ -I reviewed and agree with nursing and triage notes Were old charts reviewed (outside hosp., previous admission, EMS record, old EKG, old radiological studies, urgent care reports/EKG's, detention records)? Report findings @ -I reviewed old culture results. Urine culture from December 2023 demonstrated candidiasis Differential Diagnosis (chest pain, altered mental status, abdominal pain women, abdominal pain men, vaginal bleeding, weakness, fever, dyspnea, syncope, headache, dizziness, GI bleed, back pain, seizure, CVA, palpatations, mental health, musculoskeletal)? @ -Differential Abdominal Pain Women: Appendicitis, Cholecystitis, diverticulosis, ischemic bowel, pancreatitis, hepatitis, UTI, gastroenteritis, AAA, incarcerated hernia, bowel obstruction, constipation, inflammatory bowel, hepatitis, peptic ulcer disease, splenic infarction, perforated viscus, vulvitis, ovarian torsion, PID, kidney stone, placenta abruption, this is not meant to be an all-inclusive list EKG interpreted by me (3pts min.). @ -Not done X-rays interpreted by me (1pt min.). @ -None done CT interpreted by me (1pt min.). @ -None done U/S interpreted by me (1pt. min.). @ -None done What testing was considered but not performed or refused? (CT, X-rays, U/S, labs)? Why? @ -None What meds were considered but not given or refused? Why? @ -None Did you discuss the management of the patient with other professionals (professionals i.e. , PA, NURSERY LABORER, lab, RT, psych nurse, psychiatric social worker, manager of global, teacher, fisheries technical officer, case planner)? Give summary @ -Spoke with Mel from [facility] will admit the patient Was smoking cessation discussed for >3mins.? @ -No Was critical care preformed (if so, how long)? @ -No Were there social determinants of health that impacted care today? How? (Homelessness, low income, unemployed, alcoholism, drug addiction, transportation, low edu. Level, literacy, decrease access to med. care, half-way, rehab)? @ -No Was there de-escalation of care discussed even if they declined (Discuss DNR or withdrawal of care, Hospice)? DNR status @ -No What co-morbidities impacted this encounter? (DM, HTN, Smoking, COPD, CAD, Cancer, CVA, ARF, Chemo, Hep., AIDS, mental health diagnosis, sleep apnea, morbid obesity)? @ -None Was patient admitted / discharged? Hospital course, mention meds given and route, prescriptions, significant lab abnormalities, going to OR and other pertinent info. @ -Upon arrival patient seen and evaluated in room 20. Thorough history and physical exam was performed. IV access was established. Patient does provide urine sample. I did review her previous microbiology. Patient was given morphine for pain control. I did discuss the treatment options. As patient reports to continued symptoms on antibiotics I did offer admission with infectious disease consult. Patient was agreeable to this. She was taken to the floor in stable condition Undiagnosed new problem with uncertain prognosis? @ -No Drug Therapy requiring intensive monitoring for toxicity (Heparin, Nitro, Insu ja, Cardizem)? @ -No Were any procedures done? @ -No Diagnosis/symptom? @ -Acute dysuria, possible UTIfungal, history of interstitial cystitis Acute, or Chronic, or Acute on Chronic? @ -Acute on chronic Uncomplicated (without systemic symptoms) or Complicated (systemic symptoms)? @ -Complicated Side effects of treatment? @ -No Exacerbation, Progression, or Severe Exacerbation? @ -Yes Poses a threat to life or bodily function? How? (Chest pain, [place], [place], pneumonia, PE, COPD, DKA, ARF, appy, cholecystitis, CVA, Diverticulitis, Homicidal, Suicidal, threat to staff... and all critical care pts) @ -No - Lab Data Result diagrams: 04/11/24 06:30 04/11/24 06:30 Lab Results 04/10/24 04/10/24 04/10/24 Range/Units 22:09 22:20 22:20 WBC 10.0 (3.8-10.6) k/uL RBC 4.96 (3.80-5.40) m/uL Hgb 13.0 (11.4-16.0) gm/dL Hct 40.9 (34.0-46.0) % MCV 82.4 (80.0-100.0) fL MCH 26.2 (25.0-35.0) pg MCHC 31.8 (31.0-37.0) g/dL RDW 15.2 (11.5-15.5) % Plt Count 437 (150-450) k/uL MPV 8.4 Neutrophils % 57 % Lymphocytes % 32 % Monocytes % 4 % Eosinophils % 6 % Basophils % 1 % Neutrophils # 5.6 (1.3-7.7) k/uL Lymphocytes # 3.2 (1.0-4.8) k/uL Monocytes # 0.4 (0-1.0) k/uL Eosinophils # 0.6 (0-0.7) k/uL Basophils # 0.1 (0-0.2) k/uL Sodium 137 (137-145) mmol/L Potassium 4.3 (3.5-5.1) mmol/L Chloride 107 (98-107) mmol/L Carbon Dioxide 20 L (22-30) mmol/L Anion Gap 10 mmol/L BUN 14 (7-17) mg/dL Creatinine 0.69 (0.52-1.04) mg/dL Est GFR (CKD-EPI)AfAm >90 (>60 ml/min/1.73 sqM) Est GFR (CKD-EPI)NonAf >90 (>60 ml/min/1.73 sqM) Glucose 156 H (74-99) mg/dL Lactic Ac Sepsis Rflx Plasma Lactic Acid Eduardo (0.7-2.0) mmol/L Calcium 9.6 (8.4-10.2) mg/dL Total Bilirubin 0.3 (0.2-1.3) mg/dL AST 19 (14-36) U/L ALT 58 H (4-34) U/L Alkaline Phosphatase 118 (38-126) U/L Total Protein 6.7 (6.3-8.2) g/dL Albumin 4.2 (3.5-5.0) g/dL Urine Color [place] Urine Appearance Cloudy H (Clear) Urine RBC >182 H (0-5) /hpf Urine WBC 10 H (0-5) /hpf Ur Squamous Epith Cells 6 H (0-4) /hpf Amorphous Sediment Rare H (None) /hpf Urine Bacteria Few H (None) /hpf 04/10/24 04/10/24 Range/Units 22:20 22:46 WBC (3.8-10.6) k/uL RBC (3.80-5.40) m/uL Hgb (11.4-16.0) gm/dL Hct (34.0-46.0) % MCV (80.0-100.0) fL MCH (25.0-35.0) pg MCHC (31.0-37.0) g/dL RDW (11.5-15.5) % Plt Count (150-450) k/uL MPV Neutrophils % % Lymphocytes % % Monocytes % % Eosinophils % % Basophils % % Neutrophils # (1.3-7.7) k/uL Lymphocytes # (1.0-4.8) k/uL Monocytes # (0-1.0) k/uL Eosinophils # (0-0.7) k/uL Basophils # (0-0.2) k/uL Sodium (137-145) mmol/L Potassium (3.5-5.1) mmol/L Chloride (98-107) mmol/L Carbon Dioxide (22-30) mmol/L Anion Gap mmol/L BUN (7-17) mg/dL Creatinine (0.52-1.04) mg/dL Est GFR (CKD-EPI)AfAm (>60 ml/min/1.73 sqM) Est GFR (CKD-EPI)NonAf (>60 ml/min/1.73 sqM) Glucose (74-99) mg/dL Lactic Ac Sepsis Rflx Y Plasma Lactic Acid Eduardo 2.1 H* (0.7-2.0) mmol/L Calcium (8.4-10.2) mg/dL Total Bilirubin (0.2-1.3) mg/dL AST (14-36) U/L ALT (4-34) U/L Alkaline Phosphatase (38-126) U/L Total Protein (6.3-8.2) g/dL Albumin (3.5-5.0) g/dL Urine Color Urine Appearance (Clear) Urine RBC (0-5) /hpf Urine WBC (0-5) /hpf Ur Squamous Epith Cells (0-4) /hpf Amorphous Sediment (None) /hpf Urine Bacteria (None) /hpf Disposition Clinical Impression: UTI (urinary tract infection), Intractable abdominal pain Disposition: ADMITTED IP TO THIS [facility] Condition: Stable Is patient prescribed a controlled substance at d/c from ED?: No Time of Disposition: 22:46 Decision to Admit Reason: Admit from EC Decision Date: 04/10/24 Decision Time: 22:46
[2024-04-10] MEDS ORDERED: NALOXONE 0.4 MG/ML 1 ML VIAL IV PRN (22:47)
[2024-04-10] MEDS: SODIUM CHLORIDE 0.9% 1,000 ML IV ONE (22:53)
[2024-04-10] MEDS: KETOROLAC 15 MG/ML 1 ML VIAL IVP STA (22:53)
[2024-04-10] MEDS: CEFEPIME 1 GM in SODIUM CHLORIDE 0.9% 50 ML IVPB STA (23:06)
[2024-04-10] MEDS: VORICONAZOLE 200 MG in SODIUM CHLORIDE 0.9% 100 ML IVPB ONE (23:35)
[2024-04-10] MEDS: ONDANSETRON 4 MG/2 ML VIAL IVP STA (23:45)
[2024-04-10] MEDS: MORPHINE SULFATE 4 MG/ML SYRINGE IVP STA (23:45)
[2024-04-11] MEDS: MORPHINE SULFATE 4 MG/ML SYRINGE IVP STA (03:57)
[2024-04-11] MEDS: ACETAMINOPHEN TAB 325 MG TAB PO PRN (03:58)
[2024-04-11 05:46] VITALS: RESP 16
[2024-04-11 06:15] LABS: Glucose,Whole Blood 107 mg/dL (70-110)
[2024-04-11 06:48] LABS: Basophils # (A) 0.1 k/uL (0-0.2); Basophils % (A) 1 %; Eosinophils # (A) 0.3 k/uL (0-0.7); Eosinophils % (A) 5 %; HCT 35.3 % (34.0-46.0); HGB 10.9 gm/dL (11.4-16.0); Hypochromasia Slight; Lymphocytes # (A) 2.6 k/uL (1.0-4.8); Lymphocytes % (A) 34 %; MCH 26.1 pg (25.0-35.0); MCHC 30.8 g/dL (31.0-37.0); MCV 84.5 fL (80.0-100.0); Mean Platelet Volume 8.2; Monocytes # (A) 0.3 k/uL (0-1.0); Monocytes % (A) 4 %; Neutrophils # (A) 4.3 k/uL (1.3-7.7); Neutrophils % (A) 56 %; Platelet Count 302 k/uL (150-450); RBC 4.18 m/uL (3.80-5.40); RDW 15.1 % (11.5-15.5); WBC 7.6 k/uL (3.8-10.6)
[2024-04-11 06:58] LABS: African American GFR (CKD) >90 (>60 ml/min/1.73 sqM); Anion Gap 3 mmol/L; Blood Urea Nitrogen 13 mg/dL (7-17); Calcium 8.8 mg/dL (8.4-10.2); Carbon Dioxide 23 mmol/L (22-30); Chloride 112 mmol/L (98-107); Glucose 100 mg/dL (74-99); Non-African American GFR(CKD) >90 (>60 ml/min/1.73 sqM); Potassium 4.3 mmol/L (3.5-5.1); Sodium 138 mmol/L (137-145)
[2024-04-11] MEDS ORDERED: Acetaminophen-Codeine 300-30mg TAB PO PRN (09:35)
[2024-04-11] MEDS: Acetaminophen-Codeine 300-30mg TAB PO STA (10:32)
[2024-04-11] MEDS: KETOROLAC 15 MG/ML 1 ML VIAL IVP SCH (10:33)
[2024-04-11 11:20] LABS: Glucose,Whole Blood 133 mg/dL (70-110)
[2024-04-11] MEDS: NYSTATIN 100,000UNIT/GM CREAM 30 GM TUBE TOPICAL SCH (11:46)
[2024-04-11] MEDS: VORICONAZOLE 200 MG in SODIUM CHLORIDE 0.9% 100 ML IVPB SCH (11:46)
[2024-04-11] MEDS ORDERED: DEXTROSE 50% SYRINGE 50 ML IVP PRN ×2 (11:52)
[2024-04-11] MEDS: INSULIN ASPART (NovoLOG) 100 UNIT/ML VIAL SQ SCH (13:00)
[2024-04-11] MEDS ORDERED: FLUTICASONE 50MCG/SPRAY NASAL 16GM EA NOSTRIL PRN (13:56)
[2024-04-11] MEDS ORDERED: hydrOXYzine HCL 25 MG TAB PO PRN (13:56)
[2024-04-11] MEDS ORDERED: ACETAMINOPHEN TAB 325 MG TAB PO PRN (13:56)
[2024-04-11] MEDS ORDERED: LOPERAMIDE 2 MG CAP PO PRN (13:56)
--- NOTE | 2024-04-11 14:06 | P.HPIM ---
History of Present Illness This is a pleasant 48 years old female with past medical history of multiple medical problems as below. Presents because of dysuria Patient known case of urinary tract infection and she follows with urologist Dr. Brown who saw him 2 weeks ago and everything was good Last Monday she started having dysuria she came to emergency room and they prescribed her Keflex. She returns from with worsening dysuria and suprapubic abdominal pain and tenderness. She denies headache dizziness or weakness or numbness. She gets migraine head ache frequently as she states and [employer] works for her usually No chest pain or dyspnea or coughing She has some nausea but no vomiting or diarrhea or abdominal pain other than the suprapubic discomfort She denies smoking alcohol or illicit drugs Her PCP is Dr. Katlin Hernandez Patient states that the pain medication currently is not helping her and she request [facility]. Previous has used Toradol and works but not today. Risk and benefit explained and she is agreeable She is hemodynamically stable, she has low-grade fever 99.5, blood pressure is 102/70 CBC is unremarkable except for hemoglobin 10.9 with some evidence of hemodilution. BMP and liver enzymes were unremarkable Lactic acid was elevated came back to reference range at 1.2. Urine analysis suspicious for infection I called the lab to send a culture which is pending for now Patient started on voriconazole and cefepime She was admitted with infectious disease consult Review of Systems Review of systems CONSTITUTIONAL: No fever, no malaise, no fatigue. HEENT: No recent visual problems or hearing problems. Denied any sore throat. CARDIOVASCULAR: No orthopnea, PND, no palpitations, no syncope. PULMONARY: No shortness of breath, no cough, no hemoptysis. GASTROINTESTINAL: No diarrhea, no nausea, no vomiting, no abdominal pain. Normoactive bowel sounds. NEUROLOGICAL: No headaches, no weakness, no numbness. HEMATOLOGICAL: Denies any bleeding or petechiae. -GENITOURINARY: as above MUSCULOSKELETAL/RHEUMATOLOGICAL: Denies any joint pain, swelling, or any muscle pain. ENDOCRINE: Denies any polyuria or polydipsia. Past Medical History Past Medical History: Diabetes Mellitus, Eye Disorder, Hyperlipidemia, Hypertension, Renal Disease Additional Past Medical History / Comment(s): GLAUCOMA; MIGRAINES, IBS,cystitis, retinal distachment right eye with repair, uti History of Any Multi-Drug Resistant Organisms: C-DIFF Date of last positivie culture/infection: May 2019 MDRO Source:: stool Past Surgical History: Appendectomy, Cholecystectomy Additional Past Surgical History / Comment(s): OVARY SURGERY; BILAT EYE SURGERY, metal plate under right eye, vp production shunt Past Anesthesia/Blood Transfusion Reactions: Postoperative Nausea & Vomiting (PONV) Past Psychological History: ADD/ADHD, Anxiety, Depression Smoking Status: Never smoker Past Alcohol Use History: None Reported Past Drug Use History: None Reported - Past Family History Mother Family Medical History: COPD, Diabetes Mellitus Father Family Medical History: Coronary Artery Disease (CAD), Diabetes Mellitus Additional Family Medical History / Comment(s): dad Medications and Allergies Home Medications Medication Instructions Recorded Confirmed Type Atorvastatin [Lipitor] 20 mg PO DAILY 10/07/14 04/11/24 History FLUoxetine HCL 40 mg PO DAILY 10/07/14 04/11/24 History Ibuprofen [Motrin] 800 mg PO Q8HR PRN 10/07/14 04/11/24 History Loratadine [Claritin] 10 mg PO DAILY 10/07/14 04/11/24 History Acyclovir 400 mg PO DAILY 01/19/21 04/11/24 History Cyclobenzaprine [Flexeril] 10 mg PO BID PRN 01/19/21 04/11/24 History Fluticasone Nasal [place] [Flonase 1 spr EA NOSTRIL BID PRN 01/19/21 04/11/24 History Nasal [place]] Pantoprazole [Protonix] 40 mg PO DAILY 01/19/21 04/11/24 History busPIRone HCL 15 mg PO BID 01/19/21 04/11/24 History Butalb/APAP/Caff 50-325-40Mg 1 tab PO TID PRN #12 tab 01/21/21 04/11/24 Rx [Fioricet 50-325-40] Lisdexamfetamine Dimesylate 60 mg PO DAILY 11/15/23 04/11/24 History [Vyvanse] Semaglutide [Wegovy] 2.4 mg SQ TH 11/15/23 04/11/24 History hydrOXYzine HCL [Atarax] 50 mg PO BID PRN 11/15/23 04/11/24 History metFORMIN HCL 1,000 mg PO BID 11/15/23 04/11/24 History Acetaminophen Tab [Tylenol] 650 mg PO Q4HR PRN tab 11/16/23 04/11/24 Rx Calcium Carbonate [Tums] 500 mg PO TID PRN tab 02/05/24 04/11/24 Rx Cyanocobalamin [Vitamin B-12] 1,000 mcg PO DAILY #30 tab 02/05/24 04/11/24 Rx Ferrous Sulfate [Iron (65 MG 325 mg PO BID-W/MEALS #60 tab 02/05/24 04/11/24 Rx Elemental)] Folic Acid 1 mg PO DAILY #30 tab 02/05/24 04/11/24 Rx Loperamide [Imodium] 2 mg PO QID PRN #20 capsule 03/03/24 04/11/24 Rx Cephalexin [Keflex] 500 mg PO Q6HR 04/11/24 04/11/24 History Ondansetron Odt [Zofran Odt] 4 mg PO DAILY PRN 04/11/24 04/11/24 History Pentosan Polysulfate Sodium 100 mg PO TID 04/11/24 04/11/24 History [Elmiron] Allergies Allergy/AdvReac Type Severity Reaction Status Date / Time ciprofloxacin [From Cipro] Allergy Rash/Hives Verified 04/10/24 21:31 ciprofloxacin HCl Allergy Rash/Hives Verified 04/10/24 21:31 [From Cipro] Sulfa (Sulfonamide Allergy Rash/Hives Verified 04/10/24 21:31 Antibiotics) Physical Exam Vitals: Vital Signs Temp Pulse Pulse Resp BP BP Pulse Ox 04/11/24 07:00 98.5 F 77 16 102/70 97 04/11/24 02:25 98.6 F 90 16 97/62 95 04/11/24 00:06 99.1 F 91 17 122/84 97 04/10/24 23:51 98.4 F 80 18 126/90 97 04/10/24 22:00 98.2 F 107 H 18 139/95 97 04/10/24 21:28 99.5 F 126 H 18 122/82 96 Intake and Output 04/10/24 04/11/24 04/11/24 22:59 06:59 14:59 Other: Voiding Method Toilet Toilet # Voids 4 Weight 72.575 kg 72.575 kg GENERAL: The patient is alert and oriented x3, not in any acute distress. Well developed, well nourished. HEENT: Pupils are round and equally reacting to light. EOMI. No scleral icterus. No conjunctival pallor. Normocephalic, atraumatic. No pharyngeal erythema. No thyromegaly. CARDIOVASCULAR: S1 and S2 present. No murmurs, rubs, or gallops. PULMONARY: Chest is clear to auscultation, no wheezing , no crackles. -ABDOMEN: Soft, Mild suprapubic tenderness with no guarding or rebound tenderness, nondistended, normoactive bowel sounds. No palpable organomegaly. MUSCULOSKELETAL: No joint swelling or deformity. EXTREMITIES: No cyanosis, clubbing, or pedal edema. NEUROLOGICAL: Gross neurological examination did not reveal any focal deficits. SKIN: No rashes. no petechiae. Results CBC & Chem 7: 04/11/24 06:30 04/11/24 06:30 Labs: Abnormal Lab Results - Last 24 Hours (Table) 04/10/24 04/10/24 04/10/24 Range/Units 22:09 22:20 22:20 Hgb (11.4-16.0) gm/dL MCHC (31.0-37.0) g/dL Chloride (98-107) mmol/L Carbon Dioxide 20 L (22-30) mmol/L Glucose 156 H (74-99) mg/dL Plasma Lactic Acid Eduardo 2.1 H* (0.7-2.0) mmol/L ALT 58 H (4-34) U/L Urine Appearance Cloudy H (Clear) Urine RBC >182 H (0-5) /hpf Urine WBC 10 H (0-5) /hpf Ur Squamous Epith Cells 6 H (0-4) /hpf Amorphous Sediment Rare H (None) /hpf Urine Bacteria Few H (None) /hpf 04/11/24 04/11/24 Range/Units 06:30 06:30 Hgb 10.9 L (11.4-16.0) gm/dL MCHC 30.8 L (31.0-37.0) g/dL Chloride 112 H (98-107) mmol/L Carbon Dioxide (22-30) mmol/L Glucose 100 H (74-99) mg/dL Plasma Lactic Acid Eduardo (0.7-2.0) mmol/L ALT (4-34) U/L Urine Appearance (Clear) Urine RBC (0-5) /hpf Urine WBC (0-5) /hpf Ur Squamous Epith Cells (0-4) /hpf Amorphous Sediment (None) /hpf Urine Bacteria (None) /hpf Thrombosis Risk Factor Assmnt - Choose All That Apply Any of the Below Risk Factors Present?: Yes Each Factor Represents 1 point: Age 41-60 years, Obesity (BMI >25) Other Risk Factors: No Other congenital or acquired thrombophilia - If yes, enter type in comment: No Thrombosis Risk Factor Assessment Total Risk Factor Score: 2 Thrombosis Risk Factor Assessment Level: Low Risk Assessment and Plan Assessment: Recurrent severe UTI failed outpatient treatment Migraine headache History of irritable bowel syndrome Diabetes mellitus Hypertension Hyperlipidemia History of osteoarthritis Hypothyroidism S/p cholecystectomy Irritable bowel syndrome History of cystitis and UTIs Anxiety and depression and ADHD Plan: Continue with ceftriaxone started by ID team will follow the case closely Follow-up urine culture Pain management Resume migraine medication including Fioricet Pyridium For dysuria Labs and medication were reviewed.. Continue same treatment. Continue with symptomatic treatment. Resume home medication. Monitor lytes and vitals. DVT and GI prophylaxis. Further recommendations depends on the clinical course of the patient DVT prophylaxis: Subcutaneous heparin GI Prophylaxis: Pepcid PT/OT: Pending Prognosis is guarded
[2024-04-11] MEDS: HYDROcodone/APAP 5-325MG 1 EACH TAB PO PRN (15:31)
[2024-04-11] MEDS: PHENAZOPYRIDINE 100 MG TAB PO SCH (15:32)
[2024-04-11 17:16] LABS: Glucose,Whole Blood 151 mg/dL (70-110)
[2024-04-11] MEDS: FERROUS SULFATE 325 MG TAB PO SCH (18:04)
[2024-04-11 21:29] LABS: Glucose,Whole Blood 123 mg/dL (70-110)
[2024-04-11] MEDS: busPIRone HCl 10 MG TAB PO SCH (22:01)
[2024-04-11] MEDS: VORICONAZOLE 200 MG TAB PO SCH (22:03)
[2024-04-11] MEDS: metFORMIN 500 MG TAB PO SCH (22:09)
--- NOTE | 2024-04-11 22:21 | P.CONS ---
History of Present Illness - Reason for Consult Consult date: 04/11/24 Suprapubic pain history of fungal UTI Requesting physician: Dee Dee Hodges - Chief Complaint Burning of urine and vaginal drainage x days - History of Present Illness Patient is a 48-year-old female with a past medical history significant for diabetes mellitus hypertension hyperlipidemia did have history of recurrent UTI and C. difficile colitis patient presenting to the hospital for evaluation of dysuria and frequency and this patient symptom has been getting worse for the last day or 2 patient denies any suprapubic or flank pain did have nausea but no vomiting denies any headache no chest pain shortness of breath or cough or any diarrhea with the symptoms the patient presented to hospital on arrival to the patient did have a low-grade fever of 99.5 F patient was not tachycardic hypotensive or hypoxic patient did have a white count of 10.0 creatinine was normal her lactic acid was 2.1 ALT mildly elevated urine has been positive cloudy and WBC more than 182 RBC cultures obtained which are currently pending patient was started on voriconazole IV because of her history of Colette glabrata UTI infectious he was consulted for further management of antibiotic therapy patient did mention also having problem with vaginal yeast infection mostly with irritation and drainage in the genital area Review of Systems Positive point and negatives has been mentioned in the HPI, complete review of systems was performed and all other systems are negative Past Medical History Past Medical History: Diabetes Mellitus, Eye Disorder, Hyperlipidemia, Hypertension, Renal Disease Additional Past Medical History / Comment(s): GLAUCOMA; MIGRAINES, IBS,cystitis, retinal distachment right eye with repair, uti History of Any Multi-Drug Resistant Organisms: C-DIFF Year Discovered:: May 2019 MDRO Source:: stool Past Surgical History: Appendectomy, Cholecystectomy Additional Past Surgical History / Comment(s): OVARY SURGERY; BILAT EYE SURGERY, metal plate under right eye, [employer] and skin shunt Past Anesthesia/Blood Transfusion Reactions: Postoperative Nausea & Vomiting (PONV) Past Psychological History: ADD/ADHD, Anxiety, Depression Smoking Status: Never smoker Past Alcohol Use History: None Reported Past Drug Use History: None Reported - Past Family History Mother Family Medical History: COPD, Diabetes Mellitus Father Family Medical History: Coronary Artery Disease (CAD), Diabetes Mellitus Additional Family Medical History / Comment(s): dad Medications and Allergies Home Medications Medication Instructions Recorded Confirmed Type Atorvastatin [Lipitor] 20 mg PO DAILY 10/07/14 04/11/24 History FLUoxetine HCL 40 mg PO DAILY 10/07/14 04/11/24 History Ibuprofen [Motrin] 800 mg PO Q8HR PRN 10/07/14 04/11/24 History Loratadine [Claritin] 10 mg PO DAILY 10/07/14 04/11/24 History Acyclovir 400 mg PO DAILY 01/19/21 04/11/24 History Cyclobenzaprine [Flexeril] 10 mg PO BID PRN 01/19/21 04/11/24 History Fluticasone Nasal [place] [Flonase 1 spr EA NOSTRIL BID PRN 01/19/21 04/11/24 History Nasal [place]] Pantoprazole [Protonix] 40 mg PO DAILY 01/19/21 04/11/24 History busPIRone HCL 15 mg PO BID 01/19/21 04/11/24 History Butalb/APAP/Caff 50-325-40Mg 1 tab PO TID PRN #12 tab 01/21/21 04/11/24 Rx [Fioricet 50-325-40] Lisdexamfetamine Dimesylate 60 mg PO DAILY 11/15/23 04/11/24 History [Vyvanse] Semaglutide [Wegovy] 2.4 mg SQ TH 11/15/23 04/11/24 History hydrOXYzine HCL [Atarax] 50 mg PO BID PRN 11/15/23 04/11/24 History metFORMIN HCL 1,000 mg PO BID 11/15/23 04/11/24 History Acetaminophen Tab [Tylenol] 650 mg PO Q4HR PRN tab 11/16/23 04/11/24 Rx Calcium Carbonate [Tums] 500 mg PO TID PRN tab 02/05/24 04/11/24 Rx Cyanocobalamin [Vitamin B-12] 1,000 mcg PO DAILY #30 tab 02/05/24 04/11/24 Rx Ferrous Sulfate [Iron (65 MG 325 mg PO BID-W/MEALS #60 tab 02/05/24 04/11/24 Rx Elemental)] Folic Acid 1 mg PO DAILY #30 tab 02/05/24 04/11/24 Rx Loperamide [Imodium] 2 mg PO QID PRN #20 capsule 03/03/24 04/11/24 Rx Cephalexin [Keflex] 500 mg PO Q6HR 04/11/24 04/11/24 History Ondansetron Odt [Zofran ODT] 4 mg PO DAILY PRN 04/11/24 04/11/24 History Pentosan Polysulfate Sodium 100 mg PO TID 04/11/24 04/11/24 History [Elmiron] Acetaminophen-Codeine 300-30mg 1 each PO Q6HR PRN #12 tab 04/15/24 Rx [Tylenol w/codeine #3] Nystatin 100,000 Unit/gm Powd 1 applic TOPICAL BID #15 gm 04/15/24 Rx [Mycostatin Powder] Ondansetron [Zofran] 4 mg PO Q8HR PRN #12 tab 04/15/24 Rx Phenazopyridine [Pyridium] 200 mg PO TID 2 Days #6 tab 04/15/24 Rx Allergies Allergy/AdvReac Type Severity Reaction Status Date / Time ciprofloxacin [From Cipro] Allergy Rash/Hives Verified 04/10/24 21:31 ciprofloxacin HCl Allergy Rash/Hives Verified 04/10/24 21:31 [From Cipro] Sulfa (Sulfonamide Allergy Rash/Hives Verified 04/10/24 21:31 Antibiotics) Physical Exam Vitals: Vital Signs Temp Pulse Pulse Resp BP BP Pulse Ox 04/11/24 07:00 98.5 F 77 16 102/70 97 04/11/24 02:25 98.6 F 90 16 97/62 95 04/11/24 00:06 99.1 F 91 17 122/84 97 04/10/24 23:51 98.4 F 80 18 126/90 97 04/10/24 22:00 98.2 F 107 H 18 139/95 97 04/10/24 21:28 99.5 F 126 H 18 122/82 96 Intake and Output 04/10/24 04/11/24 04/11/24 22:59 06:59 14:59 Other: Voiding Method Toilet Toilet # Voids 4 Weight 72.575 kg 72.575 kg GENERAL DESCRIPTION: Middle-aged female lying in bed, no distress. No tachypnea or accessory muscle of respiration use. HEENT: Shows Pallor , no scleral icterus. Oral mucous membrane is dry. No pharyngeal erythema or thrush NECK: Trachea central, no thyromegaly. LUNGS: Unlabored breathing. Clear to auscultation anteriorly. No wheeze or crackle. HEART: S1, S2, regular rate and rhythm. No loud murmur ABDOMEN: Soft, no tenderness , guarding or rigidity, no organomegaly EXTREMITIES: No edema of feet. SKIN: No rash, no masses palpable. NEUROLOGICAL: The patient is awake, alert, oriented x3, mood and affect normal. Results CBC & Chem 7: 04/11/24 06:30 04/11/24 06:30 Labs: Abnormal Lab Results - Last 24 Hours (Table) 04/10/24 04/10/24 04/10/24 Range/Units 22:09 22:20 22:20 Hgb (11.4-16.0) gm/dL MCHC (31.0-37.0) g/dL Chloride (98-107) mmol/L Carbon Dioxide 20 L (22-30) mmol/L Glucose 156 H (74-99) mg/dL Plasma Lactic Acid Eduardo 2.1 H* (0.7-2.0) mmol/L ALT 58 H (4-34) U/L Urine Appearance Cloudy H (Clear) Urine RBC >182 H (0-5) /hpf Urine WBC 10 H (0-5) /hpf Ur Squamous Epith Cells 6 H (0-4) /hpf Amorphous Sediment Rare H (None) /hpf Urine Bacteria Few H (None) /hpf 04/11/24 04/11/24 Range/Units 06:30 06:30 Hgb 10.9 L (11.4-16.0) gm/dL MCHC 30.8 L (31.0-37.0) g/dL Chloride 112 H (98-107) mmol/L Carbon Dioxide (22-30) mmol/L Glucose 100 H (74-99) mg/dL Plasma Lactic Acid Eduardo (0.7-2.0) mmol/L ALT (4-34) U/L Urine Appearance (Clear) Urine RBC (0-5) /hpf Urine WBC (0-5) /hpf Ur Squamous Epith Cells (0-4) /hpf Amorphous Sediment (None) /hpf Urine Bacteria (None) /hpf Assessment and Plan (1) Urinary tract infection Status: Acute Code(s): N39.0 - URINARY TRACT INFECTION, SITE NOT SPECIFIED SNOMED Code(s): 85201206 (2) Vaginal candidiasis Status: Acute Code(s): B37.31 - ACUTE CANDIDIASIS OF VULVA AND VAGINA SNOMED Code(s): 03030559 Plan: 1patient presented to hospital with dysuria frequency concerning for symptomatic UTI in this patient who did have a previous history of Colette glabrata UTI also complaining of significant vaginal symptoms of burning irritat ion possible component of vaginal yeast infection 2-we will continue patient on voriconazole however switch to p.o. and Rocephin to cover for the gram-negative while waiting for the culture to finalize Question concern answered We will follow on clinical condition and cultures to further adjust medication if needed Thank you for this consultation we will follow the patient along with you Dictation was produced using [email or web address] dictation software. please excuse any grammatical, word or spelling errors. Time with Patient: Greater than 30
[2024-04-12 06:36] LABS: Glucose,Whole Blood 151 mg/dL (70-110)
[2024-04-12] MEDS: PANTOPRAZOLE 40 MG TABLET PO SCH (06:59)
[2024-04-12] MEDS: ACYCLOVIR 200 MG CAP PO SCH (08:21)
[2024-04-12] MEDS: FOLIC ACID 1 MG TAB PO SCH (08:23)
[2024-04-12] MEDS: FLUoxetine HCL 20 MG CAP PO SCH (08:23)
[2024-04-12] MEDS: LORATADINE 10 MG TAB PO SCH (08:24)
[2024-04-12] MEDS: CYANOCOBALAMIN 500 MCG TAB PO SCH (08:24)
[2024-04-12] MEDS: ATORVASTATIN 20 MG TAB PO SCH (08:24)
[2024-04-12 11:56] LABS: Glucose,Whole Blood 116 mg/dL (70-110)
[2024-04-12] MEDS: HYDROcodone/APAP 7.5-325MG 1 EACH TAB PO PRN (12:27)
[2024-04-12] MEDS: LISDEXAMFETAMINE DIMESYLATE 60 MG PO SCH (12:32)
[2024-04-12] MEDS: PHENAZOPYRIDINE 200 MG TAB PO SCH (16:44)
--- NOTE | 2024-04-12 16:47 | P.PN ---
Subjective Progress Note Date: 04/12/24 Principal diagnosis: Reason for follow-up is UTI and vaginal candidiasis Patient is a 48-year-old female with a past medical history significant for diabetes mellitus hypertension hyperlipidemia did have history of recurrent UTI and C. difficile colitis patient presenting to the hospital for evaluation of dysuria and frequency , Patient did have positive UA concerning for symptomatic UTI. On today's evaluation that is 04/12/2024, Patient is afebrile patient is curr ently on room air and denies having any shortness of breath, the patient denies any chest pain or cough, the patient denies any nausea vomiting did not have any abdominal pain and no diarrhea, still complaining of urinary burning and vaginal drainage. No new labs has been obtained today cultures pending Objective - Vital Signs Vital signs: Vital Signs Temp 98 F 04/12/24 07:00 Pulse 81 04/12/24 08:00 Resp 16 04/12/24 08:00 BP 103/68 04/12/24 07:00 Pulse Ox 98 04/12/24 07:00 FiO2 Intake & Output 04/11/24 04/12/24 04/12/24 18:59 06:59 18:59 Intake Total 238 Balance 238 Intake: Oral 238 Other: Voiding Method Toilet Toilet Toilet # Voids 4 - Exam GENERAL DESCRIPTION: Middle-aged female lying in bed in no distress RESPIRATORY SYSTEM: Unlabored breathing , decreased breath sounds at bases HEART: S1 S2 regular rate and rhythm , ABDOMEN: Soft , no tenderness EXTREMITIES: No edema feet - Labs CBC & Chem 7: 04/11/24 06:30 04/11/24 06:30 Labs: Abnormal Lab Results - Last 24 Hours (Table) 04/11/24 04/11/24 04/12/24 Range/Units 17:14 21:27 06:34 POC Glucose (mg/dL) 151 H 123 H 151 H (70-110) mg/dL Assessment and Plan (1) Urinary tract infection Current Visit: Yes Status: Acute Code(s): N39.0 - URINARY TRACT INFECTION, SITE NOT SPECIFIED SNOMED Code(s): 68567156 (2) Vaginal candidiasis Current Visit: No Status: Acute Code(s): B37.31 - ACUTE CANDIDIASIS OF VULVA AND VAGINA SNOMED Code(s): 68487730 Plan: 1patient presented to hospital with dysuria frequency concerning for symptomatic UTI in this patient who did have a previous history of Colette glabrata UTI also complaining of significant vaginal symptoms of burning irritation possible component of vaginal yeast infection 2-patient to continue with the Vfend and Rocephin while waiting for the culture to finalize Dictation was produced using [employer] dictation software. please excuse any grammatical, word or spelling errors. Time with Patient: Less than 30
[2024-04-12 17:25] LABS: Glucose,Whole Blood 189 mg/dL (70-110)
[2024-04-12 20:15] LABS: Glucose,Whole Blood 149 mg/dL (70-110)
[2024-04-12] MEDS: BUTALB/APAP/CAFF 50-325-40MG TAB PO PRN (21:20)
[2024-04-13 05:44] LABS: Glucose,Whole Blood 120 mg/dL (70-110)
[2024-04-13] MEDS: CYCLOBENZAPRINE 10 MG TAB PO PRN (09:05)
[2024-04-13] MEDS: CALCIUM CARBONATE 500 MG CHEWABLE PO PRN (09:05)
[2024-04-13] MEDS: ONDANSETRON 4 MG/2 ML VIAL IVP PRN (10:53)
[2024-04-13 12:45] LABS: Glucose,Whole Blood 125 mg/dL (70-110)
[2024-04-13 17:31] LABS: Glucose,Whole Blood 131 mg/dL (70-110)
[2024-04-13 20:40] LABS: Glucose,Whole Blood 166 mg/dL (70-110)
--- NOTE | 2024-04-14 01:00 | P.PN ---
Subjective This is a pleasant 48 years old female with past medical history of multiple medical problems as below. Presents because of dysuria Patient known case of urinary tract infection and she follows with urologist Dr. Brown who saw him 2 weeks ago and everything was good Last Monday she started having dysuria she came to emergency room and they pre scribed her Keflex. She returns from with worsening dysuria and suprapubic abdominal pain and tender ness. She denies headache dizziness or weakness or numbness. She gets migraine headache frequently as she states and [employer] works for her usually No chest pain or dyspnea or coughing She has some nausea but no vomiting or diarrhea or abdominal pain other than the suprapubic discomfort She denies smoking alcohol or illicit drugs Her PCP is Dr. Katlin Hernandez Patient states that the pain medication currently is not helping her and she request [facility]. Previous has used Toradol and works but not today. Risk and benefit explained and she is agreeable She is hemodynamically stable, she has low-grade fever 99.5, blood pressure is 102/70 CBC is unremarkable except for hemoglobin 10.9 with some evidence of hemodilution. BMP and liver enzymes were unremarkable Lactic acid was elevated came back to reference range at 1.2. Urine analysis suspicious for infection I called the lab to send a culture which is pending for now Patient started on voriconazole and cefepime She was admitted with infectious disease consult subjective Patient still feels dysuria and suprapubic pain. We increased her pain medication dose of [facility] 5 mg up to 7.5 mg and Pyridium to 200 mg for better symptom control. She remains on ceftriaxone and antifungal medication Objective - Vital Signs Vital signs: Vital Signs Temp 98.5 F 04/13/24 07:00 Pulse 71 04/13/24 07:00 Resp 16 04/13/24 07:00 BP 115/79 04/13/24 07:00 Pulse Ox 97 04/13/24 07:00 FiO2 Intake & Output 04/12/24 04/13/24 04/13/24 18:59 06:59 18:59 Intake Total 118 Balance 118 Intake: Oral 118 Other: Voiding Method Toilet Toilet Toilet # Voids 3 - Exam GENERAL: The patient is alert and oriented x3, not in any acute distress. Well developed, well nourished. HEENT: Pupils are round and equally reacting to light. EOMI. No scleral icterus. No conjunctival pallor. Normocephalic, atraumatic. No pharyngeal erythema. No thyromegaly. CARDIOVASCULAR: S1 and S2 present. No murmurs, rubs, or gallops. PULMONARY: Chest is clear to auscultation, no wheezing , no crackles. -ABDOMEN: Soft, suprapubic tenderness r, nondistended, normoactive bowel sounds. No palpable organomegaly. MUSCULOSKELETAL: No joint swelling or deformity. EXTREMITIES: No cyanosis, clubbing, or pedal edema. NEUROLOGICAL: Gross neurological examination did not reveal any focal deficits. SKIN: No rashes. no petechiae. - Labs CBC & Chem 7: 04/11/24 06:30 04/11/24 06:30 Labs: Abnormal Lab Results - Last 24 Hours (Table) 04/12/24 04/12/24 04/13/24 Range/Units 17:23 20:13 05:42 POC Glucose (mg/dL) 189 H 149 H 120 H (70-110) mg/dL 04/13/24 Range/Units 12:44 POC Glucose (mg/dL) 125 H (70-110) mg/dL Microbiology - Last 24 Hours (Table) 04/10/24 10:00 Urine Culture - Final Urine,Voided Assessment and Plan Assessment: Recurrent severe UTI failed outpatient treatment. Suspected gram-negative bacteria versus fungal infection Migraine headache currently stable History of irritable bowel syndrome Diabetes mellitus Hypertension Hyperlipidemia History of osteoarthritis Hypothyroidism S/p cholecystectomy Irritable bowel syndrome History of cystitis and UTIs Anxiety and depression and ADHD Plan: Continue with ceftriaxone and vericonazole Pain management Resume migraine medication including Fioricet Pyridium For dysuria Labs and medication were reviewed.. Continue same treatment. Continue with symptomatic treatment. Resume home medication. Monitor lytes and vitals. DVT and GI prophylaxis. Further recommendations depends on the clinical course of the patient DVT prophylaxis: Subcutaneous heparin GI Prophylaxis: Pepcid PT/OT: Pending Prognosis is guarded
[2024-04-14 05:59] LABS: Glucose,Whole Blood 132 mg/dL (70-110)
[2024-04-14 12:31] LABS: Glucose,Whole Blood 147 mg/dL (70-110)
--- NOTE | 2024-04-14 17:21 | P.PN ---
Subjective Progress Note Date: 04/13/24 Principal diagnosis: Reason for follow-up is UTI and vaginal candidiasis Patient is a 48-year-old female with a past medical history significant for diabetes mellitus hypertension hyperlipidemia did have history of recurrent UTI and C. difficile colitis patient presenting to the hospital for evaluation of dysuria and frequency , Patient did have positive UA concerning for symptomatic UTI. On today's evaluation that is 04/13/2024, patient has been afebrile, patient is breathing comfortably and is currently on room air, patient denies having any significant cough no chest pain shortness of breath, patient denies nausea vomiting or diarrhea and no abdominal pain, patient complaining of urinary burning overall return and drainage has improved No new labs obtained today Objective - Vital Signs Vital signs: Vital Signs Temp 97.7 F 04/13/24 15:00 Pulse 70 04/13/24 15:00 Resp 16 04/13/24 15:00 BP 105/73 04/13/24 15:00 Pulse Ox 97 04/13/24 15:00 FiO2 Intake & Output 04/12/24 04/13/24 04/13/24 18:59 06:59 18:59 Intake Total 354 Balance 354 Intake: Oral 354 Other: Voiding Method Toilet Toilet Toilet # Voids 3 10 # Bowel Movements 2 - Exam GENERAL DESCRIPTION: Middle-aged female lying in bed in no distress RESPIRATORY SYSTEM: Unlabored breathing , decreased breath sounds at bases HEART: S1 S2 regular rate and rhythm , ABDOMEN: Soft , no tenderness EXTREMITIES: No edema feet - Labs CBC & Chem 7: 04/11/24 06:30 04/11/24 06:30 Labs: Abnormal Lab Results - Last 24 Hours (Table) 04/12/24 04/12/24 04/13/24 Range/Units 17:23 20:13 05:42 POC Glucose (mg/dL) 189 H 149 H 120 H (70-110) mg/dL 04/13/24 Range/Units 12:44 POC Glucose (mg/dL) 125 H (70-110) mg/dL Assessment and Plan (1) Urinary tract infection Current Visit: Yes Status: Acute Code(s): N39.0 - URINARY TRACT INFECTION, SITE NOT SPECIFIED SNOMED Code(s): 76417070 (2) Vaginal candidiasis Current Visit: No Status: Acute Code(s): B37.31 - ACUTE CANDIDIASIS OF VULVA AND VAGINA SNOMED Code(s): 10049993 Plan: 1patient presented to hospital with dysuria frequency concerning for symptomatic UTI in this patient who did have a previous history of Colette glabrata UTI also complaining of significant vaginal symptoms of burning irritation possible component of vaginal yeast infection 2-patient currently being treated with the Vfend and Rocephin while waiting for the culture to finalize and monitor clinical course closely Dictation was produced using [employer] dictation software. please excuse any grammatical, word or spelling errors. Time with Patient: Less than 30
--- NOTE | 2024-04-14 17:22 | P.PN ---
Subjective Progress Note Date: 04/14/24 Principal diagnosis: Reason for follow-up is UTI and vaginal candidiasis Patient is a 48-year-old female with a past medical history significant for diabetes mellitus hypertension hyperlipidemia did have history of recurrent UTI and C. difficile colitis patient presenting to the hospital for evaluation of dysuria and frequency , Patient did have positive UA concerning for symptomatic UTI. On today's evaluation that is 04/14/2024,the patient denies any fever or any chills, patient is breathing comfortably on room air, the patient denies chest pain shortness of breath and no significant cough, patient denies abdominal pain, no nausea vomiting or diarrhea. Patient did complain of urinary burning and frequency the mention improvement in the vaginal drainage. Patient urine culture negative and no new labs has been obtained today Objective - Vital Signs Vital signs: Vital Signs Temp 97.8 F 04/14/24 07:00 Pulse 83 04/14/24 14:05 Resp 16 04/13/24 20:00 BP 117/82 04/14/24 14:05 Pulse Ox 97 04/14/24 14:05 FiO2 Intake & Output 04/13/24 04/14/24 04/14/24 18:59 06:59 18:59 Intake Total 354 738 Balance 354 738 Intake: Oral 354 738 Other: Voiding Method Toilet Toilet Toilet # Voids 10 6 2 # Bowel Movements 2 - Exam GENERAL DESCRIPTION: Middle-aged female lying in bed in no distress RESPIRATORY SYSTEM: Unlabored breathing , decreased breath sounds at bases HEART: S1 S2 regular rate and rhythm , ABDOMEN: Soft , no tenderness EXTREMITIES: No edema feet - Labs CBC & Chem 7: 04/11/24 06:30 04/11/24 06:30 Labs: Abnormal Lab Results - Last 24 Hours (Table) 04/13/24 04/13/24 04/14/24 Range/Units 17:29 20:34 05:57 POC Glucose (mg/dL) 131 H 166 H 132 H (70-110) mg/dL 04/14/24 Range/Units 12:29 POC Glucose (mg/dL) 147 H (70-110) mg/dL Assessment and Plan (1) Urinary tract infection Current Visit: Yes Status: Acute Code(s): N39.0 - URINARY TRACT INFECTION, SITE NOT SPECIFIED SNOMED Code(s): 25847985 (2) Vaginal candidiasis Current Visit: No Status: Acute Code(s): B37.31 - ACUTE CANDIDIASIS OF VULVA AND VAGINA SNOMED Code(s): 86582911 Plan: 1patient presented to hospital with dysuria frequency concerning for symptomatic UTI in this patient who did have a previous history of Colette glabrata UTI also complaining of significant vaginal symptoms of burning irritation possible component of vaginal yeast infection 2-patient reporting improvement in her vaginal drainage symptoms however still complaining of urinary frequency burning urine culture has been negative I will repeat a UA and for now continue with Rocephin and voriconazole Dictation was produced using [employer] dictation software. please excuse any grammatical, word or spelling errors. Time with Patient: Less than 30
[2024-04-14 17:42] LABS: Glucose,Whole Blood 161 mg/dL (70-110)
[2024-04-14 18:10] LABS: Appearance,Urine Clear (Clear); Bacteria,Urine Occasional /hpf; Bilirubin,Urine Negative (Negative); Blood,Urine Moderate (Negative); Color,Urine Brown; Glucose,Urine (UA) Negative (Negative); Ketones,Urine Negative (Negative); Leukocyte Esterase,Urine Negative (Negative); Nitrite,Urine Negative (Negative); PH, Urine 5.5 (5.0-8.0); Protein,Urine Negative (Negative); RBC,Urine 11 /hpf (0-5); Specific Gravity,Urine 1.006 (1.001-1.035); Squamous Epithelial Cell,Urine 1 /hpf (0-4); Urobilinogen,Urine <2.0 mg/dL (<2.0); WBC,Urine 1 /hpf (0-5)
[2024-04-14 20:05] LABS: Glucose,Whole Blood 169 mg/dL (70-110)
[2024-04-15] MEDS: HYDROcodone/APAP 5-325MG 1 EACH TAB PO PRN (00:51)
--- NOTE | 2024-04-15 05:30 | P.PN ---
Subjective Date of service for this note is 04/14/2024 This is a pleasant 48 years old female with past medical history of multiple medical problems as below. Presents because of dysuria Patient known case of urinary tract infection and she follows with urologist Dr. Brown who saw him 2 weeks ago and everything was good Last Monday she started having dysuria she came to emergency room and they prescribed her Keflex. She returns from with worsening dysuria and suprapubic abdominal pain and tenderness. She denies headache dizziness or weakness or numbness. She gets migraine headache frequently as she states and [employer] works for her usually No chest pain or dyspnea or coughing She has some nausea but no vomiting or diarrhea or abdominal pain other than the suprapubic discomfort She denies smoking alcohol or illicit drugs Her PCP is Dr. Katlin Hernandez Patient states that the pain medication currently is not helping her and she request [place]. Previous has used Toradol and works but not today. Risk and benefit explained and she is agreeable She is hemodynamically stable, she has low-grade fever 99.5, blood pressure is 102/70 CBC is unremarkable except for hemoglobin 10.9 with some evidence of hemodilution. BMP and liver enzymes were unremarkable Lactic acid was elevated came back to reference range at 1.2. Urine analysis suspicious for infection I called the lab to send a culture which is pending for now Patient started on voriconazole and cefepime She was admitted with infectious disease consult subjective Patient still feels dysuria and suprapubic pain. We increased her pain medication dose of [place] 5 mg up to 7.5 mg and Pyridium to 200 mg for better symptom control. She remains on ceftriaxone and antifungal medication 04/14/2024 Patient is awake and alert No suprapubic pain is improving, advised to limit [place] 7.5 down to 5 mg but wants to keep the Toradol Still has dysuria On ceftriaxone and variconazole urine culture is showing no growth after 48 hours Repeat urinalysis showing improvement Objective - Vital Signs Vital signs: Vital Signs Temp 97.9 F 04/15/24 02:00 Pulse 72 04/15/24 02:00 Resp 16 04/15/24 02:00 BP 104/71 04/15/24 02:00 Pulse Ox 97 04/15/24 02:00 FiO2 Intake & Output 04/14/24 04/14/24 04/15/24 06:59 18:59 06:59 Intake Total 738 Balance 738 Intake: Oral 738 Other: Voiding Method Toilet Toilet Toilet # Voids 6 2 1 - Exam GENERAL: The patient is alert and oriented x3, not in any acute distress. Well developed, well nourished. HEENT: Pupils are round and equally reacting to light. EOMI. No scleral icterus. No conjunctival pallor. Normocephalic, atraumatic. No pharyngeal erythema. No thyromegaly. CARDIOVASCULAR: S1 and S2 present. No murmurs, rubs, or gallops. PULMONARY: Chest is clear to auscultation, no wheezing , no crackles. -ABDOMEN: Soft, suprapubic tenderness r, nondistended, normoactive bowel sounds. No palpable organomegaly. MUSCULOSKELETAL: No joint swelling or deformity. EXTREMITIES: No cyanosis, clubbing, or pedal edema. NEUROLOGICAL: Gross neurological examination did not reveal any focal deficits. SKIN: No rashes. no petechiae. - Labs CBC & Chem 7: 04/11/24 06:30 04/11/24 06:30 Labs: Abnormal Lab Results - Last 24 Hours (Table) 04/14/24 04/14/24 04/14/24 Range/Units 05:57 12:29 17:41 POC Glucose (mg/dL) 132 H 147 H 161 H (70-110) mg/dL Urine Blood (Negative) Urine RBC (0-5) /hpf Urine Bacteria (None) /hpf 04/14/24 04/14/24 Range/Units 17:52 20:04 POC Glucose (mg/dL) 169 H (70-110) mg/dL Urine Blood Moderate H (Negative) Urine RBC 11 H (0-5) /hpf Urine Bacteria Occasional H (None) /hpf Assessment and Plan Assessment: Recurrent severe UTI failed outpatient treatment. Suspected gram-negative bacteria versus fungal infection Migraine headache currently stable History of irritable bowel syndrome Diabetes mellitus Hypertension Hyperlipidemia History of osteoarthritis Hypothyroidism S/p cholecystectomy Irritable bowel syndrome History of cystitis and UTIs Anxiety and depression and ADHD Plan: Continue with ceftriaxone and vericonazole Pain management Resume migraine medication including Fioricet Pyridium For dysuria Labs and medication were reviewed.. Continue same treatment. Continue with symptomatic treatment. Resume home medication. Monitor lytes and vitals. DVT and GI prophylaxis. Further recommendations depends on the clinical course of the patient DVT prophylaxis: Subcutaneous heparin GI Prophylaxis: Pepcid PT/OT: Pending Prognosis is guarded
[2024-04-15 05:56] LABS: Glucose,Whole Blood 120 mg/dL (70-110)
[2024-04-15 08:05] VITALS: BP 132/83; PULSE 68; TEMP 98.2
--- NOTE | 2024-04-16 15:34 | P.PN ---
Subjective Progress Note Date: 04/15/24 Principal diagnosis: Reason for follow-up is UTI and vaginal candidiasis Patient is a 48-year-old female with a past medical history significant for diabetes mellitus hypertension hyperlipidemia did have history of recurrent UTI and C. difficile colitis patient presenting to the hospital for evaluation of dysuria and frequency , Patient did have positive UA concerning for symptomatic UTI. On today's evaluation that is 04/15/2024,the patient remains to be afebrile, patient is on room air not requiring supplemental oxygen and denies any shortness of breath no chest pain or cough.Patient denies having any nausea or vomiting, no abdominal pain and no diarrhea has been reported, patient mention improvement in her urinary symptoms. Repeat UA negative Objective - Vital Signs Vital signs: Vital Signs Temp 98.2 F 04/15/24 07:22 Pulse 68 04/15/24 07:22 Resp 16 04/15/24 08:26 BP 132/83 04/15/24 07:22 Pulse Ox 93 L 04/15/24 07:22 FiO2 Intake & Output 04/14/24 04/15/24 04/15/24 18:59 06:59 18:59 Intake Total 738 118 Balance 738 118 Intake: Oral 738 118 Other: Voiding Method Toilet Toilet Toilet # Voids 2 1 1 - Exam GENERAL DESCRIPTION: Middle-aged female lying in bed in no distress RESPIRATORY SYSTEM: Unlabored breathing , decreased breath sounds at bases HEART: S1 S2 regular rate and rhythm , ABDOMEN: Soft , no tenderness EXTREMITIES: No edema feet - Labs CBC & Chem 7: 04/11/24 06:30 04/11/24 06:30 Labs: Abnormal Lab Results - Last 24 Hours (Table) 04/14/24 04/14/24 04/14/24 Range/Units 12:29 17:41 17:52 POC Glucose (mg/dL) 147 H 161 H (70-110) mg/dL Urine Blood Moderate H (Negative) Urine RBC 11 H (0-5) /hpf Urine Bacteria Occasional H (None) /hpf 04/14/24 04/15/24 Range/Units 20:04 05:54 POC Glucose (mg/dL) 169 H 120 H (70-110) mg/dL Urine Blood (Negative) Urine RBC (0-5) /hpf Urine Bacteria (None) /hpf Assessment and Plan (1) Urinary tract infection Status: Acute Code(s): N39.0 - URINARY TRACT INFECTION, SITE NOT SPECIFIED SNOMED Code(s): 24648403 (2) Vaginal candidiasis Status: Acute Code(s): B37.31 - ACUTE CANDIDIASIS OF VULVA AND VAGINA SNOMED Code(s): 38513618 Plan: 1patient presented to hospital with dysuria frequency concerning for symptomatic UTI in this patient who did have a previous history of Colette glabrata UTI also complaining of significant vaginal symptoms of burning irritation possible component of vaginal yeast infection 2-patient reporting improvement in her vaginal drainage symptoms, the patient did have repeated negative UA has received adequate antibiotic and antifungal no need for antibiotic or antifungal on discharge discussed with the admitting team working on discharge Dictation was produced using [employer] dictation software. please excuse any gramm atical, word or spelling errors. Time with Patient: Less than 30
--- NOTE | 2024-04-16 15:54 | P.DS ---
Providers Date of admission: 04/10/24 22:48 Attending physician: Luz Almanza Consults: 04/10/24 22:47 Consult Physician Urgent Consulting Provider: Aranza Alonzo Consult Reason/Comments: suprapubic pain, hx fungal uti Do you want consulting provider notified?: Yes Primary care physician: Stated None Hospital Course: Final Diagnosis Recurrent severe UTI failed outpatient treatment. Urine culture negative. Migraine headache currently stable History of irritable bowel syndrome Diabetes mellitus Hypertension Hyperlipidemia History of osteoarthritis Hypothyroidism S/p cholecystectomy Irritable bowel syndrome History of cystitis and UTIs Anxiety and depression and ADHD Discharge Disposition Stable for discharge home recommended to follow-up closely with her known urologist in 1 to 2 weeks. Patient has an appointment made for April [address] Johnson. Patient to follow-up with her PCP Dr. Katlin Serrano in 1 to 2 days. Patient to follow-up with Dr. Ambriz in 1 week. Recommend to repeat blood work in 2 to 3 days. Hospital Course Is a 48-year-old female with medical history of diabetes mellitus, hypertension, hyperlipidemia, irritable bowel syndrome, hypothyroidism, cystitis chronic and follows up closely with urology outpatient. Patient comes in with complaints of dysuria and concern for urinary tract infection although she had just saw her urologist Dr. Johnson 2 weeks ago and everything was okay at that time. Patient complains of worsening dysuria and suprapubic abdominal pain and tenderness. She does get migraine headaches frequently and is on Fioricet for this. She is not having any nausea or vomiting or diarrhea or abdominal pain other than the suprapubic discomfort. Patient is hemodynamically stable but does have a low- grade fever of 99.5. Her white blood cell count is within normal limits. Patient did have a mildly elevated lactic acid which did improve down to 1.2. Her urinalysis was suspicious for infection and was sent for culture although this culture did come back negative. Patient was admitted to the hospital under medicine with an infectious disease consultation and started on voriconazole and cefepime. Patient was monitored on IV antibiotics and antifungal medications with improvement in her symptoms. She does have chronic cystitis and because her urine culture has come back negative ID is recommending no antibiotic treatment on discharge. Repeat urinalysis was done which shows significant improvement. Recommended to follow-up closely with her urologist. Patient will continue on a few more days of Pyridium on discharge. Please see medication reconciliation for a list of current medications. Thank you for allowing us to participate in the care of this patient. The impression and plan of care has been dictated by Mel Clayton, Nurse Practitioner as directed. Dr. Nneka MD I have performed a history and physical examination and medical decision making of this patient, discussed the same with the dictator, and agree with the dictators assessment and plan as written, documented as a scribe. Based on total visit time, I have performed more than 50% of this visit. Patient Condition at Discharge: Stable Plan - Discharge Summary New Discharge Prescriptions: New Nystatin 100,000 Unit/gm Powd [Mycostatin Powder] 1 applic TOPICAL BID #15 gm Acetaminophen-Codeine 300-30mg [Tylenol w/codeine #3] 1 each PO Q6HR PRN #12 tab PRN Reason: Pain Ondansetron [Zofran] 4 mg PO Q8HR PRN #12 tab PRN Reason: Nausea Phenazopyridine [Pyridium] 200 mg PO TID 2 Days #6 tab Continue Ibuprofen [Motrin] 800 mg PO Q8HR PRN PRN Reason: Pain Atorvastatin [Lipitor] 20 mg PO DAILY Loratadine [Claritin] 10 mg PO DAILY FLUoxetine HCL 40 mg PO DAILY Fluticasone Nasal [place] [Flonase Nasal [place]] 1 spr EA NOSTRIL BID PRN PRN Reason: Allergy Symptoms busPIRone HCL 15 mg PO BID Pantoprazole [Protonix] 40 mg PO DAILY Cyclobenzaprine [Flexeril] 10 mg PO BID PRN PRN Reason: Muscle Spasm Acyclovir 400 mg PO DAILY Butalb/APAP/Caff 50-325-40Mg [Fioricet 50-325-40] 1 tab PO TID PRN #12 tab PRN Reason: Migraine Headache Lisdexamfetamine Dimesylate [Vyvanse] 60 mg PO DAILY Ferrous Sulfate [Iron (65 MG Elemental)] 325 mg PO BID-W/MEALS #60 tab Calcium Carbonate [Tums] 500 mg PO TID PRN tab PRN Reason: Heartburn Loperamide [Imodium] 2 mg PO QID PRN #20 capsule PRN Reason: Diarrhea Pentosan Polysulfate Sodium [Elmiron] 100 mg PO TID Semaglutide [Wegovy] 2.4 mg SQ TH hydrOXYzine HCL [Atarax] 50 mg PO BID PRN PRN Reason: Anxiety metFORMIN HCL 1,000 mg PO BID Acetaminophen Tab [Tylenol] 650 mg PO Q4HR PRN tab PRN Reason: Fever And/ Or Pain Folic Acid 1 mg PO DAILY #30 tab Cyanocobalamin [Vitamin B-12] 1,000 mcg PO DAILY #30 tab Ondansetron Odt [Zofran ODT] 4 mg PO DAILY PRN PRN Reason: Nausea And Vomiting No Action Cephalexin [Keflex] 500 mg PO Q6HR Discharge Medication List Atorvastatin [Lipitor] 20 mg PO DAILY 10/07/14 [History] FLUoxetine HCL 40 mg PO DAILY 10/07/14 [History] Ibuprofen [Motrin] 800 mg PO Q8HR PRN 10/07/14 [History] Loratadine [Claritin] 10 mg PO DAILY 10/07/14 [History] Acyclovir 400 mg PO DAILY 01/19/21 [History] Cyclobenzaprine [Flexeril] 10 mg PO BID PRN 01/19/21 [History] Fluticasone Nasal [place] [Flonase Nasal [place]] 1 spr EA NOSTRIL BID PRN 01/19/21 [History] Pantoprazole [Protonix] 40 mg PO DAILY 01/19/21 [History] busPIRone HCL 15 mg PO BID 01/19/21 [History] Butalb/APAP/Caff 50-325-40Mg [Fioricet 50-325-40] 1 tab PO TID PRN #12 tab 01/21/21 [Rx] Lisdexamfetamine Dimesylate [Vyvanse] 60 mg PO DAILY 11/15/23 [History] Semaglutide [Wegovy] 2.4 mg SQ TH 11/15/23 [History] hydrOXYzine HCL [Atarax] 50 mg PO BID PRN 11/15/23 [History] metFORMIN HCL 1,000 mg PO BID 11/15/23 [History] Acetaminophen Tab [Tylenol] 650 mg PO Q4HR PRN tab 11/16/23 [Rx] Calcium Carbonate [Tums] 500 mg PO TID PRN tab 02/05/24 [Rx] Cyanocobalamin [Vitamin B-12] 1,000 mcg PO DAILY #30 tab 03/11/24 [Rx] Ferrous Sulfate [Iron (65 MG Elemental)] 325 mg PO BID-W/MEALS #60 tab 02/05/24 [Rx] Folic Acid 1 mg PO DAILY #30 tab 02/05/24 [Rx] Loperamide [Imodium] 2 mg PO QID PRN #20 capsule 03/03/24 [Rx] Cephalexin [Keflex] 500 mg PO Q6HR 04/11/24 [History] Ondansetron Odt [Zofran ODT] 4 mg PO DAILY PRN 04/11/24 [History] Pentosan Polysulfate Sodium [Elmiron] 100 mg PO TID 04/11/24 [History] Acetaminophen-Codeine 300-30mg [Tylenol w/codeine #3] 1 each PO Q6HR PRN #12 tab 04/15/24 [Rx] Nystatin 100,000 Unit/gm Powd [Mycostatin Powder] 1 applic TOPICAL BID #15 gm 04/15/24 [Rx] Ondansetron [Zofran] 4 mg PO Q8HR PRN #12 tab 04/15/24 [Rx] Phenazopyridine [Pyridium] 200 mg PO TID 2 Days #6 tab 04/15/24 [Rx] Follow up Appointment(s)/Referral(s): Robby Johnson MD [STAFF PHYSICIAN] - 04/23/24 9:00 am None,Stated [Primary Care Provider] - 1-2 days Aranza Alonzo MD [STAFF PHYSICIAN] - 1 Week Carol Serrano MD [REFERRING] - 1-2 Days Ambulatory/Diagnostic Orders: Basic Metabolic Panel [LAB.AMB] Time Frame: 3 Days, Location: None Selected Complete Blood Count w/diff [LAB.AMB] Location: None Selected Patient Instructions/Handouts: Urinary Tract Infection in Women (DC), Interstitial Cystitis (ED) Activity/Diet/Wound Care/Special Instructions: FOLLOW UP DIRECTED, SOONER FOR WORSENING SYMPTOMS, PROBLEMS OR CONCERNS. Discharge Disposition: HOME SELF-CARE
--- NOTE | 2024-04-18 15:33 | CDI ---
Documentation Clarification Form Date: 04/18/2024 03:24:50 PM From: Ramona Caldwell RN, CCDS Phone: [phone] Admit Date: 04/10/2024 10:48:00 PM Patient Name: Pam Pulido Visit Number: [id number] Discharge Date: 04/15/2024 12:53:00 PM ATTENTION: The Clinical Documentation Specialists (CDI) and [facility] Coding Staff appreciate your assistance in clarifying documentation. Please respond to the clarification below the line at the bottom and electronically sign. The CDI & [facility] Coding staff will review the response and follow-up if needed. Please note: Queries are made part of the Legal Health Record. If you have any questions, please contact the author of this message via ITS. Dr. Peralta E Sheet Documentation indicates the patient had elevated lactic acid level. Please clarify if there is an additional diagnosis and/or clinical significance related to this value. History/Risk Factors: DM, eye disorder, HLD, HTN, renal disease and UTI's. Presented with dysuria. Admitted with recurrent severe UTI failed outpatient treatment. Clinical indicators: 04/10-04/11 Lactic acid: 2.1-1.8 04/11 H&P: "BMP and liver enzymes were unremarkable. Lactic acid was elevated, came back to reference range at 1.2." 04/15 Discharge summary: "Patient did have a mildly elevated lactic acid which did improve down to 1.2." Treatment: lab monitoring; 1L 0.9 NS IV bolus x1 on 04/10 Is there an additional diagnosis and/or clinical significance related to the above lab result/information? [ ] Lactic acidosis [ ] No additional diagnosis/Not clinically significant [ x ] Other, please specify lactic acidemia [ ] Unable to determine MTDD
== END 2024-04-15 12:53 | disposition home or self-care (01) | DRG 463 ==
LOC: EC 21:27 → 6NMEDSUR 22:47 → OBSVTOIN 22:48 → 6NMEDSUR 23:30
PROVIDERS: ADMIT Hospitalist; ATTEND Hospitalist
DX: B37.49 Other urogenital candidiasis (principal); B37.31 Acute candidiasis of vulva and vagina; E03.9 Hypothyroidism, unspecified; E78.5 Hyperlipidemia, unspecified; F41.9 Anxiety disorder, unspecified; F32.A Depression, unspecified; N28.9 Disorder of kidney and ureter, unspecified; E87.20 Acidosis, unspecified; M19.90 Unspecified osteoarthritis, unspecified site; H40.9 Unspecified glaucoma; F90.9 Attention-deficit hyperactivity disorder, unspecified type; G43.909 Migraine, unspecified, not intractable, without status migrainosus; I10 Essential (primary) hypertension; K58.9 Irritable bowel syndrome, unspecified; N30.20 Other chronic cystitis without hematuria; Z79.899 Other long term (current) drug therapy; Z79.84 Long term (current) use of oral hypoglycemic drugs; Z87.440 Personal history of urinary (tract) infections; Z98.2 Presence of cerebrospinal fluid drainage device
CPT/HCPCS: 36415; 80048; 80053; 81001; 83036; 83605; 85025; 87086; 96365; 96368; 96375; 99285

== ENCOUNTER 2024-06-13 14:17 | Emergency (ER) | payer OTHER ==
--- NOTE | 2024-06-13 14:59 | ED ---
Headache HPI - General Chief Complaint: Headache Stated Complaint: headache,UTI Time Seen by Provider: 06/13/24 14:32 Source: patient, RN notes reviewed Mode of arrival: ambulatory Limitations: no limitations - History of Present Illness Initial Comments: 48-year-old female presents emergency department complaint of migraine, possible UTI. Patient states that she has frequent UTIs had a recent bladder suspension feeling better but states that she noticed blood in her urine again. Patient states she has mild back achiness denies any fevers chills night sweats. Patient states she has no nausea vomiting patient also states she has a migraine headache typical for her patient. 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 She states she had no issues with her shunt she states this is her normal migraine headache that she has to come the emergency department for. - Related Data Home Medications Medication Instructions Recorded Confirmed Atorvastatin [Lipitor] 20 mg PO DAILY 10/07/14 04/11/24 FLUoxetine HCL 40 mg PO DAILY 10/07/14 04/11/24 Ibuprofen [Motrin] 800 mg PO Q8HR PRN 10/07/14 04/11/24 Loratadine [Claritin] 10 mg PO DAILY 10/07/14 04/11/24 Acyclovir 400 mg PO DAILY 01/19/21 04/11/24 Cyclobenzaprine [Flexeril] 10 mg PO BID PRN 01/19/21 04/11/24 Fluticasone Nasal [place] [Flonase 1 spr EA NOSTRIL BID PRN 01/19/21 04/11/24 Nasal [place]] Pantoprazole [Protonix] 40 mg PO DAILY 01/19/21 04/11/24 busPIRone HCL 15 mg PO BID 01/19/21 04/11/24 Lisdexamfetamine Dimesylate 60 mg PO DAILY 11/15/23 04/11/24 [Vyvanse] Semaglutide [Wegovy] 2.4 mg SQ TH 11/15/23 04/11/24 hydrOXYzine HCL [Atarax] 50 mg PO BID PRN 11/15/23 04/11/24 metFORMIN HCL 1,000 mg PO BID 11/15/23 04/11/24 Cephalexin [Keflex] 500 mg PO Q6HR 04/11/24 04/11/24 Ondansetron Odt [Zofran ODT] 4 mg PO DAILY PRN 04/11/24 04/11/24 Pentosan Polysulfate Sodium 100 mg PO TID 04/11/24 04/11/24 [Elmiron] Previous Rx's Medication Instructions Recorded Butalb/APAP/Caff 50-325-40Mg 1 tab PO TID PRN #12 tab 01/21/21 [Fioricet 50-325-40] Acetaminophen Tab [Tylenol] 650 mg PO Q4HR PRN tab 11/16/23 Calcium Carbonate [Tums] 500 mg PO TID PRN tab 02/05/24 Cyanocobalamin [Vitamin B-12] 1,000 mcg PO DAILY #30 tab 02/05/24 Ferrous Sulfate [Iron (65 MG 325 mg PO BID-W/MEALS #60 tab 02/05/24 Elemental)] Folic Acid 1 mg PO DAILY #30 tab 02/05/24 Loperamide [Imodium] 2 mg PO QID PRN #20 capsule 03/03/24 Acetaminophen-Codeine 300-30mg 1 each PO Q6HR PRN #12 tab 04/15/24 [Tylenol w/codeine #3] Nystatin 100,000 Unit/gm Powd 1 applic TOPICAL BID #15 gm 04/15/24 [Mycostatin Powder] Ondansetron [Zofran] 4 mg PO Q8HR PRN #12 tab 04/15/24 Phenazopyridine [Pyridium] 200 mg PO TID 2 Days #6 tab 04/15/24 Cephalexin [Keflex] 500 mg PO Q8HR #21 cap 06/13/24 Cyclobenzaprine [Flexeril] 10 mg PO TID PRN #15 tab 06/13/24 Allergies Allergy/AdvReac Type Severity Reaction Status Date / Time ciprofloxacin [From Cipro] Allergy Rash/Hives Verified 06/13/24 14:20 ciprofloxacin HCl Allergy Rash/Hives Verified 06/13/24 14:20 [From Cipro] Sulfa (Sulfonamide Allergy Rash/Hives Verified 06/13/24 14:20 Antibiotics) Review of Systems ROS Statement: Those systems with pertinent positive or pertinent negative responses have been documented in the HPI. ROS Other: All systems not noted in ROS Statement are negative. Past Medical History Past Medical History: Diabetes Mellitus, Eye Disorder, Hyperlipidemia, Hypertension, Renal Disease Additional Past Medical History / Comment(s): GLAUCOMA; MIGRAINES, IBS History of Any Multi-Drug Resistant Organisms: C-DIFF Date of last positivie culture/infection: May 2019 MDRO Source:: stool Past Surgical History: Appendectomy, Cholecystectomy Additional Past Surgical History / Comment(s): OVARY SURGERY; BILAT EYE SURGERY, metal plate under eye Past Anesthesia/Blood Transfusion Reactions: Postoperative Nausea & Vomiting (PONV) Past Psychological History: ADD/ADHD, Depression Smoking Status: Never smoker Past Alcohol Use History: None Reported Past Drug Use History: None Reported - Past Family History Mother Family Medical History: COPD, Diabetes Mellitus Father Family Medical History: Coronary Artery Disease (CAD), Diabetes Mellitus Additional Family Medical History / Comment(s): dad General Exam Limitations: no limitations General appearance: alert, in no apparent distress Head exam: Present: atraumatic, normocephalic, normal inspection Eye exam: Present: normal appearance, PERRL, EOMI. Absent: scleral icterus, conjunctival injection, periorbital swelling ENT exam: Present: normal exam, mucous membranes moist Neck exam: Present: normal inspection, full ROM. Absent: tenderness, meningismus, lymphadenopathy Respiratory exam: Present: normal lung sounds bilaterally. Absent: respiratory distress, wheezes, rales, rhonchi, stridor Cardiovascular Exam: Present: regular rate, normal rhythm, normal heart sounds. Absent: systolic murmur, diastolic murmur, rubs, gallop, clicks GI/Abdominal exam: Present: soft, normal bowel sounds. Absent: distended, tenderness, guarding, rebound, rigid Neurological exam: Present: alert, oriented X3, CN II-XII intact, reflexes normal. Absent: motor sensory deficit Skin exam: Present: warm, dry, intact, normal color. Absent: rash Course Vital Signs 06/13/24 06/13/24 14:18 16:41 Temperature 98.8 F 98.3 F Pulse Rate 95 92 Respiratory 16 18 Rate Blood Pressure 114/75 117/86 O2 Sat by Pulse 98 98 Oximetry Medical Decision Making - Medical Decision Making Was pt. sent in by a medical professional or institution (, PA, SALES TRAINER, urgent care, hospital, or snf...) When possible be specific @ -No Did you speak to anyone other than the patient for history (EMS, parent, family, police, friend...)? What history was obtained from this source @ -No Did you review nursing and triage notes (agree or disagree)? Why? @ -I reviewed and agree with nursing and triage notes Were old charts reviewed (outside hosp., previous admission, EMS record, old EKG, old radiological studies, urgent care reports/EKG's, snf records)? Report findings @ -No old charts were reviewed Differential Diagnosis (chest pain, altered mental status, abdominal pain women, abdominal pain men, vaginal bleeding, weakness, fever, dyspnea, syncope, headache, dizziness, GI bleed, back pain, seizure, CVA, palpatations, mental health, musculoskeletal)? @ -Differential Headache: Migraine, tension, cluster, carbon monoxide, central venous thrombosis, pension karma temporal arteritis, acute closure glaucoma, intercranial hemorrhage, mastoiditis, sinusitis, head injury, this is not meant to be an all-inclusive list. EKG interpreted by me (3pts min.). @ -None X-rays interpreted by me (1pt min.). @ -None done CT interpreted by me (1pt min.). @ -None done U/S interpreted by me (1pt. min.). @ -None done What testing was considered but not performed or refused? (CT, X-rays, U/S, labs)? Why? @Consider shunt series outpatient symptoms improved and neurologically intact What meds were considered but not given or refused? Why? @ -None Did you discuss the management of the patient with other professionals (professionals i.e. , PA, SALES TRAINER, lab, RT, psych nurse, renal social worker, accuracy expert, teacher, business services officer, casey saw operator)? Give summary @ -No Was smoking cessation discussed for >3mins.? @ -No Was critical care preformed (if so, how long)? @ -No Were there social determinants of health that impacted care today? How? (Homelessness, low income, unemployed, alcoholism, drug addiction, transportation, low edu. Level, literacy, decrease access to med. care, fdc, rehab)? @ -No Was there de-escalation of care discussed even if they declined (Discuss DNR or withdrawal of care, Hospice)? DNR status @ -No What co-morbidities impacted this encounter? (DM, HTN, Smoking, COPD, CAD, Cancer, CVA, ARF, Chemo, Hep., AIDS, mental health diagnosis, sleep apnea, morbid obesity)? @ -None Was patient admitted / discharged? Hospital course, mention meds given and route, prescriptions, significant lab abnormalities, going to OR and other pertinent info. @ -Discharge patient presented for headache, UTI. Patient has nitrate positive urine may be skewed by prior radium. Patient was started at on oral antibiotics after receiving Rocephin. Patient had typical migraine headache was treated and states that she felt improved patient was offered shunt series felt that she was stable for discharge. Undiagnosed new problem with uncertain prognosis? @ -No Drug Therapy requiring intensive monitoring for toxicity (Heparin, Nitro, Insulin, Cardizem)? @ -No Were any procedures done? @ -No Diagnosis/symptom? @ -Migraine UTI Acute, or Chronic, or Acute on Chronic? @ -Acute Uncomplicated (without systemic symptoms) or Complicated (systemic symptoms)? @ -Uncomplicated Side effects of treatment? @ -No Exacerbation, Progression, or Severe Exacerbation? @ -No Poses a threat to life or bodily function? How? (Chest pain, [place], CO, pneumonia, PE, COPD, DKA, ARF, appy, cholecystitis, CVA, Diverticulitis, Homicidal, Suicidal, threat to staff... and all critical care pts) @ -No - Lab Data Result diagrams: 06/13/24 15:08 06/13/24 15:08 Lab Results 06/13/24 06/13/24 06/13/24 Range/Units 14:46 15:08 15:08 WBC 6.0 (3.8-10.6) k/uL RBC 4.87 (3.80-5.40) m/uL Hgb 12.6 (11.4-16.0) gm/dL Hct 39.9 (34.0-46.0) % MCV 81.8 (80.0-100.0) fL MCH 25.9 (25.0-35.0) pg MCHC 31.7 (31.0-37.0) g/dL RDW 14.3 (11.5-15.5) % Plt Count 435 (150-450) k/uL MPV 8.0 Neutrophils % 52 % Lymphocytes % 37 % Monocytes % 4 % Eosinophils % 6 % Basophils % 1 % Neutrophils # 3.1 (1.3-7.7) k/uL Lymphocytes # 2.2 (1.0-4.8) k/uL Monocytes # 0.2 (0-1.0) k/uL Eosinophils # 0.3 (0-0.7) k/uL Basophils # 0.1 (0-0.2) k/uL Hypochromasia Slight Sodium 140 (137-145) mmol/L Potassium 4.2 (3.5-5.1) mmol/L Chloride 109 H (98-107) mmol/L Carbon Dioxide 18 L (22-30) mmol/L Anion Gap 13 mmol/L BUN 8 (7-17) mg/dL Creatinine 0.55 (0.52-1.04) mg/dL Est GFR (CKD-EPI)AfAm >90 (>60 ml/min/1.73 sqM) Est GFR (CKD-EPI)NonAf >90 (>60 ml/min/1.73 sqM) Glucose 145 H (74-99) mg/dL Calcium 9.5 (8.4-10.2) mg/dL Total Bilirubin 0.4 (0.2-1.3) mg/dL AST 20 (14-36) U/L ALT 17 (4-34) U/L Alkaline Phosphatase 117 (38-126) U/L Total Protein 6.8 (6.3-8.2) g/dL Albumin 4.5 (3.5-5.0) g/dL Urine Color Brown Urine Appearance Clear (Clear) Urine pH 5.5 (5.0-8.0) Ur Specific [place] 1.022 (1.001-1.035) Urine Protein Trace H (Negative) Urine Glucose (UA) Negative (Negative) Urine Ketones Negative (Negative) Urine Blood Large H (Negative) Urine Nitrite Positive H (Negative) Urine Bilirubin Negative (Negative) Urine Urobilinogen <2.0 (<2.0) mg/dL Ur Leukocyte Esterase Trace H (Negative) Urine RBC >182 H (0-5) /hpf Urine WBC 3 (0-5) /hpf Ur Squamous Epith Cells 6 H (0-4) /hpf Urine Mucus Occasional H (None) /hpf Disposition Clinical Impression: Headache, UTI (urinary tract infection) Disposition: HOME SELF-CARE Condition: Stable Instructions (If sedation given, give patient instructions): Acute Headache (ED) Additional Instructions: Please return to the Emergency Department if symptoms worsen or any other concerns. Prescriptions: Cyclobenzaprine [Flexeril] 10 mg PO TID PRN #15 tab PRN Reason: Muscle Spasm Cephalexin [Keflex] 500 mg PO Q8HR #21 cap Is patient prescribed a controlled substance at d/c from ED?: No Referrals: Nonstaff,Physician [Primary Care Provider] - 1-2 days Time of Disposition: 16:14
[2024-06-13 15:14] LABS: Appearance,Urine Clear (Clear); Bilirubin,Urine Negative (Negative); Blood,Urine Large (Negative); Color,Urine Brown; Glucose,Urine (UA) Negative (Negative); Ketones,Urine Negative (Negative); Leukocyte Esterase,Urine Trace (Negative); Mucus,Urine Occasional /hpf; Nitrite,Urine Positive (Negative); PH, Urine 5.5 (5.0-8.0); Protein,Urine Trace (Negative); RBC,Urine >182 /hpf (0-5); Specific Gravity,Urine 1.022 (1.001-1.035); Squamous Epithelial Cell,Urine 6 /hpf (0-4); Urobilinogen,Urine <2.0 mg/dL (<2.0); WBC,Urine 3 /hpf (0-5)
[2024-06-13 15:14] LABS: Basophils # (A) 0.1 k/uL (0-0.2); Basophils % (A) 1 %; Eosinophils # (A) 0.3 k/uL (0-0.7); Eosinophils % (A) 6 %; HCT 39.9 % (34.0-46.0); HGB 12.6 gm/dL (11.4-16.0); Hypochromasia Slight; Lymphocytes # (A) 2.2 k/uL (1.0-4.8); Lymphocytes % (A) 37 %; MCH 25.9 pg (25.0-35.0); MCHC 31.7 g/dL (31.0-37.0); MCV 81.8 fL (80.0-100.0); Monocytes # (A) 0.2 k/uL (0-1.0); Monocytes % (A) 4 %; Neutrophils # (A) 3.1 k/uL (1.3-7.7); Neutrophils % (A) 52 %; Platelet Count 435 k/uL (150-450); RBC 4.87 m/uL (3.80-5.40); RDW 14.3 % (11.5-15.5)
[2024-06-13 15:29] LABS: ALT 17 U/L (4-34); AST 20 U/L (14-36); African American GFR (CKD) >90 (>60 ml/min/1.73 sqM); Albumin 4.5 g/dL (3.5-5.0); Alkaline Phosphatase 117 U/L (38-126); Anion Gap 13 mmol/L; Blood Urea Nitrogen 8 mg/dL (7-17); Calcium 9.5 mg/dL (8.4-10.2); Carbon Dioxide 18 mmol/L (22-30); Chloride 109 mmol/L (98-107); Glucose 145 mg/dL (74-99); Non-African American GFR(CKD) >90 (>60 ml/min/1.73 sqM); Potassium 4.2 mmol/L (3.5-5.1); Sodium 140 mmol/L (137-145); Total Bilirubin 0.4 mg/dL (0.2-1.3); Total Protein 6.8 g/dL (6.3-8.2)
[2024-06-13] MEDS: HYDROmorphone 0.5 MG/0.5 ML SYRINGE IVP STA ×2 (15:41→16:35)
[2024-06-13] MEDS: cefTRIAXone IN SWFI 1,000 MG/10 ML SYRINGE IVP STA (15:43)
[2024-06-13] MEDS: METOCLOPRAMIDE 5 MG/ML 2 ML VIAL IVP STA (15:43)
[2024-06-13] MEDS: ORPHENADRINE 30 MG/ML 2 ML VIAL IVP STA (15:44)
[2024-06-13] MEDS: KETOROLAC 15 MG/ML 1 ML VIAL IVP STA ×2 (15:44→16:34)
[2024-06-13] MEDS: SODIUM CHLORIDE 0.9% 1,000 ML IV ONE (16:07)
[2024-06-13 16:43] VITALS: BP 117/86; PULSE 92; RESP 18; TEMP 98.3
== END 2024-06-13 16:52 | disposition home or self-care (01) ==
LOC: EC 14:17
DX: R51.9 Headache, unspecified (principal); N39.0 Urinary tract infection, site not specified; Z88.2 Allergy status to sulfonamides; Z88.8 Allergy status to other drugs, medicaments and biological substances
CPT/HCPCS: 36415; 80053; 85025; 81001; 99284; 96374; 96375 ×5; 96376; 96361; J2360; J2765; J0696; J1885; J1170

== ENCOUNTER 2024-06-18 00:51 | Observation (INO) | payer OTHER ==
--- NOTE | 2024-06-18 01:10 | ED ---
Female Urogenital HPI - General Chief complaint: Urogenital Stated complaint: UTI Time Seen by Provider: 06/18/24 00:55 Source: patient, RN notes reviewed Mode of arrival: ambulatory Limitations: no limitations - History of Present Illness Initial comments: This is a 48-year-old female who presents to the emergency department for concerns of a UTI. Patient was evaluated here 5 days ago for burning with urination and states that she was found to have a UTI. She was started on Keflex, but states that she continues to get worse. She is now having fevers as well as nausea and vomiting. She has pain in the lower back and suprapubic region. Also reports severe burning with urination. She had bladder suspension surgery in March due to frequent UTIs and states that she was doing well until recently. She tried taking tramadol, however that was not effective for her pain. - Related Data Home Medications Medication Instructions Recorded Confirmed Atorvastatin [Lipitor] 20 mg PO DAILY 10/07/14 04/11/24 FLUoxetine HCL 40 mg PO DAILY 10/07/14 04/11/24 Ibuprofen [Motrin] 800 mg PO Q8HR PRN 10/07/14 04/11/24 Loratadine [Claritin] 10 mg PO DAILY 10/07/14 04/11/24 Acyclovir 400 mg PO DAILY 01/19/21 04/11/24 Cyclobenzaprine [Flexeril] 10 mg PO BID PRN 01/19/21 04/11/24 Fluticasone Nasal [place] [Flonase 1 spr EA NOSTRIL BID PRN 01/19/21 04/11/24 Nasal [place]] Pantoprazole [Protonix] 40 mg PO DAILY 01/19/21 04/11/24 busPIRone HCL 15 mg PO BID 01/19/21 04/11/24 Lisdexamfetamine Dimesylate 60 mg PO DAILY 11/15/23 04/11/24 [Vyvanse] Semaglutide [Wegovy] 2.4 mg SQ TH 11/15/23 04/11/24 hydrOXYzine HCL [Atarax] 50 mg PO BID PRN 11/15/23 04/11/24 metFORMIN HCL 1,000 mg PO BID 11/15/23 04/11/24 Cephalexin [Keflex] 500 mg PO Q6HR 04/11/24 04/11/24 Ondansetron Odt [Zofran ODT] 4 mg PO DAILY PRN 04/11/24 04/11/24 Pentosan Polysulfate Sodium 100 mg PO TID 04/11/24 04/11/24 [Elmiron] Previous Rx's Medication Instructions Recorded Butalb/APAP/Caff 50-325-40Mg 1 tab PO TID PRN #12 tab 01/21/21 [Fioricet 50-325-40] Acetaminophen Tab [Tylenol] 650 mg PO Q4HR PRN tab 11/16/23 Calcium Carbonate [Tums] 500 mg PO TID PRN tab 02/05/24 Cyanocobalamin [Vitamin B-12] 1,000 mcg PO DAILY #30 tab 02/05/24 Ferrous Sulfate [Iron (65 MG 325 mg PO BID-W/MEALS #60 tab 02/05/24 Elemental)] Folic Acid 1 mg PO DAILY #30 tab 02/05/24 Loperamide [Imodium] 2 mg PO QID PRN #20 capsule 03/03/24 Acetaminophen-Codeine 300-30mg 1 each PO Q6HR PRN #12 tab 04/15/24 [Tylenol w/codeine #3] Nystatin 100,000 Unit/gm Powd 1 applic TOPICAL BID #15 gm 04/15/24 [Mycostatin Powder] Ondansetron [Zofran] 4 mg PO Q8HR PRN #12 tab 04/15/24 Phenazopyridine [Pyridium] 200 mg PO TID 2 Days #6 tab 04/15/24 Cephalexin [Keflex] 500 mg PO Q8HR #21 cap 06/13/24 Cyclobenzaprine [Flexeril] 10 mg PO TID PRN #15 tab 06/13/24 Allergies Allergy/AdvReac Type Severity Reaction Status Date / Time ciprofloxacin [From Cipro] Allergy Rash/Hives Verified 06/13/24 14:20 ciprofloxacin HCl Allergy Rash/Hives Verified 06/13/24 14:20 [From Cipro] Sulfa (Sulfonamide Allergy Rash/Hives Verified 06/13/24 14:20 Antibiotics) Review of Systems ROS Statement: Those systems with pertinent positive or pertinent negative responses have been documented in the HPI. ROS Other: All systems not noted in ROS Statement are negative. Past Medical History Past Medical History: Diabetes Mellitus, Eye Disorder, Hyperlipidemia, Hypertension, Renal Disease Additional Past Medical History / Comment(s): GLAUCOMA; MIGRAINES, IBS History of Any Multi-Drug Resistant Organisms: C-DIFF Date of last positivie culture/infection: May 2019 MDRO Source:: stool Past Surgical History: Appendectomy, Cholecystectomy Additional Past Surgical History / Comment(s): OVARY SURGERY; BILAT EYE SURGERY, metal plate under eye Past Anesthesia/Blood Transfusion Reactions: Postoperative Nausea & Vomiting (PONV) Past Psychological History: ADD/ADHD, Depression Smoking Status: Never smoker Past Alcohol Use History: None Reported Past Drug Use History: None Reported - Past Family History Mother Family Medical History: COPD, Diabetes Mellitus Father Family Medical History: Coronary Artery Disease (CAD), Diabetes Mellitus Additional Family Medical History / Comment(s): dad General Exam Limitations: no limitations General appearance: alert, in no apparent distress Head exam: Present: atraumatic, normocephalic, normal inspection Respiratory exam: Present: normal lung sounds bilaterally. Absent: respiratory distress, wheezes, rales, rhonchi, stridor Cardiovascular Exam: Present: regular rate, normal rhythm, normal heart sounds. Absent: systolic murmur, diastolic murmur, rubs, gallop, clicks GI/Abdominal exam: Present: soft, tenderness (Suprapubic). Absent: distended Neurological exam: Present: alert, oriented X3, CN II-XII intact Psychiatric exam: Present: normal affect, normal mood Skin exam: Present: warm, dry, intact, normal color. Absent: rash Course Vital Signs 06/18/24 06/18/24 06/18/24 00:52 01:21 01:44 Temperature 98.8 F 101.4 F H Pulse Rate 90 88 Respiratory 20 18 Rate Blood Pressure 125/76 136/98 O2 Sat by Pulse 98 97 Oximetry 06/18/24 02:46 Temperature 98.5 F Pulse Rate 87 Respiratory 18 Rate Blood Pressure 116/90 O2 Sat by Pulse 95 Oximetry Medical Decision Making - Medical Decision Making This is a 48-year-old female who presents to the emergency department for dysuria, abdominal pain, and back pain. Was pt. sent in by a medical professional or institution? @ -No Did you speak to anyone other than the patient for history? @ -No Did you review nursing and triage notes? @ -Yes, and I agree, it is accurate with regards to the patient's symptoms. Were old charts reviewed? @ -No Differential Diagnosis? @ -Differential Abdominal Pain Women: Appendicitis, Cholecystitis, diverticulosis, ischemic bowel, pancreatitis, hepatitis, UTI, gastroenteritis, AAA, incarcerated hernia, bowel obstruction, constipation, inflammatory bowel, hepatitis, peptic ulcer disease, splenic infarction, perforated viscus, vulvitis, ovarian torsion, PID, kidney stone, placenta abruption, this is not meant to be an all-inclusive list EKG interpreted by me (3pts min.)? @ -Not obtained X-rays interpreted by me (1pt min.)? @ -Not obtained CT interpreted by me (1pt min.)? @ -CT scan of the abdomen and pelvis obtained. My interpretation identifies no evidence of ureteral calculus. U/S interpreted by me (1pt. min.)? @ -Not obtained What testing was considered but not performed? (CT, X-rays, U/S, labs)? Why? @ -None What meds were considered but not given? Why? @ -None Did you discuss the management of the patient with other professionals? @ -Yes, Dr. Childress, who accepts the patient for admission. Did you reconcile home meds? @ -No Was smoking cessation discussed for >3mins.? @ -No Was critical care preformed (if so, how long)? @ -No Were there social determinants of health that impacted care today? How? (Homelessness, low income, unemployed, alcoholism, drug addiction, transportation, low edu. Level, literacy, decrease access to med. care, group home, rehab)? @ -No Was there de-escalation of care discussed even if they declined? (Discuss DNR or withdrawal of care, Hospice)? @ -No What co-morbidities impacted this encounter? (DM, HTN, Smoking, COPD, CAD, Cancer, CVA, Hep., AIDS, mental health diagnosis, sleep apnea, morbid obesity)? @ -DM, HLD, HTN Was patient admitted / discharged? @ -Admitted. Patient was febrile on arrival with a temperature of 101.4 F. Lab work unremarkable, including no leukocytosis or elevation of lactic acid. Urinalysis is largely contaminated but does contain a large amount of blood, an elevation in white blood cells, and occasional bacteria. Urine sent for culture. Given the elevation in red blood cells and the patient's pain, CT scan of the abdomen and pelvis was obtained. No evidence of ureteral calculus or other irregularities were identified. I did review charting and orders from 5 days ago and it says that the urinalysis was supposed to reflex to culture, however there is no culture available to review. Patient required multiple doses of pain medication in order to improve symptoms. Given that she is now having fevers with increasing pain as well as nausea and vomiting, she was admitted to medicine for failure of outpatient treatment and intractable pain related to the UTI. Urine and blood cultures obtained. 2 g of ceftriaxone administered. She was also given 150 mg of Diflucan, as she noted itching and concern for developing a yeast infection. Undiagnosed new problem with uncertain prognosis? @ -None Drug Therapy requiring intensive monitoring for toxicity (Heparin, Nitro, Insulin, Cardizem)? @ -None Were any procedures done? @ -None Diagnosis/symptom? @ -UTI, failure of outpatient management, intractable pain Acute, or Chronic, or Acute on Chronic? @ -Acute Uncomplicated (without systemic symptoms) or Complicated (systemic symptoms)? @ -Complicated Side effects of treatment? @ -None Exacerbation, Progression, or Severe Exacerbation] @ -Not applicable Poses a threat to life or bodily function? @ -Yes, the pain is limiting her ability to function. This case was discussed in detail with the attending ED physician, Dr. Kelly. Presentation, findings, and treatment plan discussed in detail as well. - Lab Data Result diagrams: 06/18/24 01:19 06/18/24 01:19 Lab Results 06/18/24 06/18/24 06/18/24 Range/Units 01:19 01:19 01:19 WBC 8.2 (3.8-10.6) k/uL RBC 4.53 (3.80-5.40) m/uL Hgb 11.9 (11.4-16.0) gm/dL Hct 36.7 (34.0-46.0) % MCV 81.0 (80.0-100.0) fL MCH 26.2 (25.0-35.0) pg MCHC 32.3 (31.0-37.0) g/dL RDW 14.7 (11.5-15.5) % Plt Count 399 (150-450) k/uL MPV 7.8 Neutrophils % 53 % Lymphocytes % 36 % Monocytes % 5 % Eosinophils % 4 % Basophils % 1 % Neutrophils # 4.3 (1.3-7.7) k/uL Lymphocytes # 3.0 (1.0-4.8) k/uL Monocytes # 0.4 (0-1.0) k/uL Eosinophils # 0.3 (0-0.7) k/uL Basophils # 0.0 (0-0.2) k/uL Hypochromasia Slight Sodium 139 (137-145) mmol/L Potassium 4.4 (3.5-5.1) mmol/L Chloride 108 H (98-107) mmol/L Carbon Dioxide 20 L (22-30) mmol/L Anion Gap 11 mmol/L BUN 11 (7-17) mg/dL Creatinine 0.64 (0.52-1.04) mg/dL Est GFR (CKD-EPI)AfAm >90 (>60 ml/min/1.73 sqM) Est GFR (CKD-EPI)NonAf >90 (>60 ml/min/1.73 sqM) Glucose 118 H (74-99) mg/dL Plasma Lactic Acid [place] (0.7-2.0) mmol/L Calcium 9.8 (8.4-10.2) mg/dL Total Bilirubin 0.3 (0.2-1.3) mg/dL AST 18 (14-36) U/L ALT 17 (4-34) U/L Alkaline Phosphatase 122 (38-126) U/L Total Protein 6.5 (6.3-8.2) g/dL Albumin 4.2 (3.5-5.0) g/dL Urine Color Yellow Urine Appearance Cloudy H (Clear) Urine pH 5.5 (5.0-8.0) Ur Specific [place] 1.027 (1.001-1.035) Urine Protein Trace H (Negative) Urine Glucose (UA) Negative (Negative) Urine Ketones Negative (Negative) Urine Blood Large H (Negative) Urine Nitrite Negative (Negative) Urine Bilirubin Negative (Negative) Urine Urobilinogen <2.0 (<2.0) mg/dL Ur Leukocyte Esterase Small H (Negative) Urine RBC >182 H (0-5) /hpf Urine WBC 7 H (0-5) /hpf Ur Squamous Epith Cells 38 H (0-4) /hpf Urine Bacteria Occasional H (None) /hpf Hyaline Casts 154 H (0-2) /lpf Urine Mucus Few H (None) /hpf Urine Yeast (Budding) Occasional H (None) /hpf Urine HCG, Qual (Not Detectd) 06/18/24 06/18/24 Range/Units 01:19 01:19 WBC (3.8-10.6) k/uL RBC (3.80-5.40) m/uL Hgb (11.4-16.0) gm/dL Hct (34.0-46.0) % MCV (80.0-100.0) fL MCH (25.0-35.0) pg MCHC (31.0-37.0) g/dL RDW (11.5-15.5) % Plt Count (150-450) k/uL MPV Neutrophils % % Lymphocytes % % Monocytes % % Eosinophils % % Basophils % % Neutrophils # (1.3-7.7) k/uL Lymphocytes # (1.0-4.8) k/uL Monocytes # (0-1.0) k/uL Eosinophils # (0-0.7) k/uL Basophils # (0-0.2) k/uL Hypochromasia Sodium (137-145) mmol/L Potassium (3.5-5.1) mmol/L Chloride (98-107) mmol/L Carbon Dioxide (22-30) mmol/L Anion Gap mmol/L BUN (7-17) mg/dL Creatinine (0.52-1.04) mg/dL Est GFR (CKD-EPI)AfAm (>60 ml/min/1.73 sqM) Est GFR (CKD-EPI)NonAf (>60 ml/min/1.73 sqM) Glucose (74-99) mg/dL Plasma Lactic Acid Eduardo 1.9 (0.7-2.0) mmol/L Calcium (8.4-10.2) mg/dL Total Bilirubin (0.2-1.3) mg/dL AST (14-36) U/L ALT (4-34) U/L Alkaline Phosphatase (38-126) U/L Total Protein (6.3-8.2) g/dL Albumin (3.5-5.0) g/dL Urine Color Urine Appearance (Clear) Urine pH (5.0-8.0) Ur Specific [place] (1.001-1.035) Urine Protein (Negative) Urine Glucose (UA) (Negative) Urine Ketones (Negative) Urine Blood (Negative) Urine Nitrite (Negative) Urine Bilirubin (Negative) Urine Urobilinogen (<2.0) mg/dL Ur Leukocyte Esterase (Negative) Urine RBC (0-5) /hpf Urine WBC (0-5) /hpf Ur Squamous Epith Cells (0-4) /hpf Urine Bacteria (None) /hpf Hyaline Casts (0-2) /lpf Urine Mucus (None) /hpf Urine Yeast (Budding) (None) /hpf Urine HCG, Qual Not Detected (Not Detectd) - Radiology Data Radiology results: report reviewed, image reviewed Disposition Clinical Impression: UTI (urinary tract infection), Failure of outpatient treatment, Intractable p ain Disposition: ADMITTED IP TO THIS [facility] Referrals: Nonstaff,Physician [Primary Care Provider] - 1-2 days
[2024-06-18] MEDS: SODIUM CHLORIDE 0.9% 2,000 ML IV STA (01:30)
[2024-06-18] MEDS: MORPHINE SULFATE 4 MG/ML SYRINGE IVP STA (01:30)
[2024-06-18] MEDS: ONDANSETRON 4 MG/2 ML VIAL IVP STA (01:30)
[2024-06-18] MEDS: KETOROLAC 15 MG/ML 1 ML VIAL IVP STA ×2 (01:30→02:08)
[2024-06-18] MEDS: ACETAMINOPHEN IV (For NPO) 1,000 MG in EMPTY BAG 1 BAG IVPB STA (01:31)
[2024-06-18 01:38] LABS: Basophils % (A) 1 %; Eosinophils # (A) 0.3 k/uL (0-0.7); Eosinophils % (A) 4 %; HCT 36.7 % (34.0-46.0); HGB 11.9 gm/dL (11.4-16.0); Hypochromasia Slight; Lymphocytes % (A) 36 %; MCH 26.2 pg (25.0-35.0); MCHC 32.3 g/dL (31.0-37.0); Mean Platelet Volume 7.8; Monocytes # (A) 0.4 k/uL (0-1.0); Monocytes % (A) 5 %; Neutrophils # (A) 4.3 k/uL (1.3-7.7); Neutrophils % (A) 53 %; Platelet Count 399 k/uL (150-450); RBC 4.53 m/uL (3.80-5.40); RDW 14.7 % (11.5-15.5); WBC 8.2 k/uL (3.8-10.6)
[2024-06-18] MEDS: ACETAMINOPHEN TAB 500 MG TAB PO STA (01:48)
[2024-06-18 02:03] LABS: ALT 17 U/L (4-34); AST 18 U/L (14-36); African American GFR (CKD) >90 (>60 ml/min/1.73 sqM); Albumin 4.2 g/dL (3.5-5.0); Alkaline Phosphatase 122 U/L (38-126); Anion Gap 11 mmol/L; Blood Urea Nitrogen 11 mg/dL (7-17); Calcium 9.8 mg/dL (8.4-10.2); Carbon Dioxide 20 mmol/L (22-30); Chloride 108 mmol/L (98-107); Glucose 118 mg/dL (74-99); Non-African American GFR(CKD) >90 (>60 ml/min/1.73 sqM); Potassium 4.4 mmol/L (3.5-5.1); Sodium 139 mmol/L (137-145); Total Bilirubin 0.3 mg/dL (0.2-1.3); Total Protein 6.5 g/dL (6.3-8.2)
[2024-06-18 02:06] LABS: Appearance,Urine Cloudy (Clear); Bacteria,Urine Occasional /hpf; Bilirubin,Urine Negative (Negative); Blood,Urine Large (Negative); Budding Yeast,Urine Occasional /hpf; Color,Urine Yellow; Glucose,Urine (UA) Negative (Negative); Hyaline Casts,Urine 154 /lpf (0-2); Ketones,Urine Negative (Negative); Leukocyte Esterase,Urine Small (Negative); Mucus,Urine Few /hpf; Nitrite,Urine Negative (Negative); PH, Urine 5.5 (5.0-8.0); Protein,Urine Trace (Negative); RBC,Urine >182 /hpf (0-5); Specific Gravity,Urine 1.027 (1.001-1.035); Squamous Epithelial Cell,Urine 38 /hpf (0-4); Urobilinogen,Urine <2.0 mg/dL (<2.0); WBC,Urine 7 /hpf (0-5)
[2024-06-18] MEDS: HYDROmorphone 1 MG/ML 1 ML SYRINGE IVP STA ×2 (02:09→03:45)
[2024-06-18] MEDS: PHENAZOPYRIDINE 200 MG TAB PO STA (02:15)
--- NOTE | 2024-06-18 03:30 | CT ---
EXAM: CT Abdomen and Pelvis Without Intravenous Contrast CLINICAL HISTORY: ITS.REASON CT Reason: Flank pain, hematuria TECHNIQUE: Axial computed tomography images of the abdomen and pelvis without intravenous contrast. CTDI is 11.6 mGy and DLP is 680.8 mGy-cm. This CT exam was performed using one or more of the following dose reduction techniques: automated exposure control, adjustment of the mA and/or kV according to patient size, and/or use of iterative reconstruction technique. COMPARISON: 04/05/2024 FINDINGS: Lung bases: Unremarkable. No mass. No consolidation. ABDOMEN: Liver: Unremarkable. Gallbladder and bile ducts: Cholecystectomy. No ductal dilation. Pancreas: Unremarkable. No ductal dilation. Spleen: Unremarkable. No splenomegaly. Adrenals: Unremarkable. No mass. Kidneys and ureters: Unremarkable. No renal stones or hydronephrosis. Stomach and bowel: Diverticulosis, without acute diverticulitis. No small bowel obstruction. No free intraperitoneal air. PELVIS: Appendix: No findings to suggest acute appendicitis. Bladder: Decompressed urinary bladder. No stones. Reproductive: Hysterectomy. ABDOMEN and PELVIS: Intraperitoneal space: Unremarkable. No free air. No significant fluid collection. Bones/joints: Degenerative changes of the spine. No acute fracture. No dislocation. Soft tissues: Unremarkable. Vasculature: Atherosclerotic changes of the aorta. No abdominal aortic aneurysm. Lymph nodes: Unremarkable. No enlarged lymph nodes. Tubes, lines and devices: Shunt catheter terminates in the pelvis. IMPRESSION: Diverticulosis, without acute diverticulitis. No small bowel obstruction. No free intraperitoneal air.
[2024-06-18] MEDS ORDERED: IBUPROFEN 400 MG TAB PO PRN (03:59)
[2024-06-18] MEDS ORDERED: ACETAMINOPHEN TAB 325 MG TAB PO PRN (03:59)
[2024-06-18] MEDS ORDERED: NALOXONE 0.4 MG/ML 1 ML VIAL IV PRN (03:59)
[2024-06-18] MEDS ORDERED: DEXTROSE 50% SYRINGE 50 ML IVP PRN ×2 (04:38)
--- NOTE | 2024-06-18 04:38 | P.HPIM ---
History of Present Illness H&P Date: 06/18/24 Chief Complaint: Dysuria abdominal pain 48-year-old female with diabetes mellitus, [employer] shunt, history of glucoma Patient coming in for reevaluation regarding persistent urinary symptoms she was here on about 5 days ago when she was diagnosed with urinary tract infection was started on antibiotics and sent home however she claims that over the past few days she continued to have spikes of fever abdominal pain flank pain dysuria urinary frequency and urgency along with episodes of nausea vomiting. She also started having diarrhea over the past 2 days. She is known to have recurrent UTIs she had cystoscopy procedure done back in March 2024 to help with her dysuria and recurrent UTI Patient otherwise denies any trouble breathing denies any cough or upper resp iratory symptoms denies any GI bleeding denies any focal neurodeficits Patient does report recurrent vaginal yeast infection associated with use of antibiotics for UTI Patient denies tobacco smoking illicit drugs or heavy alcohol review of systems Pertinent positives as noted in HPI. All other systems were reviewed and are negative on exam Constitutional: No acute distress, conversant, pleasant Eyes: Anicteric sclerae, moist conjunctiva, Pupils equal round reactive to light Lungs: Clear to auscultation Clear to percussion Normal respiratory effort, no accessory muscle use Cardiovascular: Heart regular in rate and rhythm, No murmurs, gallops, or rubs No peripheral edema Abdominal: Soft Tenderness to deep palpation of the suprapubic region, tenderness to percussion over the costovertebral angle bilaterally, no guarding, rebound or rigidity Abdomen moving with respiration Normoactive bowel sounds Extremities: No digital cyanosis No clubbing Pedal pulses intact and symmetrical Radial pulses intact and symmetrical No calf tenderness Psychiatric: Alert and oriented to person, place and time Appropriate affect fair judgement Neuro Muscles Strength 5/5 in all 4 extremities Sensation to light touch grossly present throughout Cranial nerves II-XII grossly intact Past Medical History Past Medical History: Diabetes Mellitus, Eye Disorder, Hyperlipidemia, Hyperte nsion, Renal Disease Additional Past Medical History / Comment(s): GLAUCOMA; MIGRAINES, IBS History of Any Multi-Drug Resistant Organisms: C-DIFF Date of last positivie culture/infection: May 2019 MDRO Source:: stool Past Surgical History: Appendectomy, Cholecystectomy Additional Past Surgical History / Comment(s): OVARY SURGERY; BILAT EYE SURGERY, metal plate under eye Past Anesthesia/Blood Transfusion Reactions: Postoperative Nausea & Vomiting (PONV) Past Psychological History: ADD/ADHD, Depression Smoking Status: Never smoker Past Alcohol Use History: None Reported Past Drug Use History: None Reported - Past Family History Mother Family Medical History: COPD, Diabetes Mellitus Father Family Medical History: Coronary Artery Disease (CAD), Diabetes Mellitus Additional Family Medical History / Comment(s): dad Medications and Allergies Home Medications Medication Instructions Recorded Confirmed Type Atorvastatin [Lipitor] 20 mg PO DAILY 10/07/14 04/11/24 History FLUoxetine HCL 40 mg PO DAILY 10/07/14 04/11/24 History Ibuprofen [Motrin] 800 mg PO Q8HR PRN 10/07/14 04/11/24 History Loratadine [Claritin] 10 mg PO DAILY 10/07/14 04/11/24 History Acyclovir 400 mg PO DAILY 01/19/21 04/11/24 History Cyclobenzaprine [Flexeril] 10 mg PO BID PRN 01/19/21 04/11/24 History Fluticasone Nasal [place] [Flonase 1 spr EA NOSTRIL BID PRN 01/19/21 04/11/24 History Nasal [place]] Pantoprazole [Protonix] 40 mg PO DAILY 01/19/21 04/11/24 History busPIRone HCL 15 mg PO BID 01/19/21 04/11/24 History Butalb/APAP/Caff 50-325-40Mg 1 tab PO TID PRN #12 tab 01/21/21 04/11/24 Rx [Fioricet 50-325-40] Lisdexamfetamine Dimesylate 60 mg PO DAILY 11/15/23 04/11/24 History [Vyvanse] Semaglutide [Wegovy] 2.4 mg SQ TH 11/15/23 04/11/24 History hydrOXYzine HCL [Atarax] 50 mg PO BID PRN 11/15/23 04/11/24 History metFORMIN HCL 1,000 mg PO BID 11/15/23 04/11/24 History Acetaminophen Tab [Tylenol] 650 mg PO Q4HR PRN tab 11/16/23 04/11/24 Rx Calcium Carbonate [Tums] 500 mg PO TID PRN tab 02/05/24 04/11/24 Rx Cyanocobalamin [Vitamin B-12] 1,000 mcg PO DAILY #30 tab 02/05/24 04/11/24 Rx Ferrous Sulfate [Iron (65 MG 325 mg PO BID-W/MEALS #60 tab 02/05/24 04/11/24 Rx Elemental)] Folic Acid 1 mg PO DAILY #30 tab 02/05/24 04/11/24 Rx Loperamide [Imodium] 2 mg PO QID PRN #20 capsule 03/03/24 04/11/24 Rx Cephalexin [Keflex] 500 mg PO Q6HR 04/11/24 04/11/24 History Ondansetron Odt [Zofran ODT] 4 mg PO DAILY PRN 04/11/24 04/11/24 History Pentosan Polysulfate Sodium 100 mg PO TID 04/11/24 04/11/24 History [Elmiron] Acetaminophen-Codeine 300-30mg 1 each PO Q6HR PRN #12 tab 04/15/24 Rx [Tylenol w/codeine #3] Nystatin 100,000 Unit/gm Powd 1 applic TOPICAL BID #15 gm 04/15/24 Rx [Mycostatin Powder] Ondansetron [Zofran] 4 mg PO Q8HR PRN #12 tab 04/15/24 Rx Phenazopyridine [Pyridium] 200 mg PO TID 2 Days #6 tab 04/15/24 Rx Cephalexin [Keflex] 500 mg PO Q8HR #21 cap 06/13/24 Rx Cyclobenzaprine [Flexeril] 10 mg PO TID PRN #15 tab 06/13/24 Rx Allergies Allergy/AdvReac Type Severity Reaction Status Date / Time ciprofloxacin [From Cipro] Allergy Rash/Hives Verified 06/13/24 14:20 ciprofloxacin HCl Allergy Rash/Hives Verified 06/13/24 14:20 [From Cipro] Sulfa (Sulfonamide Allergy Rash/Hives Verified 06/13/24 14:20 Antibiotics) Physical Exam Vitals: Vital Signs Temp Pulse Resp BP Pulse Ox 06/18/24 02:46 98.5 F 87 18 116/90 95 06/18/24 01:44 88 18 136/98 97 06/18/24 01:21 101.4 F H 06/18/24 00:52 98.8 F 90 20 125/76 98 Intake and Output 06/17/24 06/17/24 06/18/24 14:59 22:59 06:59 Other: Voiding Method Toilet Weight 72.575 kg Results CBC & Chem 7: 06/18/24 01:19 06/18/24 01:19 Labs: Abnormal Lab Results - Last 24 Hours (Table) 06/18/24 06/18/24 Range/Units 01:19 01:19 Chloride 108 H (98-107) mmol/L Carbon Dioxide 20 L (22-30) mmol/L Glucose 118 H (74-99) mg/dL Urine Appearance Cloudy H (Clear) Urine Protein Trace H (Negative) Urine Blood Large H (Negative) Ur Leukocyte Esterase Small H (Negative) Urine RBC >182 H (0-5) /hpf Urine WBC 7 H (0-5) /hpf Ur Squamous Epith Cells 38 H (0-4) /hpf Urine Bacteria Occasional H (None) /hpf Hyaline Casts 154 H (0-2) /lpf Urine Mucus Few H (None) /hpf Urine Yeast (Budding) Occasional H (None) /hpf Assessment and Plan Assessment: 48-year-old female with diabetes mellitus, [employer] shunt and history of lymphoma coming in for worsening urinary symptoms despite being on antibiotics for the past 5 days where she was diagnosed with UTI I discussed the case with ED doctor and accepted the admission for worsening UTI symptoms and failed outpatient antibiotic therapy with anticipated length of stay more than 2 midnights Complicated UTI failed outpatient antibiotic therapy Follow-up urine cultures and blood cultures Initiate Rocephin 2 g IV piggyback daily Tylenol 650 mg p.o. as needed every 6 hours for fever IV fluid hydration normal saline 100 cc/h Encourage p.o. intake Zofran 4 mg IV push every 8 hours as needed for nausea vomiting CT imaging of the abdomen showed diverticulosis without acute diverticulitis no other acute pathology White count 8.2 unremarkable hemoglobin 11.9 unremarkable platelets 399 unre markable Renal function overall unremarkable sodium 139 potassium 4.4 BUN 11 creatinine 0.6 Liver enzymes unremarkable bilirubin 0.3 AST 18 ALT 17 Lactic acid unremarkable 1.9 Diabetes mellitus Insulin sliding scale Full code DVT prophylaxis Lovenox 40 mg subcu daily GI prophylaxis Protonix 40 mg p.o. daily Diabetic diet
[2024-06-18] MEDS: HYDROcodone/APAP 5-325MG 1 EACH TAB PO PRN (05:30)
[2024-06-18] MEDS: SODIUM CHLORIDE 0.9% 1,000 ML IV SCH (05:31)
[2024-06-18] MEDS: FLUCONAZOLE 150 MG TAB PO STA (06:04)
[2024-06-18 07:18] LABS: Glucose,Whole Blood 91 mg/dL (70-110)
[2024-06-18] MEDS: INSULIN ASPART (NovoLOG) 100 UNIT/ML VIAL SQ SCH (07:45)
[2024-06-18] MEDS: PANTOPRAZOLE 40 MG/10 ML VIAL IV SCH (08:11)
[2024-06-18] MEDS: KETOROLAC 15 MG/ML 1 ML VIAL IVP PRN (08:12)
[2024-06-18] MEDS: ENOXAPARIN 40 MG/0.4 ML SYRINGE SQ SCH (08:14)
[2024-06-18 10:55] VITALS: BMI 33.4
[2024-06-18] MEDS: HYDROmorphone 1 MG/ML 1 ML SYRINGE IVP PRN (11:03)
[2024-06-18 11:59] LABS: Glucose,Whole Blood 143 mg/dL (70-110)
[2024-06-18 17:07] LABS: Glucose,Whole Blood 110 mg/dL (70-110)
[2024-06-18] MEDS: ONDANSETRON 4 MG/2 ML VIAL IVP PRN (17:18)
[2024-06-18] MEDS ORDERED: diphenhydrAMINE 25 MG CAP PO PRN (18:02)
[2024-06-18] MEDS: busPIRone HCl 5 MG TAB PO SCH (20:20)
[2024-06-18] MEDS: hydrOXYzine HCL 25 MG TAB PO SCH (20:20)
[2024-06-18 20:24] LABS: Glucose,Whole Blood 167 mg/dL (70-110)
[2024-06-19 07:13] LABS: Glucose,Whole Blood 92 mg/dL (70-110)
[2024-06-19] MEDS: NON FORMULARY DRUG (Lisdexamfetamine Dimesylate [Vyvanse] 60 MG Capsule) PO SCH (07:55)
[2024-06-19] MEDS: ATORVASTATIN 20 MG TAB PO SCH (08:10)
[2024-06-19] MEDS: amLODIPine 10 MG TAB PO SCH (08:10)
[2024-06-19] MEDS: PANTOPRAZOLE 40 MG TABLET PO SCH (08:10)
[2024-06-19] MEDS: FLUoxetine HCL 20 MG CAP PO SCH (08:11)
[2024-06-19] MEDS: LORATADINE 10 MG TAB PO SCH (08:12)
[2024-06-19 11:55] LABS: Glucose,Whole Blood 113 mg/dL (70-110)
--- NOTE | 2024-06-19 12:42 | P.PN ---
Subjective Progress Note Date: 06/19/24 48 year old F with PMH of DM, RESPITE PROVIDER shunt, glaucoma presents to the ED for nausea, dysuria, suprapubic pain and fever. Symptoms have persisted despite taking PO antibiotics in the outpatient setting. In the ED she underwent extensive evaluation. BP 125/76, HR 90, Tmax 101.4F, RR 20, 98% on RA. CBC and CMP si gnificant for Cl 108, bicarb 20, glu 118. Lactic acid 1.9. A1c 6.5. UA small LE. Started on Rocephin and admitted for treatment of UTI. 06/19 Patient was seen and examined. Complains of suprapubic pain and nausea. Also dysuria. UCx is pending. General: non toxic, no distress, appears at stated age Derm: warm, dry Head: atraumatic, normocephalic, symmetric Eyes: EOMI, no lid lag, anicteric sclera Mouth: no lip lesion, mucus membranes moist Cardiovascular: S1S2 reg, no murmur Lungs: CTA bilateral, no rhonchi, no rales , no accessory muscle use Ext: no gross muscle atrophy, no edema, no contractures Neuro: no focal neuro deficits Psych: Alert, oriented, appropriate affect Based on my assessment of this patient, this patient meets a high complexity level of care. Sepsis due to UTI failed outpatient therapy: Continue Rocephin 2g IV QD. Tylenol 650 mg + Ibuprofen 400 mg PO Q6H PRN for fever or pain. Toradol 15 mg IV Q6H PRN for pain. Dilaudid 1 mg IV Q3H PRN for severe pain. Follow UCx and BCx. Diabetes mellitus: A1c 6.5. ISS. Accuchecks ACHS. Hypoglycemic precautions. CODE STATUS: FULL CODE DVT Prophylaxis: Lovenox SQ GI Prophylaxis: Protonix PO Designated medical POA if patient is not able to make medical decisions for themselves: Objective - Vital Signs Vital signs: Vital Signs Temp 97.7 F 06/19/24 07:13 Pulse 78 06/19/24 09:35 Resp 16 06/19/24 09:35 BP 105/71 06/19/24 07:13 Pulse Ox 95 06/19/24 07:13 FiO2 Intake & Output 06/18/24 06/19/24 06/19/24 18:59 06:59 18:59 Output Total 500 Balance -500 Weight 72.575 kg Output: Emesis 500 Other: Voiding Method Toilet Toilet Toilet # Voids 1 # Bowel Movements 1 - Labs CBC & Chem 7: 06/18/24 01:19 06/18/24 01:19 Labs: Abnormal Lab Results - Last 24 Hours (Table) 06/18/24 06/19/24 06/19/24 Range/Units 20:22 06:15 11:53 POC Glucose (mg/dL) 167 H 113 H (70-110) mg/dL Hemoglobin A1c 6.5 H (<=6.0) %
[2024-06-19 17:14] LABS: Glucose,Whole Blood 112 mg/dL (70-110)
[2024-06-19] MEDS: CYCLOBENZAPRINE 10 MG TAB PO PRN (17:50)
[2024-06-19 20:20] LABS: Glucose,Whole Blood 116 mg/dL (70-110)
[2024-06-20 07:09] LABS: Glucose,Whole Blood 115 mg/dL (70-110)
[2024-06-20 09:22] VITALS: TEMP 98.7
[2024-06-20 11:54] LABS: Glucose,Whole Blood 121 mg/dL (70-110)
--- NOTE | 2024-06-20 13:15 | P.PN ---
Subjective Progress Note Date: 06/20/24 48 year old F with PMH of DM, IRON MINER shunt, glaucoma presents to the ED for nausea, dysuria, suprapubic pain and fever. Symptoms have persisted despite taking PO antibiotics in the outpatient setting. In the ED she underwent extensive evaluation. BP 125/76, HR 90, Tmax 101.4F, RR 20, 98% on RA. CBC and CMP si gnificant for Cl 108, bicarb 20, glu 118. Lactic acid 1.9. A1c 6.5. UA small LE. Started on Rocephin and admitted for treatment of UTI. 06/19 Patient was seen and examined. Complains of suprapubic pain and nausea. Also dysuria. UCx is pending. 06/20 Patient was seen and examined. Continued dysuria. Reports a yeast infection. UCx is pending. General: non toxic, no distress, appears at stated age Derm: warm, dry Head: atraumatic, normocephalic, symmetric Eyes: EOMI, no lid lag, anicteric sclera Mouth: no lip lesion, mucus membranes moist Cardiovascular: S1S2 reg, no murmur Lungs: CTA bilateral, no rhonchi, no rales , no accessory muscle use Ext: no gross muscle atrophy, no edema, no contractures Neuro: no focal neuro deficits Psych: Alert, oriented, appropriate affect Based on my assessment of this patient, this patient meets a high complexity level of care. Sepsis due to UTI failed outpatient therapy: Continue Rocephin 2g IV QD. Tylenol 650 mg + Ibuprofen 400 mg PO Q6H PRN for fever or pain. Toradol 15 mg IV Q6H PRN for pain. Dilaudid 1 mg IV Q3H PRN for severe pain. Follow UCx and BCx. Vulvovaginal Candidiasis: Diflucan 150 mg PO x 1. Diabetes mellitus: A1c 6.5. ISS. Accuchecks ACHS. Hypoglycemic precautions. CODE STATUS: FULL CODE DVT Prophylaxis: Lovenox SQ GI Prophylaxis: Protonix PO Designated medical POA if patient is not able to make medical decisions for themselves: Objective - Vital Signs Vital signs: Vital Signs Temp 98.7 F 06/20/24 08:00 Pulse 76 06/20/24 08:00 Resp 16 06/20/24 08:00 BP 125/74 06/20/24 08:00 Pulse Ox 96 06/20/24 01:36 FiO2 Intake & Output 06/19/24 06/20/24 06/20/24 18:59 06:59 18:59 Other: Voiding Method Toilet Toilet # Voids 3 3 - Labs CBC & Chem 7: 06/18/24 01:19 06/18/24 01:19 Labs: Abnormal Lab Results - Last 24 Hours (Table) 06/19/24 06/19/24 06/20/24 Range/Units 17:13 20:19 07:08 POC Glucose (mg/dL) 112 H 116 H 115 H (70-110) mg/dL 06/20/24 Range/Units 11:53 POC Glucose (mg/dL) 121 H (70-110) mg/dL Microbiology - Last 24 Hours (Table) 06/18/24 04:50 Blood Culture - Preliminary Blood 06/18/24 04:35 Blood Culture - Preliminary Blood 06/18/24 01:19 Urine Culture - Preliminary Urine,Clean Catch
[2024-06-20 13:27] VITALS: BP 128/84; PULSE 78; RESP 18
[2024-06-20] MEDS: FLUCONAZOLE 150 MG TAB PO STA (13:31)
--- NOTE | 2024-06-20 14:44 | P.DS ---
Providers Date of admission: 06/18/24 04:00 Expected date of discharge: 06/20/24 Attending physician: Rajat Childress MD Primary care physician: Physician Nonstaff Hospital Course: 48 year old F with PMH of DM, WINDOW AND DOOR INSTALLER shunt, glaucoma presents to the ED for nausea, dysuria, suprapubic pain and fever. Symptoms have persisted despite taking PO antibiotics in the outpatient setting. In the ED she underwent extensive evaluation. BP 125/76, HR 90, Tmax 101.4F, RR 20, 98% on RA. CBC and CMP significant for Cl 108, bicarb 20, glu 118. Lactic acid 1.9. A1c 6.5. UA small LE. Started on Rocephin and admitted for treatment of UTI. 06/19 Patient was seen and examined. Complains of suprapubic pain and nausea. Also dysuria. UCx is pending. 06/20 Patient was seen and examined. Continued dysuria. Reports a yeast infection. UCx came back with tonja galabarata. Case discussed with Dr. Alonzo who recommended Voriconazole 200 mg PO BID x 3 days. Hopeful plans for discharge home today. Follow up with PCP within 1-[address] Alozno within 1 week of discharge. General: non toxic, no distress, appears at stated age Derm: warm, dry Head: atraumatic, normocephalic, symmetric Eyes: EOMI, no lid lag, anicteric sclera Mouth: no lip lesion, mucus membranes moist Cardiovascular: S1S2 reg, no murmur Lungs: CTA bilateral, no rhonchi, no rales , no accessory muscle use Ext: no gross muscle atrophy, no edema, no contractures Neuro: no focal neuro deficits Psych: Alert, oriented, appropriate affect Discharge Diagnosis: Sepsis due to UTI failed outpatient therapy Vulvovaginal Candidiasis Diabetes mellitus This complex discharge took 35 minutes to complete. Patient Condition at Discharge: Stable Plan - Discharge Summary Discharge Rx Participant: No New Discharge Prescriptions: New Voriconazole [Vfend] 200 mg PO Q12HR #6 tablet Continue Ibuprofen [Motrin] 800 mg PO Q8HR PRN PRN Reason: Pain Atorvastatin [Lipitor] 20 mg PO DAILY Loratadine [Claritin] 10 mg PO DAILY FLUoxetine HCL 40 mg PO DAILY Fluticasone Nasal [place] [Flonase Nasal [place]] 1 spr EA NOSTRIL BID PRN PRN Reason: Allergy Symptoms busPIRone HCL 15 mg PO BID Pantoprazole [Protonix] 40 mg PO DAILY Acyclovir 400 mg PO DAILY Butalb/APAP/Caff 50-325-40Mg [Fioricet 50-325-40] 1 tab PO TID PRN #12 tab PRN Reason: Migraine Headache Lisdexamfetamine Dimesylate [Vyvanse] 60 mg PO DAILY Pentosan Polysulfate Sodium [Elmiron] 100 mg PO TID Cyclobenzaprine [Flexeril] 10 mg PO TID PRN #15 tab PRN Reason: Muscle Spasm diphenhydrAMINE HCL [Benadryl] 25 mg PO BID PRN PRN Reason: Migraine Headache amLODIPine [Norvasc] 10 mg PO DAILY Semaglutide [Ozempic] 1 mg SQ TU Ketorolac [Toradol] 10 mg PO Q6HR PRN PRN Reason: Pain hydrOXYzine HCL [Atarax] 50 mg PO BID metFORMIN HCL 1,000 mg PO BID Ondansetron [Zofran] 4 mg PO DAILY PRN PRN Reason: Migraine Headache Changed Acetaminophen-Codeine 300-30mg [Tylenol w/codeine #3] 1 tab PO Q4HR PRN #18 tab PRN Reason: Migraine Headache Discontinued Cephalexin [Keflex] 500 mg PO Q8HR #21 cap Discharge Medication List Atorvastatin [Lipitor] 20 mg PO DAILY 10/07/14 [History] FLUoxetine HCL 40 mg PO DAILY 10/07/14 [History] Ibuprofen [Motrin] 800 mg PO Q8HR PRN 10/07/14 [History] Loratadine [Claritin] 10 mg PO DAILY 10/07/14 [History] Acyclovir 400 mg PO DAILY 01/19/21 [History] Fluticasone Nasal [place] [Flonase Nasal [place]] 1 spr EA NOSTRIL BID PRN 01/19/21 [History] Pantoprazole [Protonix] 40 mg PO DAILY 01/19/21 [History] busPIRone HCL 15 mg PO BID 01/19/21 [History] Butalb/APAP/Caff 50-325-40Mg [Fioricet 50-325-40] 1 tab PO TID PRN #12 tab 01/21/21 [Rx] Lisdexamfetamine Dimesylate [Vyvanse] 60 mg PO DAILY 11/15/23 [History] hydrOXYzine HCL [Atarax] 50 mg PO BID 11/15/23 [History] metFORMIN HCL 1,000 mg PO BID 11/15/23 [History] Pentosan Polysulfate Sodium [Elmiron] 100 mg PO TID 04/11/24 [History] Cyclobenzaprine [Flexeril] 10 mg PO TID PRN #15 tab 06/13/24 [Rx] Ketorolac [Toradol] 10 mg PO Q6HR PRN 06/18/24 [History] Ondansetron [Zofran] 4 mg PO DAILY PRN 06/18/24 [History] Semaglutide [Ozempic] 1 mg SQ TU 06/18/24 [History] amLODIPine [Norvasc] 10 mg PO DAILY 06/18/24 [History] diphenhydrAMINE HCL [Benadryl] 25 mg PO BID PRN 06/18/24 [History] Acetaminophen-Codeine 300-30mg [Tylenol w/codeine #3] 1 tab PO Q4HR PRN #18 tab 06/20/24 [Rx] Voriconazole [Vfend] 200 mg PO Q12HR #6 tablet 06/20/24 [Rx] Follow up Appointment(s)/Referral(s): Nonstaff,Physician [Primary Care Provider] - 1-2 days Aranza Alonzo MD [STAFF PHYSICIAN] - 1 Week Discharge Disposition: HOME SELF-CARE
== END 2024-06-20 15:53 | disposition home or self-care (01) ==
LOC: EC 00:51 → 5NMEDONC 04:00
PROVIDERS: ADMIT Internal Medicine; ATTEND Internal Medicine
DX: A41.9 Sepsis, unspecified organism (principal); N39.0 Urinary tract infection, site not specified; B37.31 Acute candidiasis of vulva and vagina; E11.9 Type 2 diabetes mellitus without complications; I10 Essential (primary) hypertension; E78.5 Hyperlipidemia, unspecified; G43.909 Migraine, unspecified, not intractable, without status migrainosus; K58.9 Irritable bowel syndrome, unspecified; F90.9 Attention-deficit hyperactivity disorder, unspecified type; F32.A Depression, unspecified; Z98.2 Presence of cerebrospinal fluid drainage device; Z87.440 Personal history of urinary (tract) infections; Z85.72 Personal history of non-Hodgkin lymphomas; Z83.3 Family history of diabetes mellitus; Z82.5 Family history of asthma and other chronic lower respiratory diseases; Z82.49 Family history of ischemic heart disease and other diseases of the circulatory system; Z79.899 Other long term (current) drug therapy; Z79.84 Long term (current) use of oral hypoglycemic drugs
CPT/HCPCS: 96376 ×3; 96361 ×3; 96366 ×3; 96372 ×3; 96365; 96367 ×3; 96375; 99285; 36415; 80053; 83605; 85025; 81001; 81025; 87040; 87086; 83036; 74176; G0378 ×3; J2270; J2405 ×3; J0696 ×3; J1650 ×3; J1170 ×3; J0131; J1885 ×3; J2470

== ENCOUNTER 2024-06-29 07:10 | Emergency (ER) | payer OTHER ==
--- NOTE | 2024-06-29 07:42 | ED ---
General Adult HPI - General Chief complaint: Urogenital Stated complaint: fungal infection Time Seen by Provider: 06/29/24 07:15 Source: patient, RN notes reviewed, old records reviewed Mode of arrival: ambulatory Limitations: no limitations - History of Present Illness Initial comments: This is a 48-year-old female who presents to the emergency department with a recent past medical history of urinary tract infection and a fungal infection after she had been on antibiotics. Patient was put on antifungal twice a day. Patient states ever since she left the hospital she continues to have this discomfort. Patient states today she has burning in her suprapubic region area. Patient also states she has some back pain in her lower to mid back region. Patient denies any dysuria hematuria. Patient states the pain is so uncomfortable it makes her nauseous and she has been vomiting. Patient denies any chest pain or difficulty breathing. - Related Data Home Medications Medication Instructions Recorded Confirmed Atorvastatin [Lipitor] 20 mg PO DAILY 10/07/14 06/18/24 FLUoxetine HCL 40 mg PO DAILY 10/07/14 06/18/24 Ibuprofen [Motrin] 800 mg PO Q8HR PRN 10/07/14 06/18/24 Loratadine [Claritin] 10 mg PO DAILY 10/07/14 06/18/24 Acyclovir 400 mg PO DAILY 01/19/21 06/18/24 Fluticasone Nasal [place] [Flonase 1 spr EA NOSTRIL BID PRN 01/19/21 06/18/24 Nasal [place]] Pantoprazole [Protonix] 40 mg PO DAILY 01/19/21 06/18/24 busPIRone HCL 15 mg PO BID 01/19/21 06/18/24 Lisdexamfetamine Dimesylate 60 mg PO DAILY 11/15/23 06/18/24 [Vyvanse] hydrOXYzine HCL [Atarax] 50 mg PO BID 11/15/23 06/18/24 metFORMIN HCL 1,000 mg PO BID 11/15/23 06/18/24 Pentosan Polysulfate Sodium 100 mg PO TID 04/11/24 06/18/24 [Elmiron] Ketorolac [Toradol] 10 mg PO Q6HR PRN 06/18/24 06/18/24 Ondansetron [Zofran] 4 mg PO DAILY PRN 06/18/24 06/18/24 Semaglutide [Ozempic] 1 mg SQ TU 06/18/24 06/18/24 amLODIPine [Norvasc] 10 mg PO DAILY 06/18/24 06/18/24 diphenhydrAMINE HCL [Benadryl] 25 mg PO BID PRN 06/18/24 06/18/24 Previous Rx's Medication Instructions Recorded Butalb/APAP/Caff 50-325-40Mg 1 tab PO TID PRN #12 tab 01/21/21 [Fioricet 50-325-40] Cyclobenzaprine [Flexeril] 10 mg PO TID PRN #15 tab 06/13/24 Acetaminophen-Codeine 300-30mg 1 tab PO Q4HR PRN #18 tab 06/20/24 [Tylenol w/codeine #3] Phenazopyridine [Pyridium] 200 mg PO TID #30 tablet 06/20/24 Voriconazole [Vfend] 200 mg PO Q12HR #6 tablet 06/20/24 Allergies Allergy/AdvReac Type Severity Reaction Status Date / Time Sulfa (Sulfonamide Allergy Severe Rash/Hives/ Verified 06/29/24 07:18 Antibiotics) Vomiting ciprofloxacin [From Cipro] Allergy Rash/Hives Verified 06/29/24 07:18 ciprofloxacin HCl Allergy Rash/Hives Verified 06/29/24 07:18 [From Cipro] Review of Systems ROS Statement: Those systems with pertinent positive or pertinent negative responses have been documented in the HPI. ROS Other: All systems not noted in ROS Statement are negative. Past Medical History Past Medical History: Diabetes Mellitus, Eye Disorder, Hyperlipidemia, Hypertension, Renal Disease Additional Past Medical History / Comment(s): GLAUCOMA; MIGRAINES, IBS, cystitis History of Any Multi-Drug Resistant Organisms: C-DIFF Date of last positivie culture/infection: April 2021 MDRO Source:: stool Past Surgical History: Appendectomy, Cholecystectomy Additional Past Surgical History / Comment(s): OVARY SURGERY; BILAT EYE SURGERY, metal plate under right eye Past Anesthesia/Blood Transfusion Reactions: Postoperative Nausea & Vomiting (PONV) Additional Past Anesthesia/Blood Transfusion Reaction / Comment(s): pt states she gets very mean from anesthesia Past Psychological History: ADD/ADHD, Depression Smoking Status: Never smoker Past Alcohol Use History: None Reported Past Drug Use History: None Reported - Past Family History Mother Family Medical History: COPD, Diabetes Mellitus Father Family Medical History: Coronary Artery Disease (CAD), Diabetes Mellitus Additional Family Medical History / Comment(s): dad General Exam - General Exam Comments Initial Comments: GENERAL: Patient is well-developed and well-nourished. Patient is nontoxic and well- hydrated and is in mild distress. ENT: Neck is soft and supple. No significant lymphadenopathy is noted. Oropharynx is clear. Moist mucous membranes. Neck has full range of motion without eliciting any pain. EYES: The sclera were anicteric and conjunctiva were pink and moist. Extraocular movements were intact and pupils were equal round and reactive to light. Eyelids were unremarkable. PULMONARY: Unlabored respirations. Good breath sounds bilaterally. No audible rales rhonchi or wheezing was noted. CARDIOVASCULAR: There is a regular rate and rhythm without any murmurs gallops or rubs. ABDOMEN: Soft and nontender with normal bowel sounds. SKIN: Skin is clear with no lesions or rashes and otherwise unremarkable. NEUROLOGIC: Patient is alert and oriented x3. Cranial nerves II through XII are grossly intact. Motor and sensory are also intact. Normal speech, volume and content. Symmetrical smile. MUSCULOSKELETAL: Normal extremities with adequate strength and full range of motion. No lower extremity swelling or edema. No calf tenderness. Patient has some mild CVA tenderness bilaterally LYMPHATICS: No significant lymphadenopathy is noted PSYCHIATRIC: Normal psychiatric evaluation. Limitations: no limitations Course Vital Signs 06/29/24 06/29/24 07:15 09:24 Temperature 99.4 F 99.0 F Pulse Rate 102 H 100 Respiratory 20 100 H Rate Blood Pressure 133/86 126/68 O2 Sat by Pulse 97 99 Oximetry Medical Decision Making - Medical Decision Making Was pt. sent in by a medical professional or institution (, PA, AIR AND HYDRONIC BALANCING TECHNICIAN, urgent care, hospital, or residential...) When possible be specific @ -No Did you speak to anyone other than the patient for history (EMS, parent, family, police, friend...)? What history was obtained from this source @ -No Did you review nursing and triage notes (agree or disagree)? Why? @ -I reviewed and agree with nursing and triage notes Were old charts reviewed (outside hosp., previous admission, EMS record, old EKG, old radiological studies, urgent care reports/EKG's, residential records)? Report findings @ -No old charts were reviewed Differential Diagnosis? @ -Differential Abdominal Pain Men: Appendicitis, cholecystitis, diverticulosis, ischemic bowel, pancreatitis, hepatitis, UTI, gastroenteritis, AAA, incarcerated hernia, bowel obstruction, constipation, inflammatory bowel, hepatitis, peptic ulcer disease, splenic infarction, perforated viscus, testicular torsion, this is not meant to be an all-inclusive list EKG interpreted by me (3pts min.). @ -As above X-rays interpreted by me (1pt min.). @ -None done CT interpreted by me (1pt min.). @ -CT of the abdomen pelvis shows no acute normality U/S interpreted by me (1pt. min.). @ -None done What testing was considered but not performed or refused? (CT, X-rays, U/S, labs)? Why? @ -None What meds were considered but not given or refused? Why? @ -None Did you discuss the management of the patient with other professionals (professionals i.e. , PA, AIR AND HYDRONIC BALANCING TECHNICIAN, lab, RT, psych nurse, social media project manager, warehouse shipping receiving clerk, teacher, supply requirements officer, housing case manager)? Give summary @ -No Was smoking cessation discussed for >3mins.? @ -No Was critical care preformed (if so, how long)? @ -No Were there social determinants of health that impacted care today? How? (Homelessness, low income, unemployed, alcoholism, drug addiction, transportation, low edu. Level, literacy, decrease access to med. care, intermediate, rehab)? @ -No Was there de-escalation of care discussed even if they declined (Discuss DNR or withdrawal of care, Hospice)? DNR status @ -No What co-morbidities impacted this encounter? (DM, HTN, Smoking, COPD, CAD, Ca ncer, CVA, ARF, Chemo, Hep., AIDS, mental health diagnosis, sleep apnea, morbid obesity)? @ -None Was patient admitted / discharged? Hospital course, mention meds given and route, prescriptions, significant lab abnormalities, going to OR and other pertinent info. @ -Patient has persistent hematuria and needs to follow-up with urology. Patient states she will follow-up with urology Undiagnosed new problem with uncertain prognosis? @ -No Drug Therapy requiring intensive monitoring for toxicity (Heparin, Nitro, Insulin, Cardizem)? @ -No Were any procedures done? @ -No Diagnosis/symptom? @ -Hematuria Acute, or Chronic, or Acute on Chronic? @ -Acute Uncomplicated (without systemic symptoms) or Complicated (systemic symptoms)? @ -Complicated Side effects of treatment? @ -No Exacerbation, Progression, or Severe Exacerbation? @ -No Poses a threat to life or bodily function? How? (Chest pain, USA, MD, pneumonia, PE, COPD, DKA, ARF, appy, cholecystitis, CVA, Diverticulitis, Homicidal, Suicidal, threat to staff... and all critical care pts) @ -No - Lab Data Result diagrams: 06/29/24 07:53 06/29/24 07:53 Lab Results 06/29/24 06/29/24 06/29/24 Range/Units 07:53 07:53 07:53 WBC 7.3 (3.8-10.6) k/uL RBC 4.19 (3.80-5.40) m/uL Hgb 11.1 L (11.4-16.0) gm/dL Hct 34.4 (34.0-46.0) % MCV 82.2 (80.0-100.0) fL MCH 26.4 (25.0-35.0) pg MCHC 32.2 (31.0-37.0) g/dL RDW 15.0 (11.5-15.5) % Plt Count 369 (150-450) k/uL MPV 7.8 Neutrophils % 61 % Lymphocytes % 27 % Monocytes % 6 % Eosinophils % 5 % Basophils % 1 % Neutrophils # 4.5 (1.3-7.7) k/uL Lymphocytes # 1.9 (1.0-4.8) k/uL Monocytes # 0.4 (0-1.0) k/uL Eosinophils # 0.4 (0-0.7) k/uL Basophils # 0.1 (0-0.2) k/uL Hypochromasia Moderate Sodium 137 (137-145) mmol/L Potassium 4.1 (3.5-5.1) mmol/L Chloride 108 H (98-107) mmol/L Carbon Dioxide 21 L (22-30) mmol/L Anion Gap 8 mmol/L BUN 11 (7-17) mg/dL Creatinine 0.65 (0.52-1.04) mg/dL Est GFR (CKD-EPI)AfAm >90 (>60 ml/min/1.73 sqM) Est GFR (CKD-EPI)NonAf >90 (>60 ml/min/1.73 sqM) Glucose 139 H (74-99) mg/dL Plasma Lactic Acid Eduardo (0.7-2.0) mmol/L Calcium 9.5 (8.4-10.2) mg/dL Total Bilirubin 0.5 (0.2-1.3) mg/dL AST 19 (14-36) U/L ALT 40 H (4-34) U/L Alkaline Phosphatase 164 H (38-126) U/L Total Protein 6.6 (6.3-8.2) g/dL Albumin 4.1 (3.5-5.0) g/dL Amylase 63 (30-110) U/L Lipase 161 (23-300) U/L Urine Color Yellow Urine Appearance Cloudy H (Clear) Urine pH 5.5 (5.0-8.0) Ur Specific [place] 1.017 (1.001-1.035) Urine Protein Trace H (Negative) Urine Glucose (UA) Negative (Negative) Urine Ketones Negative (Negative) Urine Blood Large H (Negative) Urine Nitrite Negative (Negative) Urine Bilirubin Negative (Negative) Urine Urobilinogen <2.0 (<2.0) mg/dL Ur Leukocyte Esterase Small H (Negative) Urine RBC >182 H (0-5) /hpf Urine WBC 10 H (0-5) /hpf Ur Squamous Epith Cells 12 H (0-4) /hpf Urine Mucus Rare H (None) /hpf Urine Yeast (Budding) Rare H (None) /hpf 06/29/24 Range/Units 07:53 WBC (3.8-10.6) k/uL RBC (3.80-5.40) m/uL Hgb (11.4-16.0) gm/dL Hct (34.0-46.0) % MCV (80.0-100.0) fL MCH (25.0-35.0) pg MCHC (31.0-37.0) g/dL RDW (11.5-15.5) % Plt Count (150-450) k/uL MPV Neutrophils % % Lymphocytes % % Monocytes % % Eosinophils % % Basophils % % Neutrophils # (1.3-7.7) k/uL Lymphocytes # (1.0-4.8) k/uL Monocytes # (0-1.0) k/uL Eosinophils # (0-0.7) k/uL Basophils # (0-0.2) k/uL Hypochromasia Sodium (137-145) mmol/L Potassium (3.5-5.1) mmol/L Chloride (98-107) mmol/L Carbon Dioxide (22-30) mmol/L Anion Gap mmol/L BUN (7-17) mg/dL Creatinine (0.52-1.04) mg/dL Est GFR (CKD-EPI)AfAm (>60 ml/min/1.73 sqM) Est GFR (CKD-EPI)NonAf (>60 ml/min/1.73 sqM) Glucose (74-99) mg/dL Plasma Lactic Acid Eduardo 0.9 (0.7-2.0) mmol/L Calcium (8.4-10.2) mg/dL Total Bilirubin (0.2-1.3) mg/dL AST (14-36) U/L ALT (4-34) U/L Alkaline Phosphatase (38-126) U/L Total Protein (6.3-8.2) g/dL Albumin (3.5-5.0) g/dL Amylase (30-110) U/L Lipase (23-300) U/L Urine Color Urine Appearance (Clear) Urine pH (5.0-8.0) Ur Specific [place] (1.001-1.035) Urine Protein (Negative) Urine Glucose (UA) (Negative) Urine Ketones (Negative) Urine Blood (Negative) Urine Nitrite (Negative) Urine Bilirubin (Negative) Urine Urobilinogen (<2.0) mg/dL Ur Leukocyte Esterase (Negative) Urine RBC (0-5) /hpf Urine WBC (0-5) /hpf Ur Squamous Epith Cells (0-4) /hpf Urine Mucus (None) /hpf Urine Yeast (Budding) (None) /hpf Disposition Clinical Impression: Hematuria Disposition: HOME SELF-CARE Condition: Good Instructions (If sedation given, give patient instructions): Hematuria (ED) Is patient prescribed a controlled substance at d/c from ED?: No Referrals: Jonathan Morel MD [STAFF PHYSICIAN] - 1-2 days Time of Disposition: 10:29
[2024-06-29] MEDS: SODIUM CHLORIDE 0.9% 1,000 ML IV STA (07:58)
[2024-06-29 08:09] LABS: Basophils # (A) 0.1 k/uL (0-0.2); Basophils % (A) 1 %; Eosinophils # (A) 0.4 k/uL (0-0.7); Eosinophils % (A) 5 %; HCT 34.4 % (34.0-46.0); HGB 11.1 gm/dL (11.4-16.0); Hypochromasia Moderate; Lymphocytes # (A) 1.9 k/uL (1.0-4.8); Lymphocytes % (A) 27 %; MCH 26.4 pg (25.0-35.0); MCHC 32.2 g/dL (31.0-37.0); MCV 82.2 fL (80.0-100.0); Mean Platelet Volume 7.8; Monocytes # (A) 0.4 k/uL (0-1.0); Monocytes % (A) 6 %; Neutrophils # (A) 4.5 k/uL (1.3-7.7); Neutrophils % (A) 61 %; Platelet Count 369 k/uL (150-450); RBC 4.19 m/uL (3.80-5.40); WBC 7.3 k/uL (3.8-10.6)
[2024-06-29] MEDS: ONDANSETRON 4 MG/2 ML VIAL IVP STA ×2 (08:14→10:51)
[2024-06-29 08:24] LABS: ALT 40 U/L (4-34); AST 19 U/L (14-36); African American GFR (CKD) >90 (>60 ml/min/1.73 sqM); Albumin 4.1 g/dL (3.5-5.0); Alkaline Phosphatase 164 U/L (38-126); Amylase 63 U/L (30-110); Anion Gap 8 mmol/L; Blood Urea Nitrogen 11 mg/dL (7-17); Calcium 9.5 mg/dL (8.4-10.2); Carbon Dioxide 21 mmol/L (22-30); Chloride 108 mmol/L (98-107); Glucose 139 mg/dL (74-99); Lipase 161 U/L (23-300); Non-African American GFR(CKD) >90 (>60 ml/min/1.73 sqM); Potassium 4.1 mmol/L (3.5-5.1); Sodium 137 mmol/L (137-145); Total Bilirubin 0.5 mg/dL (0.2-1.3); Total Protein 6.6 g/dL (6.3-8.2)
[2024-06-29 08:31] LABS: Appearance,Urine Cloudy (Clear); Bilirubin,Urine Negative (Negative); Blood,Urine Large (Negative); Budding Yeast,Urine Rare /hpf; Color,Urine Yellow; Glucose,Urine (UA) Negative (Negative); Ketones,Urine Negative (Negative); Leukocyte Esterase,Urine Small (Negative); Mucus,Urine Rare /hpf; Nitrite,Urine Negative (Negative); PH, Urine 5.5 (5.0-8.0); Protein,Urine Trace (Negative); RBC,Urine >182 /hpf (0-5); Specific Gravity,Urine 1.017 (1.001-1.035); Squamous Epithelial Cell,Urine 12 /hpf (0-4); Urobilinogen,Urine <2.0 mg/dL (<2.0); WBC,Urine 10 /hpf (0-5)
[2024-06-29] MEDS: KETOROLAC 15 MG/ML 1 ML VIAL IVP STA (09:13)
--- NOTE | 2024-06-29 10:17 | CT ---
EXAMINATION TYPE: CT abdomen pelvis w con CT DLP: 1116.2 mGycm, Automated exposure control for dose reduction was used. DATE OF EXAM: 06/29/2024 9:05 AM COMPARISON: CT 04/05/2024 CLINICAL INDICATION:Female, 48 years old with history of abdominal pain; Abdominal pain TECHNIQUE: Axial CT of the abdomen and pelvis. Sagittal and coronal reformats were created on a [employer] workstation. Contrast used:100 ml mL of Isovue 300 with IV Contrast, (none if empty) Oral contrast used: without Oral Contrast (none if empty) FINDINGS: LOWER CHEST: Unremarkable ABDOMEN LIVER: Unremarkable GALLBLADDER AND BILE DUCTS: Gallbladder is surgically absent with mild biliary dilatation, likely pos tcholecystectomy change and/or physiologic. No evidence of choledocholithiasis shown. PANCREAS: Unremarkable. SPLEEN: Unremarkable. ADRENAL GLANDS: Unremarkable. KIDNEYS AND URETERS: Kidneys enhance symmetrically. No evidence of hydronephrosis or visible renal ca lculus. The ureters are unremarkable. PELVIS BLADDER: Unremarkable REPRODUCTIVE: The uterus appears absent, correlate for hysterectomy. Uncertain if the ovaries remain , but there is no pelvic mass suggested. ABDOMEN & PELVIS STOMACH AND BOWEL: Stomach and small bowel are nondistended, no evidence of obstruction. The append ix is not seen with certainty but there is no inflammatory process seen in the pericecal region. Mil d/moderate stool throughout the colon. There are some distal colonic diverticula without clear eviden ce of diverticulitis. PERITONEUM/RETROPERITONEUM: No free fluid in the abdomen or pneumoperitoneum. Small amount of fluid is seen within the pelvis. This may be secondary to intraperitoneal shunt catheter. VASCULATURE: Mild atherosclerotic calcifications are present throughout the abdominal aorta and its b ranches. No evidence of aortic aneurysm. Portal veins are enhancing. Splenic vein is patent. LYMPH NODES: No enlarged nodes by CT size criteria. SOFT TISSUE/ABDOMINAL WALL: No acute abnormality. Small fat-containing umbilical hernia. MUSCULOSKELETAL: No acute osseous abnormalities. Mild disc degeneration changes are present throughou t the thoracolumbar spine. IMPRESSION: No acute abnormality demonstrated in the abdomen or pelvis.
[2024-06-29 10:43] VITALS: RESP 18; TEMP 98.8
[2024-06-29] MEDS: HYDROmorphone 0.5 MG/0.5 ML SYRINGE IVP STA (10:46)
[2024-06-29] MEDS: ONDANSETRON 4 MG ODT STARTER PACK 2 TAB BTL PO STA (10:59)
[2024-06-29] MEDS: ACET/COD 300 MG/30 MG STARTER PACK 6 TAB BTL PO STA (11:00)
[2024-06-29 11:05] VITALS: BP 136/82; PULSE 92
== END 2024-06-29 11:05 | disposition home or self-care (01) ==
LOC: EC 07:10
CPT/HCPCS: 36415; 74177; 80053; 81001; 82150; 83605; 83690; 85025; 87040; 87077; 87086; 87186; 96361; 96374; 96375; 96376; 99284

== ENCOUNTER 2024-07-04 11:56 | Emergency (ER) | payer MEDICARE, OTHER ==
[2024-07-04] MEDS ORDERED: ONDANSETRON 4 MG/2 ML VIAL ONE (13:11)
[2024-07-04] MEDS ORDERED: SODIUM CHLORIDE 0.9% 1,000 ML BAG ONE (14:15)
[2024-07-04] MEDS ORDERED: KETOROLAC 15 MG/ML 1 ML VIAL ONE (14:15)
[2024-07-04] MEDS ORDERED: HYDROmorphone 1 MG/ML 1 ML SYRINGE ONE ×2 (15:04→19:05)
[2024-07-04] MEDS ORDERED: ACETAMINOPHEN TAB 325 MG TAB ONE (16:23)
== END 2024-07-04 19:47 ==
LOC: EC 11:56
CPT/HCPCS: 80053; 81003; 83605; 85025; 87086; 96361; 96374; 96375; 96376; 99283

== ENCOUNTER 2024-08-01 18:39 | Inpatient (IN) | payer MEDICARE, OTHER ==
[~2024-08-01 18:39] MED LIST: MAGNESIUM SULFATE-D5W PMX 1 GM in DEXTROSE/WATER 1 100ML.BAG IVPB SCH
--- NOTE | 2024-08-01 19:27 | ED ---
Nausea/Vomiting/Diarrhea HPI - General Chief complaint: Nausea/Vomiting/Diarrhea Stated complaint: NVD Time Seen by Provider: 08/01/24 19:12 Source: patient, RN notes reviewed Mode of arrival: ambulatory Limitations: no limitations - History of Present Illness Initial comments: This is a 48-year-old female who presents to the emergency department for topher sea, vomiting, diarrhea, and abdominal pain. Symptoms started 1 week ago. States that she has pain in the epigastric region as well as burning in the chest. Additionally, she noted that her stool seemed darker than usual. She does however note trying Pepto-Bismol. Not taking blood thinners. She is often in the emergency department for problems with recurrent UTIs, however she denies any urinary symptoms at this time. She recently finished a course of antifungals for a fungal UTI. MD complaint: nausea, vomiting, abdominal pain - Related Data Home Medications Medication Instructions Recorded Confirmed Atorvastatin [Lipitor] 20 mg PO DAILY 10/07/14 06/18/24 FLUoxetine HCL 40 mg PO DAILY 10/07/14 06/18/24 Ibuprofen [Motrin] 800 mg PO Q8HR PRN 10/07/14 06/18/24 Loratadine [Claritin] 10 mg PO DAILY 10/07/14 06/18/24 Acyclovir 400 mg PO DAILY 01/19/21 06/18/24 Fluticasone Nasal [place] [Flonase 1 spr EA NOSTRIL BID PRN 01/19/21 06/18/24 Nasal [place]] Pantoprazole [Protonix] 40 mg PO DAILY 01/19/21 06/18/24 busPIRone HCL 15 mg PO BID 01/19/21 06/18/24 Lisdexamfetamine Dimesylate 60 mg PO DAILY 11/15/23 06/18/24 [Vyvanse] hydrOXYzine HCL [Atarax] 50 mg PO BID 11/15/23 06/18/24 metFORMIN HCL 1,000 mg PO BID 11/15/23 06/18/24 Pentosan Polysulfate Sodium 100 mg PO TID 04/11/24 06/18/24 [Elmiron] Ketorolac [Toradol] 10 mg PO Q6HR PRN 06/18/24 06/18/24 Ondansetron [Zofran] 4 mg PO DAILY PRN 06/18/24 06/18/24 Semaglutide [Ozempic] 1 mg SQ TU 06/18/24 06/18/24 amLODIPine [Norvasc] 10 mg PO DAILY 06/18/24 06/18/24 diphenhydrAMINE HCL [Benadryl] 25 mg PO BID PRN 06/18/24 06/18/24 Previous Rx's Medication Instructions Recorded Butalb/APAP/Caff 50-325-40Mg 1 tab PO TID PRN #12 tab 01/21/21 [Fioricet 50-325-40] Cyclobenzaprine [Flexeril] 10 mg PO TID PRN #15 tab 06/13/24 Acetaminophen-Codeine 300-30mg 1 tab PO Q4HR PRN #18 tab 06/20/24 [Tylenol w/codeine #3] Phenazopyridine [Pyridium] 200 mg PO TID #30 tablet 06/20/24 Voriconazole [Vfend] 200 mg PO Q12HR #6 tablet 06/20/24 Allergies Allergy/AdvReac Type Severity Reaction Status Date / Time Sulfa (Sulfonamide Allergy Severe Rash/Hives/ Verified 08/01/24 18:52 Antibiotics) Vomiting ciprofloxacin [From Cipro] Allergy Rash/Hives Verified 08/01/24 18:52 ciprofloxacin HCl Allergy Rash/Hives Verified 08/01/24 18:52 [From Cipro] Review of Systems ROS Statement: Those systems with pertinent positive or pertinent negative responses have been documented in the HPI. ROS Other: All systems not noted in ROS Statement are negative. Past Medical History Past Medical History: Diabetes Mellitus, Eye Disorder, Hyperlipidemia, Hypertension, Renal Disease Additional Past Medical History / Comment(s): GLAUCOMA; MIGRAINES, IBS, cystitis History of Any Multi-Drug Resistant Organisms: C-DIFF Date of last positivie culture/infection: April 2021 MDRO Source:: stool Past Surgical History: Appendectomy, Cholecystectomy Additional Past Surgical History / Comment(s): OVARY SURGERY; BILAT EYE SURGERY, metal plate under right eye Past Anesthesia/Blood Transfusion Reactions: Postoperative Nausea & Vomiting (PONV) Additional Past Anesthesia/Blood Transfusion Reaction / Comment(s): pt states she gets very mean from anesthesia Past Psychological History: ADD/ADHD, Depression Smoking Status: Never smoker Past Alcohol Use History: None Reported Past Drug Use History: None Reported - Past Family History Mother Family Medical History: COPD, Diabetes Mellitus Father Family Medical History: Coronary Artery Disease (CAD), Diabetes Mellitus Additional Family Medical History / Comment(s): dad General Exam Limitations: no limitations General appearance: alert, in no apparent distress Head exam: Present: atraumatic, normocephalic, normal inspection Respiratory exam: Present: normal lung sounds bilaterally. Absent: respiratory distress, wheezes, rales, rhonchi, stridor Cardiovascular Exam: Present: regular rate, normal rhythm, normal heart sounds. Absent: systolic murmur, diastolic murmur, rubs, gallop, clicks GI/Abdominal exam: Present: soft, tenderness (generalized), normal bowel sounds. Absent: distended Neurological exam: Present: alert, oriented X3, CN II-XII intact Psychiatric exam: Present: normal affect, normal mood Skin exam: Present: warm, dry, intact, normal color. Absent: rash Course Vital Signs 08/01/24 08/01/24 08/02/24 18:50 21:53 00:15 Temperature 100.2 F H 98.9 F Pulse Rate 127 H 99 97 Respiratory 18 18 18 Rate Blood Pressure 139/96 126/88 126/86 Blood Pressure [Left Arm] O2 Sat by Pulse 99 96 99 Oximetry 08/02/24 01:01 Temperature Pulse Rate Respiratory 16 Rate Blood Pressure Blood Pressure 124/87 [Left Arm] O2 Sat by Pulse Oximetry Medical Decision Making - Medical Decision Making This is a 48 year old female who presents to the emergency department for abdominal pain, nausea, and vomiting. Was pt. sent in by a medical professional or institution? @ -No Did you speak to anyone other than the patient for history? @ -No Did you review nursing and triage notes? @ -Yes, and I agree, it is accurate with regards to the patient's symptoms. Were old charts reviewed? @ -No Differential Diagnosis? @ -Differential Abdominal Pain Women: Appendicitis, Cholecystitis, diverticulosis, ischemic bowel, pancreatitis, hepatitis, UTI, gastroenteritis, AAA, incarcerated hernia, bowel obstruction, constipation, inflammatory bowel, hepatitis, peptic ulcer disease, splenic infarction, perforated viscus, vulvitis, ovarian torsion, PID, kidney stone, placenta abruption, this is not meant to be an all-inclusive list EKG interpreted by me (3pts min.)? @ -EKG interpreted by me demonstrating the following: Sinus tachycardia. Ventricular rate 113 bpm, NM interval 159 ms, QRS duration 86 ms, QTc 346 ms. X-rays interpreted by me (1pt min.)? @ -Not obtained CT interpreted by me (1pt min.)? @ -CT scan of the abdomen and pelvis obtained. My interpretation identifies prominent fluid-filled small bowel loops U/S interpreted by me (1pt. min.)? @ -Not obtained What testing was considered but not performed? (CT, X-rays, U/S, labs)? Why? @ -None What meds were considered but not given? Why? @ -None Did you discuss the management of the patient with other professionals? @ -Dr. Bustamante, general surgery, who advised that if vomiting is under control an NG tube can be avoided for the mean time. Dr. Bentley accepts the patient for admission. Did you reconcile home meds? @ -No Was smoking cessation discussed for >3mins.? @ -No Was critical care preformed (if so, how long)? @ -No Were there social determinants of health that impacted care today? How? (Homelessness, low income, unemployed, alcoholism, drug addiction, transportation, low edu. Level, literacy, decrease access to med. care, usp, rehab)? @ -No Was there de-escalation of care discussed even if they declined? (Discuss DNR or withdrawal of care, Hospice)? @ -No What co-morbidities impacted this encounter? (DM, HTN, Smoking, COPD, CAD, Cancer, CVA, Hep., AIDS, mental health diagnosis, sleep apnea, morbid obesity)? @ -None Was patient admitted / discharged? @ -Admitted. Lab work demonstrates an acute transaminitis and low magnesium. Patient was recently treated for a fungal UTI, which may be a contributing factor to the transaminitis. She no longer has her gallbladder and pancreatic enzymes are within normal limits. CT scan of the abdomen and pelvis obtained demonstrating a proximal small bowel that is prominent with fluid and advised consideration of an ileus versus partial small bowel obstruction. Discrete zone of transition is not identified. Case discussed with Dr. Bustamante, general surgery. He advised that because her vomiting is under control, an NG tube can be avoided at this time. He advised keeping her n.p.o. and he will evaluate the patient in the morning. Patient admitted to medicine for ileus versus partial small bowel obstruction with general surgery on consult. Case discussed with ED attending, Dr. Hodges. Undiagnosed new problem with uncertain prognosis? @ -None Drug Therapy requiring intensive monitoring for toxicity (Heparin, Nitro, Insulin, Cardizem)? @ -None Were any procedures done? @ -None Diagnosis/symptom? @ -Ileus versus partial small bowel obstruction Acute, or Chronic, or Acute on Chronic? @ -Acute Uncomplicated (without systemic symptoms) or Complicated (systemic symptoms)? @ -Complicated Side effects of treatment? @ -None Exacerbation, Progression, or Severe Exacerbation] @ -Not applicable Poses a threat to life or bodily function? @ -Yes, can lead to bowel or perforation, which can be fatal. - Lab Data Result diagrams: 08/01/24 19:45 08/01/24 19:45 Lab Results 08/01/24 08/01/24 08/01/24 Range/Units 19:45 19:45 19:45 WBC 10.1 (3.8-10.6) k/uL RBC 5.34 (3.80-5.40) m/uL Hgb 13.7 (11.4-16.0) gm/dL Hct 43.0 (34.0-46.0) % MCV 80.5 (80.0-100.0) fL MCH 25.6 (25.0-35.0) pg MCHC 31.8 (31.0-37.0) g/dL RDW 15.1 (11.5-15.5) % Plt Count 419 (150-450) k/uL MPV 7.8 Neutrophils % 70 % Lymphocytes % 22 % Monocytes % 4 % Eosinophils % 2 % Basophils % 1 % Neutrophils # 7.1 (1.3-7.7) k/uL Lymphocytes # 2.3 (1.0-4.8) k/uL Monocytes # 0.4 (0-1.0) k/uL Eosinophils # 0.2 (0-0.7) k/uL Basophils # 0.1 (0-0.2) k/uL Hypochromasia Slight Sodium 139 (137-145) mmol/L Potassium 4.3 (3.5-5.1) mmol/L Chloride 111 H (98-107) mmol/L Carbon Dioxide 14 L (22-30) mmol/L Anion Gap 14 mmol/L BUN 8 (7-17) mg/dL Creatinine 0.71 (0.52-1.04) mg/dL Est GFR (CKD-EPI)AfAm >90 (>60 ml/min/1.73 sqM) Est GFR (CKD-EPI)NonAf >90 (>60 ml/min/1.73 sqM) Glucose 143 H (74-99) mg/dL Plasma Lactic Acid Eduardo 1.7 (0.7-2.0) mmol/L Calcium 10.5 H (8.4-10.2) mg/dL Phosphorus (2.5-4.5) mg/dL Magnesium (1.6-2.3) mg/dL Total Bilirubin 0.3 (0.2-1.3) mg/dL AST 144 H (14-36) U/L ALT 328 H (4-34) U/L Alkaline Phosphatase 205 H (38-126) U/L Troponin I (0.000-0.034) ng/mL Total Protein 7.8 (6.3-8.2) g/dL Albumin 4.8 (3.5-5.0) g/dL Amylase 53 (30-110) U/L Lipase 103 (23-300) U/L Urine Color Urine Appearance (Clear) Urine pH (5.0-8.0) Ur Specific [place] (1.001-1.035) Urine Protein (Negative) Urine Glucose (UA) (Negative) Urine Ketones (Negative) Urine Blood (Negative) Urine Nitrite (Negative) Urine Bilirubin (Negative) Urine Urobilinogen (<2.0) mg/dL Ur Leukocyte Esterase (Negative) Urine RBC (0-5) /hpf Urine WBC (0-5) /hpf Ur Squamous Epith Cells (0-4) /hpf Calcium Oxalate Crystal (None) /hpf Amorphous Sediment (None) /hpf Urine Bacteria (None) /hpf Hyaline Casts (0-2) /lpf Urine Mucus (None) /hpf 08/01/24 08/01/24 08/01/24 Range/Units 19:45 21:23 22:40 WBC (3.8-10.6) k/uL RBC (3.80-5.40) m/uL Hgb (11.4-16.0) gm/dL Hct (34.0-46.0) % MCV (80.0-100.0) fL MCH (25.0-35.0) pg MCHC (31.0-37.0) g/dL RDW (11.5-15.5) % Plt Count (150-450) k/uL MPV Neutrophils % % Lymphocytes % % Monocytes % % Eosinophils % % Basophils % % Neutrophils # (1.3-7.7) k/uL Lymphocytes # (1.0-4.8) k/uL Monocytes # (0-1.0) k/uL Eosinophils # (0-0.7) k/uL Basophils # (0-0.2) k/uL Hypochromasia Sodium (137-145) mmol/L Potassium (3.5-5.1) mmol/L Chloride (98-107) mmol/L Carbon Dioxide (22-30) mmol/L Anion Gap mmol/L BUN (7-17) mg/dL Creatinine (0.52-1.04) mg/dL Est GFR (CKD-EPI)AfAm (>60 ml/min/1.73 sqM) Est GFR (CKD-EPI)NonAf (>60 ml/min/1.73 sqM) Glucose (74-99) mg/dL Plasma Lactic Acid Eduardo (0.7-2.0) mmol/L Calcium (8.4-10.2) mg/dL Phosphorus 3.8 (2.5-4.5) mg/dL Magnesium 1.4 L (1.6-2.3) mg/dL Total Bilirubin (0.2-1.3) mg/dL AST (14-36) U/L ALT (4-34) U/L Alkaline Phosphatase (38-126) U/L Troponin I <0.012 (0.000-0.034) ng/mL Total Protein (6.3-8.2) g/dL Albumin (3.5-5.0) g/dL Amylase (30-110) U/L Lipase (23-300) U/L Urine Color Yellow Urine Appearance Cloudy H (Clear) Urine pH 6.0 (5.0-8.0) Ur Specific [place] >1.050 H (1.001-1.035) Urine Protein 1+ H (Negative) Urine Glucose (UA) Negative (Negative) Urine Ketones Negative (Negative) Urine Blood Negative (Negative) Urine Nitrite Negative (Negative) Urine Bilirubin Negative (Negative) Urine Urobilinogen <2.0 (<2.0) mg/dL Ur Leukocyte Esterase Trace H (Negative) Urine RBC 3 (0-5) /hpf Urine WBC 14 H (0-5) /hpf Ur Squamous Epith Cells 10 H (0-4) /hpf Calcium Oxalate Crystal Occasional H (None) /hpf Amorphous Sediment Occasional H (None) /hpf Urine Bacteria Occasional H (None) /hpf Hyaline Casts 194 H (0-2) /lpf Urine Mucus Moderate H (None) /hpf - Radiology Data Radiology results: report reviewed, image reviewed Disposition Clinical Impression: Ileus, Partial small bowel obstruction Disposition: ADMITTED IP TO THIS HOSP
[2024-08-01] MEDS: KETOROLAC 15 MG/ML 1 ML VIAL IVP STA (19:48)
[2024-08-01] MEDS: FAMOTIDINE 20 MG/2 ML VIAL IV STA (19:48)
[2024-08-01] MEDS: ONDANSETRON 4 MG/2 ML VIAL IVP STA (19:49)
[2024-08-01] MEDS: HYDROmorphone 1 MG/ML 1 ML SYRINGE IVP STA ×2 (19:49→21:18)
[2024-08-01] MEDS: SODIUM CHLORIDE 0.9% 1,000 ML IV STA (19:50)
[2024-08-01 20:13] LABS: Basophils # (A) 0.1 k/uL (0-0.2); Basophils % (A) 1 %; Eosinophils # (A) 0.2 k/uL (0-0.7); Eosinophils % (A) 2 %; HGB 13.7 gm/dL (11.4-16.0); Hypochromasia Slight; Lymphocytes # (A) 2.3 k/uL (1.0-4.8); Lymphocytes % (A) 22 %; MCH 25.6 pg (25.0-35.0); MCHC 31.8 g/dL (31.0-37.0); MCV 80.5 fL (80.0-100.0); Mean Platelet Volume 7.8; Monocytes # (A) 0.4 k/uL (0-1.0); Monocytes % (A) 4 %; Neutrophils # (A) 7.1 k/uL (1.3-7.7); Neutrophils % (A) 70 %; Platelet Count 419 k/uL (150-450); RBC 5.34 m/uL (3.80-5.40); RDW 15.1 % (11.5-15.5); WBC 10.1 k/uL (3.8-10.6)
[2024-08-01 20:28] LABS: ALT 328 U/L (4-34); AST 144 U/L (14-36); African American GFR (CKD) >90 (>60 ml/min/1.73 sqM); Albumin 4.8 g/dL (3.5-5.0); Alkaline Phosphatase 205 U/L (38-126); Amylase 53 U/L (30-110); Anion Gap 14 mmol/L; Blood Urea Nitrogen 8 mg/dL (7-17); Calcium 10.5 mg/dL (8.4-10.2); Carbon Dioxide 14 mmol/L (22-30); Chloride 111 mmol/L (98-107); Glucose 143 mg/dL (74-99); Lipase 103 U/L (23-300); Non-African American GFR(CKD) >90 (>60 ml/min/1.73 sqM); Potassium 4.3 mmol/L (3.5-5.1); Sodium 139 mmol/L (137-145); Total Bilirubin 0.3 mg/dL (0.2-1.3); Total Protein 7.8 g/dL (6.3-8.2)
[2024-08-01] MEDS: MAG HYDROX/AL HYDROX/SIMETH 30 ML, HYOSCYAMINE ELIXIR 10 ML, LIDOCAINE VISCOUS 2% 10 ML PO STA (21:18)
--- NOTE | 2024-08-01 21:43 | CT ---
EXAMINATION TYPE: CT abdomen pelvis w con DATE OF EXAM: 08/01/2024 COMPARISON: 06/29/2024 INDICATION: n/v/d, black stool x 5 days DLP: 988.7 mGycm, Automated exposure control for dose reduction was used. CONTRAST: 100 mL of Isovue 300. Study performed without Oral Contrast TECHNIQUE: Axial images were obtained from above the diaphragm to the pubic rami in the axial plane a t 5 mm thick sections. Reconstructed images are reviewed on the computer in the coronal plane. FINDINGS: Limited CT sections are obtained the lung bases. The lung bases are clear. CT ABDOMEN: Liver: Normal Spleen: Normal Pancreas: Normal Adrenal glands: The adrenal glands are normal. Gallbladder: Normal Kidneys: No masses are evident. No hydronephrosis is present. No cysts are present. Delayed images were obtained through the kidneys, which remain unremarkable. Aorta: Minimal Vascular calcification is within the aorta. Inferior vena cava: Normal. CT PELVIS: Shunt catheter extends along the anterior and abdomen with the tip in the pelvis. Some min imal free fluid is within the pelvis. There are prominent fluid-filled small bowel loops. These prominent fluid-filled loops are increased from comparison. Distal ileum appears decompressed. A zone of transition is not identified. Colon is decompressed, more so than the previous exam. Differential diagnosis could include ileus mild partial small bowel obstruction likely within the mid abdomen . The study is without oral contrast limiting bowel evaluation. Appendix: Not clearly identified. No dilated tubular structure or inflammatory change is evident. Urinary bladder: Normal. Genitourinary structures: Uterus and ovaries are not identified. Osseous structures: No suspicious lytic or sclerotic lesions. IMPRESSION: 1. Proximal small bowel is prominent with fluid. Ileus and mild partial small bowel obstruction coul d be considered. Discrete zone of transition is not identified.
[2024-08-01 22:06] LABS: Amorphous Sediment,Urine Occasional /hpf; Appearance,Urine Cloudy (Clear); Bacteria,Urine Occasional /hpf; Bilirubin,Urine Negative (Negative); Blood,Urine Negative (Negative); Calcium Oxalate Crystals,Urine Occasional /hpf; Color,Urine Yellow; Glucose,Urine (UA) Negative (Negative); Hyaline Casts,Urine 194 /lpf (0-2); Ketones,Urine Negative (Negative); Leukocyte Esterase,Urine Trace (Negative); Mucus,Urine Moderate /hpf; Nitrite,Urine Negative (Negative); Protein,Urine 1+ (Negative); RBC,Urine 3 /hpf (0-5); Squamous Epithelial Cell,Urine 10 /hpf (0-4); Urobilinogen,Urine <2.0 mg/dL (<2.0); WBC,Urine 14 /hpf (0-5)
[2024-08-01 22:07] LABS: Specific Gravity,Urine >1.050 (1.001-1.035)
[2024-08-01] MEDS: METOCLOPRAMIDE 5 MG/ML 2 ML VIAL IVP STA (22:42)
[2024-08-01] MEDS ORDERED: NALOXONE 0.4 MG/ML 1 ML VIAL IV PRN (22:54)
[2024-08-01] MEDS ORDERED: IBUPROFEN 400 MG TAB PO PRN (22:54)
[2024-08-01] MEDS ORDERED: ACETAMINOPHEN TAB 325 MG TAB PO PRN (22:54)
[2024-08-01 23:00] LABS: Magnesium 1.4 mg/dL (1.6-2.3); Phosphorus 3.8 mg/dL (2.5-4.5)
[2024-08-02] MEDS: HYDROmorphone 1 MG/ML 1 ML SYRINGE IVP PRN (00:10)
[2024-08-02] MEDS: MAGNESIUM OXIDE 400 MG TAB PO STA (00:11)
[2024-08-02] MEDS: MAGNESIUM SULFATE-D5W PMX 1 GM in DEXTROSE/WATER 1 100ML.BAG IVPB SCH (00:13)
[2024-08-02] MEDS: KETOROLAC 15 MG/ML 1 ML VIAL IVP PRN (01:09)
--- NOTE | 2024-08-02 01:39 | P.HPIM ---
History of Present Illness H&P Date: 08/01/24 Patient is a 48-year-old female with a PMH of IBS, recurrent UTI, type 2 diabetes, hypertension presents to the ED for abdominal pain, nausea, vomiting, diarrhea. She states the abdominal pain started 5 days ago as a mild pain that has progressively gotten worse. Patient reports pain mostly in the right lower quadrant and radiates to hypogastric region. No aggravating or alleviating factors for the pain. She reports of having multiple episodes of vomiting and diarrhea most notably after eating meals. She denies any blood in the vomit. She is thrown up 4 times since being admitted to the ED. She describes her diarrhea as black in color. Last bowel movement was yesterday 5 PM before she decided to go to the ED. She notes she has had history of recurrent UTI and states that she has increased frequency and dysuria but denies any blood in the urine. She also reports of chest pain and describes it as a burning sensation. She says she has been feeling bloated during these past 5 days. Patient reports she has had multiple abdominal surgeries including appendectomy, cholecystectomy , and hysterectomy. EKG independently interpreted showed sinus tachycardia with a rate of 113 bpm, QTc 346 ms, poor R-wave progression. CBC unremarkable, sodium 139, potassium 4.3, chloride 111, CO2 14, glucose 143, lactic acid 1.7, magnesium 1.4, AST 144, ALT 328, alk phos 205, troponin <0.012, lipase 103 CT abdominal showed proximal's small bowel is prominent with fluid, ileus and mild partial bowel obstruction could be considered, no discrete zone of transition identified UA inconclusive due to high squamous epithelial count T 100.2 F => 98.9 F, OR 99, RR 18, BP 126/88, O2 sat 96% on room air ED documentation reviewed and case discussed with ED provider. Review of systems: Pertinent positives and negatives as discussed in HPI, a complete review of systems was performed and all other systems are negative. Social history: Tobacco: Never smoker Alcohol: Denies alcohol use Recreational drugs: Denies illicit drug use Travel: No recent travel Occupation: Does not work, lives at home by herself Physical examination: Vital signs reviewed General: non toxic, no distress, appears at stated age, obese Derm: no unusual rashes/lesions, warm Head: atraumatic, normocephalic, symmetric Eyes: EOMI, anicteric sclera, pupils equal round reactive to light ENT: Nose and ears atraumatic Mouth: no lip lesion, mucus membranes moist Cardiovascular: S1S2 reg, no murmur, positive dorsalis pedis pulse bilateral, no edema Lungs: CTA bilateral, no rhonchi, no rales, no accessory muscle use Abdominal: soft, generalized tenderness, no guarding, hyperactive bowel sounds Ext: muscle strength 5 out of 5 in all 4 extremities grossly, no gross muscle atrophy, no contractures, Neuro: CN II-XI grossly intact, no gross focal neuro deficits Psych: Alert, oriented, appropriate affect Assessment/Plan: Patient is a 48-year-old female with a PMH of IBS, recurrent UTI, type 2 diabetes, hypertension presents to the ED for abdominal pain being admitted for suspected ileus versus partial SBO. #. Partial small bowel obstruction CT abdominal showed proximal's small bowel is prominent with fluid, ileus and mild partial bowel obstruction could be considered, no discrete zone of transition identified Keep patient NPO Continue Protonix 40 mg IV daily Zofran 4 mg IVP every 8 hours as needed Pain management: Ibuprofen 400 mg p.o. every 6 hours PRN, Toradol 15 mg IVP every 6 hours PRN Surgery consulted. They recommended holding off on NGT as patient is no longer vomiting. #. Suspected UTI Patient admits to dysuria and increased frequency Patient has PMH of recurrent UTI UA inconclusive, repeat UA Urine cultures ordered #. Transaminitis ALT 328, AST 144, alk phos 205 Lactic acid wnl 1.7 Order liver ultrasound -Likely due to ongoing bowel obstruction with persistent vomiting Hepatitis panel ordered by ED and resulted unremarkable Follow-up CMP #. High Anion gap metabolic acidosis Likely from starvation ketosis with borderline lactic acidosis IV fluids NS at 75 cc/hr #. Type 2 diabetes Placed on insulin SQ sliding scale Monitor glucose for hypoglycemia #. Hypomagnesia Magnesium replaced in ED with 2 g of Mag Sulfate Follow-up mag F: NS at 75cc/hr E: Replete electrolytes as needed N: NPO A: Patient ambulatory DVT prophylaxis: Lovenox 40 SQ daily The patient is admitted with an anticipated greater than 2 midnight stay for evaluation of abdominal pain secondary to suspected partial SBO. CODE STATUS: Full code Discussed with: Patient Anticipated discharge place: Home Past Medical History Past Medical History: Diabetes Mellitus, Eye Disorder, Hyperlipidemia, Hyper tension, Renal Disease Additional Past Medical History / Comment(s): GLAUCOMA; MIGRAINES, IBS, cystitis History of Any Multi-Drug Resistant Organisms: C-DIFF Date of last positivie culture/infection: April 2021 MDRO Source:: stool Past Surgical History: Appendectomy, Cholecystectomy Additional Past Surgical History / Comment(s): OVARY SURGERY; BILAT EYE SURGERY, metal plate under right eye Past Anesthesia/Blood Transfusion Reactions: Postoperative Nausea & Vomiting (PONV) Additional Past Anesthesia/Blood Transfusion Reaction / Comment(s): pt states she gets very mean from anesthesia Past Psychological History: ADD/ADHD, Depression Smoking Status: Never smoker Past Alcohol Use History: None Reported Past Drug Use History: None Reported - Past Family History Mother Family Medical History: COPD, Diabetes Mellitus Father Family Medical History: Coronary Artery Disease (CAD), Diabetes Mellitus Additional Family Medical History / Comment(s): dad Medications and Allergies Home Medications Medication Instructions Recorded Confirmed Type Atorvastatin [Lipitor] 20 mg PO DAILY 10/07/14 06/18/24 History FLUoxetine HCL 40 mg PO DAILY 10/07/14 06/18/24 History Ibuprofen [Motrin] 800 mg PO Q8HR PRN 10/07/14 06/18/24 History Loratadine [Claritin] 10 mg PO DAILY 10/07/14 06/18/24 History Acyclovir 400 mg PO DAILY 01/19/21 06/18/24 History Fluticasone Nasal [place] [Flonase 1 spr EA NOSTRIL BID PRN 01/19/21 06/18/24 History Nasal [place]] Pantoprazole [Protonix] 40 mg PO DAILY 01/19/21 06/18/24 History busPIRone HCL 15 mg PO BID 01/19/21 06/18/24 History Butalb/APAP/Caff 50-325-40Mg 1 tab PO TID PRN #12 tab 01/21/21 06/18/24 Rx [Fioricet 50-325-40] Lisdexamfetamine Dimesylate 60 mg PO DAILY 11/15/23 06/18/24 History [Vyvanse] hydrOXYzine HCL [Atarax] 50 mg PO BID 11/15/23 06/18/24 History metFORMIN HCL 1,000 mg PO BID 11/15/23 06/18/24 History Pentosan Polysulfate Sodium 100 mg PO TID 04/11/24 06/18/24 History [Elmiron] Cyclobenzaprine [Flexeril] 10 mg PO TID PRN #15 tab 06/13/24 06/18/24 Rx Ketorolac [Toradol] 10 mg PO Q6HR PRN 06/18/24 06/18/24 History Ondansetron [Zofran] 4 mg PO DAILY PRN 06/18/24 06/18/24 History Semaglutide [Ozempic] 1 mg SQ TU 06/18/24 06/18/24 History amLODIPine [Norvasc] 10 mg PO DAILY 06/18/24 06/18/24 History diphenhydrAMINE HCL [Benadryl] 25 mg PO BID PRN 06/18/24 06/18/24 History Acetaminophen-Codeine 300-30mg 1 tab PO Q4HR PRN #18 tab 06/20/24 Rx [Tylenol w/codeine #3] Phenazopyridine [Pyridium] 200 mg PO TID #30 tablet 06/20/24 Rx Voriconazole [Vfend] 200 mg PO Q12HR #6 tablet 06/20/24 Rx Allergies Allergy/AdvReac Type Severity Reaction Status Date / Time Sulfa (Sulfonamide Allergy Severe Rash/Hives/ Verified 08/01/24 18:52 Antibiotics) Vomiting ciprofloxacin [From Cipro] Allergy Rash/Hives Verified 08/01/24 18:52 ciprofloxacin HCl Allergy Rash/Hives Verified 08/01/24 18:52 [From Cipro] Physical Exam Vitals: Vital Signs Temp Pulse Resp BP Pulse Ox 08/01/24 21:53 98.9 F 99 18 126/88 96 08/01/24 18:50 100.2 F H 127 H 18 139/96 99 Intake and Output 08/01/24 08/01/24 08/02/24 14:59 22:59 06:59 Other: Weight 70.307 kg Results CBC & Chem 7: 08/01/24 19:45 08/01/24 19:45 Labs: Abnormal Lab Results - Last 24 Hours (Table) 08/01/24 08/01/24 08/01/24 Range/Units 19:45 21:23 22:40 Chloride 111 H (98-107) mmol/L Carbon Dioxide 14 L (22-30) mmol/L Glucose 143 H (74-99) mg/dL Calcium 10.5 H (8.4-10.2) mg/dL Magnesium 1.4 L (1.6-2.3) mg/dL AST 144 H (14-36) U/L ALT 328 H (4-34) U/L Alkaline Phosphatase 205 H (38-126) U/L Urine Appearance Cloudy H (Clear) Ur Specific [place] >1.050 H (1.001-1.035) Urine Protein 1+ H (Negative) Ur Leukocyte Esterase Trace H (Negative) Urine WBC 14 H (0-5) /hpf Ur Squamous Epith Cells 10 H (0-4) /hpf Calcium Oxalate Crystal Occasional H (None) /hpf Amorphous Sediment Occasional H (None) /hpf Urine Bacteria Occasional H (None) /hpf Hyaline Casts 194 H (0-2) /lpf Urine Mucus Moderate H (None) /hpf
[2024-08-02 03:04] LABS: Hepatitis A Antibody IgM Nonreactive (Nonreactive); Hepatitis B Core IgM Nonreactive (Nonreactive); Hepatitis B Surface Antigen Nonreactive (Nonreactive); Hepatitis C IgG Antibody Nonreactive (Nonreactive)
[2024-08-02] MEDS: ONDANSETRON 4 MG/2 ML VIAL IVP PRN (03:22)
[2024-08-02] MEDS: SODIUM CHLORIDE 0.9% 1,000 ML IV SCH (04:54)
[2024-08-02] MEDS: ENOXAPARIN 40 MG/0.4 ML SYRINGE SQ SCH (08:14)
[2024-08-02] MEDS: MORPHINE SULFATE 2 MG/ML SYRINGE IVP PRN (08:14)
[2024-08-02] MEDS: PANTOPRAZOLE 40 MG/10 ML VIAL IV SCH (08:15)
[2024-08-02 08:35] LABS: Glucose,Whole Blood 135 mg/dL (70-110)
[2024-08-02 08:57] LABS: Basophils # (A) 0.03 X 10*3/uL (0.00-0.10); Basophils % (A) 0.4 %; Eosinophils # (A) 0.16 X 10*3/uL (0.04-0.35); Eosinophils % (A) 2.3 %; HCT 36.6 % (37.2-46.3); HGB 11.5 g/dL (12.0-15.0); Lymphocytes # (A) 2.03 X 10*3/uL (0.90-5.00); Lymphocytes % (A) 29.3 %; MCH 25.5 pg (27.0-32.0); MCHC 31.4 g/dL (32.0-37.0); MCV 81.2 FL (80.0-97.0); Mean Platelet Volume 10.8 FL (9.5-12.2); Monocytes # (A) 0.49 X 10*3/uL (0.20-1.00); Monocytes % (A) 7.1 %; NRBC Per 100 WBC 0 X 10*3/uL (0.00-0.01); Neutrophils # (A) 4.19 X 10*3/uL (1.80-7.70); Neutrophils % (A) 60.5 %; Platelet Count 320 X 10*3/uL (140-440); RBC 4.51 X 10*6/uL (4.10-5.20); RDW 15.7 % (11.5-14.5); WBC 6.93 X 10*3/uL (4.50-10.00)
[2024-08-02] MEDS: INSULIN ASPART (NovoLOG) 100 UNIT/ML VIAL SQ SCH (09:08)
[2024-08-02 09:23] LABS: ALT 304 U/L (8-44); AST 140 U/L (13-35); Albumin 4.2 g/dL (3.8-4.9); Alkaline Phosphatase 234 U/L (41-126); BUN/Creat Ratio 10.38 Ratio (12.00-20.00); Blood Urea Nitrogen 8.3 mg/dL (9.0-27.0); Calcium 9.1 mg/dL (8.7-10.3); Carbon Dioxide 18.9 mmol/L (21.6-31.8); Chloride 113 mmol/L (96-109); Glucose 123 mg/dL (70-110); Sodium 144 mmol/L (135-145); Total Bilirubin <0.2 mg/dL (0.3-1.2); Total Protein 6.2 g/dL (6.2-8.2)
[2024-08-02 10:56] LABS: Appearance,Urine Clear (Clear); Bacteria,Urine Rare /hpf; Bilirubin,Urine Negative (Negative); Blood,Urine Negative (Negative); Color,Urine Yellow; Glucose,Urine (UA) Negative (Negative); Hyaline Casts,Urine 1 /lpf (0-2); Ketones,Urine Negative (Negative); Leukocyte Esterase,Urine Negative (Negative); Mucus,Urine Rare /hpf; Nitrite,Urine Negative (Negative); Protein,Urine 1+ (Negative); RBC,Urine 1 /hpf (0-5); Squamous Epithelial Cell,Urine 6 /hpf (0-4); Urobilinogen,Urine <2.0 mg/dL (<2.0); WBC,Urine 1 /hpf (0-5)
[2024-08-02 10:58] LABS: Specific Gravity,Urine >1.050 (1.001-1.035)
[2024-08-02 11:56] LABS: Glucose,Whole Blood 100 mg/dL (70-110)
[2024-08-02 13:15] LABS: Basophils # (A) 0.1 k/uL (0-0.2); Basophils % (A) 1 %; Eosinophils # (A) 0.2 k/uL (0-0.7); Eosinophils % (A) 3 %; HCT 37.9 % (34.0-46.0); HGB 11.7 gm/dL (11.4-16.0); Hypochromasia Moderate; Lymphocytes # (A) 1.6 k/uL (1.0-4.8); Lymphocytes % (A) 25 %; MCH 26.2 pg (25.0-35.0); MCV 84.6 fL (80.0-100.0); Mean Platelet Volume 8.9; Monocytes # (A) 0.3 k/uL (0-1.0); Monocytes % (A) 5 %; Neutrophils # (A) 4.2 k/uL (1.3-7.7); Neutrophils % (A) 66 %; Platelet Count 257 k/uL (150-450); RBC 4.48 m/uL (3.80-5.40); RDW 15.5 % (11.5-15.5); WBC 6.4 k/uL (3.8-10.6)
--- NOTE | 2024-08-02 14:16 | P.PN ---
Subjective Progress Note Date: 08/02/24 Patient continues to complain of abdominal pain, nausea, but has not vomited overnight. She reports ongoing diarrhea. She says that this is black in nature. Gen: In NAD, non-toxic HEENT: normocephalic, atraumatic, hearing acuity is intant, mucous membranes moist CVS: perfusing all extremities well, no pitting edema, Respiratory: symmetric chest expansion, no accessory muscle use, GI: soft, NTTP, ND, : no suprapubic tenderness, no CVA tenderness MSK/Derm: no rashes, cyanosis Neuro: CN II-XII intact, no motor weakness, Psych: cooperative, euthymic mood, judgment and insight is intact Hospital course: Patient is a 48-year-old female with a PMH of IBS, recurrent UTI, type 2 diabetes, hypertension presents to the ED for abdominal pain, nausea, vomiting, diarrhea. EKG independently interpreted showed sinus tachycardia with a rate of 113 bpm, QTc 346 ms, poor R-wave progression. CBC unremarkable, sodium 139, potassium 4.3, chloride 111, CO2 14, glucose 143, lactic acid 1.7, magnesium 1.4, AST 144, ALT 328, alk phos 205, troponin <0.012, lipase 103 CT abdominal showed proximal's small bowel is prominent with fluid, ileus and mild partial bowel obstruction could be considered, no discrete zone of transition identified UA inconclusive due to high squamous epithelial count T 100.2 F => 98.9 F, MT 99, RR 18, BP 126/88, O2 sat 96% on room air Assessment/Plan: Patient is a 48-year-old female with a PMH of IBS, recurrent UTI, type 2 diabetes, hypertension presents to the ED for abdominal pain being admitted for suspected ileus versus partial SBO. #. Partial small bowel obstruction CT abdominal showed proximal's small bowel is prominent with fluid, ileus and mild partial bowel obstruction could be considered, no discrete zone of transition identified Keep patient NPO Continue Protonix 40 mg IV daily Zofran 4 mg IVP every 8 hours as needed Pain management: Ibuprofen 400 mg p.o. without aspirin every 6 hours PRN, Toradol 15 mg IVP every 6 hours PRN, added morphine 2 mg every 4 hours as needed Surgery consulted. They recommended holding off on NGT as patient is no longer vomiting. #. Suspected UTI Patient admits to dysuria and increased frequency Patient has PMH of recurrent UTI UA inconclusive, repeat UA Urine cultures ordered #. Transaminitis ALT 328, AST 144, alk phos 205 Lactic acid wnl 1.7 Order liver ultrasound -Likely due to ongoing bowel obstruction with persistent vomiting Hepatitis panel ordered by ED and resulted unremarkable Follow-up CMP #. High Anion gap metabolic acidosis Likely from starvation ketosis with borderline lactic acidosis IV fluids NS at 75 cc/hr #. Type 2 diabetes Placed on insulin SQ sliding scale Monitor glucose for hypoglycemia #. Hypomagnesia Magnesium replaced in ED with 2 g of Mag Sulfate Follow-up mag F: NS at 75cc/hr E: Replete electrolytes as needed N: NPO A: Patient ambulatory DVT prophylaxis: Lovenox 40 SQ daily The patient is admitted with an anticipated greater than 2 midnight stay for evaluation of abdominal pain secondary to suspected partial SBO. CODE STATUS: Full code Discussed with: Patient Anticipated discharge place: Home Objective - Vital Signs Vital signs: Vital Signs Temp 98.1 F 08/02/24 07:00 Pulse 82 08/02/24 14:00 Resp 17 08/02/24 08:00 BP 119/83 08/02/24 07:00 Pulse Ox 97 08/02/24 07:00 FiO2 Intake & Output 08/01/24 08/02/24 08/02/24 18:59 06:59 18:59 Intake Total 150 Balance 150 Weight 70.307 kg Intake: Oral 150 Other: # Voids 1 - Labs CBC & Chem 7: 08/02/24 11:28 08/02/24 05:21 Labs: Abnormal Lab Results - Last 24 Hours (Table) 08/01/24 08/01/24 08/01/24 Range/Units 19:45 21:23 22:40 Hgb (12.0-15.0) g/dL Hct (37.2-46.3) % MCH (27.0-32.0) pg MCHC (32.0-37.0) g/dL RDW (11.5-14.5) % Chloride 111 H (98-107) mmol/L Carbon Dioxide 14 L (22-30) mmol/L Anion Gap (4.00-12.00) mmol/L BUN (9.0-27.0) mg/dL BUN/Creatinine Ratio (12.00-20.00) Ratio Glucose 143 H (74-99) mg/dL POC Glucose (mg/dL) (70-110) mg/dL Calcium 10.5 H (8.4-10.2) mg/dL Magnesium 1.4 L (1.6-2.3) mg/dL Total Bilirubin (0.3-1.2) mg/dL AST 144 H (14-36) U/L ALT 328 H (4-34) U/L Alkaline Phosphatase 205 H (38-126) U/L Urine Appearance Cloudy H (Clear) Ur Specific [place] >1.050 H (1.001-1.035) Urine Protein 1+ H (Negative) Ur Leukocyte Esterase Trace H (Negative) Urine WBC 14 H (0-5) /hpf Ur Squamous Epith Cells 10 H (0-4) /hpf Calcium Oxalate Crystal Occasional H (None) /hpf Amorphous Sediment Occasional H (None) /hpf Urine Bacteria Occasional H (None) /hpf Hyaline Casts 194 H (0-2) /lpf Urine Mucus Moderate H (None) /hpf 08/02/24 08/02/24 08/02/24 Range/Units 05:21 05:21 08:34 Hgb 11.5 L (12.0-15.0) g/dL Hct 36.6 L (37.2-46.3) % MCH 25.5 L (27.0-32.0) pg MCHC 31.4 L (32.0-37.0) g/dL RDW 15.7 H (11.5-14.5) % Chloride 113 H (98-107) mmol/L Carbon Dioxide 18.9 L (22-30) mmol/L Anion Gap 12.10 H (4.00-12.00) mmol/L BUN 8.3 L (9.0-27.0) mg/dL BUN/Creatinine Ratio 10.38 L (12.00-20.00) Ratio Glucose 123 H (74-99) mg/dL POC Glucose (mg/dL) 135 H (70-110) mg/dL Calcium (8.4-10.2) mg/dL Magnesium (1.6-2.3) mg/dL Total Bilirubin <0.2 L (0.3-1.2) mg/dL AST 140 H (14-36) U/L ALT 304 H (4-34) U/L Alkaline Phosphatase 234 H (38-126) U/L Urine Appearance (Clear) Ur Specific [place] (1.001-1.035) Urine Protein (Negative) Ur Leukocyte Esterase (Negative) Urine WBC (0-5) /hpf Ur Squamous Epith Cells (0-4) /hpf Calcium Oxalate Crystal (None) /hpf Amorphous Sediment (None) /hpf Urine Bacteria (None) /hpf Hyaline Casts (0-2) /lpf Urine Mucus (None) /hpf 08/02/24 Range/Units 10:44 Hgb (12.0-15.0) g/dL Hct (37.2-46.3) % MCH (27.0-32.0) pg MCHC (32.0-37.0) g/dL RDW (11.5-14.5) % Chloride (98-107) mmol/L Carbon Dioxide (22-30) mmol/L Anion Gap (4.00-12.00) mmol/L BUN (9.0-27.0) mg/dL BUN/Creatinine Ratio (12.00-20.00) Ratio Glucose (74-99) mg/dL POC Glucose (mg/dL) (70-110) mg/dL Calcium (8.4-10.2) mg/dL Magnesium (1.6-2.3) mg/dL Total Bilirubin (0.3-1.2) mg/dL AST (14-36) U/L ALT (4-34) U/L Alkaline Phosphatase (38-126) U/L Urine Appearance (Clear) Ur Specific [place] >1.050 H (1.001-1.035) Urine Protein 1+ H (Negative) Ur Leukocyte Esterase (Negative) Urine WBC (0-5) /hpf Ur Squamous Epith Cells 6 H (0-4) /hpf Calcium Oxalate Crystal (None) /hpf Amorphous Sediment (None) /hpf Urine Bacteria Rare H (None) /hpf Hyaline Casts (0-2) /lpf Urine Mucus Rare H (None) /hpf
--- NOTE | 2024-08-02 15:00 | P.CON ---
Consult Note - . Consult date: 08/02/24 Assessment/Plan:: This is a 48-year-old female who presents to the emergency department for nausea, vomiting, diarrhea, and abdominal pain. Symptoms started 1 week ago. States that she has pain in the epigastric region as well as burning in the chest. Additionally, she noted that her stool seemed darker than usual. She had stool this morning which she noted as "dark black". Her hemoglobin did drop this morning. Not taking blood thinners. Her CT-AP was reviewed and is concerning for PSBO. Review of Systems ROS Statement: Those systems with pertinent positive or pertinent negative responses have been documented in the HPI. ROS Other: All systems not noted in ROS Statement are negative. Past Medical History Past Medical History: Diabetes Mellitus, Eye Disorder, Hyperlipidemia, Hypertension, Renal Disease Additional Past Medical History / Comment(s): GLAUCOMA; MIGRAINES, IBS, cystitis History of Any Multi-Drug Resistant Organisms: C-DIFF Date of last positivie culture/infection: April 2021 MDRO Source:: stool Past Surgical History: Appendectomy, Cholecystectomy Additional Past Surgical History / Comment(s): OVARY SURGERY; BILAT EYE SURGERY, metal plate under right eye Past Anesthesia/Blood Transfusion Reactions: Postoperative Nausea & Vomiting (PONV) Additional Past Anesthesia/Blood Transfusion Reaction / Comment(s): pt states she gets very mean from anesthesia Past Psychological History: ADD/ADHD, Depression Smoking Status: Never smoker Past Alcohol Use History: None Reported Past Drug Use History: None Reported - Past Family History Mother Family Medical History: COPD, Diabetes Mellitus Father Family Medical History: Coronary Artery Disease (CAD), Diabetes Mellitus Additional Family Medical History / Comment(s): dad General Exam Limitations: no limitations General appearance: alert, in no apparent distress Head exam: Present: atraumatic, normocephalic, normal inspection Respiratory exam: Present: normal lung sounds bilaterally. Absent: respiratory distress, wheezes, rales, rhonchi, stridor Cardiovascular Exam: Present: regular rate, normal rhythm, normal heart sounds. Absent: systolic murmur, diastolic murmur, rubs, gallop, clicks GI/Abdominal exam: Present: soft, tenderness (generalized), normal bowel sounds. Absent: distended Neurological exam: Present: alert, oriented X3, CN II-XII intact Psychiatric exam: Present: normal affect, normal mood Skin exam: Present: warm, dry, intact, normal color. Absent: rash Assessment/Plan 1. SBO -patient is passing gas and having diarrhea. CT was reviewed. Based on clinical findings have low suspicion for SBO. Started patient on CLD. 2. GI Bleed -repeat Hemoglobin at 1300 stable. Will repeat CBC in AM -Protonix started -Further recs pending clinical course Kenroy Bustamante DO [facility] [phone]
[2024-08-02 17:25] LABS: Glucose,Whole Blood 98 mg/dL (70-110)
[2024-08-02 20:20] LABS: Glucose,Whole Blood 120 mg/dL (70-110)
[2024-08-03 06:09] LABS: Glucose,Whole Blood 106 mg/dL (70-110)
[2024-08-03 09:37] LABS: Basophils # (A) 0.03 X 10*3/uL (0.00-0.10); Basophils % (A) 0.5 %; Eosinophils # (A) 0.31 X 10*3/uL (0.04-0.35); Eosinophils % (A) 5.4 %; HCT 33.3 % (37.2-46.3); HGB 10.1 g/dL (12.0-15.0); Lymphocytes # (A) 2.21 X 10*3/uL (0.90-5.00); Lymphocytes % (A) 38.2 %; MCH 25.3 pg (27.0-32.0); MCHC 30.3 g/dL (32.0-37.0); MCV 83.3 FL (80.0-97.0); Monocytes # (A) 0.38 X 10*3/uL (0.20-1.00); Monocytes % (A) 6.6 %; NRBC Per 100 WBC 0 X 10*3/uL (0.00-0.01); Neutrophils # (A) 2.83 X 10*3/uL (1.80-7.70); Neutrophils % (A) 48.8 %; Platelet Count 288 X 10*3/uL (140-440); RDW 15.7 % (11.5-14.5); WBC 5.79 X 10*3/uL (4.50-10.00)
--- NOTE | 2024-08-03 10:04 | P.PN ---
Subjective Progress Note Date: 08/03/24 Patient continues to complain of abdominal pain, nausea, but has not vomited overnight. She reports ongoing diarrhea. She says that this is black in nature. Gen: In NAD, non-toxic HEENT: normocephalic, atraumatic, hearing acuity is intant, mucous membranes moist CVS: perfusing all extremities well, no pitting edema, Respiratory: symmetric chest expansion, no accessory muscle use, GI: soft, NTTP, ND, : no suprapubic tenderness, no CVA tenderness MSK/Derm: no rashes, cyanosis Neuro: CN II-XII intact, no motor weakness, Psych: cooperative, euthymic mood, judgment and insight is intact Hospital course: Patient is a 48-year-old female with a PMH of IBS, recurrent UTI, type 2 diabetes, hypertension presents to the ED for abdominal pain, nausea, vomiting, diarrhea. EKG independently interpreted showed sinus tachycardia with a rate of 113 bpm, QTc 346 ms, poor R-wave progression. CBC unremarkable, sodium 139, potassium 4.3, chloride 111, CO2 14, glucose 143, lactic acid 1.7, magnesium 1.4, AST 144, ALT 328, alk phos 205, troponin <0.012, lipase 103 CT abdominal showed proximal's small bowel is prominent with fluid, ileus and mild partial bowel obstruction could be considered, no discrete zone of transition identified UA inconclusive due to high squamous epithelial count T 100.2 F => 98.9 F, [place] 99, RR 18, BP 126/88, O2 sat 96% on room air Assessment/Plan: Patient is a 48-year-old female with a PMH of IBS, recurrent UTI, type 2 diabetes, hypertension presents to the ED for abdominal pain being admitted for suspected ileus versus partial SBO. #. Partial small bowel obstruction vs Upper GI Bleed vs Gastroenteritis CT abdominal showed proximal's small bowel is prominent with fluid, ileus and mild partial bowel obstruction could be considered, no discrete zone of transition identified CLD, advance per surgery Continue Protonix 40 mg IV daily Zofran 4 mg IVP every 8 hours as needed Pain management: tylenol 650mg q4h PRN, discontinue narcotics and NSAIDs Surgery consulted. They recommended holding off on NGT as patient is no longer vomiting. Recommending following CBC #. Suspected UTI Patient admits to dysuria and increased frequency Patient has PMH of recurrent UTI UA inconclusive, repeat UA is also contaminated Urine cultures ordered #. Transaminitis Hepatitis panel ordered by ED and resulted unremarkable Follow-up CMP #. High Anion gap metabolic acidosis, resolved with IVF Likely from starvation ketosis with borderline lactic acidosis IV fluids NS at 75 cc/hr #. Type 2 diabetes Placed on insulin SQ sliding scale Monitor glucose for hypoglycemia #. Hypomagnesia, resolved Magnesium replaced in ED with 2 g of Mag Sulfate Follow-up mag F: NS at 75cc/hr E: Replete electrolytes as needed N: NPO A: Patient ambulatory DVT prophylaxis: Lovenox 40 SQ daily The patient is admitted with an anticipated greater than 2 midnight stay for evaluation of abdominal pain secondary to suspected partial SBO. CODE STATUS: Full code Discussed with: Patient Anticipated discharge place: Home Objective - Vital Signs Vital signs: Vital Signs Temp 98.1 F 08/03/24 08:00 Pulse 101 H 08/03/24 08:00 Resp 17 08/03/24 08:00 BP 104/68 08/03/24 08:00 Pulse Ox 99 08/03/24 08:00 FiO2 Intake & Output 08/02/24 08/03/24 08/03/24 18:59 06:59 18:59 Intake Total 150 Balance 150 Weight 70.307 kg Intake: Oral 150 Other: # Voids 1 # Bowel Movements 3 - Labs CBC & Chem 7: 08/03/24 03:00 08/02/24 05:21 Labs: Abnormal Lab Results - Last 24 Hours (Table) 08/02/24 08/02/24 08/03/24 Range/Units 10:44 20:19 03:00 RBC 4.00 L (4.10-5.20) X 10*6/uL Hgb 10.1 L (12.0-15.0) g/dL Hct 33.3 L (37.2-46.3) % MCH 25.3 L (27.0-32.0) pg MCHC 30.3 L (32.0-37.0) g/dL RDW 15.7 H (11.5-14.5) % POC Glucose (mg/dL) 120 H (70-110) mg/dL Ur Specific [place] >1.050 H (1.001-1.035) Urine Protein 1+ H (Negative) Ur Squamous Epith Cells 6 H (0-4) /hpf Urine Bacteria Rare H (None) /hpf Urine Mucus Rare H (None) /hpf Microbiology - Last 24 Hours (Table) 08/01/24 21:23 Urine Culture - Final Urine,Voided
[2024-08-03] MEDS: ACETAMINOPHEN TAB 325 MG TAB PO PRN (10:32)
--- NOTE | 2024-08-03 10:32 | P.PN ---
Progress Note - Text Progress Note Date: 08/03/24 Patient seen and examined. She continues to have dark bowel movements which she describes as "black". She denies abdominal pain. Her hemoglobin continues to trend down. General Exam Limitations: no limitations General appearance: alert, in no apparent distress Head exam: Present: atraumatic, normocephalic, normal inspection Respiratory exam: Present: normal lung sounds bilaterally. Absent: respiratory distress, wheezes, rales, rhonchi, stridor Cardiovascular Exam: Present: regular rate, normal rhythm, normal heart sounds. Absent: systolic murmur, diastolic murmur, rubs, gallop, clicks GI/Abdominal exam: Present: soft, tenderness (generalized), normal bowel sounds. Absent: distended Neurological exam: Present: alert, oriented X3, CN II-XII intact Psychiatric exam: Present: normal affect, normal mood Skin exam: Present: warm, dry, intact, normal color. Absent: rash Assessment/Plan 1. SBO -patient is passing gas and having diarrhea. CT was reviewed. Based on clinical findings have low suspicion for SBO. Started patient on CLD. 2. GI Bleed -Hemoglobin trending down -Will plan for EGD Monday AM. -Protonix -Continue CLD -Further recs pending clinical course Kenroy Bustamante DO [facility] [phone]
[2024-08-03 11:05] LABS: Magnesium 1.6 mg/dL (1.5-2.4)
[2024-08-03 11:37] LABS: ALT 203 U/L (8-44); AST 56 U/L (13-35); Albumin 3.8 g/dL (3.8-4.9); Albumin/Globulin Ratio 2.24 Ratio (1.60-3.17); Alkaline Phosphatase 209 U/L (41-126); BUN/Creat Ratio 7.29 Ratio (12.00-20.00); Bilirubin, Conjugated <0.20 mg/dL (0.20-0.40); Blood Urea Nitrogen 5.1 mg/dL (9.0-27.0); Calcium 8.8 mg/dL (8.7-10.3); Chloride 114 mmol/L (96-109); Globulin 1.7 g/dL (1.6-3.3); Glucose 116 mg/dL (70-110); Potassium 4.2 mmol/L (3.5-5.5); Sodium 141 mmol/L (135-145); Total Bilirubin <0.2 mg/dL (0.3-1.2); Total Protein 5.5 g/dL (6.2-8.2)
[2024-08-03 12:24] LABS: Glucose,Whole Blood 109 mg/dL (70-110)
[2024-08-03] MEDS ORDERED: FLUTICASONE NASAL 50MCG/SPRAY 16GM BTL EA NOSTRIL PRN (13:35)
[2024-08-03] MEDS: PATIENT'S OWN (Vibegron [Gemtesa] 75 MG Tablet) PO SCH (14:02)
[2024-08-03] MEDS: MORPHINE SULFATE 2 MG/ML SYRINGE IVP PRN (14:17)
[2024-08-03 17:24] LABS: Glucose,Whole Blood 100 mg/dL (70-110)
[2024-08-03] MEDS: busPIRone HCl 5 MG TAB PO SCH (20:01)
[2024-08-03 20:11] LABS: Glucose,Whole Blood 118 mg/dL (70-110)
[2024-08-04 05:32] LABS: Glucose,Whole Blood 100 mg/dL (70-110)
--- NOTE | 2024-08-04 06:27 | P.PN ---
Progress Note - Text Progress Note Date: 08/04/24 Patient seen and examined. She continues to have dark bowel movement. She denies abdominal pain. Her hemoglobin continues to trend down. Hgb not back yet this morning. General Exam Limitations: no limitations General appearance: alert, in no apparent distress Head exam: Present: atraumatic, normocephalic, normal inspection Respiratory exam: Present: normal lung sounds bilaterally. Absent: respiratory distress, wheezes, rales, rhonchi, stridor Cardiovascular Exam: Present: regular rate, normal rhythm, normal heart sounds. Absent: systolic murmur, diastolic murmur, rubs, gallop, clicks GI/Abdominal exam: Present: soft, tenderness (generalized), normal bowel sounds. Absent: distended Neurological exam: Present: alert, oriented X3, CN II-XII intact Psychiatric exam: Present: normal affect, normal mood Skin exam: Present: warm, dry, intact, normal color. Absent: rash Assessment/Plan 1. SBO -patient is passing gas and having diarrhea. CT was reviewed. Based on clinical findings have low suspicion for SBO. Started patient on CLD. 2. GI Bleed -Hemoglobin trending down. Hgb pending this AM -Will plan for EGD tomorrow AM -Protonix -Continue CLD, NPO/midnight -Further recs pending clinical course Kenroy Bustamante DO [facility] [phone]
[2024-08-04] MEDS: FLUoxetine HCL 20 MG CAP PO SCH (07:43)
[2024-08-04] MEDS: TIMOLOL 0.5% OPHTH DROPS 5 ML BTL LEFT EYE SCH (07:43)
[2024-08-04] MEDS: ATORVASTATIN 20 MG TAB PO SCH (07:43)
--- NOTE | 2024-08-04 09:23 | P.PN ---
Subjective Progress Note Date: 08/04/24 No acute events overnight. Ongoing black diarrhea. Plan is for EGD tomorrow AM Gen: In NAD, non-toxic HEENT: normocephalic, atraumatic, hearing acuity is intant, mucous membranes moist CVS: perfusing all extremities well, no pitting edema, Respiratory: symmetric chest expansion, no accessory muscle use, GI: soft, NTTP, ND, : no suprapubic tenderness, no CVA tenderness MSK/Derm: no rashes, cyanosis Neuro: CN II-XII intact, no motor weakness, Psych: cooperative, euthymic mood, judgment and insight is intact Hospital course: Patient is a 48-year-old female with a PMH of IBS, recurrent UTI, type 2 diabetes, hypertension presents to the ED for abdominal pain, nausea, vomiting, diarrhea. EKG independently interpreted showed sinus tachycardia with a rate of 113 bpm, QTc 346 ms, poor R-wave progression. CBC unremarkable, sodium 139, potassium 4.3, chloride 111, CO2 14, glucose 143, lactic acid 1.7, magnesium 1.4, AST 144, ALT 328, alk phos 205, troponin <0.012, lipase 103 CT abdominal showed proximal's small bowel is prominent with fluid, ileus and mild partial bowel obstruction could be considered, no discrete zone of transition identified UA inconclusive due to high squamous epithelial count T 100.2 F => 98.9 F, MA 99, RR 18, BP 126/88, O2 sat 96% on room air Assessment/Plan: Patient is a 48-year-old female with a PMH of IBS, recurrent UTI, type 2 diabetes, hypertension presents to the ED for abdominal pain being admitted for suspected ileus versus partial SBO. #. Upper GI Bleed CT abdominal showed proximal's small bowel is prominent with fluid, ileus and mild partial bowel obstruction could be considered, no discrete zone of transition identified CLD, NPO at midnight Continue Protonix 40 mg IV daily Zofran 4 mg IVP every 8 hours as needed Pain management: tylenol 650mg q4h PRN, morphine PRN, discontinue NSAIDs Surgery consulted. EGD tomorrow #. Suspected UTI Patient admits to dysuria and increased frequency Patient has PMH of recurrent UTI UA inconclusive, repeat UA is also contaminated Urine cultures ordered #. Transaminitis Hepatitis panel ordered by ED and resulted unremarkable Follow-up CMP #. High Anion gap metabolic acidosis, resolved with IVF Likely from starvation ketosis with borderline lactic acidosis IV fluids NS at 75 cc/hr #. Type 2 diabetes Placed on insulin SQ sliding scale Monitor glucose for hypoglycemia #. Hypomagnesia, resolved Magnesium replaced in ED with 2 g of Mag Sulfate Follow-up mag F: NS at 75cc/hr E: Replete electrolytes as needed A: Patient ambulatory DVT prophylaxis: Lovenox 40 SQ daily The patient is admitted with an anticipated greater than 2 midnight stay for evaluation of abdominal pain secondary to suspected partial SBO. CODE STATUS: Full code Discussed with: Patient Anticipated discharge place: Home Objective - Vital Signs Vital signs: Vital Signs Temp 98.4 F 08/04/24 08:00 Pulse 88 08/04/24 08:00 Resp 15 08/04/24 08:00 BP 129/85 08/04/24 08:00 Pulse Ox 99 08/04/24 08:00 FiO2 Intake & Output 08/03/24 08/04/24 08/04/24 18:59 06:59 18:59 Intake Total 780 Balance 780 Intake: Oral 780 Other: Voiding Method Toilet # Voids 12 3 - Labs CBC & Chem 7: 08/03/24 03:00 08/03/24 03:00 Labs: Abnormal Lab Results - Last 24 Hours (Table) 08/03/24 08/03/24 08/03/24 Range/Units 03:00 03:00 20:10 RBC 4.00 L (4.10-5.20) X 10*6/uL Hgb 10.1 L (12.0-15.0) g/dL Hct 33.3 L (37.2-46.3) % MCH 25.3 L (27.0-32.0) pg MCHC 30.3 L (32.0-37.0) g/dL RDW 15.7 H (11.5-14.5) % Chloride 114 H (96-109) mmol/L Carbon Dioxide 20.0 L (21.6-31.8) mmol/L BUN 5.1 L (9.0-27.0) mg/dL BUN/Creatinine Ratio 7.29 L (12.00-20.00) Ratio Glucose 116 H (70-110) mg/dL POC Glucose (mg/dL) 118 H (70-110) mg/dL Total Bilirubin <0.2 L (0.3-1.2) mg/dL AST 56 H (13-35) U/L ALT 203 H (8-44) U/L Alkaline Phosphatase 209 H (41-126) U/L Total Protein 5.5 L (6.2-8.2) g/dL
[2024-08-04 09:35] LABS: Basophils # (A) 0.04 X 10*3/uL (0.00-0.10); Basophils % (A) 0.8 %; Eosinophils # (A) 0.22 X 10*3/uL (0.04-0.35); Eosinophils % (A) 4.2 %; HCT 33.5 % (37.2-46.3); HGB 10.2 g/dL (12.0-15.0); Lymphocytes # (A) 1.97 X 10*3/uL (0.90-5.00); Lymphocytes % (A) 37.7 %; MCH 25.8 pg (27.0-32.0); MCHC 30.4 g/dL (32.0-37.0); MCV 84.8 FL (80.0-97.0); Mean Platelet Volume 11.6 FL (9.5-12.2); Monocytes # (A) 0.36 X 10*3/uL (0.20-1.00); Monocytes % (A) 6.9 %; NRBC Per 100 WBC 0 X 10*3/uL (0.00-0.01); Neutrophils # (A) 2.61 X 10*3/uL (1.80-7.70); Neutrophils % (A) 49.8 %; Platelet Count 277 X 10*3/uL (140-440); RBC 3.95 X 10*6/uL (4.10-5.20); RDW 15.7 % (11.5-14.5); WBC 5.23 X 10*3/uL (4.50-10.00)
[2024-08-04 10:00] LABS: BUN/Creat Ratio <5.83 Ratio (12.00-20.00); Blood Urea Nitrogen <3.5 mg/dL (9.0-27.0); Glucose 99 mg/dL (70-110)
[2024-08-04 10:01] LABS: Calcium 8.7 mg/dL (8.7-10.3); Carbon Dioxide 17.8 mmol/L (21.6-31.8); Chloride 112 mmol/L (96-109); Magnesium 1.5 mg/dL (1.5-2.4); Potassium 3.9 mmol/L (3.5-5.5); Sodium 141 mmol/L (135-145)
[2024-08-04 12:21] LABS: Glucose,Whole Blood 89 mg/dL (70-110)
[2024-08-04 17:46] LABS: Glucose,Whole Blood 98 mg/dL (70-110)
[2024-08-04 20:56] LABS: Glucose,Whole Blood 117 mg/dL (70-110)
[2024-08-05 06:18] LABS: Glucose,Whole Blood 104 mg/dL (70-110)
[2024-08-05 09:18] LABS: BUN/Creat Ratio <5.83 Ratio (12.00-20.00); Blood Urea Nitrogen <3.5 mg/dL (9.0-27.0); Calcium 8.6 mg/dL (8.7-10.3); Carbon Dioxide 20.8 mmol/L (21.6-31.8); Chloride 113 mmol/L (96-109); Glucose 96 mg/dL (70-110); Magnesium 1.3 mg/dL (1.5-2.4); Potassium 3.7 mmol/L (3.5-5.5); Sodium 144 mmol/L (135-145)
[2024-08-05 09:42] LABS: Basophils # (A) 0.03 X 10*3/uL (0.00-0.10); Basophils % (A) 0.6 %; Eosinophils # (A) 0.19 X 10*3/uL (0.04-0.35); Eosinophils % (A) 3.8 %; HCT 31.3 % (37.2-46.3); Lymphocytes # (A) 1.77 X 10*3/uL (0.90-5.00); Lymphocytes % (A) 35.7 %; MCH 26.5 pg (27.0-32.0); MCHC 31.9 g/dL (32.0-37.0); MCV 82.8 FL (80.0-97.0); Mean Platelet Volume 11.9 FL (9.5-12.2); Monocytes # (A) 0.31 X 10*3/uL (0.20-1.00); Monocytes % (A) 6.3 %; NRBC Per 100 WBC 0 X 10*3/uL (0.00-0.01); Neutrophils # (A) 2.65 X 10*3/uL (1.80-7.70); Neutrophils % (A) 53.4 %; Platelet Count 260 X 10*3/uL (140-440); RBC 3.78 X 10*6/uL (4.10-5.20); RDW 15.6 % (11.5-14.5); WBC 4.96 X 10*3/uL (4.50-10.00)
[2024-08-05] MEDS ORDERED: LIDOCAINE 1% INJ 10MG/ML (20 ML MDV) ONE (09:52)
[2024-08-05] MEDS ORDERED: PROPOFOL 10 MG/ML 20 ML VIAL IV ONE (09:52)
[2024-08-05] MEDS: IV FLUID CONTINUATION 1,000 ML IV ONE (09:58)
[2024-08-05] MEDS: MAGNESIUM SULFATE-D5W PMX 1 GM in DEXTROSE/WATER 1 100ML.BAG IVPB SCH (12:03)
[2024-08-05 12:22] LABS: Glucose,Whole Blood 128 mg/dL (70-110)
--- NOTE | 2024-08-05 13:21 | P.PN ---
Progress Note - Text Progress Note Date: 08/05/24 Patient seen and examined. No bloody bowel movements today. She denies abdominal pain. EGD performed today showed gastritis and small Hiatal Hernia. There was no evidence of ulcer or bleeding. General Exam Limitations: no limitations General appearance: alert, in no apparent distress Head exam: Present: atraumatic, normocephalic, normal inspection Respiratory exam: Present: normal lung sounds bilaterally. Absent: respiratory distress, wheezes, rales, rhonchi, stridor Cardiovascular Exam: Present: regular rate, normal rhythm, normal heart sounds. Absent: systolic murmur, diastolic murmur, rubs, gallop, clicks GI/Abdominal exam: Present: soft, tenderness (generalized), normal bowel sounds. Absent: distended Neurological exam: Present: alert, oriented X3, CN II-XII intact Psychiatric exam: Present: normal affect, normal mood Skin exam: Present: warm, dry, intact, normal color. Absent: rash Assessment/Plan 1. SBO -patient is passing gas and having diarrhea. CT was reviewed. Based on clinical findings have low suspicion for SBO. Started patient on Regular Diet. 2. GI Bleed -EGD performed today showed some gastritis and HH. There was no ulcer or bleeding noted -Protonix -Continue to monitor Hgb. If continues to trend down, may need colonoscopy -Regular Diet -Further recs pending clinical course Kenroy Bustamante DO [facility] [phone]
--- NOTE | 2024-08-05 14:52 | P.OP ---
Date of Procedure: 08/05/24 Preoperative Diagnosis: UGI Bleed Postoperative Diagnosis: 1. Small (<2 cm) Hiatal Hernia 2. Gastritis Procedure(s) Performed: EGD with Biopsy Anesthesia: other (Sedation) Surgeon: Kenroy Bustamante Pathology: other (Antral Biopsies) Condition: stable Disposition: PACU Description of Procedure: Informed consent was obtained. The procedure, its risks, benefits, and alternatives were discussed. The patient was placed in the left lateral decubitus position. The patient was sedated by anesthesia. The Olympus endoscope was inserted into the oropharynx and guided under direct vision into the esophagus, stomach, and duodenum. The duodenal bulb and second portion were unremarkable. The scope was withdrawn to the stomach and retroflexed. There was no increased fluid, food or secretions in the upper gastrointestinal tract. There was a small Hiatal Hernia noted. There was very minimal, nonspecific, patchy antral erythema representing gastritis. Biopsies were obtained for Helicobacter pylori. No erosions or ulcers noted. The scope was withdrawn to the esophagus. No Barretts or esophagitis was noted. The patient tolerated the procedure very well. The patient was then transferred to the recovery area in good condition. There were no apparent complications. RECOMMENDATIONS: 1. Daily PPI 2. Follow up pathology for antral biopsies 3. Follow up AM labs. If hgb continues to trend down, patient may need inpatient colonoscopy
--- NOTE | 2024-08-05 17:10 | P.PN ---
Subjective Progress Note Date: 08/05/24 No acute events overnight. Ongoing black diarrhea. Plan is for EGD today Gen: In NAD, non-toxic HEENT: normocephalic, atraumatic, hearing acuity is intant, mucous membranes moist CVS: perfusing all extremities well, no pitting edema, Respiratory: symmetric chest expansion, no accessory muscle use, GI: soft, NTTP, ND, : no suprapubic tenderness, no CVA tenderness MSK/Derm: no rashes, cyanosis Neuro: CN II-XII intact, no motor weakness, Psych: cooperative, euthymic mood, judgment and insight is intact Hospital course: Patient is a 48-year-old female with a PMH of IBS, recurrent UTI, type 2 diabetes, hypertension presents to the ED for abdominal pain, nausea, vomiting, diarrhea. EKG independently interpreted showed sinus tachycardia with a rate of 113 bpm, QTc 346 ms, poor R-wave progression. CBC unremarkable, sodium 139, potassium 4.3, chloride 111, CO2 14, glucose 143, lactic acid 1.7, magnesium 1.4, AST 144, ALT 328, alk phos 205, troponin <0.012, lipase 103 CT abdominal showed proximal's small bowel is prominent with fluid, ileus and mild partial bowel obstruction could be considered, no discrete zone of transition identified UA inconclusive due to high squamous epithelial count T 100.2 F => 98.9 F, MI 99, RR 18, BP 126/88, O2 sat 96% on room air Assessment/Plan: Patient is a 48-year-old female with a PMH of IBS, recurrent UTI, type 2 jovany betes, hypertension presents to the ED for abdominal pain being admitted for suspected ileus versus partial SBO. #. Upper GI Bleed CT abdominal showed proximal's small bowel is prominent with fluid, ileus and mild partial bowel obstruction could be considered, no discrete zone of transition identified CLD, NPO at midnight Continue Protonix 40 mg IV daily Zofran 4 mg IVP every 8 hours as needed Pain management: tylenol 650mg q4h PRN, morphine PRN, discontinue NSAIDs Surgery consulted. EGD today #. Suspected UTI Patient admits to dysuria and increased frequency Patient has PMH of recurrent UTI UA inconclusive, repeat UA is also contaminated Urine cultures ordered #. Transaminitis Hepatitis panel ordered by ED and resulted unremarkable Follow-up CMP #. High Anion gap metabolic acidosis, resolved with IVF Likely from starvation ketosis with borderline lactic acidosis IV fluids NS at 75 cc/hr #. Type 2 diabetes Placed on insulin SQ sliding scale Monitor glucose for hypoglycemia #. Hypomagnesia, resolved Magnesium replaced in ED with 2 g of Mag Sulfate Follow-up mag F: NS at 75cc/hr E: Replete electrolytes as needed A: Patient ambulatory DVT prophylaxis: Lovenox 40 SQ daily The patient is admitted with an anticipated greater than 2 midnight stay for evaluation of abdominal pain secondary to suspected partial SBO. CODE STATUS: Full code Discussed with: Patient Anticipated discharge place: Home Objective - Vital Signs Vital signs: Vital Signs Temp 98.1 F 08/05/24 14:00 Pulse 68 08/05/24 14:00 Resp 18 08/05/24 14:00 BP 145/84 08/05/24 14:00 Pulse Ox 96 08/05/24 14:00 FiO2 Intake & Output 08/04/24 08/05/24 08/05/24 18:59 06:59 18:59 Intake Total 694 322 Balance 694 322 Intake: IV 200 Oral 694 122 Other: Voiding Method Toilet # Voids 5 - Labs CBC & Chem 7: 08/05/24 03:31 08/05/24 03:31 Labs: Abnormal Lab Results - Last 24 Hours (Table) 08/04/24 08/05/24 08/05/24 Range/Units 20:54 03:31 03:31 RBC 3.78 L (4.10-5.20) X 10*6/uL Hgb 10.0 L (12.0-15.0) g/dL Hct 31.3 L (37.2-46.3) % MCH 26.5 L (27.0-32.0) pg MCHC 31.9 L (32.0-37.0) g/dL RDW 15.6 H (11.5-14.5) % Chloride 113 H (96-109) mmol/L Carbon Dioxide 20.8 L (21.6-31.8) mmol/L BUN <3.5 L (9.0-27.0) mg/dL BUN/Creatinine Ratio <5.83 L (12.00-20.00) Ratio POC Glucose (mg/dL) 117 H (70-110) mg/dL Calcium 8.6 L (8.7-10.3) mg/dL Magnesium 1.3 L (1.5-2.4) mg/dL 08/05/24 Range/Units 12:20 RBC (4.10-5.20) X 10*6/uL Hgb (12.0-15.0) g/dL Hct (37.2-46.3) % MCH (27.0-32.0) pg MCHC (32.0-37.0) g/dL RDW (11.5-14.5) % Chloride (96-109) mmol/L Carbon Dioxide (21.6-31.8) mmol/L BUN (9.0-27.0) mg/dL BUN/Creatinine Ratio (12.00-20.00) Ratio POC Glucose (mg/dL) 128 H (70-110) mg/dL Calcium (8.7-10.3) mg/dL Magnesium (1.5-2.4) mg/dL
[2024-08-05 17:24] LABS: Glucose,Whole Blood 128 mg/dL (70-110)
[2024-08-05 20:45] LABS: Glucose,Whole Blood 119 mg/dL (70-110)
[2024-08-06 06:44] LABS: Glucose,Whole Blood 130 mg/dL (70-110)
[2024-08-06 07:57] VITALS: BP 142/71; PULSE 61; RESP 15; TEMP 97.6
[2024-08-06 08:25] LABS: Basophils # (A) 0.03 X 10*3/uL (0.00-0.10); Basophils % (A) 0.5 %; Eosinophils # (A) 0.15 X 10*3/uL (0.04-0.35); Eosinophils % (A) 2.3 %; HCT 30.9 % (37.2-46.3); HGB 9.9 g/dL (12.0-15.0); Lymphocytes % (A) 29.5 %; MCH 25.9 pg (27.0-32.0); MCV 80.9 FL (80.0-97.0); Mean Platelet Volume 11.8 FL (9.5-12.2); Monocytes # (A) 0.45 X 10*3/uL (0.20-1.00); NRBC Per 100 WBC 0 X 10*3/uL (0.00-0.01); Neutrophils # (A) 3.88 X 10*3/uL (1.80-7.70); Neutrophils % (A) 60.4 %; Platelet Count 259 X 10*3/uL (140-440); RBC 3.82 X 10*6/uL (4.10-5.20); RDW 15.2 % (11.5-14.5); WBC 6.43 X 10*3/uL (4.50-10.00)
[2024-08-06 08:55] LABS: Blood Urea Nitrogen 4.5 mg/dL (9.0-27.0); Calcium 8.3 mg/dL (8.7-10.3); Chloride 111 mmol/L (96-109); Glucose 127 mg/dL (70-110); Potassium 3.1 mmol/L (3.5-5.5); Sodium 142 mmol/L (135-145)
--- NOTE | 2024-08-06 09:24 | P.DS ---
Providers Date of admission: 08/02/24 08:04 Expected date of discharge: 08/06/24 Attending physician: Pooja Bentley MD Consults: 08/01/24 22:54 Consult Physician Urgent Consulting Provider: Kenroy Bustamante Consult Reason/Comments: Ileus vs partial SBO Do you want consulting provider notified?: Yes Primary care physician: Physician Nonstaff Hospital Course: #. Acute Blood Loss Anemia #. Diarrhea #. Transaminitis #. High Anion gap metabolic acidosis, resolved with IVF #. Type 2 diabetes #. Hypomagnesia, resolved Gen: In NAD, non-toxic HEENT: normocephalic, atraumatic, hearing acuity is intant, mucous membranes moist CVS: perfusing all extremities well, no pitting edema, Respiratory: symmetric chest expansion, no accessory muscle use, GI: soft, NTTP, ND, : no suprapubic tenderness, no CVA tenderness MSK/Derm: no rashes, cyanosis Neuro: CN II-XII intact, no motor weakness, Psych: cooperative, euthymic mood, judgment and insight is intact Hospital course: Patient is a 48-year-old female with a PMH of IBS, recurrent UTI, type 2 diabetes, hypertension presents to the ED for abdominal pain, nausea, vomiting, diarrhea. EKG independently interpreted showed sinus tachycardia with a rate of 113 bpm, QTc 346 ms, poor R-wave progression. CBC unremarkable, sodium 139, potassium 4.3, chloride 111, CO2 14, glucose 143, lactic acid 1.7, magnesium 1.4, AST 144, ALT 328, alk phos 205, troponin <0.012, lipase 103 CT abdominal showed proximal's small bowel is prominent with fluid, ileus and mild partial bowel obstruction could be considered, no discrete zone of transition identified UA inconclusive due to high squamous epithelial count T 100.2 F => 98.9 F, NE 99, RR 18, BP 126/88, O2 sat 96% on room air Patient was initially admitted with suspicion of partial bowel obstruction, but did not require an NG tube and continued to have multiple bowel movements of black stools. General surgery consult evaluated patient and considered upper GI bleed. Therefore patient was placed on IV Protonix and taken to endoscopy suite but no identifiable source of bleed was noted nor were there any ulcerations, AV malformations, etc. Following the procedure, patient was able to tolerate a diet and noted resolution of her pain, but did report ongoing diarrhea in the context of history of IBS. I discussed this case with general surgery who agreed the patient was stable for discharge with outpatient follow-up for colonoscopy. I also sent a referral to GI for history of IBS. Patient should discontinue taking NSAIDs, and this was addressed on discharge medication reconciliation. I spent 38 minutes coordinating this discharge Patient Condition at Discharge: Good Plan - Discharge Summary New Discharge Prescriptions: Continue Atorvastatin [Lipitor] 20 mg PO DAILY Loratadine [Claritin] 10 mg PO DAILY FLUoxetine HCL 40 mg PO DAILY Fluticasone Nasal [place] [Flonase Nasal [place]] 1 spr EA NOSTRIL BID PRN PRN Reason: Allergy Symptoms busPIRone HCL 15 mg PO BID Pantoprazole [Protonix] 40 mg PO DAILY Acyclovir 400 mg PO DAILY Butalb/APAP/Caff 50-325-40Mg [Fioricet 50-325-40] 1 tab PO TID PRN #12 tab PRN Reason: Migraine Headache Lisdexamfetamine Dimesylate [Vyvanse] 60 mg PO DAILY Pentosan Polysulfate Sodium [Elmiron] 100 mg PO TID amLODIPine [Norvasc] 10 mg PO DAILY Semaglutide [Ozempic] 1 mg SQ WE hydrOXYzine HCL [Atarax] 50 mg PO BID metFORMIN HCL 1,000 mg PO BID Ondansetron [Zofran] 4 mg PO DAILY PRN PRN Reason: Migraine Headache Acetaminophen-Codeine 300-30mg [Tylenol w/codeine #3] 1 tab PO Q4HR PRN #18 tab PRN Reason: Migraine Headache Timolol 0.5% Ophth Soln [Timoptic 0.5% Ophth Soln] 1 drop LEFT EYE DAILY Vibegron [Gemtesa] 75 mg PO DIRECTED Discontinued Ibuprofen [Motrin] 800 mg PO Q8HR PRN PRN Reason: Pain Ketorolac [Toradol] 10 mg PO Q6HR PRN PRN Reason: Pain Discharge Medication List Atorvastatin [Lipitor] 20 mg PO DAILY 10/07/14 [History] FLUoxetine HCL 40 mg PO DAILY 10/07/14 [History] Loratadine [Claritin] 10 mg PO DAILY 10/07/14 [History] Acyclovir 400 mg PO DAILY 01/19/21 [History] Fluticasone Nasal [place] [Flonase Nasal [place]] 1 spr EA NOSTRIL BID PRN 01/19/21 [History] Pantoprazole [Protonix] 40 mg PO DAILY 01/19/21 [History] busPIRone HCL 15 mg PO BID 01/19/21 [History] Butalb/APAP/Caff 50-325-40Mg [Fioricet 50-325-40] 1 tab PO TID PRN #12 tab 01/21/21 [Rx] Lisdexamfetamine Dimesylate [Vyvanse] 60 mg PO DAILY 11/15/23 [History] hydrOXYzine HCL [Atarax] 50 mg PO BID 11/15/23 [History] metFORMIN HCL 1,000 mg PO BID 11/15/23 [History] Pentosan Polysulfate Sodium [Elmiron] 100 mg PO TID 04/11/24 [History] Ondansetron [Zofran] 4 mg PO DAILY PRN 06/18/24 [History] Semaglutide [Ozempic] 1 mg SQ WE 06/18/24 [History] amLODIPine [Norvasc] 10 mg PO DAILY 06/18/24 [History] Acetaminophen-Codeine 300-30mg [Tylenol w/codeine #3] 1 tab PO Q4HR PRN #18 tab 06/20/24 [Rx] Timolol 0.5% Ophth Soln [Timoptic 0.5% Ophth Soln] 1 drop LEFT EYE DAILY 08/02/24 [History] Vibegron [Gemtesa] 75 mg PO DIRECTED 08/02/24 [History] Follow up Appointment(s)/Referral(s): Larissa Boyer MD [STAFF PHYSICIAN] - 1 Week (for IBS) Nonstaalexander,Physician [Primary Care Provider] - 1-2 days Kenroy Bustamante DO [Medical Doctor] - 1 Week Discharge Disposition: HOME SELF-CARE
[2024-08-06] MEDS: POTASSIUM CHLORIDE ER 20 MEQ TAB.ER PO SCH (09:30)
[2024-08-06] MEDS: BUTALB/APAP/CAFF 50-325-40MG TAB PO PRN (10:28)
--- NOTE | 2024-08-24 20:09 | CDI ---
Documentation Clarification Form Date: 08/24/2024 07:59:39 PM From: Carmen Campbell Phone: Admit Date: 08/02/2024 08:04:00 AM Patient Name: Pam Pulido Visit Number: [id number] Discharge Date: 08/06/2024 11:10:00 AM ATTENTION: The Clinical Documentation Specialists (CDI) and [facility] Coding Staff appreciate your assistance in clarifying documentation. Please respond to the clarification below the line at the bottom and electronically sign. The CDI & [facility] Coding staff will review the response and follow-up if needed. Please note: Queries are made part of the Legal Health Record. If you have any questions, please contact the author of this message via ITS. Doctor/Provider: Kenroy Bustamante The final diagnosis of the pathology report states Mildchronic gastritis. Coding guidelines do not allow coding professionals to code based on pathology results; therefore, clarification is requested. History/risk factors: 48yo F, ABLA, transaminitis, HAGMA, DMII, PSBO, hypomagnesia, UTI, HTN, hiatal hernia Clinical Indicators: SallHiatal Hernianoted. Minimal, nonspecific, patchy antralerythemarepresentinggastritis. Biopsieswere obtained for Helicobacter pylori. Noerosionsorulcersnoted. The scope was withdrawn to the esophagus. NoBarretts oresophagitiswas noted. Treatment: Stomach, Biopsy Antrum Patient was initially admitted with suspicion ofpartial bowel obstruction, but didnotrequire anNG tubeand continued to have multiple bowel movements of black stools. General surgery consult evaluated patient and consideredupper GI bleed. Therefore patient wasplacedon IV Protonix and taken toendoscopysuite but no identifiable source of bleed was notednorwere there anyulcerations, AV malformations, etc. Following the procedure, patient was able to tolerate a diet and notedresolution ofherpain, but did report ongoingdiarrheain the context of history ofIBS. I discussed this case with general surgery who agreed the patient was stable for discharge with outpatientfollow-upforcolonoscopy. I also sent a referral to GI for history ofIBS. Patient should discontinue taking NSAIDs, and this was addressed on discharge medication reconciliation. Please clarify if you agree with the pathology report diagnosis of Mildchronic gastritis. [ ] Yes [ ] No [ ] Other (please specify) [ ] Unable to determine (Template Last Revised: January 2021) MTDD
--- NOTE | 2024-08-27 11:49 | CDI ---
Documentation Clarification Form Date: 08/27/2024 11:44:38 AM From: Carmen Campbell Phone: Admit Date: 08/02/2024 08:04:00 AM Patient Name: Pam Pulido Visit Number: [id number] Discharge Date: 08/06/2024 11:10:00 AM ATTENTION: The Clinical Documentation Specialists (CDI) and [facility] Coding Staff appreciate your assistance in clarifying documentation. Please respond to the clarification below the line at the bottom and electronically sign. The CDI & [facility] Coding staff will review the response and follow-up if needed. Please note: Queries are made part of the Legal Health Record. If you have any questions, please contact the author of this message via ITS. Doctor/Provider:Kenroy Bustamante Thank you for acknowledging the previous query; however, it lacked a response. The final diagnosis of the pathology report states Mildchronic gastritis. Coding guidelines do not allow coding professionals to code based on pathology results; therefore, clarification is requested. History/risk factors: 48yo F,ABLA,transaminitis,HAGMA,DMII,PSBO, hypomagnesia,UTI,HTN,hiatal hernia Clinical Indicators: SmallHiatal Hernianoted. Minimal, nonspecific, patchy antralerythemarepresentinggastritis. Biopsieswere obtained forHelicobacter pylori. Noerosionsorulcersnoted. The scope was withdrawn to the esophagus. NoBarretts oresophagitiswas noted. Treatment: Stomach,BiopsyAntrum Patient was initially admitted with suspicion ofpartial bowel obstruction, but didnotrequire anNG tubeand continued to have multiple bowel movements of black stools. General surgery consult evaluated patient and consideredupper GI bleed. Therefore patient wasplacedon IV Protonix and taken toendoscopysuite but no identifiable source of bleed was notednorwere there anyulcerations, AV malformations, etc. Following the procedure, patient was able to tolerate a diet and notedresolution ofherpain, but did report ongoingdiarrheain the context of history ofIBS. I discussed this case with general surgery who agreed the patient was stable for discharge with outpatientfollow-upforcolonoscopy. I also sent a referral to GI for history ofIBS. Patient should discontinue taking NSAIDs, and this was addressed on discharge medication reconciliation. Please clarify if you agree with the pathology report diagnosis of mildchronic gastritis. [ ] Yes [ ] No [ ] Other (please specify) [ ] Unable to determine (Template LastRevised: January 2021) MTDD
--- NOTE | 2024-09-01 17:02 | CDI ---
Documentation Clarification Form Date: 09/01/2024 04:53:50 PM From: Carmen Campbell Phone: Admit Date: 08/02/2024 08:04:00 AM Patient Name: Pam Pulido Visit Number: [id number] Discharge Date: 08/06/2024 11:10:00 AM ATTENTION: The Clinical Documentation Specialists (CDI) and [facility] Coding Staff appreciate your assistance in clarifying documentation. Please respond to the clarification below the line at the bottom and electronically sign. The CDI & [facility] Coding staff will review the response and follow-up if needed. Please note: Queries are made part of the Legal Health Record. If you have any questions, please contact the author of this message via ITS. Doctor/Provider:Kenroy Bustamante Thank you for acknowledging the previous queries; however, the query was submitted and signed, but there was no response indicated. The final diagnosis of the pathology report states mildchronic gastritis. Coding guidelines do not allow coding professionals to code based on pathology results; therefore, clarification is requested. History/risk factors: 48yo F,ABLA,transaminitis,HAGMA,DMII,PSBO, hypomagnesia,UTI,HTN,hiatal hernia Clinical Indicators: SmallHiatal Hernianoted. Minimal, nonspecific, patchy antralerythemarepresentinggastritis. Bxwere obtained forHelicobacter pylori. Noerosionsorulcersnoted. The scope was withdrawn to the esophagus. NoBarretts oresophagitiswas noted. Treatment: Stomach,BiopsyAntrum Patient was initially admitted with suspicion PSBO, but didnotrequire anNG tubeand continued to have multiple bowel movements of black stools. General surgery consult evaluated patient and consideredupper GI bleed. Therefore patient wasplacedon IV Protonix and taken toendoscopysuite but no identifiable source of bleed was notednorwere there anyulcerations, AV malformations, etc. Following the procedure, patient was able to tolerate a diet and notedresolution ofherpain, but did report ongoingdiarrheain the context of history ofIBS. I discussed this case with general surgery who agreed the patient was stable for discharge with outpatientfollow-upforcolonoscopy. I also sent a referral to GI for history ofIBS. Patient should discontinue taking NSAIDs, and this was addressed on discharge medication reconciliation. Please clarify if you agree with the pathology report diagnosis of mildchronic gastritis. [ ] Yes [ ] No [ ] Other (please specify) [ ] Unable to determine (Template LastRevised: January 2021) unable to determine MTDD
--- NOTE | 2024-09-02 21:10 | CDI ---
Documentation Clarification Form Date: 09/02/2024 09:05:16 PM From: Carmen Campbell Phone: Admit Date: 08/02/2024 08:04:00 AM Patient Name: Pam Pulido Visit Number: [id number] Discharge Date: 08/06/2024 11:10:00 AM ATTENTION: The Clinical Documentation Specialists (CDI) and [facility] Coding Staff appreciate your assistance in clarifying documentation. Please respond to the clarification below the line at the bottom and electronically sign. The CDI & [facility] Coding staff will review the response and follow-up if needed. Please note: Queries are made part of the Legal Health Record. If you have any questions, please contact the author of this message via ITS. Doctor/Provider: Braulio Dickson The final diagnosis of the pathology report states mildchronic gastritis. Coding guidelines do not allow coding professionals to code based on pathology results; therefore, clarification is requested. History/risk factors: 48yo F,ABLA,transaminitis,HAGMA,DMII,PSBO, hypomagnesia,UTI,HTN,hiatal hernia Clinical Indicators: SmallHiatal Hernianoted. Minimal, nonspecific, patchy antralerythemarepresentinggastritis. Bxwere obtained forHelicobacter pylori. Noerosionsorulcersnoted. The scope was withdrawn to the esophagus. NoBarretts oresophagitiswas noted. Treatment: Stomach,BiopsyAntrum Patient was initially admitted with suspicion PSBO, but didnotrequire anNG tubeand continued to have multiple bowel movements of black stools. General surgery consult evaluated patient and consideredupper GI bleed. Therefore patient wasplacedon IV Protonix and taken toendoscopysuite but no identifiable source of bleed was notednorwere there anyulcerations, AV malformations, etc. Following the procedure, patient was able to tolerate a diet and notedresolution ofherpain, but did report ongoingdiarrheain the context of history ofIBS. I discussed this case with general surgery who agreed the patient was stable for discharge with outpatientfollow-upforcolonoscopy. I also sent a referral to GI for history ofIBS. Patient should discontinue taking NSAIDs, and this was addressed on discharge medication reconciliation. Please clarify if you agree with the pathology report diagnosis of mildchronic gastritis. [x ] Yes [ ] No [ ] Other (please specify) [ ] Unable to determine (Template LastRevised: January 2021) ARABELLA
== END 2024-08-06 11:10 | disposition home or self-care (01) | DRG 388 ==
LOC: EC 18:39 → 6NMEDSUR 22:55 → OBSVTOIN 08-02 08:04
PROVIDERS: ADMIT Internal Medicine; ATTEND Internal Medicine
PROC: 0DB78ZX Excision of Stomach, Pylorus, Via Natural or Artificial Opening Endoscopic, Diagnostic (ICD-10-PCS; principal; 2024-08-05 07:45)
DX: K56.690 Other partial intestinal obstruction (principal); K29.51 Unspecified chronic gastritis with bleeding; D62 Acute posthemorrhagic anemia; E87.20 Acidosis, unspecified; N39.0 Urinary tract infection, site not specified; E11.9 Type 2 diabetes mellitus without complications; E83.42 Hypomagnesemia; I10 Essential (primary) hypertension; E78.5 Hyperlipidemia, unspecified; K44.9 Diaphragmatic hernia without obstruction or gangrene; R74.01 Elevation of levels of liver transaminase levels; Z79.899 Other long term (current) drug therapy; Z79.84 Long term (current) use of oral hypoglycemic drugs; Z79.85 Long-term (current) use of injectable non-insulin antidiabetic drugs; Z88.2 Allergy status to sulfonamides; Z88.1 Allergy status to other antibiotic agents; Z90.89 Acquired absence of other organs; Z87.440 Personal history of urinary (tract) infections
CPT/HCPCS: 36415; 43239; 74177; 80048; 80053; 80074; 80076; 81001; 82150; 83605; 83690; 83735; 84100; 84484; 85025; 87086; 88305; 93005; 96374; 96375; 96376; 99285

== ENCOUNTER 2024-09-12 17:40 | Emergency (ER) | payer MEDICARE, OTHER ==
--- NOTE | 2024-09-12 18:14 | ED ---
Headache HPI - General Mode of arrival: ambulatory Limitations: no limitations - History of Present Illness MD Complaint: headache, "migraine" Onset/Timin -: days(s) Location: diffuse Severity: severe Severity scale (1-10): 10 Consistency: constant Improves With: other (Vomiting) Associated Symptoms: nausea, vomiting, photophobia, sensitivity to sound Treatments Prior to Arrival: Acetaminophen, other (Benadryl, [place]) <Kurtis Olson - Last Filed: 09/12/24 18:12> <Timothy Jane - Last Filed: 09/12/24 22:35> - General Stated Complaint: migraine/NVD Time Seen by Provider: 09/12/24 17:56 - History of Present Illness Initial Comments: This is a 48-year-old female with history of migraines complaining of migraine (11 out of 10) x 4 days. Patient endorses associated fever, N/V/D, photophobia, phonophobia. Endorses use of Benadryl, Tylenol and [place] with minimal relief. (Kurtis Olson) 48-year-old female presenting for evaluation of headache. Headache is typical of her migraine headache. She does have history of pseudotumor cerebri with SPLITTING MACHINE FEEDER shunt. She states her normal home medication is not working. She does have nausea and photophobia. No focal numbness or weakness. Headache was gradual in onset. (Timothy Jane) - Related Data Home Medications Medication Instructions Recorded Confirmed Atorvastatin [Lipitor] 20 mg PO DAILY 10/07/14 08/02/24 FLUoxetine HCL 40 mg PO DAILY 10/07/14 08/02/24 Loratadine [Claritin] 10 mg PO DAILY 10/07/14 08/02/24 Acyclovir 400 mg PO DAILY 01/19/21 08/02/24 Fluticasone Nasal [place] [Flonase 1 spr EA NOSTRIL BID PRN 01/19/21 08/02/24 Nasal [place]] Pantoprazole [Protonix] 40 mg PO DAILY 01/19/21 08/02/24 busPIRone HCL 15 mg PO BID 01/19/21 08/02/24 Lisdexamfetamine Dimesylate 60 mg PO DAILY 11/15/23 08/02/24 [Vyvanse] hydrOXYzine HCL [Atarax] 50 mg PO BID 11/15/23 08/02/24 metFORMIN HCL 1,000 mg PO BID 11/15/23 08/02/24 Pentosan Polysulfate Sodium 100 mg PO TID 04/11/24 08/02/24 [Elmiron] Ondansetron [Zofran] 4 mg PO DAILY PRN 06/18/24 08/02/24 Semaglutide [Ozempic] 1 mg SQ WE 06/18/24 08/02/24 amLODIPine [Norvasc] 10 mg PO DAILY 06/18/24 08/02/24 Timolol 0.5% Ophth Soln [Timoptic 1 drop LEFT EYE DAILY 08/02/24 08/02/24 0.5% Ophth Soln] Vibegron [Gemtesa] 75 mg PO DIRECTED 08/02/24 08/02/24 Previous Rx's Medication Instructions Recorded Butalb/APAP/Caff 50-325-40Mg 1 tab PO TID PRN #12 tab 01/21/21 [Fioricet 50-325-40] Acetaminophen-Codeine 300-30mg 1 tab PO Q4HR PRN #18 tab 06/20/24 [Tylenol w/codeine #3] Allergies Allergy/AdvReac Type Severity Reaction Status Date / Time Sulfa (Sulfonamide Allergy Severe Rash/Hives/ Verified 09/12/24 19:35 Antibiotics) Vomiting ciprofloxacin [From Cipro] Allergy Rash/Hives Verified 09/12/24 19:35 ciprofloxacin HCl Allergy Rash/Hives Verified 09/12/24 19:35 [From Cipro] Review of Systems ROS Other: All systems not noted in ROS Statement are negative. <Kurtis Olson - Last Filed: 09/12/24 18:12> ROS Other: All systems not noted in ROS Statement are negative. <Timothy Jane - Last Filed: 09/12/24 22:35> ROS Statement: Those systems with pertinent positive or pertinent negative responses have been documented in the HPI. Past Medical History Past Medical History: Diabetes Mellitus, Eye Disorder, Hyperlipidemia, Hypertension, Renal Disease Additional Past Medical History / Comment(s): GLAUCOMA; MIGRAINES, IBS, cystitis History of Any Multi-Drug Resistant Organisms: C-DIFF Date of last positivie culture/infection: April 2021 MDRO Source:: stool Past Surgical History: Appendectomy, Cholecystectomy Additional Past Surgical History / Comment(s): OVARY SURGERY; BILAT EYE SURGERY, metal plate under right eye Past Anesthesia/Blood Transfusion Reactions: Postoperative Nausea & Vomiting ( PONV) Additional Past Anesthesia/Blood Transfusion Reaction / Comment(s): pt states she gets very mean from anesthesia Past Psychological History: ADD/ADHD, Depression Smoking Status: Never smoker Past Alcohol Use History: None Reported Past Drug Use History: None Reported - Past Family History Mother Family Medical History: COPD, Diabetes Mellitus Father Family Medical History: Coronary Artery Disease (CAD), Diabetes Mellitus Additional Family Medical History / Comment(s): dad <Kurtis Olson - Last Filed: 09/12/24 18:12> General Exam <Kurtis Olson - Last Filed: 09/12/24 18:12> General appearance: alert, in no apparent distress Head exam: Present: atraumatic, normocephalic Eye exam: Present: normal appearance, PERRL ENT exam: Present: normal exam Neck exam: Present: normal inspection, full ROM. Absent: tenderness, meningismus Respiratory exam: Present: normal lung sounds bilaterally, respiratory distress Cardiovascular Exam: Present: regular rate, normal rhythm GI/Abdominal exam: Present: soft. Absent: distended, tenderness, guarding Extremities exam: Present: normal inspection, normal capillary refill Neurological exam: Present: alert, oriented X3, CN II-XII intact. Absent: motor sensory deficit Psychiatric exam: Present: normal affect, normal mood Skin exam: Present: warm, dry, intact <ArunchatojaclynTimothy Swift - Last Filed: 09/12/24 22:35> - General Exam Comments Initial Comments: Visual Physical Exam Vital signs reviewed General: Well-appearing, nontoxic, no acute distress. Head: Normocephalic, atraumatic Eyes: PERRLA, EOMI ENT: Airway patent Chest: Nonlabored breathing Skin: No visual rash, normal skin tone Neuro: Alert and oriented 3 Musculoskeletal: No gross abnormalities (Kurtis Olson) Course Vital Signs 09/12/24 09/12/24 09/12/24 19:30 21:03 22:00 Temperature 99 F Pulse Rate 109 H 103 H 98 Respiratory 18 18 16 Rate Blood Pressure 129/85 128/94 120/75 O2 Sat by Pulse 99 100 96 Oximetry Medical Decision Making <Kurtis Olson - Last Filed: 09/12/24 18:12> - Lab Data Result diagrams: 09/12/24 19:58 09/12/24 19:58 <Timothy Jane Jeniffer - Last Filed: 09/12/24 22:35> - Medical Decision Making I completed the quick note portion of this chart signed RYANN Salazar (Kurtis Olson) Was pt. sent in by a medical professional or institution (MIKEY Gabriel, [employer]AB[employer], urgent care, hospital, or fpc...) When possible be specific @ -No Did you speak to anyone other than the patient for history (EMS, parent, family, police, friend...)? What history was obtained from this source @ -No Did you review nursing and triage notes (agree or disagree)? Why? @ -I reviewed and agree with nursing and triage notes Were old charts reviewed (outside hosp., previous admission, EMS record, old EKG, old radiological studies, urgent care reports/EKG's, fpc records)? Report findings @ -No old charts were reviewed Differential headache EKG interpreted by me (3pts min.). @ -As above X-rays interpreted by me (1pt min.). @ -[KUB negative for patient CT interpreted by me (1pt min.). @ -None done U/S interpreted by me (1pt. min.). @ -None done What testing was considered but not performed or refused? (CT, X-rays, U/S, labs)? Why? @ -None What meds were considered but not given or refused? Why? @ -None Did you discuss the management of the patient with other professionals (professionals i.e. MIKEY Gabriel, [employer]NO[employer] BABYSITTER, lab, RT, psych nurse, executive secretary social welfare, lubrication technician, teacher, defence force senior officer, field case manager)? Give summary @ -No Was smoking cessation discussed for >3mins.? @ -No Was critical care preformed (if so, how long)? @ -No Were there social determinants of health that impacted care today? How? (Homelessness, low income, unemployed, alcoholism, drug addiction, transportation, low edu. Level, literacy, decrease access to med. care, prison, rehab)? @ -No Was there de-escalation of care discussed even if they declined (Discuss DNR or withdrawal of care, Hospice)? DNR status @ -No What co-morbidities impacted this encounter? (DM, HTN, Smoking, COPD, CAD, Cancer, CVA, ARF, Chemo, Hep., AIDS, mental health diagnosis, sleep apnea, morbid obesity)? @Migraine headache, pseudotumor cerebri Was patient admitted / discharged? Hospital course, mention meds given and route, prescriptions, significant lab abnormalities, going to OR and other pertinent info. @ -8-year-old female with headache, moderate to severe. Gradual in onset. No alarming features. Typical of patient's normal migraine headache. Given medications in the emergency department with significant improvement. Patient will be discharged so she may rest at home. Return parameters are discussed. Undiagnosed new problem with uncertain prognosis? @ -No Drug Therapy requiring intensive monitoring for toxicity (Heparin, Nitro, Insulin, Cardizem)? @ -No Were any procedures done? @ -No Diagnosis/symptom? @ -[SAENZ Acute, or Chronic, or Acute on Chronic? @ -acute on chronic Uncomplicated (without systemic symptoms) or Complicated (systemic symptoms)? @ -Default Side effects of treatment? @ -No Exacerbation, Progression, or Severe Exacerbation? @ -No Poses a threat to life or bodily function? How? (Chest pain, [place], [place], pneumonia, PE, COPD, DKA, ARF, appy, cholecystitis, CVA, Diverticulitis, Homicidal, Suicidal, threat to staff... and all critical care pts) @ -No (Timothy Jane) - Lab Data Lab Results 09/12/24 09/12/24 09/12/24 Range/Units 19:58 19:58 19:58 WBC 8.9 (3.8-10.6) k/uL RBC 4.78 (3.80-5.40) m/uL Hgb 12.1 (11.4-16.0) gm/dL Hct 38.5 (34.0-46.0) % MCV 80.5 (80.0-100.0) fL MCH 25.2 (25.0-35.0) pg MCHC 31.4 (31.0-37.0) g/dL RDW 15.4 (11.5-15.5) % Plt Count 396 (150-450) k/uL MPV 8.9 Neutrophils % 60 % Lymphocytes % 27 % Monocytes % 5 % Eosinophils % 4 % Basophils % 1 % Neutrophils # 5.3 (1.3-7.7) k/uL Lymphocytes # 2.4 (1.0-4.8) k/uL Monocytes # 0.5 (0-1.0) k/uL Eosinophils # 0.4 (0-0.7) k/uL Basophils # 0.1 (0-0.2) k/uL Hypochromasia Moderate Sodium 139 (137-145) mmol/L Potassium 4.9 (3.5-5.1) mmol/L Chloride 112 H (98-107) mmol/L Carbon Dioxide 18 L (22-30) mmol/L Anion Gap 9 mmol/L BUN 6 L (7-17) mg/dL Creatinine 0.51 L (0.52-1.04) mg/dL Est GFR (CKD-EPI)AfAm >90 (>60 ml/min/1.73 sqM) Est GFR (CKD-EPI)NonAf >90 (>60 ml/min/1.73 sqM) Glucose 200 H (74-99) mg/dL Plasma Lactic Acid Eduardo 2.4 H* (0.7-2.0) mmol/L Calcium 9.3 (8.4-10.2) mg/dL Total Bilirubin 0.9 (0.2-1.3) mg/dL AST 41 H (14-36) U/L ALT 23 (4-34) U/L Alkaline Phosphatase 100 (38-126) U/L Total Protein 7.5 (6.3-8.2) g/dL Albumin 4.7 (3.5-5.0) g/dL Disposition <Kurtis Olson - Last Filed: 09/12/24 18:12> Is patient prescribed a controlled substance at d/c from ED?: No Time of Disposition: 22:35 <Timothy Jane - Last Filed: 09/12/24 22:35> Clinical Impression: Headache Disposition: HOME SELF-CARE Condition: Fair Instructions (If sedation given, give patient instructions): Acute Headache (ED) Referrals: Nonstaff,Physician [REFERRING] - 1-2 days
[2024-09-12 19:35] VITALS: TEMP 99
[2024-09-12 20:35] LABS: Basophils # (A) 0.1 k/uL (0-0.2); Basophils % (A) 1 %; Eosinophils # (A) 0.4 k/uL (0-0.7); Eosinophils % (A) 4 %; HCT 38.5 % (34.0-46.0); HGB 12.1 gm/dL (11.4-16.0); Hypochromasia Moderate; Lymphocytes # (A) 2.4 k/uL (1.0-4.8); Lymphocytes % (A) 27 %; MCH 25.2 pg (25.0-35.0); MCHC 31.4 g/dL (31.0-37.0); MCV 80.5 fL (80.0-100.0); Mean Platelet Volume 8.9; Monocytes # (A) 0.5 k/uL (0-1.0); Monocytes % (A) 5 %; Neutrophils # (A) 5.3 k/uL (1.3-7.7); Neutrophils % (A) 60 %; Platelet Count 396 k/uL (150-450); RBC 4.78 m/uL (3.80-5.40); RDW 15.4 % (11.5-15.5); WBC 8.9 k/uL (3.8-10.6)
[2024-09-12 20:46] LABS: ALT 23 U/L (4-34); African American GFR (CKD) >90 (>60 ml/min/1.73 sqM); Anion Gap 9 mmol/L; Blood Urea Nitrogen 6 mg/dL (7-17); Calcium 9.3 mg/dL (8.4-10.2); Carbon Dioxide 18 mmol/L (22-30); Chloride 112 mmol/L (98-107); Glucose 200 mg/dL (74-99); Non-African American GFR(CKD) >90 (>60 ml/min/1.73 sqM); Sodium 139 mmol/L (137-145); Total Bilirubin 0.9 mg/dL (0.2-1.3)
--- NOTE | 2024-09-12 20:49 | XR ---
EXAMINATION TYPE: XR KUB DATE OF EXAM: 09/12/2024 8:33 PM CLINICAL INDICATION: Female, 48 years old with history of abdominal pain; [facility] COMPARISON: 10/07/2014 CT 08/01/2024. TECHNIQUE: One radiographic view of the abdomen was obtained. FINDINGS: The bowel gas pattern is nonspecific without dilated loops of small or large bowel. . Fecal material and gas are demonstrated throughout the colon and rectum. There is no evidence for organomegaly or pneumoperitoneum. The osseous structures are intact. No ab normal calcifications are present. Suspected ventricular shunt tubing projects over the abdomen which is new from prior. Shunt tubing is in similar position compared to prior CT Essure devices are seen bilaterally. Right upper quadrant cholecystectomy clips. IMPRESSION: Nonspecific bowel gas pattern without radiographic evidence for acute process. [facility], , 09/12/2024 8:47 PM
[2024-09-12 21:06] LABS: AST 41 U/L (14-36); Albumin 4.7 g/dL (3.5-5.0); Alkaline Phosphatase 100 U/L (38-126); Potassium 4.9 mmol/L (3.5-5.1); Total Protein 7.5 g/dL (6.3-8.2)
[2024-09-12] MEDS: SODIUM CHLORIDE 0.9% 1,000 ML IV ONE (21:35)
[2024-09-12] MEDS: KETOROLAC 15 MG/ML 1 ML VIAL IVP STA (21:35)
[2024-09-12] MEDS: ACETAMINOPHEN TAB 500 MG TAB PO STA (21:37)
[2024-09-12] MEDS: HYDROmorphone 1 MG/ML 1 ML SYRINGE IVP STA (21:38)
[2024-09-12] MEDS: METOCLOPRAMIDE 5 MG/ML 2 ML VIAL IVP STA (21:40)
[2024-09-12 22:17] VITALS: PULSE 98
[2024-09-12 22:43] LABS: Appearance,Urine Cloudy (Clear); Bacteria,Urine Rare /hpf; Bilirubin,Urine Negative (Negative); Blood,Urine Negative (Negative); Budding Yeast,Urine Rare /hpf; Color,Urine Light Yellow; Glucose,Urine (UA) Negative (Negative); Hyaline Casts,Urine 12 /lpf (0-2); Ketones,Urine Negative (Negative); Leukocyte Esterase,Urine Negative (Negative); Mucus,Urine Few /hpf; Nitrite,Urine Negative (Negative); PH, Urine 5.5 (5.0-8.0); Protein,Urine Trace (Negative); RBC,Urine <1 /hpf (0-5); Squamous Epithelial Cell,Urine 11 /hpf (0-4); Urobilinogen,Urine <2.0 mg/dL (<2.0); WBC,Urine 3 /hpf (0-5)
[2024-09-12 23:37] VITALS: BP 115/88; RESP 18
[2024-09-12] MEDS: HYDROmorphone 0.5 MG/0.5 ML SYRINGE IVP STA (23:37)
== END 2024-09-12 23:49 | disposition home or self-care (01) ==
LOC: EC 17:40
CPT/HCPCS: 36415; 74018; 80053; 81001; 83605; 85025; 96361; 96374; 96375; 96376; 99284

== ENCOUNTER → 2024-10-03 | Outpatient (CLI) | payer MEDICARE, OTHER ==
[2024-10-03 19:32] LABS: HCT 36.2 % (37.2-46.3); HGB 11.4 g/dL (12.0-15.0); MCH 24.6 pg (27.0-32.0); MCHC 31.5 g/dL (32.0-37.0); NRBC Per 100 WBC 0 X 10*3/uL (0.00-0.01); Platelet Count 451 X 10*3/uL (140-440); RBC 4.64 X 10*6/uL (4.10-5.20); RDW 15.8 % (11.5-14.5); WBC 9.03 X 10*3/uL (4.50-10.00)
[2024-10-03 20:54] LABS: ALT 15 U/L (8-44); AST 12 U/L (13-35); Albumin 4.7 g/dL (3.8-4.9); Albumin/Globulin Ratio 1.74 Ratio (1.60-3.17); Alkaline Phosphatase 159 U/L (41-126); Blood Urea Nitrogen 12.1 mg/dL (9.0-27.0); Carbon Dioxide 18.5 mmol/L (21.6-31.8); Chloride 105 mmol/L (96-109); Globulin 2.7 g/dL (1.6-3.3); Glucose 196 mg/dL (70-110); Sodium 141 mmol/L (135-145); Total Bilirubin <0.2 mg/dL (0.3-1.2); Total Protein 7.4 g/dL (6.2-8.2)
[2024-10-04 00:35] LABS: Gliadin AB IgA, Deaminated Negative (Negative); Gliadin AB IgA, Unit <0.5 U/mL; Gliadin AB IgG, Deaminated Negative (Negative); Gliadin AB IgG, Unit <0.4 U/mL
== END | disposition home or self-care (01) ==
LOC: LABWHC1 13:46
PROVIDERS: ATTEND Internal Medicine Gastroenterology
DX: K52.9 Noninfective gastroenteritis and colitis, unspecified (principal)
CPT/HCPCS: 36415; 80053; 83516; 85027

== ENCOUNTER 2024-10-11 09:38 | Day surgery (SDC) | payer MEDICARE, OTHER ==
[2024-10-11] MEDS: IV FLUID CONTINUATION 1,000 ML IV ONE (09:48)
[2024-10-11 10:12] VITALS: TEMP 98
[2024-10-11] MEDS: LACTATED RINGERS 1,000 ML IV SCH (10:19)
[2024-10-11 10:24] LABS: Glucose,Whole Blood 210 mg/dL (70-110)
[2024-10-11] MEDS ORDERED: PROPOFOL 10 MG/ML 20 ML VIAL IV ONE (10:32)
[2024-10-11] MEDS ORDERED: LIDOCAINE 1% INJ 10MG/ML (20 ML MDV) ONE (10:32)
--- NOTE | 2024-10-11 10:49 | P.PCN ---
Date of Procedure: 10/11/24 Procedure(s) Performed: BRIEF HISTORY: Patient is a 49-year-old pleasant pleasant white female scheduled for an elective colonoscopy as a part of evaluation of chronic diarrhea for the last several years duration. He has been having problems separate from 30-40 DVT loose watery in consistency but no blood or mucus in the stool. PROCEDURE PERFORMED: Colonoscopy with random biopsies. PREOPERATIVE DIAGNOSIS: Chronic diarrhea. IV sedation per Anesthesia. PROCEDURE: After informed consent was obtained, the patient, was brought into the endoscopy unit. IV sedation was administered by Anesthesia under continuous monitoring. Digital rectal examination was normal. Initially the Olympus CF-160 flexible video colonoscope was then inserted in the rectum, gradually advanced into the cecum without any difficulty. Careful examination was performed as the scope was gradually being withdrawn. Ileocecal valve and the appendiceal orifice were visualized and appeared normal. Prep was excellent. Middle ileum was intubated in 20 cm visualized and appeared normal. Biopsies were done from this area. Mucosa of the cecum, ascending colon, transverse colon, descending colon, sigmoid colon, and rectum appeared normal. Biopsies were done from the ascending and descending colon rule out microscopic/collagenous colitis. Retroflexion was performed in the rectum and no lesions were seen. The patient tolerated the procedure well. IMPRESSION: Normal-appearing colon from rectum to cecum no evidence of colitis or colorectal neoplasia. Normal-appearing terminal ileum. RECOMMENDATIONS: Findings of this examination were discussed with the patient as well as her family. She was advised to follow-up with the biopsy results. Follow-up in the office in 2 weeks. Recommended repeat colonoscopy in 10 years..
[2024-10-11 11:12] VITALS: BP 135/84; PULSE 97; RESP 18
== END 2024-10-11 11:59 | disposition home or self-care (01) ==
LOC: ORWHC2ENDO 09:38
PROVIDERS: ATTEND Internal Medicine Gastroenterology
DX: K52.9 Noninfective gastroenteritis and colitis, unspecified (principal); I10 Essential (primary) hypertension; K21.9 Gastro-esophageal reflux disease without esophagitis; E78.5 Hyperlipidemia, unspecified; E11.9 Type 2 diabetes mellitus without complications; N28.9 Disorder of kidney and ureter, unspecified; Z79.899 Other long term (current) drug therapy; Z79.84 Long term (current) use of oral hypoglycemic drugs; Z90.49 Acquired absence of other specified parts of digestive tract; Z90.710 Acquired absence of both cervix and uterus; Z88.1 Allergy status to other antibiotic agents; Z88.2 Allergy status to sulfonamides
CPT/HCPCS: 45380; J2003; J2704; 88305

== ENCOUNTER → 2024-10-17 | Outpatient (CLI) | payer MEDICARE ==
[2024-10-17 16:08] LABS: Thyroid Peroxidase Antibodies 10.4 U/mL (0.0-33.0)
[2024-10-17 16:17] LABS: Basophils # (A) 0.07 X 10*3/uL (0.00-0.10); Basophils % (A) 0.9 %; Eosinophils # (A) 0.54 X 10*3/uL (0.04-0.35); Eosinophils % (A) 6.8 %; HCT 36.5 % (37.2-46.3); HGB 11.3 g/dL (12.0-15.0); Lymphocytes # (A) 2.08 X 10*3/uL (0.90-5.00); Lymphocytes % (A) 26.3 %; MCH 24.6 pg (27.0-32.0); MCV 79.5 FL (80.0-97.0); Mean Platelet Volume 11.2 FL (9.5-12.2); Monocytes # (A) 0.33 X 10*3/uL (0.20-1.00); Monocytes % (A) 4.2 %; NRBC Per 100 WBC 0 X 10*3/uL (0.00-0.01); Neutrophils # (A) 4.85 X 10*3/uL (1.80-7.70); Neutrophils % (A) 61.3 %; Platelet Count 409 X 10*3/uL (140-440); RBC 4.59 X 10*6/uL (4.10-5.20); RDW 16.2 % (11.5-14.5); WBC 7.91 X 10*3/uL (4.50-10.00)
[2024-10-17 16:18] LABS: ALT 12 U/L (8-44); AST 12 U/L (13-35); Albumin 4.3 g/dL (3.8-4.9); Albumin/Globulin Ratio 1.95 Ratio (1.60-3.17); Alkaline Phosphatase 159 U/L (41-126); Blood Urea Nitrogen 11.7 mg/dL (9.0-27.0); Calcium 9.3 mg/dL (8.7-10.3); Carbon Dioxide 19.5 mmol/L (21.6-31.8); Chloride 108 mmol/L (96-109); Chol/HDL Ratio 4.95 Ratio; Globulin 2.2 g/dL (1.6-3.3); Glucose 204 mg/dL (70-110); LDL Cholesterol,Calculated 154.9 mg/dL (0.0-131.0); Potassium 3.8 mmol/L (3.5-5.5); Sodium 142 mmol/L (135-145); T4, Free (Free Thyroxine) 0.85 ng/dL (0.80-1.80); Total Bilirubin 0.2 mg/dL (0.3-1.2); Total Protein 6.5 g/dL (6.2-8.2)
[2024-10-17 16:49] LABS: Appearance,Urine Cloudy (Clear); Bilirubin,Urine Negative (Negative); Blood,Urine Negative (Negative); Color,Urine Yellow (Yellow); Ketones,Urine Negative (Negative); Nitrite,Urine Negative (Negative); PH, Urine 5.5; Specific Gravity,Urine 1.024 (1.001-1.030); Urobilinogen,Urine 0.2 E.U./DL
[2024-10-17 17:19] LABS: Bacteria,Urine 3+ (None Seen); Yeast (UA) Present (None Seen)
== END | disposition home or self-care (01) ==
LOC: LABWHC1 08:58
PROVIDERS: ATTEND Nurse Practitioner
DX: I10 Essential (primary) hypertension (principal); E66.01 Morbid (severe) obesity due to excess calories; E11.65 Type 2 diabetes mellitus with hyperglycemia; E55.9 Vitamin D deficiency, unspecified; E78.5 Hyperlipidemia, unspecified
CPT/HCPCS: 36415; 80053; 80061; 81001; 82306; 82607; 83036; 84439; 84443; 84480; 85025; 86376

== ENCOUNTER 2024-11-22 21:55 | Emergency (ER) | payer MEDICARE, OTHER ==
--- NOTE | 2024-11-22 22:19 | ED ---
Female Urogenital HPI - General Chief complaint: Urogenital Stated complaint: Pelvic pain, back pain, fever Time Seen by Provider: 11/22/24 22:10 Source: patient, RN notes reviewed Mode of arrival: ambulatory Limitations: no limitations - History of Present Illness Initial comments: This is a 49-year-old female with history of frequent UTIs, cystitis, DM and renal dysfunction presenting with urinary symptoms x 3 days. Patient endorses dysuria, increased frequency, blood in urine. Also endorses fever, abdominal pain and back pain. Mentions associated vaginal itching and suspects a yeast infection. Endorses increasing frequency of UTIs following weight gain. MD Complaint: dysuria Onset/Timin -: days(s) - Related Data Home Medications Medication Instructions Recorded Confirmed Atorvastatin [Lipitor] 20 mg PO DAILY 10/07/14 10/11/24 FLUoxetine HCL 40 mg PO DAILY 10/07/14 10/11/24 Loratadine [Claritin] 10 mg PO DAILY 10/07/14 10/11/24 Acyclovir 400 mg PO DAILY 01/19/21 10/11/24 Fluticasone Nasal Violet [Flonase 1 spr EA NOSTRIL BID PRN 01/19/21 10/11/24 Nasal Violet] Pantoprazole [Protonix] 40 mg PO DAILY 01/19/21 10/11/24 busPIRone HCL 15 mg PO BID 01/19/21 10/11/24 Lisdexamfetamine Dimesylate 60 mg PO DAILY 11/15/23 10/11/24 [Vyvanse] hydrOXYzine HCL [Atarax] 50 mg PO BID 11/15/23 10/11/24 metFORMIN HCL 1,000 mg PO BID 11/15/23 10/11/24 Pentosan Polysulfate Sodium 100 mg PO TID 04/11/24 10/11/24 [Elmiron] Ondansetron [Zofran] 4 mg PO DAILY PRN 06/18/24 10/11/24 amLODIPine [Norvasc] 10 mg PO DAILY 06/18/24 10/11/24 Timolol 0.5% Ophth Soln [Timoptic 1 drop LEFT EYE DAILY 08/02/24 10/11/24 0.5% Ophth Soln] Ibuprofen [Motrin] 800 mg PO DIRECTED PRN 10/09/24 10/11/24 Previous Rx's Medication Instructions Recorded Butalb/APAP/Caff 50-325-40Mg 1 tab PO TID PRN #12 tab 01/21/21 [Fioricet 50-325-40] Acetaminophen-Codeine 300-30mg 1 tab PO Q4HR PRN #18 tab 06/20/24 [Tylenol w/codeine #3] HYDROcodone/APAP 5-325MG [[place] 1 tab PO Q6HR PRN #12 tab 09/12/24 5-325] Cephalexin [Keflex] 500 mg PO Q6HR 12 Days #48 cap 11/22/24 Fluconazole 150 mg PO DIRECTED PRN #2 tab 11/22/24 Allergies Allergy/AdvReac Type Severity Reaction Status Date / Time Sulfa (Sulfonamide Allergy Severe Rash/Hives/ Verified 11/24/24 12:22 Antibiotics) Vomiting ciprofloxacin [From Cipro] Allergy Rash/Hives Verified 11/24/24 12:22 ciprofloxacin HCl Allergy Rash/Hives Verified 11/24/24 12:22 [From Cipro] Review of Systems ROS Statement: Those systems with pertinent positive or pertinent negative responses have been documented in the HPI. ROS Other: All systems not noted in ROS Statement are negative. Past Medical History Past Medical History: Diabetes Mellitus, Eye Disorder, Hyperlipidemia, Hypertension, Renal Disease Additional Past Medical History / Comment(s): GLAUCOMA; MIGRAINES, IBS, cystitis History of Any Multi-Drug Resistant Organisms: C-DIFF Date of last positivie culture/infection: April 2021 MDRO Source:: stool Past Surgical History: Appendectomy, Cholecystectomy Additional Past Surgical History / Comment(s): OVARY SURGERY; BILAT EYE SURGERY, metal plate under right eye, partial hysterectomy Past Anesthesia/Blood Transfusion Reactions: Postoperative Nausea & Vomiting (PONV) Additional Past Anesthesia/Blood Transfusion Reaction / Comment(s): pt states she gets very mean from anesthesia Past Psychological History: ADD/ADHD, Depression Smoking Status: Never smoker - Past Family History Mother Family Medical History: COPD, Diabetes Mellitus Father Family Medical History: Coronary Artery Disease (CAD), Diabetes Mellitus Additional Family Medical History / Comment(s): dad General Exam Limitations: no limitations General appearance: alert, in no apparent distress Head exam: Present: atraumatic, normocephalic, normal inspection Eye exam: Present: normal appearance, PERRL, EOMI. Absent: scleral icterus, conjunctival injection, periorbital swelling ENT exam: Present: normal exam, mucous membranes moist Neck exam: Present: normal inspection. Absent: tenderness, meningismus, lymphadenopathy Respiratory exam: Present: normal lung sounds bilaterally. Absent: respiratory distress, wheezes, rales, rhonchi, stridor Cardiovascular Exam: Present: regular rate, normal rhythm, normal heart sounds. Absent: systolic murmur, diastolic murmur, rubs, gallop, clicks GI/Abdominal exam: Present: soft, tenderness (Suprapubic TTP without guarding), normal bowel sounds. Absent: distended, guarding, rebound, rigid Extremities exam: Present: normal inspection, full ROM, normal capillary refill. Absent: tenderness, pedal edema, joint swelling, calf tenderness Back exam: Present: normal inspection, CVA tenderness (R), CVA tenderness (L) Neurological exam: Present: alert, oriented X3, CN II-XII intact Psychiatric exam: Present: normal affect, normal mood Skin exam: Present: warm, dry, intact, normal color. Absent: rash Course Vital Signs 11/22/24 11/23/24 11/23/24 21:58 00:03 00:25 Temperature 99.9 F H 99.0 F Pulse Rate 17 L 93 Respiratory 143 H 16 Rate Blood Pressure 143/87 114/80 O2 Sat by Pulse 99 99 Oximetry 11/23/24 11/23/24 01:05 01:30 Temperature 98.8 F 99 F Pulse Rate 64 Respiratory 16 Rate Blood Pressure 116/80 O2 Sat by Pulse 96 Oximetry Medical Decision Making - Medical Decision Making Was pt. sent in by a medical professional or institution (, PA, PL[employer] SKY SHOW TECHNICIAN, urgent care, hospital, or intermediate...) When possible be specific @ -No Did you speak to anyone other than the patient for history (EMS, parent, family, police, friend...)? What history was obtained from this source @ -No Did you review nursing and triage notes (agree or disagree)? Why? @ -I reviewed and agree with nursing and triage notes Were old charts reviewed (outside hosp., previous admission, EMS record, old EKG, old radiological studies, urgent care reports/EKG's, intermediate records)? Report findings @ -No old charts were reviewed Differential Diagnosis (chest pain, altered mental status, abdominal pain women, abdominal pain men, vaginal bleeding, weakness, fever, dyspnea, syncope, headache, dizziness, GI bleed, back pain, seizure, CVA, palpatations, mental h ealth, musculoskeletal)? @ -Differential Back Pain: Strain, zoster, cauda equina syndrome, epidural abscess, vertebral osteomyelitis, discitis, fracture, subluxation, disc herniation, DJD, spinal jeovanny nosis, dissection, AAA, pancreatitis, peptic ulcer disease, pyelonephritis, kidney stone, this is not meant to be an all-inclusive list. EKG interpreted by me (3pts min.). @ -Not done X-rays interpreted by me (1pt min.). @ -None done CT interpreted by me (1pt min.). @ -Abdomen/pelvic CT shows punctate 1 mm nonobstructing nephrolithiasis of right kidney with no left-sided nephrolithiasis, ureteral stones or bladder calcifications. U/S interpreted by me (1pt. min.). @ -None done What testing was considered but not performed or refused? (CT, X-rays, U/S, labs)? Why? @ -None What meds were considered but not given or refused? Why? @ -None Did you discuss the management of the patient with other professionals (professionals i.e. , PA, [employer] SHOW TECHNICIAN, lab, RT, psych nurse, social media specialist, restaurant shift supervisor, teacher, airplane first officer, outpatient case manager)? Give summary @ -No Was smoking cessation discussed for >3mins.? @ -No Was critical care preformed (if so, how long)? @ -No Were there social determinants of health that impacted care today? How? (Homelessness, low income, unemployed, alcoholism, drug addiction, transportation, low edu. Level, literacy, decrease access to med. care, senior care, rehab)? @ -No Was there de-escalation of care discussed even if they declined (Discuss DNR or withdrawal of care, Hospice)? DNR status @ -No What co-morbidities impacted this encounter? (DM, HTN, Smoking, COPD, CAD, Cancer, CVA, ARF, Chemo, Hep., AIDS, mental health diagnosis, sleep apnea, morbid obesity)? @ -DM, renal issue Was patient admitted / discharged? Hospital course, mention meds given and ro rocky, prescriptions, significant lab abnormalities, going to OR and other pertinent info. @ -Lab work shows hypokalemia (3.3) and hyperglycemia (175). UA shows UTI with large amount of blood. No indication of leukocytosis or renal dysfunction. Abdomen/pelvic CT shows punctate 1 mm nonobstructing nephrolithiasis of right kidney with no left-sided nephrolithiasis, ureteral stones or bladder calcifications. Patient given Rocephin, Toradol, Keflex, and Diflucan and normal saline initially pain and symptoms. Patient later given Dilaudid due to ongoing uncontrolled pain Tylenol given for fever and patient sent home with Flexeril starter pack. P.o. Keflex and Diflucan sent to patient's pharmacy for ongoing treatment of UTI and yeast infection. Undiagnosed new problem with uncertain prognosis? @ -No Drug Therapy requiring intensive monitoring for toxicity (Heparin, Nitro, Insulin, Cardizem)? @ -No Were any procedures done? @ -No Diagnosis/symptom? @ -UTI with pyelonephritis, vulvovaginal candidiasis, nonobstructing nephrolithiasis Acute, or Chronic, or Acute on Chronic? @ -Acute Uncomplicated (without systemic symptoms) or Complicated (systemic symptoms)? @ -Complicated Side effects of treatment? @ -No Exacerbation, Progression, or Severe Exacerbation? @ -No Poses a threat to life or bodily function? How? (Chest pain, USA, MS, pneumonia, PE, COPD, DKA, ARF, appy, cholecystitis, CVA, Diverticulitis, Homicidal, Suicidal, threat to staff... and all critical care pts) @ -No - Lab Data Result diagrams: 11/22/24 23:08 11/22/24 23:30 Lab Results 11/22/24 11/22/24 11/22/24 Range/Units 22:07 23:08 23:30 WBC 9.0 (3.8-10.6) k/uL RBC 4.23 (3.80-5.40) m/uL Hgb 10.6 L (11.4-16.0) gm/dL Hct 33.1 L (34.0-46.0) % MCV 78.2 L (80.0-100.0) fL MCH 25.0 (25.0-35.0) pg MCHC 32.0 (31.0-37.0) g/dL RDW 16.2 H (11.5-15.5) % Plt Count 396 (150-450) k/uL MPV 7.6 Neutrophils % 63 % Lymphocytes % 25 % Monocytes % 4 % Eosinophils % 6 % Basophils % 1 % Neutrophils # 5.7 (1.3-7.7) k/uL Lymphocytes # 2.2 (1.0-4.8) k/uL Monocytes # 0.4 (0-1.0) k/uL Eosinophils # 0.5 (0-0.7) k/uL Basophils # 0.0 (0-0.2) k/uL Hypochromasia Slight Anisocytosis Slight Microcytosis Slight Sodium 139 (137-145) mmol/L Potassium 3.3 L (3.5-5.1) mmol/L Chloride 110 H (98-107) mmol/L Carbon Dioxide 18 L (22-30) mmol/L Anion Gap 11 mmol/L BUN 11 (7-17) mg/dL Creatinine 0.72 (0.52-1.04) mg/dL Est GFR (CKD-EPI)AfAm >90 (>60 ml/min/1.73 sqM) Est GFR (CKD-EPI)NonAf >90 (>60 ml/min/1.73 sqM) Glucose 175 H (74-99) mg/dL Calcium 9.6 (8.4-10.2) mg/dL Total Bilirubin 0.3 (0.2-1.3) mg/dL AST 14 (14-36) U/L ALT 16 (4-34) U/L Alkaline Phosphatase 119 (38-126) U/L Total Protein 6.5 (6.3-8.2) g/dL Albumin 4.1 (3.5-5.0) g/dL Urine Color Yellow Urine Appearance Turbid H (Clear) Urine pH 6.5 (5.0-8.0) Ur Specific [place] 1.027 (1.001-1.035) Urine Protein 2+ H (Negative) Urine Glucose (UA) 1+ H (Negative) Urine Ketones Negative (Negative) Urine Blood Large H (Negative) Urine Nitrite Negative (Negative) Urine Bilirubin Negative (Negative) Urine Urobilinogen <2.0 (<2.0) mg/dL Ur Leukocyte Esterase Moderate H (Negative) Urine RBC >182 H (0-5) /hpf Urine WBC 18 H (0-5) /hpf Ur Squamous Epith Cells 30 H (0-4) /hpf Urine Mucus Rare H (None) /hpf Disposition Clinical Impression: UTI (urinary tract infection), Vaginal candidiasis, Pyelonephritis Disposition: HOME SELF-CARE Condition: Good Instructions (If sedation given, give patient instructions): Urinary Tract Infection in Women (ED), Yeast Infection (ED) Prescriptions: Fluconazole 150 mg PO DIRECTED PRN #2 tab PRN Reason: Itching Cephalexin [Keflex] 500 mg PO Q6HR 12 Days #48 cap Is patient prescribed a controlled substance at d/c from ED?: No Referrals: Nonstaff,Physician [Primary Care Provider] - 1-2 days Time of Disposition: 01:45
[2024-11-22 22:21] LABS: Appearance,Urine Turbid (Clear); Bilirubin,Urine Negative (Negative); Blood,Urine Large (Negative); Color,Urine Yellow; Glucose,Urine (UA) 1+ (Negative); Ketones,Urine Negative (Negative); Leukocyte Esterase,Urine Moderate (Negative); Mucus,Urine Rare /hpf; Nitrite,Urine Negative (Negative); PH, Urine 6.5 (5.0-8.0); Protein,Urine 2+ (Negative); RBC,Urine >182 /hpf (0-5); Specific Gravity,Urine 1.027 (1.001-1.035); Squamous Epithelial Cell,Urine 30 /hpf (0-4); Urobilinogen,Urine <2.0 mg/dL (<2.0); WBC,Urine 18 /hpf (0-5)
--- NOTE | 2024-11-22 23:11 | CT ---
EXAM: CT Abdomen and Pelvis Without Intravenous Contrast CLINICAL HISTORY: Evaluate for potential kidney stone. Reported fever, painful urination and urinary frequency with hematuria 3 days. TECHNIQUE: Axial computed tomography images of the abdomen and pelvis without intravenous contrast. CTDI is 12.8 mGy and DLP is 758.2 mGy-cm. This CT exam was performed using one or more of the following dose reduction techniques: automated exposure control, adjustment of the mA and/or kV according to patient size, and/or use of iterative reconstruction technique. COMPARISON: CT abdomen and pelvis with contrast dated 08/01/2024 FINDINGS: Lung bases: Unremarkable. No mass. No consolidation. ABDOMEN: Liver: Unremarkable. Gallbladder and bile ducts: Cholecystectomy. No ductal dilation. Pancreas: Unremarkable. No ductal dilation. Spleen: Unremarkable. No splenomegaly. Adrenals: Unremarkable. No mass. Kidneys and ureters: Punctate 1 mm nonobstructive nephrolithiasis in the inferior interpolar region of the right kidney. No left-sided nephrolithiasis. No hydronephrosis. No definite ureteral stones. No perinephric fat stranding. Stomach and bowel: The previously noted fluid and gas distended bowel loops have resolved. No bowel obstruction. No definite asymmetric bowel mucosal abnormality. Minimal stool burden. No appreciable diverticulitis. PELVIS: Appendix: No findings to suggest acute appendicitis. Bladder: The bladder is predominantly decompressed with only minimal fluid. No appreciable bladder wall thickening. No stones. Reproductive: Unremarkable as visualized. ABDOMEN and PELVIS: Intraperitoneal space: Trace free fluid in the dependent pelvis. No loculation. No free air. Bones/joints: No acute fracture. No dislocation. Soft tissues: Unremarkable. Vasculature: Unremarkable. No abdominal aortic aneurysm. Lymph nodes: Unremarkable. No enlarged lymph nodes. Tubes, lines and devices: A presumed ventriculoperitoneal shunt enters the intraperitoneal space in the epigastrium and is looped in the pelvis. No definite destruction. IMPRESSION: 1. Punctate 1 mm nonobstructive nephrolithiasis in the inferior interpolar region of the right kidney. No left-sided nephrolithiasis. No hydronephrosis. No definite ureteral stones. No bladder calcifications. 2. The previously noted fluid and gas distended bowel loops have resolved. No bowel obstruction. No definite asymmetric bowel mucosal abnormality. Minimal stool burden. No appreciable diverticulitis. No free intraperitoneal fluid or pneumoperitoneum. The appendix is not clearly delineated. No secondary findings to suggest acute appendicitis. 3. Incidental ventriculoperitoneal shunt without significant abnormality or alteration.
[2024-11-22 23:16] LABS: Anisocytosis Slight; Basophils % (A) 1 %; Eosinophils # (A) 0.5 k/uL (0-0.7); Eosinophils % (A) 6 %; HCT 33.1 % (34.0-46.0); HGB 10.6 gm/dL (11.4-16.0); Hypochromasia Slight; Lymphocytes # (A) 2.2 k/uL (1.0-4.8); Lymphocytes % (A) 25 %; MCV 78.2 fL (80.0-100.0); Mean Platelet Volume 7.6; Microcytosis Slight; Monocytes # (A) 0.4 k/uL (0-1.0); Monocytes % (A) 4 %; Neutrophils # (A) 5.7 k/uL (1.3-7.7); Neutrophils % (A) 63 %; Platelet Count 396 k/uL (150-450); RBC 4.23 m/uL (3.80-5.40); RDW 16.2 % (11.5-15.5)
[2024-11-22] MEDS: SODIUM CHLORIDE 0.9% 500 ML 500 ML IV STA (23:32)
[2024-11-22] MEDS: KETOROLAC 15 MG/ML 1 ML VIAL IVP STA (23:34)
[2024-11-22] MEDS: CEPHALEXIN 500 MG CAP PO STA (23:36)
[2024-11-22] MEDS: FLUCONAZOLE 150 MG TAB PO STA (23:36)
[2024-11-23 00:03] VITALS: RESP 16
[2024-11-23] MEDS: HYDROmorphone 0.5 MG/0.5 ML SYRINGE IVP STA (00:03)
[2024-11-23] MEDS: ACETAMINOPHEN TAB 500 MG TAB PO STA (00:25)
[2024-11-23 00:30] LABS: ALT 16 U/L (4-34); AST 14 U/L (14-36); African American GFR (CKD) >90 (>60 ml/min/1.73 sqM); Albumin 4.1 g/dL (3.5-5.0); Alkaline Phosphatase 119 U/L (38-126); Anion Gap 11 mmol/L; Blood Urea Nitrogen 11 mg/dL (7-17); Calcium 9.6 mg/dL (8.4-10.2); Carbon Dioxide 18 mmol/L (22-30); Chloride 110 mmol/L (98-107); Glucose 175 mg/dL (74-99); Non-African American GFR(CKD) >90 (>60 ml/min/1.73 sqM); Potassium 3.3 mmol/L (3.5-5.1); Sodium 139 mmol/L (137-145); Total Bilirubin 0.3 mg/dL (0.2-1.3); Total Protein 6.5 g/dL (6.3-8.2)
[2024-11-23] MEDS: CYCLOBENZAPRINE 10MG STARTER 3 TAB BTL PO STA (01:26)
[2024-11-23 01:32] VITALS: BP 116/80; PULSE 64; TEMP 99
== END 2024-11-23 01:33 | disposition home or self-care (01) ==
LOC: EC 21:55
DX: N39.0 Urinary tract infection, site not specified (principal); B37.31 Acute candidiasis of vulva and vagina; N12 Tubulo-interstitial nephritis, not specified as acute or chronic; E11.9 Type 2 diabetes mellitus without complications; N20.0 Calculus of kidney; E87.6 Hypokalemia; Z88.2 Allergy status to sulfonamides; Z88.1 Allergy status to other antibiotic agents
CPT/HCPCS: 36415; 80053; 85025; 81001; 87086; 74176; 99284; 96365; 96375 ×2; J0696; J1885; J1171

== ENCOUNTER 2024-11-24 12:11 | Inpatient (IN) | payer MEDICARE, OTHER ==
--- NOTE | 2024-11-24 12:40 | ED ---
Female Urogenital HPI - General Source: patient, RN notes reviewed Mode of arrival: ambulatory Limitations: no limitations - History of Present Illness Complaint: pelvic pain <Kurtis Olson - Last Filed: 11/24/24 12:55> <Ryne Horton - Last Filed: 11/24/24 15:44> - General Source: patient, RN notes reviewed, old records reviewed Mode of arrival: ambulatory Limitations: no limitations - History of Present Illness Complaint: pelvic pain, other (Abdominal pain) <Celso Kelly - Last Filed: 12/02/24 21:43> - General Chief complaint: Urogenital Stated complaint: Recheck-Poss UTI Time Seen by Provider: 11/24/24 12:30 - History of Present Illness Initial comments: Quick note: This is a 49-year-old female with history of frequent UTIs, DM presenting with ongoing right back and pelvic pain x 5 days. Patient was seen in this ER on 11/22/2024 when it was discovered on CT scan she had a 1 mm nonobs tructing right kidney nephrolithiasis and UTI. Patient treated for outpatient UTI and yeast infection. States she has been taking p.o. Keflex but has ongoing pain (08/06). Endorses associated fever and blood in urine. (Kurtis Olson) Patient is a 49-year-old female presents emergency department for urinary complaints. Patient has history of diabetes, hypertension, hyperlipidemia. Patient is complaining of right sided flank pain as well as right lower quadrant abdominal pain. Was diagnosed with UTI as well as a nonobstructive renal stone on CT. Was discharged home with a diagnosis of pyelonephritis as well as UTI. States she has been at home but is continuing to have the pain. States she had a fever at home as well that she believes was 101.0 F. Endorses nausea but no emesis. Denies diarrhea or constipation. No other acute complaints. Presents for reevaluation. States she has been taking her antibiotics. Patient originally seen as a quick note. I evaluate the patient when she was placed in a room. (Ryne Horton) This is a 39-year-old female to the ER for evaluation of possible pyelonephritis positive urinary tract infection with fever at home uncontrolled pain and burning with urination (Celso Kelly) - Related Data Home Medications Medication Instructions Recorded Confirmed Atorvastatin [Lipitor] 20 mg PO DAILY 10/07/14 11/24/24 FLUoxetine HCL 40 mg PO DAILY 10/07/14 11/24/24 Loratadine [Claritin] 10 mg PO DAILY 10/07/14 11/24/24 Acyclovir 400 mg PO DAILY 01/19/21 11/24/24 Fluticasone Nasal [place] [Flonase 1 spr EA NOSTRIL BID PRN 01/19/21 11/24/24 Nasal [place]] Pantoprazole [Protonix] 40 mg PO DAILY 01/19/21 11/24/24 busPIRone HCL 15 mg PO BID 01/19/21 11/24/24 hydrOXYzine HCL [Atarax] 50 mg PO BID 11/15/23 11/24/24 metFORMIN HCL 1,000 mg PO BID 11/15/23 11/24/24 amLODIPine [Norvasc] 10 mg PO DAILY 06/18/24 11/24/24 Ibuprofen [Motrin] 800 mg PO TID PRN 10/09/24 11/24/24 Atogepant [Qulipta] 60 mg PO DAILY 11/24/24 11/24/24 Ketorolac [Toradol] 10 mg PO Q6HR PRN 11/24/24 11/24/24 Ondansetron Odt [Zofran ODT] 4 mg PO DAILY PRN 11/24/24 11/24/24 Previous Rx's Medication Instructions Recorded Butalb/APAP/Caff 50-325-40Mg 1 tab PO TID PRN #12 tab 01/21/21 [Fioricet 50-325-40] HYDROcodone/APAP 5-325MG [[place] 1 tab PO Q6HR PRN 3 Days #12 tab 11/26/24 5-325] Phenazopyridine [Pyridium] 200 mg PO TID #21 tablet 11/26/24 cefuroxime axetiL [Ceftin] 500 mg PO BID #14 tab 11/26/24 Fluconazole [Diflucan] 150 mg PO ONCE #7 tab 12/01/24 Allergies Allergy/AdvReac Type Severity Reaction Status Date / Time Sulfa (Sulfonamide Allergy Severe Rash/Hives/ Verified 12/01/24 05:07 Antibiotics) Vomiting ciprofloxacin [From Cipro] Allergy Rash/Hives Verified 12/01/24 05:07 ciprofloxacin HCl Allergy Rash/Hives Verified 12/01/24 05:07 [From Cipro] Review of Systems ROS Other: All systems not noted in ROS Statement are negative. <Kurtis Olson - Last Filed: 11/24/24 12:55> ROS Other: All systems not noted in ROS Statement are negative. <Ryne Hroton - Last Filed: 11/24/24 15:44> ROS Other: All systems not noted in ROS Statement are negative. <Celso Kelly - Last Filed: 12/02/24 21:43> ROS Statement: Those systems with pertinent positive or pertinent negative responses have been documented in the HPI. Review of Systems: CONST: Denies fever EYES: Denies blurry vision ENT: Denies nasal congestion C/V: Denies Chest pain RESP: Denies shortness of breath GI: Endorses right flank pain : Endorses dysuria SKIN: Denies rash. MSK: Denies joint pain. NEURO: Denies headache (Ryne Horton) Past Medical History Past Medical History: Diabetes Mellitus, Eye Disorder, Hyperlipidemia, Hypertension, Renal Disease Additional Past Medical History / Comment(s): GLAUCOMA; MIGRAINES, IBS, cystitis History of Any Multi-Drug Resistant Organisms: C-DIFF Date of last positivie culture/infection: April 2021 MDRO Source:: stool Past Surgical History: Appendectomy, Cholecystectomy Additional Past Surgical History / Comment(s): OVARY SURGERY; BILAT EYE SURGERY, metal plate under right eye, partial hysterectomy Past Anesthesia/Blood Transfusion Reactions: Postoperative Nausea & Vomiting (P ONV) Additional Past Anesthesia/Blood Transfusion Reaction / Comment(s): pt states she gets very mean from anesthesia Past Psychological History: ADD/ADHD, Depression Smoking Status: Never smoker Past Alcohol Use History: None Reported Past Drug Use History: None Reported - Past Family History Mother Family Medical History: COPD, Diabetes Mellitus Father Family Medical History: Coronary Artery Disease (CAD), Diabetes Mellitus Additional Family Medical History / Comment(s): dad <Kurtis Olson - Last Filed: 11/24/24 12:55> General Exam Limitations: no limitations <Kurtis Olson - Last Filed: 11/24/24 12:55> <Ryne Horton - Last Filed: 11/24/24 15:44> General appearance: alert, in no apparent distress Head exam: Present: atraumatic, normocephalic, normal inspection Eye exam: Present: normal appearance, PERRL, EOMI. Absent: scleral icterus, conjunctival injection, periorbital swelling ENT exam: Present: normal exam, mucous membranes moist Neck exam: Present: normal inspection. Absent: tenderness, meningismus, lymphadenopathy Respiratory exam: Present: normal lung sounds bilaterally. Absent: respiratory distress, wheezes, rales, rhonchi, stridor Cardiovascular Exam: Present: regular rate, normal rhythm, normal heart sounds. Absent: systolic murmur, diastolic murmur, rubs, gallop, clicks GI/Abdominal exam: Present: soft, normal bowel sounds. Absent: distended, tenderness, guarding, rebound, rigid Extremities exam: Present: normal inspection, full ROM, normal capillary refill. Absent: tenderness, pedal edema, joint swelling, calf tenderness Back exam: Present: normal inspection Neurological exam: Present: alert, oriented X3, CN II-XII intact Psychiatric exam: Present: normal affect, normal mood Skin exam: Present: warm, dry, intact, normal color. Absent: rash <Celso Kelly Filed: 12/02/24 21:43> - General Exam Comments Initial Comments: Visual Physical Exam Vital signs reviewed General: Well-appearing, nontoxic, no acute distress. Head: Normocephalic, atraumatic Eyes: PERRLA, EOMI ENT: Airway patent Chest: Nonlabored breathing Skin: No visual rash, normal skin tone Neuro: Alert and oriented 3 Musculoskeletal: No gross abnormalities (Wesley,Kurtis) General: Appears in no acute distress. HEAD: Normal with no signs of head trauma. EYES: EOMI ENT: Hearing grossly intact, normal oropharynx. RESPIRATORY: Clear breath sounds bilaterally. No wheezes, rales, or rhonchi. C/V: Regular rate and rhythm. S1 and S2 auscultated. ABD: Abdomen soft, nondistended. Tender to palpation over the right lower quadrant as well as right flank pain. No guarding or rebound tenderness. No peritoneal signs. EXT: Normal range of motion, no obvious deformity SKIN: No rashes or lesions observed on exposed skin. NEURO: Alert and oriented x 4. (Ryne Horton) Course <Cleso Kelly Filed: 12/02/24 21:43> Vital Signs 11/24/24 11/24/24 11/24/24 12:20 18:45 23:27 Temperature 99.4 F 98.1 F 98.6 F Pulse Rate 103 H 99 90 Respiratory 20 18 18 Rate Blood Pressure 132/84 126/79 96/66 O2 Sat by Pulse 99 99 95 Oximetry 11/25/24 11/25/24 11/25/24 01:38 05:17 07:46 Temperature 97.9 F 98.0 F 98.1 F Pulse Rate 83 79 72 Respiratory 16 16 18 Rate Blood Pressure 98/68 89/58 101/68 O2 Sat by Pulse 96 94 L 97 Oximetry 11/25/24 08:20 Temperature 98.7 F Pulse Rate 73 Respiratory 18 Rate Blood Pressure 99/67 O2 Sat by Pulse 97 Oximetry - Reevaluation(s) Reevaluation #1: 11/24/24 17:06 Medical records reviewed (Celso Kelly) Reevaluation #2: 11/24/24 18:04 Patient pain is difficult to control here in the ER (Celso Kelly) Reevaluation #3: 11/24/24 18:04 Patient informed of results questions answered (Celso Kelly) Reevaluation #4: Patient symptoms remain improved (Celso Kelly) Reevaluation #5: Differential Abdominal Pain Women: Appendicitis, Cholecystitis, diverticulosis, ischemic bowel, pancreatitis, hepatitis, UTI, gastroenteritis, AAA, incarcerated hernia, bowel obstruction, constipation, inflammatory bowel, hepatitis, peptic ulcer disease, splenic infarction, perforated viscus, vulvitis, ovarian torsion, PID, kidney stone, placenta abruption, this is not meant to be an all-inclusive list (Celso Kelly) - Consultations Consultation #1: Spoke with [facility] who agrees to admit this patient (Celso Kelly) Medical Decision Making <Kurtis Olson - Last Filed: 11/24/24 12:55> <Ryne Horton - Last Filed: 11/24/24 15:44> - Lab Data Result diagrams: 11/26/24 04:22 11/26/24 04:22 - Radiology Data Radiology results: report reviewed (Ultrasound renals and bladder is negative for acute disease CT abdomen pelvis pending), image reviewed <Celso Kelly - Last Filed: 12/02/24 21:43> - Medical Decision Making I completed the quick note portion of this chart signed RYANN Salazar (Kurtis Olson) Was pt. sent in by a medical professional or institution (MIKEY Gabriel, HOTEL NIGHT AUDITOR, urgent care, hospital, or [facility]...) When possible be specific @ -No Did you speak to anyone other than the patient for history (EMS, parent, family, police, friend...)? What history was obtained from this source @ -No Did you review nursing and triage notes (agree or disagree)? Why? @ -I reviewed and agree with nursing and triage notes Were old charts reviewed (outside hosp., previous admission, EMS record, old EKG, old radiological studies, urgent care reports/EKG's, [facility] records)? Report findings @ -No old charts were reviewed Differential Diagnosis (chest pain, altered mental status, abdominal pain women, abdominal pain men, vaginal bleeding, weakness, fever, dyspnea, syncope, headache, dizziness, GI bleed, back pain, seizure, CVA, palpatations, mental health, musculoskeletal)? @ -UTI, pyelonephritis, renal stones. This list is not all inclusive. EKG interpreted by me (3pts min.). @ -None done X-rays interpreted by me (1pt min.). @ -None done CT interpreted by me (1pt min.). @ -None done U/S interpreted by me (1pt. min.). @ -Pending What testing was considered but not performed or refused? (CT, X-rays, U/S, labs)? Why? @ -None What meds were considered but not given or refused? Why? @ -None Did you discuss the management of the patient with other professionals (professionals i.e. MIKEY Gabriel, HOTEL NIGHT AUDITOR, lab, RT, psych nurse, clinical social work aide, gluer machine setup operator, teacher, forest fire control officer, caseworker intake)? Give summary @ -No Was smoking cessation discussed for >3mins.? @ -No Was critical care preformed (if so, how long)? @ -No Were there social determinants of health that impacted care today? How? (Homelessness, low income, unemployed, alcoholism, drug addiction, mitchell sportation, low edu. Level, literacy, decrease access to med. care, snf, rehab)? @ -No Was there de-escalation of care discussed even if they declined (Discuss DNR or withdrawal of care, Hospice)? DNR status @ -No What co-morbidities impacted this encounter? (DM, HTN, Smoking, COPD, CAD, Cancer, CVA, ARF, Chemo, Hep., AIDS, mental health diagnosis, sleep apnea, morbid obesity)? @ -None Was patient admitted / discharged? Hospital course, mention meds given and route, prescriptions, significant lab abnormalities, going to OR and other pertinent info. @ -Patient presents for repeat evaluation for UTI and possible pyelonephritis. Was seen here few days ago with similar complaints. CT at that time revealed small 1 mm right nephrolithiasis that was nonobstructing. We will obtain basic laboratory studies, repeat urinalysis. We will obtain an ultrasound. Patient be symptomatically treated with IV fluids, analgesia medications, nausea meds. She was in agreement this plan. At this time, it is the end my shift. Patient will be signed out to oncoming ER physician Dr. Kelly Pending results of workup. Undiagnosed new problem with uncertain prognosis? @ -No Drug Therapy requiring intensive monitoring for toxicity (Heparin, Nitro, Insulin, Cardizem)? @ -No Were any procedures done? @ -No (Ryne Horton) 49 female will be admitted for symptomatic urinary tract infection burning with urination and hematuria, pain control (Celso Kelly) - Lab Data Lab Results 11/24/24 11/24/24 11/24/24 Range/Units 13:31 13:31 13:31 WBC 8.6 (3.8-10.6) k/uL RBC 4.27 (3.80-5.40) m/uL Hgb 10.8 L (11.4-16.0) gm/dL Hct 33.2 L (34.0-46.0) % MCV 77.9 L (80.0-100.0) fL MCH 25.4 (25.0-35.0) pg MCHC 32.6 (31.0-37.0) g/dL RDW 16.2 H (11.5-15.5) % Plt Count 353 (150-450) k/uL MPV 7.9 Immature Gran % (Auto) % Absolute Nucleated RBC % Neutrophils % 67 % Lymphocytes % 22 % Monocytes % 5 % Eosinophils % 5 % Basophils % 0 % Immature Gran # (0.00-0.04) X 10*3/uL Neutrophils # 5.8 (1.3-7.7) k/uL Lymphocytes # 1.9 (1.0-4.8) k/uL Monocytes # 0.4 (0-1.0) k/uL Eosinophils # 0.4 (0-0.7) k/uL Basophils # 0.0 (0-0.2) k/uL NRBC/100 WBC Diff (0.00-0.01) X 10*3/uL Hypochromasia Slight Anisocytosis Slight Microcytosis Slight Sodium 140 (137-145) mmol/L Potassium 3.8 (3.5-5.1) mmol/L Chloride 109 H (98-107) mmol/L Carbon Dioxide 17 L (22-30) mmol/L Anion Gap 14 mmol/L BUN 8 (7-17) mg/dL Creatinine 0.65 (0.52-1.04) mg/dL Est GFR (CKD-EPI) (>=60) Est GFR (CKD-EPI)AfAm >90 (>60 ml/min/1.73 sqM) Est GFR (CKD-EPI)NonAf >90 (>60 ml/min/1.73 sqM) BUN/Creatinine Ratio (12.00-20.00) Ratio Glucose 113 H (74-99) mg/dL POC Glucose (mg/dL) (70-110) mg/dL POC Glu Senior Billing Consultant ID Estimated Ave Glu mg/dL mg/dL Hemoglobin A1c (<=6.0) % Lactic Ac Sepsis Rflx Plasma Lactic Acid Eduardo (0.7-2.0) mmol/L Calcium 9.6 (8.4-10.2) mg/dL Phosphorus (2.4-5.1) mg/dL Magnesium (1.5-2.4) mg/dL Total Bilirubin 0.4 (0.2-1.3) mg/dL AST 20 (14-36) U/L ALT 17 (4-34) U/L Alkaline Phosphatase 120 (38-126) U/L Total Protein 6.7 (6.3-8.2) g/dL Albumin 4.2 (3.5-5.0) g/dL Globulin (1.6-3.3) g/dL Albumin/Globulin Ratio (1.60-3.17) Ratio Urine Color Yellow Urine Appearance Cloudy H (Clear) Urine pH 6.5 (5.0-8.0) Ur Specific [place] 1.031 (1.001-1.035) Urine Protein 1+ H (Negative) Urine Glucose (UA) Negative (Negative) Urine Ketones Negative (Negative) Urine Blood Moderate H (Negative) Urine Nitrite Negative (Negative) Urine Bilirubin Negative (Negative) Urine Urobilinogen 2.0 (<2.0) mg/dL Ur Leukocyte Esterase Negative (Negative) Urine RBC >182 H (0-5) /hpf Urine WBC 4 (0-5) /hpf Ur Squamous Epith Cells 8 H (0-4) /hpf Urine Mucus Rare H (None) /hpf 11/24/24 11/24/24 11/24/24 Range/Units 13:31 17:29 20:10 WBC (3.8-10.6) k/uL RBC (3.80-5.40) m/uL Hgb (11.4-16.0) gm/dL Hct (34.0-46.0) % MCV (80.0-100.0) fL MCH (25.0-35.0) pg MCHC (31.0-37.0) g/dL RDW (11.5-15.5) % Plt Count (150-450) k/uL MPV Immature Gran % (Auto) % Absolute Nucleated RBC % Neutrophils % % Lymphocytes % % Monocytes % % Eosinophils % % Basophils % % Immature Gran # (0.00-0.04) X 10*3/uL Neutrophils # (1.3-7.7) k/uL Lymphocytes # (1.0-4.8) k/uL Monocytes # (0-1.0) k/uL Eosinophils # (0-0.7) k/uL Basophils # (0-0.2) k/uL NRBC/100 WBC Diff (0.00-0.01) X 10*3/uL Hypochromasia Anisocytosis Microcytosis Sodium (137-145) mmol/L Potassium (3.5-5.1) mmol/L Chloride (98-107) mmol/L Carbon Dioxide (22-30) mmol/L Anion Gap mmol/L BUN (7-17) mg/dL Creatinine (0.52-1.04) mg/dL Est GFR (CKD-EPI) (>=60) Est GFR (CKD-EPI)AfAm (>60 ml/min/1.73 sqM) Est GFR (CKD-EPI)NonAf (>60 ml/min/1.73 sqM) BUN/Creatinine Ratio (12.00-20.00) Ratio Glucose (74-99) mg/dL POC Glucose (mg/dL) (70-110) mg/dL POC Glu Senior Billing Consultant ID Estimated Ave Glu mg/dL mg/dL Hemoglobin A1c (<=6.0) % Lactic Ac Sepsis Rflx Y Plasma Lactic Acid Eduardo 2.2 H* 1.1 (0.7-2.0) mmol/L Calcium (8.4-10.2) mg/dL Phosphorus (2.4-5.1) mg/dL Magnesium (1.5-2.4) mg/dL Total Bilirubin (0.2-1.3) mg/dL AST (14-36) U/L ALT (4-34) U/L Alkaline Phosphatase (38-126) U/L Total Protein (6.3-8.2) g/dL Albumin (3.5-5.0) g/dL Globulin (1.6-3.3) g/dL Albumin/Globulin Ratio (1.60-3.17) Ratio Urine Color Urine Appearance (Clear) Urine pH (5.0-8.0) Ur Specific [place] (1.001-1.035) Urine Protein (Negative) Urine Glucose (UA) (Negative) Urine Ketones (Negative) Urine Blood (Negative) Urine Nitrite (Negative) Urine Bilirubin (Negative) Urine Urobilinogen (<2.0) mg/dL Ur Leukocyte Esterase (Negative) Urine RBC (0-5) /hpf Urine WBC (0-5) /hpf Ur Squamous Epith Cells (0-4) /hpf Urine Mucus (None) /hpf 11/25/24 11/25/24 11/25/24 Range/Units 06:16 06:16 12:14 WBC 5.43 (3.8-10.6) k/uL RBC 3.61 L (3.80-5.40) m/uL Hgb 8.8 L (11.4-16.0) gm/dL Hct 29.5 L (34.0-46.0) % MCV 81.7 (80.0-100.0) fL MCH 24.4 L (25.0-35.0) pg MCHC 29.8 L (31.0-37.0) g/dL RDW 16.5 H (11.5-15.5) % Plt Count 344 (150-450) k/uL MPV 10.8 Immature Gran % (Auto) 0.60 % Absolute Nucleated RBC 0 % Neutrophils % 58.6 % Lymphocytes % 26.5 % Monocytes % 6.4 % Eosinophils % 7.0 % Basophils % 0.9 % Immature Gran # 0.03 (0.00-0.04) X 10*3/uL Neutrophils # 3.18 (1.3-7.7) k/uL Lymphocytes # 1.44 (1.0-4.8) k/uL Monocytes # 0.35 (0-1.0) k/uL Eosinophils # 0.38 H (0-0.7) k/uL Basophils # 0.05 (0-0.2) k/uL NRBC/100 WBC Diff 0 (0.00-0.01) X 10*3/uL Hypochromasia Anisocytosis Microcytosis Sodium 142 (137-145) mmol/L Potassium 3.4 L (3.5-5.1) mmol/L Chloride 112 H (98-107) mmol/L Carbon Dioxide 19.4 L (22-30) mmol/L Anion Gap 10.60 mmol/L BUN 8.9 L (7-17) mg/dL Creatinine 0.7 (0.52-1.04) mg/dL Est GFR (CKD-EPI) 105 (>=60) Est GFR (CKD-EPI)AfAm (>60 ml/min/1.73 sqM) Est GFR (CKD-EPI)NonAf (>60 ml/min/1.73 sqM) BUN/Creatinine Ratio 12.71 (12.00-20.00) Ratio Glucose 163 H (74-99) mg/dL POC Glucose (mg/dL) 257 H (70-110) mg/dL POC Glu Senior Billing Consultant ID Bneja Rebolledo Estimated Ave Glu mg/dL mg/dL Hemoglobin A1c (<=6.0) % Lactic Ac Sepsis Rflx Plasma Lactic Acid Eduardo (0.7-2.0) mmol/L Calcium 8.0 L (8.4-10.2) mg/dL Phosphorus 4.0 (2.4-5.1) mg/dL Magnesium 1.3 L (1.5-2.4) mg/dL Total Bilirubin 0.2 L (0.2-1.3) mg/dL AST 41 H (14-36) U/L ALT 43 (4-34) U/L Alkaline Phosphatase 161 H (38-126) U/L Total Protein 5.5 L (6.3-8.2) g/dL Albumin 3.7 L (3.5-5.0) g/dL Globulin 1.8 (1.6-3.3) g/dL Albumin/Globulin Ratio 2.06 (1.60-3.17) Ratio Urine Color Urine Appearance (Clear) Urine pH (5.0-8.0) Ur Specific [place] (1.001-1.035) Urine Protein (Negative) Urine Glucose (UA) (Negative) Urine Ketones (Negative) Urine Blood (Negative) Urine Nitrite (Negative) Urine Bilirubin (Negative) Urine Urobilinogen (<2.0) mg/dL Ur Leukocyte Esterase (Negative) Urine RBC (0-5) /hpf Urine WBC (0-5) /hpf Ur Squamous Epith Cells (0-4) /hpf Urine Mucus (None) /hpf 11/25/24 11/25/24 11/26/24 Range/Units 16:22 20:09 04:22 WBC (3.8-10.6) k/uL RBC (3.80-5.40) m/uL Hgb (11.4-16.0) gm/dL Hct (34.0-46.0) % MCV (80.0-100.0) fL MCH (25.0-35.0) pg MCHC (31.0-37.0) g/dL RDW (11.5-15.5) % Plt Count (150-450) k/uL MPV Immature Gran % (Auto) % Absolute Nucleated RBC % Neutrophils % % Lymphocytes % % Monocytes % % Eosinophils % % Basophils % % Immature Gran # (0.00-0.04) X 10*3/uL Neutrophils # (1.3-7.7) k/uL Lymphocytes # (1.0-4.8) k/uL Monocytes # (0-1.0) k/uL Eosinophils # (0-0.7) k/uL Basophils # (0-0.2) k/uL NRBC/100 WBC Diff (0.00-0.01) X 10*3/uL Hypochromasia Anisocytosis Microcytosis Sodium (137-145) mmol/L Potassium (3.5-5.1) mmol/L Chloride (98-107) mmol/L Carbon Dioxide (22-30) mmol/L Anion Gap mmol/L BUN (7-17) mg/dL Creatinine (0.52-1.04) mg/dL Est GFR (CKD-EPI) (>=60) Est GFR (CKD-EPI)AfAm (>60 ml/min/1.73 sqM) Est GFR (CKD-EPI)NonAf (>60 ml/min/1.73 sqM) BUN/Creatinine Ratio (12.00-20.00) Ratio Glucose (74-99) mg/dL POC Glucose (mg/dL) 148 H 197 H (70-110) mg/dL POC Glu Senior Billing Consultant ID BRIANNA Cavazos Estimated Ave Glu mg/dL 171 mg/dL Hemoglobin A1c 7.6 H (<=6.0) % Lactic Ac Sepsis Rflx Plasma Lactic Acid Eduardo (0.7-2.0) mmol/L Calcium (8.4-10.2) mg/dL Phosphorus (2.4-5.1) mg/dL Magnesium (1.5-2.4) mg/dL Total Bilirubin (0.2-1.3) mg/dL AST (14-36) U/L ALT (4-34) U/L Alkaline Phosphatase (38-126) U/L Total Protein (6.3-8.2) g/dL Albumin (3.5-5.0) g/dL Globulin (1.6-3.3) g/dL Albumin/Globulin Ratio (1.60-3.17) Ratio Urine Color Urine Appearance (Clear) Urine pH (5.0-8.0) Ur Specific [place] (1.001-1.035) Urine Protein (Negative) Urine Glucose (UA) (Negative) Urine Ketones (Negative) Urine Blood (Negative) Urine Nitrite (Negative) Urine Bilirubin (Negative) Urine Urobilinogen (<2.0) mg/dL Ur Leukocyte Esterase (Negative) Urine RBC (0-5) /hpf Urine WBC (0-5) /hpf Ur Squamous Epith Cells (0-4) /hpf Urine Mucus (None) /hpf 11/26/24 11/26/24 11/26/24 Range/Units 04:22 04:22 06:12 WBC 7.0 (3.8-10.6) k/uL RBC 3.54 L (3.80-5.40) m/uL Hgb 9.0 L D (11.4-16.0) gm/dL Hct 28.4 L (34.0-46.0) % MCV 80.3 (80.0-100.0) fL MCH 25.5 (25.0-35.0) pg MCHC 31.8 (31.0-37.0) g/dL RDW 16.3 H (11.5-15.5) % Plt Count 292 (150-450) k/uL MPV 7.4 Immature Gran % (Auto) % Absolute Nucleated RBC % Neutrophils % 63 % Lymphocytes % 25 % Monocytes % 4 % Eosinophils % 6 % Basophils % 0 % Immature Gran # (0.00-0.04) X 10*3/uL Neutrophils # 4.4 (1.3-7.7) k/uL Lymphocytes # 1.8 (1.0-4.8) k/uL Monocytes # 0.3 (0-1.0) k/uL Eosinophils # 0.4 (0-0.7) k/uL Basophils # 0.0 (0-0.2) k/uL NRBC/100 WBC Diff (0.00-0.01) X 10*3/uL Hypochromasia Marked Anisocytosis Slight Microcytosis Sodium 139 (137-145) mmol/L Potassium 3.4 L (3.5-5.1) mmol/L Chloride 108 H (98-107) mmol/L Carbon Dioxide 20 L (22-30) mmol/L Anion Gap 11 mmol/L BUN 9 (7-17) mg/dL Creatinine 0.54 (0.52-1.04) mg/dL Est GFR (CKD-EPI) (>=60) Est GFR (CKD-EPI)AfAm >90 (>60 ml/min/1.73 sqM) Est GFR (CKD-EPI)NonAf >90 (>60 ml/min/1.73 sqM) BUN/Creatinine Ratio (12.00-20.00) Ratio Glucose 178 H (74-99) mg/dL POC Glucose (mg/dL) 172 H (70-110) mg/dL POC Glu Senior Billing Consultant ID Moshe Cavazos Estimated Ave Glu mg/dL mg/dL Hemoglobin A1c (<=6.0) % Lactic Ac Sepsis Rflx Plasma Lactic Acid Eduardo (0.7-2.0) mmol/L Calcium 8.4 (8.4-10.2) mg/dL Phosphorus (2.4-5.1) mg/dL Magnesium (1.5-2.4) mg/dL Total Bilirubin <0.1 L (0.2-1.3) mg/dL AST 24 (14-36) U/L ALT 39 H (4-34) U/L Alkaline Phosphatase 119 (38-126) U/L Total Protein 5.5 L (6.3-8.2) g/dL Albumin 3.4 L (3.5-5.0) g/dL Globulin (1.6-3.3) g/dL Albumin/Globulin Ratio (1.60-3.17) Ratio Urine Color Urine Appearance (Clear) Urine pH (5.0-8.0) Ur Specific [place] (1.001-1.035) Urine Protein (Negative) Urine Glucose (UA) (Negative) Urine Ketones (Negative) Urine Blood (Negative) Urine Nitrite (Negative) Urine Bilirubin (Negative) Urine Urobilinogen (<2.0) mg/dL Ur Leukocyte Esterase (Negative) Urine RBC (0-5) /hpf Urine WBC (0-5) /hpf Ur Squamous Epith Cells (0-4) /hpf Urine Mucus (None) /hpf Disposition <Kurtis Olson - Last Filed: 11/24/24 12:55> <Ryne Horton - Last Filed: 11/24/24 15:44> Is patient prescribed a controlled substance at d/c from ED?: No Time of Disposition: 18:00 <Celso Kelly - Last Filed: 12/02/24 21:43> Clinical Impression: Intractable pain, UTI (urinary tract infection), Failure of outpatient treatment, Pyelonephritis, Hematuria Disposition: ADMITTED IP TO THIS HOSP Condition: Good
[2024-11-24] MEDS: MORPHINE SULFATE 4 MG/ML SYRINGE IVP STA (17:07)
[2024-11-24] MEDS: KETOROLAC 15 MG/ML 1 ML VIAL IVP STA (17:10)
[2024-11-24] MEDS: ONDANSETRON 4 MG/2 ML VIAL IVP STA (17:10)
[2024-11-24] MEDS: SODIUM CHLORIDE 0.9% 1,000 ML IV STA (17:11)
[2024-11-24 17:15] LABS: Anisocytosis Slight; Basophils % (A) 0 %; Eosinophils # (A) 0.4 k/uL (0-0.7); Eosinophils % (A) 5 %; HCT 33.2 % (34.0-46.0); HGB 10.8 gm/dL (11.4-16.0); Hypochromasia Slight; Lymphocytes # (A) 1.9 k/uL (1.0-4.8); Lymphocytes % (A) 22 %; MCH 25.4 pg (25.0-35.0); MCHC 32.6 g/dL (31.0-37.0); MCV 77.9 fL (80.0-100.0); Mean Platelet Volume 7.9; Microcytosis Slight; Monocytes # (A) 0.4 k/uL (0-1.0); Monocytes % (A) 5 %; Neutrophils # (A) 5.8 k/uL (1.3-7.7); Neutrophils % (A) 67 %; Platelet Count 353 k/uL (150-450); RBC 4.27 m/uL (3.80-5.40); RDW 16.2 % (11.5-15.5); WBC 8.6 k/uL (3.8-10.6)
[2024-11-24 17:23] LABS: Appearance,Urine Cloudy (Clear); Bilirubin,Urine Negative (Negative); Blood,Urine Moderate (Negative); Color,Urine Yellow; Glucose,Urine (UA) Negative (Negative); Ketones,Urine Negative (Negative); Leukocyte Esterase,Urine Negative (Negative); Mucus,Urine Rare /hpf; Nitrite,Urine Negative (Negative); PH, Urine 6.5 (5.0-8.0); Protein,Urine 1+ (Negative); RBC,Urine >182 /hpf (0-5); Specific Gravity,Urine 1.031 (1.001-1.035); Squamous Epithelial Cell,Urine 8 /hpf (0-4); WBC,Urine 4 /hpf (0-5)
[2024-11-24 17:24] LABS: ALT 17 U/L (4-34); AST 20 U/L (14-36); African American GFR (CKD) >90 (>60 ml/min/1.73 sqM); Albumin 4.2 g/dL (3.5-5.0); Alkaline Phosphatase 120 U/L (38-126); Anion Gap 14 mmol/L; Blood Urea Nitrogen 8 mg/dL (7-17); Calcium 9.6 mg/dL (8.4-10.2); Carbon Dioxide 17 mmol/L (22-30); Chloride 109 mmol/L (98-107); Glucose 113 mg/dL (74-99); Non-African American GFR(CKD) >90 (>60 ml/min/1.73 sqM); Potassium 3.8 mmol/L (3.5-5.1); Sodium 140 mmol/L (137-145); Total Bilirubin 0.4 mg/dL (0.2-1.3); Total Protein 6.7 g/dL (6.3-8.2)
--- NOTE | 2024-11-24 17:44 | US ---
EXAMINATION TYPE: US renals and bladder DATE OF EXAM: 11/24/2024 COMPARISON: NONE CLINICAL INDICATION: Female, 49 years old with history of right flank pain, eval for hydronephrosis/s tone; right flank pain. cystitis, UTI TECHNIQUE: Grayscale imaging of the bilateral kidneys and urinary bladder: FINDINGS: EXAM MEASUREMENTS: Right Kidney: 10.7 x 4.9 x 4.4 cm Left Kidney: 10.8 x 4.8 x 4.8 cm Right Kidney: no evidence of hydronephrosis Left Kidney: no evidence of hydronephrosis Bladder: not fully distended There is no evidence for hydronephrosis at this point in time. No nephrolithiasis is seen. No grace s are identified. The urinary bladder is anechoic. IMPRESSION: No evidence for obstructive uropathy. [facility], , 11/24/2024 5:41 PM
[2024-11-24] MEDS ORDERED: NALOXONE 0.4 MG/ML 1 ML VIAL IV PRN (18:03)
[2024-11-24] MEDS: SODIUM CHLORIDE 0.9% 500 ML 500 ML IV STA (18:23)
[2024-11-24] MEDS: HYDROmorphone 1 MG/ML 1 ML SYRINGE IVP STA (18:26)
[2024-11-24] MEDS: PHENAZOPYRIDINE 200 MG TAB PO STA (18:33)
[2024-11-24] MEDS: SODIUM CHLORIDE 0.9% 1,000 ML IV SCH ×2 (19:18→23:31)
--- NOTE | 2024-11-24 21:08 | CT ---
EXAMINATION TYPE: CT abdomen pelvis wo con DATE OF EXAM: 11/24/2024 8:56 PM COMPARISON: 11/22/2024 CLINICAL INDICATION: Female, 49 years old with history of pain; Rt side flank pain. TECHNIQUE: Axial CT abdomen pelvis wo con;Sagittal and coronal reformats were created on a separate workstation. Contrast used: mL of , (none if empty) Oral contrast used: without Oral Contrast (none if empty) CT DLP: 805.3 mGycm, Automated exposure control for dose reduction was used. FINDINGS: LOWER CHEST: Unremarkable ABDOMEN LIVER: Unremarkable GALLBLADDER AND BILE DUCTS: The gallbladder is surgically absent. PANCREAS: Lipomatous pseudohypertrophy changes. SPLEEN: Unremarkable. ADRENAL GLANDS: Unremarkable. KIDNEYS AND URETERS: No evidence of hydronephrosis. No obstructing 2 mm right renal calculus. No left renal calculi. No obstructive uropathy. PELVIS BLADDER: No evidence for wall thickening or mass given limitations of exam. REPRODUCTIVE: The uterus is surgically absent. ABDOMEN & PELVIS STOMACH AND BOWEL: No evidence of bowel obstruction. Appendix not visualized may be surgically absent . PERITONEUM/RETROPERITONEUM: No evidence of pneumoperitoneum or free fluid. Ventriculoperitoneal shunt catheter terminating in the low pelvis. VASCULATURE: No evidence of aortic aneurysm. MUSCULOSKELETAL: No acute osseous abnormalities LYMPH NODES: No gross evidence for lymphadenopathy. SOFT TISSUE/ABDOMINAL WALL: Unremarkable IMPRESSION: No evidence for acute abdominal process. Ventriculoperitoneal shunt catheter terminating in the low pelvis [facility], , 11/24/2024 9:06 PM
[2024-11-24] MEDS: HYDROmorphone 1 MG/ML 1 ML SYRINGE IVP PRN (21:16)
[2024-11-24] MEDS: ONDANSETRON 4 MG/2 ML VIAL IVP PRN (21:16)
[2024-11-25 08:59] LABS: ALT 43 U/L (8-44); AST 41 U/L (13-35); Albumin 3.7 g/dL (3.8-4.9); Albumin/Globulin Ratio 2.06 Ratio (1.60-3.17); Alkaline Phosphatase 161 U/L (41-126); BUN/Creat Ratio 12.71 Ratio (12.00-20.00); Blood Urea Nitrogen 8.9 mg/dL (9.0-27.0); Carbon Dioxide 19.4 mmol/L (21.6-31.8); Chloride 112 mmol/L (96-109); Globulin 1.8 g/dL (1.6-3.3); Glucose 163 mg/dL (70-110); Magnesium 1.3 mg/dL (1.5-2.4); Potassium 3.4 mmol/L (3.5-5.5); Sodium 142 mmol/L (135-145); Total Bilirubin 0.2 mg/dL (0.3-1.2); Total Protein 5.5 g/dL (6.2-8.2)
[2024-11-25 09:20] LABS: Basophils # (A) 0.05 X 10*3/uL (0.00-0.10); Basophils % (A) 0.9 %; Eosinophils # (A) 0.38 X 10*3/uL (0.04-0.35); HCT 29.5 % (37.2-46.3); HGB 8.8 g/dL (12.0-15.0); Lymphocytes # (A) 1.44 X 10*3/uL (0.90-5.00); Lymphocytes % (A) 26.5 %; MCH 24.4 pg (27.0-32.0); MCHC 29.8 g/dL (32.0-37.0); MCV 81.7 FL (80.0-97.0); Mean Platelet Volume 10.8 FL (9.5-12.2); Monocytes # (A) 0.35 X 10*3/uL (0.20-1.00); Monocytes % (A) 6.4 %; NRBC Per 100 WBC 0 X 10*3/uL (0.00-0.01); Neutrophils # (A) 3.18 X 10*3/uL (1.80-7.70); Neutrophils % (A) 58.6 %; Platelet Count 344 X 10*3/uL (140-440); RBC 3.61 X 10*6/uL (4.10-5.20); RDW 16.5 % (11.5-14.5); WBC 5.43 X 10*3/uL (4.50-10.00)
[2024-11-25 12:15] LABS: Glucose,Whole Blood 257 mg/dL (70-110)
[2024-11-25] MEDS ORDERED: FLUTICASONE NASAL 50MCG/SPRAY 16GM BTL EA NOSTRIL PRN (13:28)
[2024-11-25] MEDS ORDERED: DEXTROSE 50% SYRINGE 50 ML IVP PRN ×2 (13:33)
--- NOTE | 2024-11-25 13:34 | P.HPIM ---
History of Present Illness H&P Date: 11/25/24 History of present illness; patient is a 49-year-old lady with past medical history significant for diabetes mellitus, hypertension, hyperlipidemia who presented the ER for right-sided flank pain. Patient was only seen in the ER couple of days ago for right-sided abdominal pain, at that time patient was found to have a 1 mm nonobstructing right renal stone, patient was diagnosed with UTI and was discharged on Keflex and Diflucan. Patient stated that ever since her discharge she continues to have right-sided flank pain. Patient also having fevers at home. Patient is complaining of nausea but no vomiting. Patient states he continues to have dysuria and increased frequency of urination. Because of the symptoms, patient came back to the ER Initial lab work done in the ER showed WBC 8.6, hemoglobin 10.8, platelet count 353, sodium 140, potassium 3.8, BUN 8, creatinine 0.65, lactate 2.2, AST 20, ALT 17, UA showed urine WBC 4, urine nitrite negative Ultrasound done showed no evidence for obstructive uropathy EKG done in the ER showed heart rate of , no ST segment elevation or depression seen, no T-wave inversions seen. CT abdomen pelvis showed no evidence for acute abdominal series, GLUE SPREADER shunt catheter bleeding in the lower pelvis Patient admitted to internal medicine service REVIEW OF SYSTEMS: CONSTITUTIONAL: No fever, no malaise, no fatigue. HEENT: No recent visual problems or hearing problems. Denied any sore throat. CARDIOVASCULAR: No chest pain, orthopnea, PND, no palpitations, no syncope. PULMONARY: No shortness of breath, no cough, no hemoptysis. GASTROINTESTINAL: No diarrhea, no nausea, no vomiting, no abdominal pain. NEUROLOGICAL: No headaches, no weakness, no numbness. HEMATOLOGICAL: Denies any bleeding or petechiae. GENITOURINARY: As mentioned above MUSCULOSKELETAL/RHEUMATOLOGICAL: Denies any joint pain, swelling, or any muscle pain. ENDOCRINE: Denies any polyuria or polydipsia. The rest of the 14-point review of systems is negative. PHYSICAL EXAMINATION: GENERAL: The patient is alert and oriented x3, not in any acute distress. Well developed, well nourished. HEENT: Pupils are round and equally reacting to light. EOMI. No scleral icterus. No conjunctival pallor. Normocephalic, atraumatic. No pharyngeal erythema. No thyromegaly. CARDIOVASCULAR: S1 and S2 present. No murmurs, rubs, or gallops. PULMONARY: Chest is clear to auscultation, no wheezing or crackles. ABDOMEN: Soft, nontender, nondistended, normoactive bowel sounds. No palpable organomegaly. MUSCULOSKELETAL: No joint swelling or deformity. EXTREMITIES: No cyanosis, clubbing, or pedal edema. NEUROLOGICAL: Gross neurological examination did not reveal any focal deficits. SKIN: No rashes. Assessment and plan Acute pyelonephritis, failed outpatient treatment Hypertension hyperlipidemia diabetes mellitus Monitor vital signs Monitor CBC Monitor CMP Ordered blood cultures and ordered urine cultures Ordered IV fluids Ordered Rocephin Resume home med Consult ID Labs and medication were reviewed.. Continue same treatment. Continue with symptomatic treatment. Resume home medication. Monitor labs and vitals. DVT and GI prophylaxis. Further recommendations as per clinical course of the patient Dictation was produced using [employer] dictation software. please excuse any grammatical, word or spelling errors. Past Medical History Past Medical History: Diabetes Mellitus, Eye Disorder, Hyperlipidemia, Hypertension, Renal Disease Additional Past Medical History / Comment(s): GLAUCOMA; MIGRAINES, IBS, cystitis History of Any Multi-Drug Resistant Organisms: C-DIFF Date of last positivie culture/infection: April 2021 MDRO Source:: stool Past Surgical History: Appendectomy, Cholecystectomy Additional Past Surgical History / Comment(s): OVARY SURGERY; BILAT EYE SURGERY, metal plate under right eye, partial hysterectomy Past Anesthesia/Blood Transfusion Reactions: Postoperative Nausea & Vomiting (PONV) Additional Past Anesthesia/Blood Transfusion Reaction / Comment(s): pt states she gets very mean from anesthesia Past Psychological History: ADD/ADHD, Depression Smoking Status: Never smoker Past Alcohol Use History: None Reported Past Drug Use History: None Reported - Past Family History Mother Family Medical History: COPD, Diabetes Mellitus Father Family Medical History: Coronary Artery Disease (CAD), Diabetes Mellitus Additional Family Medical History / Comment(s): dad Medications and Allergies Home Medications Medication Instructions Recorded Confirmed Type Atorvastatin [Lipitor] 20 mg PO DAILY 10/07/14 11/24/24 History FLUoxetine HCL 40 mg PO DAILY 10/07/14 11/24/24 History Loratadine [Claritin] 10 mg PO DAILY 10/07/14 11/24/24 History Acyclovir 400 mg PO DAILY 01/19/21 11/24/24 History Fluticasone Nasal [place] [Flonase 1 spr EA NOSTRIL BID PRN 01/19/21 11/24/24 History Nasal [place]] Pantoprazole [Protonix] 40 mg PO DAILY 01/19/21 11/24/24 History busPIRone HCL 15 mg PO BID 01/19/21 11/24/24 History Butalb/APAP/Caff 50-325-40Mg 1 tab PO TID PRN #12 tab 01/21/21 11/24/24 Rx [Fioricet 50-325-40] hydrOXYzine HCL [Atarax] 50 mg PO BID 11/15/23 11/24/24 History metFORMIN HCL 1,000 mg PO BID 11/15/23 11/24/24 History amLODIPine [Norvasc] 10 mg PO DAILY 06/18/24 11/24/24 History HYDROcodone/APAP 5-325MG [[place] 1 tab PO Q6HR PRN #12 tab 09/12/24 11/24/24 Rx 5-325] Ibuprofen [Motrin] 800 mg PO TID PRN 10/09/24 11/24/24 History Cephalexin [Keflex] 500 mg PO Q6HR 12 Days #48 cap 11/22/24 11/24/24 Rx Atogepant [Qulipta] 60 mg PO DAILY 11/24/24 11/24/24 History Fluconazole 150 mg PO Q72H PRN 11/24/24 11/24/24 History Ketorolac [Toradol] 10 mg PO Q6HR PRN 11/24/24 11/24/24 History Ondansetron Odt [Zofran Odt] 4 mg PO DAILY PRN 11/24/24 11/24/24 History Allergies Allergy/AdvReac Type Severity Reaction Status Date / Time Sulfa (Sulfonamide Allergy Severe Rash/Hives/ Verified 11/24/24 18:35 Antibiotics) Vomiting ciprofloxacin [From Cipro] Allergy Rash/Hives Verified 11/24/24 18:35 ciprofloxacin HCl Allergy Rash/Hives Verified 11/24/24 18:35 [From Cipro] Physical Exam Vitals: Vital Signs Temp Pulse Pulse Resp BP BP Pulse Ox 11/25/24 08:30 98.2 F 82 18 104/70 98 11/25/24 08:20 98.7 F 73 18 99/67 97 11/25/24 07:46 98.1 F 72 18 101/68 97 11/25/24 05:17 98.0 F 79 16 89/58 94 L 11/25/24 01:38 97.9 F 83 16 98/68 96 11/24/24 23:27 98.6 F 90 18 96/66 95 11/24/24 18:45 98.1 F 99 18 126/79 99 Intake and Output 11/24/24 11/25/24 11/25/24 22:59 06:59 14:59 Other: Voiding Method Toilet Weight 86.183 kg Results CBC & Chem 7: 11/25/24 06:16 11/25/24 06:16 Labs: Abnormal Lab Results - Last 24 Hours (Table) 11/24/24 11/24/24 11/24/24 Range/Units 13:31 13:31 13:31 RBC (4.10-5.20) X 10*6/uL Hgb 10.8 L (11.4-16.0) gm/dL Hct 33.2 L (34.0-46.0) % MCV 77.9 L (80.0-100.0) fL MCH (27.0-32.0) pg MCHC (32.0-37.0) g/dL RDW 16.2 H (11.5-15.5) % Eosinophils # (0.04-0.35) X 10*3/uL Potassium (3.5-5.5) mmol/L Chloride 109 H (98-107) mmol/L Carbon Dioxide 17 L (22-30) mmol/L BUN (9.0-27.0) mg/dL Glucose 113 H (74-99) mg/dL POC Glucose (mg/dL) (70-110) mg/dL Plasma Lactic Acid Eduardo (0.7-2.0) mmol/L Calcium (8.7-10.3) mg/dL Magnesium (1.5-2.4) mg/dL Total Bilirubin (0.3-1.2) mg/dL AST (13-35) U/L Alkaline Phosphatase (41-126) U/L Total Protein (6.2-8.2) g/dL Albumin (3.8-4.9) g/dL Urine Appearance Cloudy H (Clear) Urine Protein 1+ H (Negative) Urine Blood Moderate H (Negative) Urine RBC >182 H (0-5) /hpf Ur Squamous Epith Cells 8 H (0-4) /hpf Urine Mucus Rare H (None) /hpf 11/24/24 11/25/24 11/25/24 Range/Units 13:31 06:16 06:16 RBC 3.61 L (4.10-5.20) X 10*6/uL Hgb 8.8 L (11.4-16.0) gm/dL Hct 29.5 L (34.0-46.0) % MCV (80.0-100.0) fL MCH 24.4 L (27.0-32.0) pg MCHC 29.8 L (32.0-37.0) g/dL RDW 16.5 H (11.5-15.5) % Eosinophils # 0.38 H (0.04-0.35) X 10*3/uL Potassium 3.4 L (3.5-5.5) mmol/L Chloride 112 H (98-107) mmol/L Carbon Dioxide 19.4 L (22-30) mmol/L BUN 8.9 L (9.0-27.0) mg/dL Glucose 163 H (74-99) mg/dL POC Glucose (mg/dL) (70-110) mg/dL Plasma Lactic Acid Eduardo 2.2 H* (0.7-2.0) mmol/L Calcium 8.0 L (8.7-10.3) mg/dL Magnesium 1.3 L (1.5-2.4) mg/dL Total Bilirubin 0.2 L (0.3-1.2) mg/dL AST 41 H (13-35) U/L Alkaline Phosphatase 161 H (41-126) U/L Total Protein 5.5 L (6.2-8.2) g/dL Albumin 3.7 L (3.8-4.9) g/dL Urine Appearance (Clear) Urine Protein (Negative) Urine Blood (Negative) Urine RBC (0-5) /hpf Ur Squamous Epith Cells (0-4) /hpf Urine Mucus (None) /hpf 11/25/24 Range/Units 12:14 RBC (4.10-5.20) X 10*6/uL Hgb (11.4-16.0) gm/dL Hct (34.0-46.0) % MCV (80.0-100.0) fL MCH (27.0-32.0) pg MCHC (32.0-37.0) g/dL RDW (11.5-15.5) % Eosinophils # (0.04-0.35) X 10*3/uL Potassium (3.5-5.5) mmol/L Chloride (98-107) mmol/L Carbon Dioxide (22-30) mmol/L BUN (9.0-27.0) mg/dL Glucose (74-99) mg/dL POC Glucose (mg/dL) 257 H (70-110) mg/dL Plasma Lactic Acid Eduardo (0.7-2.0) mmol/L Calcium (8.7-10.3) mg/dL Magnesium (1.5-2.4) mg/dL Total Bilirubin (0.3-1.2) mg/dL AST (13-35) U/L Alkaline Phosphatase (41-126) U/L Total Protein (6.2-8.2) g/dL Albumin (3.8-4.9) g/dL Urine Appearance (Clear) Urine Protein (Negative) Urine Blood (Negative) Urine RBC (0-5) /hpf Ur Squamous Epith Cells (0-4) /hpf Urine Mucus (None) /hpf Thrombosis Risk Factor Assmnt - Choose All That Apply Each Factor Represents 1 point: Age 41-60 years Thrombosis Risk Factor Assessment Total Risk Factor Score: 1 Thrombosis Risk Factor Assessment Level: Low Risk
[2024-11-25] MEDS: amLODIPine 10 MG TAB PO SCH (14:00)
[2024-11-25] MEDS: ATORVASTATIN 20 MG TAB PO SCH (14:00)
[2024-11-25] MEDS: HYDROcodone/APAP 5-325MG 1 EACH TAB PO PRN (16:21)
[2024-11-25] MEDS: INSULIN ASPART (NovoLOG) 100 UNIT/ML VIAL SQ SCH (16:23)
[2024-11-25 16:24] LABS: Glucose,Whole Blood 148 mg/dL (70-110)
[2024-11-25 20:10] LABS: Glucose,Whole Blood 197 mg/dL (70-110)
[2024-11-25] MEDS: hydrOXYzine HCL 25 MG TAB PO SCH (20:26)
[2024-11-25] MEDS: metFORMIN 500 MG TAB PO SCH (20:26)
[2024-11-25] MEDS: busPIRone HCl 5 MG TAB PO SCH (20:26)
--- NOTE | 2024-11-25 21:52 | P.CONS ---
History of Present Illness - Reason for Consult Consult date: 11/25/24 UTI Requesting physician: Salinas Greene - Chief Complaint Urinary burning and flank pain x few days - History of Present Illness Patient is a 49-year-old female with a past medical history significant for diabetes mellitus hypertension hyperlipidemia history of recur rent UTI, presenting to the hospital for evaluation of burning frequency of urine and also have a suprapubic and left flank pain patient mention symptom has been getting worse over the last few days describing the pain to be sharp moderate intensity without any radiation patient did have some chills denies high-grade fever she did have a low-grade fever of 99.4 on presentation to the hospital patient was not tachycardic hypotensive or hypoxic did have white count of 5.43 creatinine 0.7 liver enzymes mildly elevated urine has been positive but mostly with hematuria patient did have renal ultrasound no evidence for obstructive uropathy abdominal pelvis CT no evidence for acute abdominal proces s, the patient catheter when eating in the low pelvis patient was started on ceftriaxone infectious was consulted for UTI Review of Systems Positive point and negatives has been mentioned in the HPI, complete review of systems was performed and all other systems are negative Past Medical History Past Medical History: Diabetes Mellitus, Eye Disorder, Hyperlipidemia, Hypertension, Renal Disease Additional Past Medical History / Comment(s): GLAUCOMA; MIGRAINES, IBS, cystitis History of Any Multi-Drug Resistant Organisms: C-DIFF Year Discovered:: April 2021 MDRO Source:: stool Past Surgical History: Appendectomy, Cholecystectomy Additional Past Surgical History / Comment(s): OVARY SURGERY; BILAT EYE SURGERY, metal plate under right eye, partial hysterectomy Past Anesthesia/Blood Transfusion Reactions: Postoperative Nausea & Vomiting (PONV) Additional Past Anesthesia/Blood Transfusion Reaction / Comm: pt states she gets very mean from anesthesia Past Psychological History: ADD/ADHD, Depression Smoking Status: Never smoker Past Alcohol Use History: None Reported Past Drug Use History: None Reported - Past Family History Mother Family Medical History: COPD, Diabetes Mellitus Father Family Medical History: Coronary Artery Disease (CAD), Diabetes Mellitus Additional Family Medical History / Comment(s): dad Medications and Allergies Home Medications Medication Instructions Recorded Confirmed Type Atorvastatin [Lipitor] 20 mg PO DAILY 10/07/14 11/24/24 History FLUoxetine HCL 40 mg PO DAILY 10/07/14 11/24/24 History Loratadine [Claritin] 10 mg PO DAILY 10/07/14 11/24/24 History Acyclovir 400 mg PO DAILY 01/19/21 11/24/24 History Fluticasone Nasal [place] [Flonase 1 spr EA NOSTRIL BID PRN 01/19/21 11/24/24 History Nasal [place]] Pantoprazole [Protonix] 40 mg PO DAILY 01/19/21 11/24/24 History busPIRone HCL 15 mg PO BID 01/19/21 11/24/24 History Butalb/APAP/Caff 50-325-40Mg 1 tab PO TID PRN #12 tab 01/21/21 11/24/24 Rx [Fioricet 50-325-40] hydrOXYzine HCL [Atarax] 50 mg PO BID 11/15/23 11/24/24 History metFORMIN HCL 1,000 mg PO BID 11/15/23 11/24/24 History amLODIPine [Norvasc] 10 mg PO DAILY 06/18/24 11/24/24 History HYDROcodone/APAP 5-325MG [[place] 1 tab PO Q6HR PRN #12 tab 09/12/24 11/24/24 Rx 5-325] Ibuprofen [Motrin] 800 mg PO TID PRN 10/09/24 11/24/24 History Cephalexin [Keflex] 500 mg PO Q6HR 12 Days #48 cap 11/22/24 11/24/24 Rx Atogepant [Qulipta] 60 mg PO DAILY 11/24/24 11/24/24 History Fluconazole 150 mg PO Q72H PRN 11/24/24 11/24/24 History Ketorolac [Toradol] 10 mg PO Q6HR PRN 11/24/24 11/24/24 History Ondansetron Odt [Zofran Odt] 4 mg PO DAILY PRN 11/24/24 11/24/24 History Allergies Allergy/AdvReac Type Severity Reaction Status Date / Time Sulfa (Sulfonamide Allergy Severe Rash/Hives/ Verified 11/24/24 18:35 Antibiotics) Vomiting ciprofloxacin [From Cipro] Allergy Rash/Hives Verified 11/24/24 18:35 ciprofloxacin HCl Allergy Rash/Hives Verified 11/24/24 18:35 [From Cipro] Physical Exam Vitals: Vital Signs Temp Pulse Pulse Resp BP BP Pulse Ox 11/25/24 08:30 98.2 F 82 18 104/70 98 11/25/24 08:20 98.7 F 73 18 99/67 97 11/25/24 07:46 98.1 F 72 18 101/68 97 11/25/24 05:17 98.0 F 79 16 89/58 94 L 11/25/24 01:38 97.9 F 83 16 98/68 96 11/24/24 23:27 98.6 F 90 18 96/66 95 11/24/24 18:45 98.1 F 99 18 126/79 99 11/24/24 12:20 99.4 F 103 H 20 132/84 99 Intake and Output 11/24/24 11/25/24 11/25/24 22:59 06:59 14:59 Other: Voiding Method Toilet Weight 86.183 kg GENERAL DESCRIPTION: Middle-aged female lying in bed, no distress. No tachypnea or accessory muscle of respiration use. HEENT: Shows Pallor , no scleral icterus. Oral mucous membrane is dry. No pharyngeal erythema or thrush NECK: Trachea central, no thyromegaly. LUNGS: Unlabored breathing. Clear to auscultation anteriorly. No wheeze or crackle. HEART: S1, S2, regular rate and rhythm. No loud murmur ABDOMEN: Soft, mild left flank tenderness EXTREMITIES: No edema of feet. SKIN: No rash, no masses palpable. NEUROLOGICAL: The patient is awake, alert, oriented x3, mood and affect normal. Results CBC & Chem 7: 11/25/24 06:16 11/25/24 06:16 Labs: Abnormal Lab Results - Last 24 Hours (Table) 11/24/24 11/24/24 11/24/24 Range/Units 13:31 13:31 13:31 RBC (4.10-5.20) X 10*6/uL Hgb 10.8 L (11.4-16.0) gm/dL Hct 33.2 L (34.0-46.0) % MCV 77.9 L (80.0-100.0) fL MCH (27.0-32.0) pg MCHC (32.0-37.0) g/dL RDW 16.2 H (11.5-15.5) % Eosinophils # (0.04-0.35) X 10*3/uL Potassium (3.5-5.5) mmol/L Chloride 109 H (98-107) mmol/L Carbon Dioxide 17 L (22-30) mmol/L BUN (9.0-27.0) mg/dL Glucose 113 H (74-99) mg/dL Plasma Lactic Acid Eduardo (0.7-2.0) mmol/L Calcium (8.7-10.3) mg/dL Magnesium (1.5-2.4) mg/dL Total Bilirubin (0.3-1.2) mg/dL AST (13-35) U/L Alkaline Phosphatase (41-126) U/L Total Protein (6.2-8.2) g/dL Albumin (3.8-4.9) g/dL Urine Appearance Cloudy H (Clear) Urine Protein 1+ H (Negative) Urine Blood Moderate H (Negative) Urine RBC >182 H (0-5) /hpf Ur Squamous Epith Cells 8 H (0-4) /hpf Urine Mucus Rare H (None) /hpf 11/24/24 11/25/24 11/25/24 Range/Units 13:31 06:16 06:16 RBC 3.61 L (4.10-5.20) X 10*6/uL Hgb 8.8 L (11.4-16.0) gm/dL Hct 29.5 L (34.0-46.0) % MCV (80.0-100.0) fL MCH 24.4 L (27.0-32.0) pg MCHC 29.8 L (32.0-37.0) g/dL RDW 16.5 H (11.5-15.5) % Eosinophils # 0.38 H (0.04-0.35) X 10*3/uL Potassium 3.4 L (3.5-5.5) mmol/L Chloride 112 H (98-107) mmol/L Carbon Dioxide 19.4 L (22-30) mmol/L BUN 8.9 L (9.0-27.0) mg/dL Glucose 163 H (74-99) mg/dL Plasma Lactic Acid Eduardo 2.2 H* (0.7-2.0) mmol/L Calcium 8.0 L (8.7-10.3) mg/dL Magnesium 1.3 L (1.5-2.4) mg/dL Total Bilirubin 0.2 L (0.3-1.2) mg/dL AST 41 H (13-35) U/L Alkaline Phosphatase 161 H (41-126) U/L Total Protein 5.5 L (6.2-8.2) g/dL Albumin 3.7 L (3.8-4.9) g/dL Urine Appearance (Clear) Urine Protein (Negative) Urine Blood (Negative) Urine RBC (0-5) /hpf Ur Squamous Epith Cells (0-4) /hpf Urine Mucus (None) /hpf Assessment and Plan (1) Allergy to multiple antibiotics Current Visit: Yes Status: Acute Code(s): Z88.1 - ALLERGY STATUS TO OTHER ANTIBIOTIC AGENTS SNOMED Code(s): 069607889 (2) UTI (urinary tract infection) Current Visit: Yes Status: Acute Code(s): N39.0 - URINARY TRACT INFECTION, SITE NOT SPECIFIED SNOMED Code(s): 12356600 Plan: 1patient presented to hospital with burning frequency of urine also have suprapubic and flank pain that has been suggestive of UTI however urine is showing mostly hematuria and did not have significant pyuria question of interstitial cystitis, both the CT ultrasound did not show any structural abnormality 2-May continue with Rocephin however obtain urine culture Question concern answered We will follow on clinical condition and cultures to further adjust medication if needed Thank you for this consultation we will follow the patient along with you Dictation was produced using [employer] dictation software. please excuse any grammatical, word or spelling errors. Time with Patient: Greater than 30
[2024-11-26 04:50] LABS: Anisocytosis Slight; Basophils % (A) 0 %; Eosinophils # (A) 0.4 k/uL (0-0.7); Eosinophils % (A) 6 %; HCT 28.4 % (34.0-46.0); Hypochromasia Marked; Lymphocytes # (A) 1.8 k/uL (1.0-4.8); Lymphocytes % (A) 25 %; MCH 25.5 pg (25.0-35.0); MCHC 31.8 g/dL (31.0-37.0); MCV 80.3 fL (80.0-100.0); Mean Platelet Volume 7.4; Monocytes # (A) 0.3 k/uL (0-1.0); Monocytes % (A) 4 %; Neutrophils # (A) 4.4 k/uL (1.3-7.7); Neutrophils % (A) 63 %; Platelet Count 292 k/uL (150-450); RBC 3.54 m/uL (3.80-5.40); RDW 16.3 % (11.5-15.5)
[2024-11-26 05:09] LABS: ALT 39 U/L (4-34); AST 24 U/L (14-36); African American GFR (CKD) >90 (>60 ml/min/1.73 sqM); Albumin 3.4 g/dL (3.5-5.0); Alkaline Phosphatase 119 U/L (38-126); Anion Gap 11 mmol/L; Blood Urea Nitrogen 9 mg/dL (7-17); Calcium 8.4 mg/dL (8.4-10.2); Carbon Dioxide 20 mmol/L (22-30); Chloride 108 mmol/L (98-107); Glucose 178 mg/dL (74-99); Non-African American GFR(CKD) >90 (>60 ml/min/1.73 sqM); Potassium 3.4 mmol/L (3.5-5.1); Sodium 139 mmol/L (137-145); Total Bilirubin <0.1 mg/dL (0.2-1.3); Total Protein 5.5 g/dL (6.3-8.2)
[2024-11-26 06:13] LABS: Glucose,Whole Blood 172 mg/dL (70-110)
[2024-11-26] MEDS: FLUoxetine HCL 20 MG CAP PO SCH (08:34)
[2024-11-26] MEDS: PANTOPRAZOLE 40 MG TABLET PO SCH (08:35)
[2024-11-26] MEDS: ACYCLOVIR 200 MG CAP PO SCH (08:35)
[2024-11-26] MEDS: LORATADINE 10 MG TAB PO SCH (08:35)
[2024-11-26 11:31] LABS: Glucose,Whole Blood 146 mg/dL (70-110)
--- NOTE | 2024-11-26 13:52 | P.DS ---
Providers Date of admission: 11/26/24 10:11 Expected date of discharge: 11/26/24 Attending physician: Luz Almanza Consults: 11/25/24 10:23 Consult Physician Routine Consulting Provider: Aranza Alonzo Consult Reason/Comments: UTI Do you want consulting provider notified?: Yes Primary care physician: Physician Nonstaff Hospital Course: Discharge diagnoses; Acute pyelonephritis, failed outpatient treatment Hypertension hyperlipidemia diabetes mellitus Hospital course; patient is a 49-year-old lady with past medical history significant for diabetes mellitus, hypertension, hyperlipidemia who presented the ER for right-sided flank pain. Patient was only seen in the ER couple of days ago for right-sided abdominal pain, at that time patient was found to have a 1 mm nonobstructing right renal stone, patient was diagnosed with UTI and was discharged on Keflex and Diflucan. Patient stated that ever since her discharge she continues to have right-sided flank pain. Patient also having fevers at home. Patient is complaining of nausea but no vomiting. Patient states he continues to have dysuria and increased frequency of urination. Because of the symptoms, patient came back to the ER Initial lab work done in the ER showed WBC 8.6, hemoglobin 10.8, platelet count 353, sodium 140, potassium 3.8, BUN 8, creatinine 0.65, lactate 2.2, AST 20, ALT 17, UA showed urine WBC 4, urine nitrite negative Ultrasound done showed no evidence for obstructive uropathy EKG done in the ER showed heart rate of , no ST segment elevation or depression seen, no T-wave inversions seen. CT abdomen pelvis showed no evidence for acute abdominal series, [employer] AIDE shunt catheter bleeding in the lower pelvis Patient admitted to internal medicine service 11/26. Patient seen and examined. Patient was evaluated by ID, they recommended patient discharging on Ceftin and Pyridium. Patient to follow-up outpatient with PCP PHYSICAL EXAMINATION: GENERAL: The patient is alert and oriented x3, not in any acute distress. Well developed, well nourished. HEENT: Pupils are round and equally reacting to light. EOMI. No scleral icterus. No conjunctival pallor. Normocephalic, atraumatic. No pharyngeal erythema. No thyromegaly. CARDIOVASCULAR: S1 and S2 present. No murmurs, rubs, or gallops. PULMONARY: Chest is clear to auscultation, no wheezing or crackles. ABDOMEN: Soft, nontender, nondistended, normoactive bowel sounds. No palpable organomegaly. MUSCULOSKELETAL: No joint swelling or deformity. EXTREMITIES: No cyanosis, clubbing, or pedal edema. NEUROLOGICAL: Gross neurological examination did not reveal any focal deficits. SKIN: No rashes. Dictation was produced using [employer] dictation software. please excuse any grammatical, word or spelling errors. Patient Condition at Discharge: Good Plan - Discharge Summary New Discharge Prescriptions: New cefuroxime axetiL [Ceftin] 500 mg PO BID #14 tab Phenazopyridine [Pyridium] 200 mg PO TID #21 tablet Continue Atorvastatin [Lipitor] 20 mg PO DAILY Loratadine [Claritin] 10 mg PO DAILY FLUoxetine HCL 40 mg PO DAILY Fluticasone Nasal [place] [Flonase Nasal [place]] 1 spr EA NOSTRIL BID PRN PRN Reason: Allergy Symptoms busPIRone HCL 15 mg PO BID Pantoprazole [Protonix] 40 mg PO DAILY Acyclovir 400 mg PO DAILY Butalb/APAP/Caff 50-325-40Mg [Fioricet 50-325-40] 1 tab PO TID PRN #12 tab PRN Reason: Migraine Headache amLODIPine [Norvasc] 10 mg PO DAILY Ketorolac [Toradol] 10 mg PO Q6HR PRN PRN Reason: Pain Ondansetron Odt [Zofran ODT] 4 mg PO DAILY PRN PRN Reason: Migraine Headache HYDROcodone/APAP 5-325MG [[place] 5-325] 1 tab PO Q6HR PRN 3 Days #12 tab PRN Reason: Pain hydrOXYzine HCL [Atarax] 50 mg PO BID metFORMIN HCL 1,000 mg PO BID Ibuprofen [Motrin] 800 mg PO TID PRN PRN Reason: Pain Atogepant [Qulipta] 60 mg PO DAILY Discontinued Cephalexin [Keflex] 500 mg PO Q6HR 12 Days #48 cap Fluconazole 150 mg PO Q72H PRN PRN Reason: Itching Discharge Medication List Atorvastatin [Lipitor] 20 mg PO DAILY 10/07/14 [History] FLUoxetine HCL 40 mg PO DAILY 10/07/14 [History] Loratadine [Claritin] 10 mg PO DAILY 10/07/14 [History] Acyclovir 400 mg PO DAILY 01/19/21 [History] Fluticasone Nasal [place] [Flonase Nasal [place]] 1 spr EA NOSTRIL BID PRN 01/19/21 [History] Pantoprazole [Protonix] 40 mg PO DAILY 01/19/21 [History] busPIRone HCL 15 mg PO BID 01/19/21 [History] Butalb/APAP/Caff 50-325-40Mg [Fioricet 50-325-40] 1 tab PO TID PRN #12 tab 01/21/21 [Rx] hydrOXYzine HCL [Atarax] 50 mg PO BID 11/15/23 [History] metFORMIN HCL 1,000 mg PO BID 11/15/23 [History] amLODIPine [Norvasc] 10 mg PO DAILY 06/18/24 [History] Ibuprofen [Motrin] 800 mg PO TID PRN 10/09/24 [History] Atogepant [Qulipta] 60 mg PO DAILY 11/24/24 [History] Ketorolac [Toradol] 10 mg PO Q6HR PRN 11/24/24 [History] Ondansetron Odt [Zofran ODT] 4 mg PO DAILY PRN 11/24/24 [History] HYDROcodone/APAP 5-325MG [[place] 5-325] 1 tab PO Q6HR PRN 3 Days #12 tab 11/26/24 [Rx] Phenazopyridine [Pyridium] 200 mg PO TID #21 tablet 11/26/24 [Rx] cefuroxime axetiL [Ceftin] 500 mg PO BID #14 tab 11/26/24 [Rx] Follow up Appointment(s)/Referral(s): Nonstaff,Physician [Primary Care Provider] - 1-2 days Aranza Alonzo MD [STAFF PHYSICIAN] - 1 Week Discharge Disposition: HOME SELF-CARE
[2024-11-26 14:20] VITALS: BP 112/77; PULSE 76; RESP 18; TEMP 97.6
--- NOTE | 2024-11-26 15:39 | P.PN ---
Subjective Progress Note Date: 11/26/24 Principal diagnosis: UTI Patient is a 49-year-old female with a past medical history significant for diabetes mellitus hypertension hyperlipidemia history of recurrent UTI, presenting to the hospital for evaluation of burning frequency of urine and also have a suprapubic and left flank pain admitted to hospital concerning for UTI. On today's evaluation that is 11/26/2024, Patient is afebrile this morning patient denies having any chest pain shortness of breath or cough, the patient is currently on room air, patient still complaining of urinary burning as well as suprapubic discomfort. Patient white count 7.0, creatinine 0.54 Objective - Vital Signs Vital signs: Vital Signs Temp 98 F 11/26/24 07:00 Pulse 87 11/26/24 07:00 Resp 17 11/26/24 07:00 BP 112/78 11/26/24 07:00 Pulse Ox 93 L 11/26/24 07:00 FiO2 Intake & Output 11/25/24 11/26/24 11/26/24 18:59 06:59 18:59 Intake Total 500 Balance 500 Weight 86.183 kg Intake: Oral 500 Other: Voiding Method Toilet Toilet Toilet # Voids 4 1 - Exam GENERAL DESCRIPTION: Middle-age female lying in bed in no distress RESPIRATORY SYSTEM: Unlabored breathing , decreased breath sounds at bases HEART: S1 S2 regular rate and rhythm , ABDOMEN: Soft , no tenderness EXTREMITIES: No edema feet - Labs CBC & Chem 7: 11/26/24 04:22 11/26/24 04:22 Labs: Abnormal Lab Results - Last 24 Hours (Table) 11/25/24 11/25/24 11/25/24 Range/Units 12:14 16:22 20:09 RBC (3.80-5.40) m/uL Hgb (11.4-16.0) gm/dL Hct (34.0-46.0) % RDW (11.5-15.5) % Potassium (3.5-5.1) mmol/L Chloride (98-107) mmol/L Carbon Dioxide (22-30) mmol/L Glucose (74-99) mg/dL POC Glucose (mg/dL) 257 H 148 H 197 H (70-110) mg/dL Hemoglobin A1c (<=6.0) % Total Bilirubin (0.2-1.3) mg/dL ALT (4-34) U/L Total Protein (6.3-8.2) g/dL Albumin (3.5-5.0) g/dL 11/26/24 11/26/24 11/26/24 Range/Units 04:22 04:22 04:22 RBC 3.54 L (3.80-5.40) m/uL Hgb 9.0 L D (11.4-16.0) gm/dL Hct 28.4 L (34.0-46.0) % RDW 16.3 H (11.5-15.5) % Potassium 3.4 L (3.5-5.1) mmol/L Chloride 108 H (98-107) mmol/L Carbon Dioxide 20 L (22-30) mmol/L Glucose 178 H (74-99) mg/dL POC Glucose (mg/dL) (70-110) mg/dL Hemoglobin A1c 7.6 H (<=6.0) % Total Bilirubin <0.1 L (0.2-1.3) mg/dL ALT 39 H (4-34) U/L Total Protein 5.5 L (6.3-8.2) g/dL Albumin 3.4 L (3.5-5.0) g/dL 11/26/24 Range/Units 06:12 RBC (3.80-5.40) m/uL Hgb (11.4-16.0) gm/dL Hct (34.0-46.0) % RDW (11.5-15.5) % Potassium (3.5-5.1) mmol/L Chloride (98-107) mmol/L Carbon Dioxide (22-30) mmol/L Glucose (74-99) mg/dL POC Glucose (mg/dL) 172 H (70-110) mg/dL Hemoglobin A1c (<=6.0) % Total Bilirubin (0.2-1.3) mg/dL ALT (4-34) U/L Total Protein (6.3-8.2) g/dL Albumin (3.5-5.0) g/dL Assessment and Plan (1) Allergy to multiple antibiotics Status: Acute Code(s): Z88.1 - ALLERGY STATUS TO OTHER ANTIBIOTIC AGENTS SNOMED Code(s): 715616554 (2) UTI (urinary tract infection) Status: Acute Code(s): N39.0 - URINARY TRACT INFECTION, SITE NOT SPECIFIED SNOMED Code(s): 39378153 Plan: 1patient presented to hospital with burning frequency of urine also have supr apubic and flank pain that has been suggestive of UTI however urine is showing mostly hematuria and did not have significant pyuria question of interstitial cystitis, both the CT ultrasound did not show any structural abnormality 2-patient is behaving more of interstitial cystitis discussed with the patient , will add pyridium for her burning symptoms and may suggest a short course of oral Ceftin on discharge discussed with admitting physician Dictation was produced using [employer] ([employer]) dictation software. please excuse any grammatical, word or spelling errors. Time with Patient: Less than 30
== END 2024-11-26 14:38 | disposition home or self-care (01) | DRG 690 ==
LOC: EC 12:11 → 6NMEDSUR 18:04 → 1SOBS 11-25 07:14 → OBSVTOIN 11-26 10:11
PROVIDERS: ADMIT Hospitalist; ATTEND Hospitalist
DX: N10 Acute pyelonephritis (principal); E11.9 Type 2 diabetes mellitus without complications; E78.5 Hyperlipidemia, unspecified; F32.A Depression, unspecified; F90.9 Attention-deficit hyperactivity disorder, unspecified type; I10 Essential (primary) hypertension; N20.0 Calculus of kidney; B37.31 Acute candidiasis of vulva and vagina; Z79.84 Long term (current) use of oral hypoglycemic drugs; Z79.899 Other long term (current) drug therapy; Z82.49 Family history of ischemic heart disease and other diseases of the circulatory system; Z87.440 Personal history of urinary (tract) infections; Z87.442 Personal history of urinary calculi; Z88.1 Allergy status to other antibiotic agents; Z90.711 Acquired absence of uterus with remaining cervical stump; Z88.2 Allergy status to sulfonamides
CPT/HCPCS: 36415; 74176; 76770; 80053; 81001; 83036; 83605; 83735; 84100; 85025; 87086; 96361; 96365; 96366; 96375; 96376; 99284

== ENCOUNTER 2024-12-01 05:01 | Emergency (ER) | payer MEDICARE ==
[2024-12-01 05:07] VITALS: BP 134/83; PULSE 107; RESP 20; TEMP 99.5
--- NOTE | 2024-12-01 05:40 | ED ---
General Adult HPI - General Source: patient Mode of arrival: ambulatory Limitations: no limitations <Xavier Ornelas - Last Filed: 12/01/24 05:39> - General Source: patient, RN notes reviewed, old records reviewed Mode of arrival: ambulatory Limitations: no limitations <Efraín Contreras - Last Filed: 12/01/24 12:28> - General Chief complaint: Back Pain/Injury Stated complaint: abd pain Time Seen by Provider: 12/01/24 05:20 - History of Present Illness Initial comments: Quick note: 49-year-old female presents to the emergency department for persistent abdominal pain. Patient states her symptoms have been ongoing for the last several days she has been on antibiotics for what she states is a UTI. States that she cannot handle the symptoms because they have not been improving. States that she has fevers. Denies any nausea vomiting. Denies any back pain. States that most of her pain is in her suprapubic abdomen (Xavier Ornelas) 49-year-old female presents emergency department complaint of abdominal pain. Patient states she has dysuria she thinks she has another UTI. She has been in the hospital for similar reasons. Patient states that she had a fever but was not recorded. She denies any nausea vomiting or back pain she states most the pain is in her lower suprapubic region and when she urinates. (Efraín Contreras) - Related Data Home Medications Medication Instructions Recorded Confirmed Atorvastatin [Lipitor] 20 mg PO DAILY 10/07/14 11/24/24 FLUoxetine HCL 40 mg PO DAILY 10/07/14 11/24/24 Loratadine [Claritin] 10 mg PO DAILY 10/07/14 11/24/24 Acyclovir 400 mg PO DAILY 01/19/21 11/24/24 Fluticasone Nasal [place] [Flonase 1 spr EA NOSTRIL BID PRN 01/19/21 11/24/24 Nasal [place]] Pantoprazole [Protonix] 40 mg PO DAILY 01/19/21 11/24/24 busPIRone HCL 15 mg PO BID 01/19/21 11/24/24 hydrOXYzine HCL [Atarax] 50 mg PO BID 11/15/23 11/24/24 metFORMIN HCL 1,000 mg PO BID 11/15/23 11/24/24 amLODIPine [Norvasc] 10 mg PO DAILY 06/18/24 11/24/24 Ibuprofen [Motrin] 800 mg PO TID PRN 10/09/24 11/24/24 Atogepant [Qulipta] 60 mg PO DAILY 11/24/24 11/24/24 Ketorolac [Toradol] 10 mg PO Q6HR PRN 11/24/24 11/24/24 Ondansetron Odt [Zofran ODT] 4 mg PO DAILY PRN 11/24/24 11/24/24 Previous Rx's Medication Instructions Recorded Butalb/APAP/Caff 50-325-40Mg 1 tab PO TID PRN #12 tab 01/21/21 [Fioricet 50-325-40] HYDROcodone/APAP 5-325MG [[place] 1 tab PO Q6HR PRN 3 Days #12 tab 11/26/24 5-325] Phenazopyridine [Pyridium] 200 mg PO TID #21 tablet 11/26/24 cefuroxime axetiL [Ceftin] 500 mg PO BID #14 tab 11/26/24 Fluconazole [Diflucan] 150 mg PO ONCE #7 tab 12/01/24 Allergies Allergy/AdvReac Type Severity Reaction Status Date / Time Sulfa (Sulfonamide Allergy Severe Rash/Hives/ Verified 12/01/24 05:07 Antibiotics) Vomiting ciprofloxacin [From Cipro] Allergy Rash/Hives Verified 12/01/24 05:07 ciprofloxacin HCl Allergy Rash/Hives Verified 12/01/24 05:07 [From Cipro] Review of Systems ROS Other: All systems not noted in ROS Statement are negative. <Xavier Ornelas - Last Filed: 12/01/24 05:39> ROS Other: All systems not noted in ROS Statement are negative. <Efraín Contreras - Last Filed: 12/01/24 12:28> ROS Statement: Those systems with pertinent positive or pertinent negative responses have been documented in the HPI. Past Medical History Past Medical History: Diabetes Mellitus, Eye Disorder, Hyperlipidemia, Hypertension, Renal Disease Additional Past Medical History / Comment(s): GLAUCOMA; MIGRAINES, IBS, cystitis History of Any Multi-Drug Resistant Organisms: C-DIFF Date of last positivie culture/infection: April 2021 MDRO Source:: stool Past Surgical History: Appendectomy, Cholecystectomy Additional Past Surgical History / Comment(s): OVARY SURGERY; BILAT EYE SURGERY, metal plate under right eye, partial hysterectomy Past Anesthesia/Blood Transfusion Reactions: Postoperative Nausea & Vomiting (PONV) Additional Past Anesthesia/Blood Transfusion Reaction / Comment(s): pt states she gets very mean from anesthesia Past Psychological History: ADD/ADHD, Depression Smoking Status: Never smoker Past Alcohol Use History: None Reported Past Drug Use History: None Reported - Past Family History Mother Family Medical History: COPD, Diabetes Mellitus Father Family Medical History: Coronary Artery Disease (CAD), Diabetes Mellitus Additional Family Medical History / Comment(s): dad <Xavier Ornelas - Last Filed: 12/01/24 05:39> General Exam Limitations: no limitations <Xavier Ornelas - Last Filed: 12/01/24 05:39> General appearance: alert, in no apparent distress Head exam: Present: atraumatic, normocephalic, normal inspection Eye exam: Present: normal appearance, PERRL, EOMI. Absent: scleral icterus, conjunctival injection, periorbital swelling ENT exam: Present: normal exam, mucous membranes moist Neck exam: Present: normal inspection. Absent: tenderness, meningismus, lymphadenopathy Respiratory exam: Present: normal lung sounds bilaterally. Absent: respiratory distress, wheezes, rales, rhonchi, stridor Cardiovascular Exam: Present: regular rate, normal rhythm, normal heart sounds. Absent: systolic murmur, diastolic murmur, rubs, gallop, clicks GI/Abdominal exam: Present: soft, normal bowel sounds. Absent: distended, tenderness, guarding, rebound, rigid <Efraín Contreras - Last Filed: 12/01/24 12:28> - General Exam Comments Initial Comments: Visual Physical Exam Vital signs reviewed General: Well-appearing, nontoxic, no acute distress. Head: Normocephalic, atraumatic Eyes: PERRLA, EOMI ENT: Airway patent Chest: Nonlabored breathing Skin: No visual rash, normal skin tone Neuro: Alert and oriented 3 Musculoskeletal: No gross abnormalities (Xavier Ornelas) Course Vital Signs 12/01/24 05:05 Temperature 99.5 F Pulse Rate 107 H Respiratory 20 Rate Blood Pressure 134/83 O2 Sat by Pulse 98 Oximetry Medical Decision Making - Lab Data Result diagrams: 12/01/24 05:55 12/01/24 05:55 <Efraín Contreras M - Last Filed: 12/01/24 12:28> - Medical Decision Making Was pt. sent in by a medical professional or institution (, MIKEY, DENIAL RESOLUTION SPECIALIST, urgent care, hospital, or penitentiary...) When possible be specific @ -No Did you speak to anyone other than the patient for history (EMS, parent, family, police, friend...)? What history was obtained from this source @ -No Did you review nursing and triage notes (agree or disagree)? Why? @ -I reviewed and agree with nursing and triage notes Were old charts reviewed (outside hosp., previous admission, EMS record, old EKG, old radiological studies, urgent care reports/EKG's, penitentiary records)? Report findings @ -Review of prior inpatient and outpatient records Differential Diagnosis (chest pain, altered mental status, abdominal pain women, abdominal pain men, vaginal bleeding, weakness, fever, dyspnea, syncope, headache, dizziness, GI bleed, back pain, seizure, CVA, palpatations, mental health, musculoskeletal)? @ -Differential Abdominal Pain Women: Appendicitis, Cholecystitis, diverticulosis, ischemic bowel, pancreatitis, hepatitis, UTI, gastroenteritis, AAA, incarcerated hernia, bowel obstruction, constipation, inflammatory bowel, hepatitis, peptic ulcer disease, splenic infarction, perforated viscus, vulvitis, ovarian torsion, PID, kidney stone, placenta abruption, this is not meant to be an all-inclusive list EKG interpreted by me (3pts min.). @ -None X-rays interpreted by me (1pt min.). @ -None done CT interpreted by me (1pt min.). @ -None done U/S interpreted by me (1pt. min.). @ -None done What testing was considered but not performed or refused? (CT, X-rays, U/S, labs)? Why? @ -None What meds were considered but not given or refused? Why? @ -None Did you discuss the management of the patient with other professionals (pr ofessionals i.e. MIKEY Gabriel, DENIAL RESOLUTION SPECIALIST, lab, RT, psych nurse, social insurance specialist, food and beverage service manager, teacher, corrections officer, case resource manager)? Give summary @ -No Was smoking cessation discussed for >3mins.? @ -No Was critical care preformed (if so, how long)? @ -No Were there social determinants of health that impacted care today? How? (Homelessness, low income, unemployed, alcoholism, drug addiction, transportation, low edu. Level, literacy, decrease access to med. care, fdc, rehab)? @ -No Was there de-escalation of care discussed even if they declined (Discuss DNR or withdrawal of care, Hospice)? DNR status @ -No What co-morbidities impacted this encounter? (DM, HTN, Smoking, COPD, CAD, Cancer, CVA, ARF, Chemo, Hep., AIDS, mental health diagnosis, sleep apnea, morbid obesity)? @ -None Was patient admitted / discharged? Hospital course, mention meds given and route, prescriptions, significant lab abnormalities, going to OR and other pertinent info. @ -Discharge patient has no evidence of UTI. Patient mildly has interstitial cystitis, she does have noted candidiasis which has been a recurrent issue for patient. Patient discharged on Diflucan. Return parameters kris. Undiagnosed new problem with uncertain prognosis? @ -No Drug Therapy requiring intensive monitoring for toxicity (Heparin, Nitro, Insulin, Cardizem)? @ -No Were any procedures done? @ -No Diagnosis/symptom? @ -Interstitial cystitis, chronic abdominal pain, candidiasis Acute, or Chronic, or Acute on Chronic? @ -Acute Uncomplicated (without systemic symptoms) or Complicated (systemic symptoms)? @ -Complicated Side effects of treatment? @ -No Exacerbation, Progression, or Severe Exacerbation? @ -No Poses a threat to life or bodily function? How? (Chest pain, [place], [place], pneumonia, PE, COPD, DKA, ARF, appy, cholecystitis, CVA, Diverticulitis, Homicidal, Suicidal, threat to staff... and all critical care pts) @ -No (Efraín Contreras) - Lab Data Lab Results 12/01/24 12/01/24 12/01/24 Range/Units 05:55 05:55 05:55 WBC 8.2 (3.8-10.6) k/uL RBC 4.49 (3.80-5.40) m/uL Hgb 11.1 L (11.4-16.0) gm/dL Hct 35.0 (34.0-46.0) % MCV 78.0 L (80.0-100.0) fL MCH 24.8 L (25.0-35.0) pg MCHC 31.8 (31.0-37.0) g/dL RDW 15.4 (11.5-15.5) % Plt Count 436 (150-450) k/uL MPV 7.2 Neutrophils % 67 % Lymphocytes % 22 % Monocytes % 4 % Eosinophils % 4 % Basophils % 1 % Neutrophils # 5.5 (1.3-7.7) k/uL Lymphocytes # 1.8 (1.0-4.8) k/uL Monocytes # 0.3 (0-1.0) k/uL Eosinophils # 0.3 (0-0.7) k/uL Basophils # 0.0 (0-0.2) k/uL Hypochromasia Moderate Poikilocytosis Slight Microcytosis Slight Sodium 139 (137-145) mmol/L Potassium 3.3 L (3.5-5.1) mmol/L Chloride 102 (98-107) mmol/L Carbon Dioxide 24 (22-30) mmol/L Anion Gap 13 mmol/L BUN 9 (7-17) mg/dL Creatinine 0.63 (0.52-1.04) mg/dL Est GFR (CKD-EPI)AfAm >90 (>60 ml/min/1.73 sqM) Est GFR (CKD-EPI)NonAf >90 (>60 ml/min/1.73 sqM) Glucose 161 H (74-99) mg/dL Lactic Ac Sepsis Rflx Plasma Lactic Acid Eduardo 2.4 H* (0.7-2.0) mmol/L Calcium 9.3 (8.4-10.2) mg/dL Total Bilirubin 0.5 (0.2-1.3) mg/dL AST 23 (14-36) U/L ALT 26 (4-34) U/L Alkaline Phosphatase 144 H (38-126) U/L Total Protein 7.2 (6.3-8.2) g/dL Albumin 4.7 (3.5-5.0) g/dL Urine Color Urine Appearance (Clear) Urine RBC (0-5) /hpf Urine WBC (0-5) /hpf Ur Squamous Epith Cells (0-4) /hpf Urine Bacteria (None) /hpf Hyaline Casts (0-2) /lpf Urine Mucus (None) /hpf Urine Yeast (Budding) (None) /hpf 12/01/24 12/01/24 Range/Units 06:06 06:39 WBC (3.8-10.6) k/uL RBC (3.80-5.40) m/uL Hgb (11.4-16.0) gm/dL Hct (34.0-46.0) % MCV (80.0-100.0) fL MCH (25.0-35.0) pg MCHC (31.0-37.0) g/dL RDW (11.5-15.5) % Plt Count (150-450) k/uL MPV Neutrophils % % Lymphocytes % % Monocytes % % Eosinophils % % Basophils % % Neutrophils # (1.3-7.7) k/uL Lymphocytes # (1.0-4.8) k/uL Monocytes # (0-1.0) k/uL Eosinophils # (0-0.7) k/uL Basophils # (0-0.2) k/uL Hypochromasia Poikilocytosis Microcytosis Sodium (137-145) mmol/L Potassium (3.5-5.1) mmol/L Chloride (98-107) mmol/L Carbon Dioxide (22-30) mmol/L Anion Gap mmol/L BUN (7-17) mg/dL Creatinine (0.52-1.04) mg/dL Est GFR (CKD-EPI)AfAm (>60 ml/min/1.73 sqM) Est GFR (CKD-EPI)NonAf (>60 ml/min/1.73 sqM) Glucose (74-99) mg/dL Lactic Ac Sepsis Rflx Y Plasma Lactic Acid Eduardo (0.7-2.0) mmol/L Calcium (8.4-10.2) mg/dL Total Bilirubin (0.2-1.3) mg/dL AST (14-36) U/L ALT (4-34) U/L Alkaline Phosphatase (38-126) U/L Total Protein (6.3-8.2) g/dL Albumin (3.5-5.0) g/dL Urine Color Dark [place] Urine Appearance Slightly Cloudy H (Clear) Urine RBC 1 (0-5) /hpf Urine WBC 2 (0-5) /hpf Ur Squamous Epith Cells 36 H (0-4) /hpf Urine Bacteria Rare H (None) /hpf Hyaline Casts 100 H (0-2) /lpf Urine Mucus Many H (None) /hpf Urine Yeast (Budding) Occasional H (None) /hpf Disposition <Xavier Ornelas - Last Filed: 12/01/24 05:39> Is patient prescribed a controlled substance at d/c from ED?: No Time of Disposition: 07:01 <Efraín Contreras - Last Filed: 12/01/24 12:28> Clinical Impression: Interstitial cystitis, Candidiasis Disposition: TRANSFER TO PSYCH HOSP/UNIT Condition: Stable Instructions (If sedation given, give patient instructions): Interstitial Cystitis (ED) Additional Instructions: Please return to the Emergency Department if symptoms worsen or any other concerns. Prescriptions: Fluconazole [Diflucan] 150 mg PO ONCE #7 tab Referrals: Nonstaff,Physician [Primary Care Provider] - 1-2 days
[2024-12-01 06:13] LABS: Basophils % (A) 1 %; Eosinophils # (A) 0.3 k/uL (0-0.7); Eosinophils % (A) 4 %; HGB 11.1 gm/dL (11.4-16.0); Hypochromasia Moderate; Lymphocytes # (A) 1.8 k/uL (1.0-4.8); Lymphocytes % (A) 22 %; MCH 24.8 pg (25.0-35.0); MCHC 31.8 g/dL (31.0-37.0); Mean Platelet Volume 7.2; Microcytosis Slight; Monocytes # (A) 0.3 k/uL (0-1.0); Monocytes % (A) 4 %; Neutrophils # (A) 5.5 k/uL (1.3-7.7); Neutrophils % (A) 67 %; Platelet Count 436 k/uL (150-450); Poikilocytosis Slight; RBC 4.49 m/uL (3.80-5.40); RDW 15.4 % (11.5-15.5); WBC 8.2 k/uL (3.8-10.6)
[2024-12-01 06:27] LABS: ALT 26 U/L (4-34); AST 23 U/L (14-36); African American GFR (CKD) >90 (>60 ml/min/1.73 sqM); Albumin 4.7 g/dL (3.5-5.0); Alkaline Phosphatase 144 U/L (38-126); Anion Gap 13 mmol/L; Blood Urea Nitrogen 9 mg/dL (7-17); Calcium 9.3 mg/dL (8.4-10.2); Carbon Dioxide 24 mmol/L (22-30); Chloride 102 mmol/L (98-107); Glucose 161 mg/dL (74-99); Non-African American GFR(CKD) >90 (>60 ml/min/1.73 sqM); Potassium 3.3 mmol/L (3.5-5.1); Sodium 139 mmol/L (137-145); Total Bilirubin 0.5 mg/dL (0.2-1.3); Total Protein 7.2 g/dL (6.3-8.2)
[2024-12-01 06:38] LABS: Bacteria,Urine Rare /hpf; Budding Yeast,Urine Occasional /hpf; Hyaline Casts,Urine 100 /lpf (0-2); Mucus,Urine Many /hpf; RBC,Urine 1 /hpf (0-5); Squamous Epithelial Cell,Urine 36 /hpf (0-4); WBC,Urine 2 /hpf (0-5)
[2024-12-01 07:05] LABS: Appearance,Urine Slightly Cloudy (Clear); Color,Urine Dark Orange
[2024-12-01] MEDS: KETOROLAC 15 MG/ML 1 ML VIAL IVP STA (07:05)
[2024-12-01] MEDS: ACET/COD 300 MG/30 MG STARTER PACK 6 TAB BTL PO STA (07:06)
[2024-12-01] MEDS: HYDROcodone/APAP 5-325MG 1 EACH TAB PO STA (07:06)
== END 2024-12-01 07:10 ==
LOC: EC 05:01
DX: N30.10 Interstitial cystitis (chronic) without hematuria (principal); B37.9 Candidiasis, unspecified; Z88.2 Allergy status to sulfonamides; Z88.1 Allergy status to other antibiotic agents
CPT/HCPCS: 99284 ×2; 96374 ×2; 36415; 80053; 83605; 85025; 81001; J1885

== ENCOUNTER → 2025-06-24 | Outpatient (CLI) | payer MEDICARE ==
[2025-06-24 15:06] LABS: Basophils # (A) 0.06 X 10*3/uL (0.00-0.10); Basophils % (A) 0.9 %; Eosinophils # (A) 0.33 X 10*3/uL (0.04-0.35); Eosinophils % (A) 4.9 %; HCT 39.1 % (37.2-46.3); HGB 12.1 g/dL (12.0-15.0); Immature Grans, Automated 0.30 %; Lymphocytes # (A) 2.02 X 10*3/uL (0.90-5.00); Lymphocytes % (A) 30.2 %; MCH 25.1 pg (27.0-32.0); MCHC 30.9 g/dL (32.0-37.0); MCV 81.0 FL (80.0-97.0); Monocytes # (A) 0.37 X 10*3/uL (0.20-1.00); Monocytes % (A) 5.5 %; NRBC Per 100 WBC 0 X 10*3/uL (0.00-0.01); Neutrophils # (A) 3.89 X 10*3/uL (1.80-7.70); Neutrophils % (A) 58.2 %; Platelet Count 447 X 10*3/uL (140-440); RBC 4.83 X 10*6/uL (4.10-5.20); RDW 14.3 % (11.5-14.5); WBC 6.69 X 10*3/uL (4.50-10.00)
[2025-06-24 15:17] LABS: Anion Gap 13.00 mmol/L (4.00-12.00); BUN/Creat Ratio 15.12 Ratio (12.00-20.00); Blood Urea Nitrogen 12.1 mg/dL (9.0-27.0); Calcium 9.9 mg/dL (8.7-10.3); Carbon Dioxide 23.0 mmol/L (21.6-31.8); Chloride 103 mmol/L (96-109); Glucose 167 mg/dL (70-110); Potassium 4.5 mmol/L (3.5-5.5); Sodium 139 mmol/L (135-145)
[2025-06-24 15:50] LABS: Bilirubin,Urine Negative (Negative); Blood,Urine Negative (Negative); Color,Urine Yellow (Yellow); Ketones,Urine Trace (Negative); Nitrite,Urine Negative (Negative); PH, Urine 5.5; Specific Gravity,Urine 1.027 (1.001-1.030); Urobilinogen,Urine 1.0 E.U./DL
[2025-06-24 16:14] LABS: Bacteria,Urine 2+ (None Seen); Yeast (UA) Present (None Seen)
== END | disposition home or self-care (01) ==
LOC: LABWHC1 10:32
PROVIDERS: ATTEND Urology
DX: N39.0 Urinary tract infection, site not specified (principal)
CPT/HCPCS: 36415; 80048; 81001; 85025; 87086; 93005